=== PATIENT | male | born 1950 | race Caucasian/White ===

== ENCOUNTER 2022-08-04 17:45 | Inpatient (IN) ==
--- NOTE | 2022-08-04 18:28 | Emergency Department Note ---
History of Present Illness General Chief complaint: Fall Stated complaint: FELL, LAND ON LEFT WRIST AND HIP, PAIN Time Seen by Provider: 08/04/22 18:13 History of Present Illness Maximum Pain Intensity: 2 This is a 72-year-old male with a history of CVA currently on aspirin and clopidogrel with complaints of "fall, left wrist and left hip pain". Patient is here today accompanied by daughter. They note that around 1 PM today he was walking his dog, ascending a hill when he took a step and the dog lunged towards a car causing him to fall. This was witnessed by a neighbor. He did not strike the head or lose consciousness. Since that time he notes pain to the left hip and cannot ambulate on the left hip secondary to pain. He also notes some pain and swelling to the left wrist. Current pain 10/13. Patient is adamant he did not strike the head or lose consciousness. No headache. No neck pain. No vomiting. No nausea. Patient denies any other areas of pain beyond the left hip/wrist. Allergies Allergy/AdvReac Type Severity Reaction Status Date / Time cephalexin Allergy Unknown Verified 08/04/22 23:42 Penicillins Allergy Unknown Verified 08/04/22 23:42 prednisone Allergy Unknown Verified 08/04/22 23:42 Past Med/Surg History Social History Smoking Status: Never smoker Second Hand Exposure: No; Do You Dip or Chew Tobacco: No; Hx Alcohol Use: No Hx Substance Use: No Preferred Language: Palestinian Communication Ability: Effective Alteration Worker Required: No Beliefs That Will Affect Care: None Current Living Situation: Alone Other Information That Helps Us Care for You: No Feels Safe at Home: Yes Safety Concerns: Feels Safe At This Time Assistive Devices: CPAP Review of Systems A total of 10 systems reviewed and were otherwise negative Physical Exam Vital Signs Vital Signs - 24 hr 08/04/22 18:05 08/04/22 19:54 Temperature 36.8 C Temperature Source Temporal Artery Scan Pulse Rate 71 Pulse Rate [Finger] 84 Pulse Rhythm Regular Pulse Strength Normal Respiratory Rate 20 16 Respiratory Effort / Characteristics Non-Labored Spontaneous Respiratory Depth Normal Respiratory Pattern Regular Blood Pressure 123/77 Blood Pressure Mean 92 Blood Pressure Position Sitting Pulse Oximetry 96 97 Oxygen Delivery Method Room Air Room Air Sepsis Recent Fever Within 48 Hours No Sepsis New/Unexplained Change in Mental Status No Sepsis Action Taken by Nursing No Action Required VITAL SIGNS - Vital signs and nursing notes were reviewed. Stable and afebrile. GENERAL - 72-year-old male appearing his stated age who is in no acute distress. Communicates well with provider and answers questions appropriately. SKIN - Without rashes. No meningeal or petechial rash. Edema present to the dorsal aspect of the left wrist. No break in the integument. HEAD - NC/AT. EYES - PERRL with EOMI bilaterally. Sclera anicteric. EARS - No deformities of external structures noted on gross examination bilater ally. No pain elicited with palpation of the tragus bilaterally. External auditory canals without discharge or otorrhea. Tympanic membranes pearly quinonez without retraction or bulging. No fluid or purulent material visualized behind the TM. Handle of malleus, umbo, cone of light, pars tensa/flaccid all easily visualized. NOSE - Midline and without cyanosis. No epistaxis or purulent drainage noted. S eptum midline without deviation or septal hematoma noted. MOUTH/OROPHARYNX - Without perioral cyanosis. Buccal mucosa pink and moist and without leukoplakia. Tongue midline with equal elevation of palate bilaterally. No tonsillar hypertrophy, erythema, or exudates noted. Fair dentition noted. NECK - Neck with FROM. No C-spine tenderness. No nuchal rigidity. LUNGS - Chest wall symmetric without accessory muscle use, intercostals retractions, or central cyanosis. Normal vesicular breath sounds CTA B/L. No wheezes, rales, or rhonchi appreciated. CARDIAC -regular rate and rhythm. EXTREMITIES - No clubbing or peripheral cyanosis. Left wrist and left hip tender to palpation. Patient not able to axial load of the left hip secondary to pain to the left lateral hip joint. Left wrist with decreased range of motion. Left radial pulse intact. Left dorsalis pedis pulse intact. No deficits. No break in the integument. No bruising to the left hip noted. +5/5 strength noted in UE/LE bilaterally. NEUROLOGIC - Cranial nerves II through XII grossly intact. PSYCH - A&Ox3 and cooperates fully with examiner. Pt is very pleasant and interacts well with examiner. Course Administered Medications Memantine (Memantine Hcl 10 Mg Tab) 10 mg PO BID VALERIO Stop: 09/03/22 23:29 Last Admin: 08/05/22 00:23 Dose: 10 mg Documented By: ANGELES Ranolazine (Ranolazine 500 Mg Er Tab) 500 mg PO BID VALERIO Stop: 09/03/22 23:29 Last Admin: 08/05/22 00:23 Dose: 500 mg Documented By: ANGELES Discontinued Medications Lidocaine HCl (Xylocaine 1%/Sod Bicarb 20 Ml Vial) 20 ml INFIL NOW ONE Stop: 08/04/22 20:02 Last Admin: 08/04/22 21:44 Dose: 20 ml Documented By: LUKE Medical Decision Making Laboratory Data Result diagrams: 08/04/22 19:35 08/04/22 19:35 Lab Results 08/04/22 08/04/22 08/04/22 Range/Units 19:35 19:35 19:35 WBC 12.77 H (4.8-10.8) K/ul RBC 4.34 L (4.63-6.08) M/uL Hgb 14.1 (14.0-18.0) g/dl Hct 42.8 (40.1-51.0) % MCV 98.6 (80.0-100.0) fL MCH 32.5 (25.0-34.0) pg MCHC 32.9 (32.0-36.0) g/dL RDW Std Deviation 48.8 H (36.4-46.3) fL RDW Coeff of Carola 13.3 (11.5-14.5) % Plt Count 224 (130-400) K/uL MPV 9.8 (9.4-12.4) fL Immature Gran % (Auto) 1.0 % Neut % (Auto) 80.8 % Lymph % (Auto) 9.6 % [place] % (Auto) 7.5 % Eos % (Auto) 0.6 % Baso % (Auto) 0.5 % Neut # (Auto) 10.31 H (1.4-6.5) K/uL Lymph # (Auto) 1.23 (1.2-3.4) K/uL [place] # (Auto) 0.96 H (0.24-0.82) K/uL Eos # (Auto) 0.08 (0-0.50) K/uL Baso # (Auto) 0.06 (0-0.2) K/uL Immature Gran # (Auto) 0.13 H (0.00-0.02) K/uL PT 10.9 (9.0-12.0) Seconds INR 1.0 (0.9-1.1) APTT 21.8 (21.0-31.0) Seconds PTT Ratio 0.8 Sodium 137 (136-145) mmol/L Potassium 4.3 (3.5-5.1) mmol/L Chloride 105 (98-107) mmol/L Carbon Dioxide 26 (21-32) mmol/L Anion Gap 6 (3-11) BUN 28 H (6-23) mg/dl Creatinine 1.15 (0.6-1.4) mg/dl Est Cr Clr Drug Dosing Not Reportable Est GFR ( Amer) 72.3 ml/min Est GFR (Non-Af Amer) 62.3 ml/min BUN/Creatinine Ratio 24.3 H (10-20) Glucose 116 H (70-99(Fasting)) mg/dl Calcium 9.9 (8.5-10.1) mg/dl Total Bilirubin 1.4 H (0.2-1.0) mg/dl AST 21 (13-39) U/L ALT 16 (7-52) U/L Alkaline Phosphatase 29 L (34-104) U/L Total Protein 7.3 (6.0-8.3) gm/dl Albumin 4.1 (3.4-5.0) gm/dl Globulin 3.2 (2.5-4.0) gm/dl Albumin/Globulin Ratio 1.3 (0.9-2) SARS-CoV-2, RNA, NAAT (NEGATIVE) 08/04/22 Range/Units 19:35 WBC (4.8-10.8) K/ul RBC (4.63-6.08) M/uL Hgb (14.0-18.0) g/dl Hct (40.1-51.0) % MCV (80.0-100.0) fL MCH (25.0-34.0) pg MCHC (32.0-36.0) g/dL RDW Std Deviation (36.4-46.3) fL RDW Coeff of Carola (11.5-14.5) % Plt Count (130-400) K/uL MPV (9.4-12.4) fL Immature Gran % (Auto) % Neut % (Auto) % Lymph % (Auto) % [place]in[place] % (Auto) % Eos % (Auto) % Baso % (Auto) % Neut # (Auto) (1.4-6.5) K/uL Lymph # (Auto) (1.2-3.4) K/uL [place]in[place] # (Auto) (0.24-0.82) K/uL Eos # (Auto) (0-0.50) K/uL Baso # (Auto) (0-0.2) K/uL Immature Gran # (Auto) (0.00-0.02) K/uL PT (9.0-12.0) Seconds INR (0.9-1.1) APTT (21.0-31.0) Seconds PTT Ratio Sodium (136-145) mmol/L Potassium (3.5-5.1) mmol/L Chloride (98-107) mmol/L Carbon Dioxide (21-32) mmol/L Anion Gap (3-11) BUN (6-23) mg/dl Creatinine (0.6-1.4) mg/dl Est Cr Clr Drug Dosing Est GFR ( Amer) ml/min Est GFR (Non-Af Amer) ml/min BUN/Creatinine Ratio (10-20) Glucose (70-99(Fasting)) mg/dl Calcium (8.5-10.1) mg/dl Total Bilirubin (0.2-1.0) mg/dl AST (13-39) U/L ALT (7-52) U/L Alkaline Phosphatase (34-104) U/L Total Protein (6.0-8.3) gm/dl Albumin (3.4-5.0) gm/dl Globulin (2.5-4.0) gm/dl Albumin/Globulin Ratio (0.9-2) SARS-CoV-2, RNA, NAAT NEGATIVE (NEGATIVE) Imaging Data Radiologist's Impression: Hip/Pelvis X-Ray 08/04/22 18:25 XR hip LT 2V w pelvis CLINICAL HISTORY: Fall,L wrist and L hip pain COMPARISON STUDY: None. FINDINGS: There is nondisplaced but slightly impacted subcapital left femoral n shauna fracture. No dislocation. The pelvic bones and right hip are intact. Moderate to severe degenerative disc disease within the lower lumbar spine. IMPRESSION: Slightly impacted subcapital left femoral neck fracture. No dislocation. ACT 112: Negative or not required by law. Electronically signed by: Willie Domingo M.D. 08/04/2022 7:15 PM Wrist X-Ray 08/04/22 18:25 XR wrist LT min 3V routine CLINICAL HISTORY: Fall,L wrist and L hip pain COMPARISON STUDY: None. FINDINGS: There is a comminuted, impacted, displaced distal left radius fracture which demonstrates intra-articular extension. This demonstrates up to 1 cm dorsal displacement and dorsal angulation. There is diffuse soft tissue swelling. Small fracture at the tip of the ulnar styloid is also noted. No dislocation. IMPRESSION: Distal left radius and ulnar styloid fractures as described above. ACT 112: Negative or not required by law. Electronically signed by: Willie Domingo M.D. 08/04/2022 7:[address] 08/04/22 19:[address] DOSE: 773.57 mGy.cm HISTORY: fall, hip and wrist injuries, clopidigrel/aspirin TECHNIQUE: Multiaxial CT images of the head were performed without the use of intravenous contrast. Automated exposure control was utilized for this study. A dose lowering technique was utilized adhering to the principles of ALARA. Comparison: None. Findings: Partial opacification of the ethmoid air cells. The mastoid air cells are clear. The calvarium and skull base are intact. There is no mass, hematoma, midline shift, acute infarct. White matter hypodensity is nonspecific but bustillo ggestive of microvascular ischemic change. The ventricles and sulci demonstrate mild age-related involutional changes. Small focus of encephalomalacia within the left posterior parietal lobe consistent with an old infarct. Impression: No acute intracranial abnormality. Atrophy and microvascular ischemic changes. ACT 112: Negative or not required by law. Electronically signed by: Willie Domingo M.D. 08/04/2022 8:09 PM Hip X-Ray 08/04/22 20:01 XR hip LT 1V CLINICAL HISTORY: L lateral hip. Left hip pain. Left hip fracture. COMPARISON STUDY: Pelvis and left hip 08/04/2022. FINDINGS: Redemonstration of the subcapital left femoral neck fracture. This is partially obscured by the overlapping bony and soft tissue structures. No dislocation. IMPRESSION: Subcapital left femoral neck fracture again noted. ACT 112: Negative or not required by law. Electronically signed by: Willie Domingo M.D. 08/04/2022 8:52 PM MDM Narrative Patient was seen and evaluated as above in room D09. Review was performed of nursing notes and vital signs. After obtaining a thorough history and physical examination the above work up was performed. Patient presents to us today status post ground-level mechanical fall with left wrist and left hip pain. He actually complains of very little pain on examination and rates them as very minimal. He respectfully declines pain medication. Options of care were discussed with the patient. X-ray of the left wrist and left hip were obtained. I also obtained a CT scan of the patient's head noting his dual antiplatelet therapy in the setting of fall with extremity fractures. CT scan of the head negative for intracranial bleeding. Unfortunately the patie nt does have a subcapital left femoral neck fracture as well as a left wrist fracture. I discussed these findings with the patient, daughter, as well as the on-call orthopedist, Dr. Frank. He came to evaluate the patient and reduced his wrist. Patient will be admitted by the medicine service pending surgical intervention of his left hip. I did obtain baseline laboratory studies. Mild leukocytosis 12.77 which is felt to be reactive. No concerning anemia. Mild BUN elevation of 28. Mild hyperglycemia 116. T bili mildly elevated at 1.4. COVID testing negative. Please refer to further documentation regarding his stay. GCS: 15 In the evaluation and treatment of this patient the following differential diagnoses were entertained: Fracture, dislocation, subluxation, contusion, spra in, strain, among others. Impression & Plan Fall, Closed fracture of left hip, Closed fracture of left wrist Discharge Plan Visit Data Chief Complaint: Fall Stated Complaint: FELL, LAND ON LEFT WRIST AND HIP, PAIN ED Provider: Julius Newman ED Midlevel Provider: Yovany Liang Discharge Problem: Fall, Closed fracture of left hip, Closed fracture of left wrist Patient Disposition: Admitted As Inpatient Discharge Instructions Interventions: ED Discharge Assessment Last Done: 08/04/22 22:44
--- NOTE | 2022-08-04 19:16 | XRay Report ---
XR wrist LT min 3V routine CLINICAL HISTORY: Fall,L wrist and L hip pain COMPARISON STUDY: None. FINDINGS: There is a comminuted, impacted, displaced distal left radius fracture which demonstrates i ntra-articular extension. This demonstrates up to 1 cm dorsal displacement and dorsal angulation. The re is diffuse soft tissue swelling. Small fracture at the tip of the ulnar styloid is also noted. No dislocation. IMPRESSION: Distal left radius and ulnar styloid fractures as described above. ACT 112: Negative or not required by law. Electronically signed by: Willie Domingo M.D. 08/04/2022 7:14 PM
--- NOTE | 2022-08-04 19:17 | XRay Report ---
XR hip LT 2V w pelvis CLINICAL HISTORY: Fall,L wrist and L hip pain COMPARISON STUDY: None. FINDINGS: There is nondisplaced but slightly impacted subcapital left femoral neck fracture. No dislo cation. The pelvic bones and right hip are intact. Moderate to severe degenerative disc disease withi n the lower lumbar spine. IMPRESSION: Slightly impacted subcapital left femoral neck fracture. No dislocation. ACT 112: Negative or not required by law. Electronically signed by: Willie Domingo M.D. 08/04/2022 7:15 PM
[2022-08-04 19:58] LABS: Basophils # (auto) 0.06 K/uL (0-0.2); Basophils % (auto) 0.5 %; Eosinophils # (auto) 0.08 K/uL (0-0.50); Eosinophils % (auto) 0.6 %; Hematocrit (blood only) 42.8 % (40.1-51.0); Hemoglobin 14.1 g/dl (14.0-18.0); Immature Granulocytes # (auto) 0.13 K/uL (0.00-0.02); Lymphocytes # (auto) 1.23 K/uL (1.2-3.4); Lymphocytes % (auto) 9.6 %; Mean Corpuscular Hemoglobin 32.5 pg (25.0-34.0); Mean Corpuscular Hgb Conc 32.9 g/dL (32.0-36.0); Mean Corpuscular Volume 98.6 fL (80.0-100.0); Mean Platelet Volume 9.8 fL (9.4-12.4); Monocytes # (auto) 0.96 K/uL (0.24-0.82); Monocytes % (auto) 7.5 %; Neutrophils # (auto) 10.31 K/uL (1.4-6.5); Neutrophils % (auto) 80.8 %; Platelet Count 224 K/uL (130-400); RDW Coefficient of Variation 13.3 % (11.5-14.5); RDW Standard Deviation 48.8 fL (36.4-46.3); Red Blood Count 4.34 M/uL (4.63-6.08); White Blood Count 12.77 K/ul (4.8-10.8)
[2022-08-04] MEDS ORDERED: XYLOCAINE 1%/SOD BICARB 20 ML VIAL INFIL ONE (20:01)
--- NOTE | 2022-08-04 20:11 | CT Scan Report ---
HEAD CT NONCONTRAST CT DOSE: 773.57 mGy.cm HISTORY: fall, hip and wrist injuries, clopidigrel/aspirin TECHNIQUE: Multiaxial CT images of the head were performed without the use of intravenous contrast. A utomated exposure control was utilized for this study. A dose lowering technique was utilized adheri ng to the principles of ALARA. Comparison: None. Findings: Partial opacification of the ethmoid air cells. The mastoid air cells are clear. The calvar ium and skull base are intact. There is no mass, hematoma, midline shift, acute infarct. White matter hypodensity is nonspecific but suggestive of microvascular ischemic change. The ventricles and sulci demonstrate mild age-related involutional changes. Small focus of encephalomalacia within the left p osterior parietal lobe consistent with an old infarct. Impression: No acute intracranial abnormality. Atrophy and microvascular ischemic changes. ACT 112: Negative or not required by law. Electronically signed by: Willie Domingo M.D. 08/04/2022 8:09 PM
[2022-08-04 20:13] LABS: Partial Thromboplastin Ratio 0.8; Partial Thromboplastin Time 21.8 Seconds (21.0-31.0); Prothrombin Time 10.9 Seconds (9.0-12.0)
[2022-08-04 20:29] LABS: Alanine Aminotransferase 16 U/L (7-52); Albumin Globulin Ratio 1.3 (0.9-2); Albumin Level 4.1 gm/dl (3.4-5.0); Alkaline Phosphatase 29 U/L (34-104); Anion Gap 6 (3-11); Aspartate Aminotransferase 21 U/L (13-39); BUN Creatinine Ratio 24.3 (10-20); Bilirubin,Total 1.4 mg/dl (0.2-1.0); Blood Urea Nitrogen 28 mg/dl (6-23); Calcium 9.9 mg/dl (8.5-10.1); Carbon Dioxide 26 mmol/L (21-32); Chloride 105 mmol/L (98-107); Est GFR (African American) 72.3 ml/min; Est GFR (Non-African American) 62.3 ml/min; Globulin 3.2 gm/dl (2.5-4.0); Glucose 116 mg/dl (70-99(Fasting)); Potassium 4.3 mmol/L (3.5-5.1); Sodium 137 mmol/L (136-145); Total Protein 7.3 gm/dl (6.0-8.3)
[2022-08-04] MEDS ORDERED: ONDANSETRON INJ 2 MG/ML 2 ML VIAL IV PRN (20:46)
[2022-08-04] MEDS ORDERED: ALUMINUM/MAGNESIUM SUSP 30 ML UDC PO PRN (20:46)
[2022-08-04] MEDS ORDERED: MAGNESIUM HYDROXIDE SUSP 30 ML UDC PO PRN (20:46)
[2022-08-04] MEDS ORDERED: POLYETHYLENE (MIRALAX) 17 GM PACK PO PRN (20:46)
--- NOTE | 2022-08-04 20:50 | History & Physical Report ---
Date of Service August 04, 2022 Assessment & Plan (1) Fall: Plan Mechanical fall, ground-level Likely osteoporotic fracture Comminuted intra-articular left distal radius fracture Nondisplaced impacted left femoral neck fracture Patient had a mechanical fall, denies hitting head. Admitting CT head, hip x-ray and wrist x-ray reviewed. Admitting blood works fairly WNL. Orthopedics evaluated, status post closed reduction of left wrist 08/04, plan for ORIF with hip cannulated screw on 08/05 Pain management, n.p.o. midnight Patient able to walk 2-3 flight of stairs and 2 blocks without chest pain/shortness of breath/dizziness per patient. Patient with history of significant cardiovascular disease. Patient at moderate risk for this needed surgery. Other chronic medical conditions: CAD, CVA, HLD, HTN --> resume home meds as able DVT prophylaxis: SCDs for now, chemoprophylaxis per Ortho when bleeding risks deemed minimal after surgery. Full code History of Present Illness Chief Complaint: Fall Primary Care Provider: NO PCP 72-year-old man with PMH of CAD, HTN, sinus bradycardia, HLD, CVA presented to our ED 08/04 after fall on the left side. Patient was walking with dog uphill when at one time the dog got excited and jerked the leash and patient fell on his left side, injured his left hand and left hip. Reports he did not hit his head. Denies any dizziness or loss of consciousness or chest pain or palpitation or nausea or warmth or seizure-like episodes surrounding the event. Patient denies any fever, shortness of breath, headache, chest pain, palpitation, belly pain. Patient reports not urinating since after the fall but denies any problems with his urinary habits. Patient denies any lower abdominal pain. We will continue to monitor his urine output, bladder scan if necessary. Patient denies smoking, quit drinking alcohol 1984, denies use of recreational drugs. Full code as per discussion with patient. 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 Family history positive for DC in both parents and stroke in both parents. Personal history positive for stroke in 1982, residual right peripheral vision loss. Seizure in 1983. Coronary artery disease status post stents x1 in 2005 and x1 in 2010 and double bypass surgery in 2000 per patient's daughter at bedside. Per patient, he is able to walk 2-3 flight of stairs and 2 blocks without any chest pain or shortness of breath or dizziness. Medications reviewed with the patient. Patient takes isosorbide mononitrate ER tablet 30 mg every morning, lisinopril 10 mg tablet every morning, fenofibrate 145 mg tablet every morning, baby aspirin every morning, Plavix 75 mg every mo rning, donepezil 10 mg tablet every morning, memantine 10 mg tablet twice daily, ranolazine 500 mg tablet twice daily, atorvastatin 80 mg tablet every morning. Allergies Allergy/AdvReac Type Severity Reaction Status Date / Time cephalexin Allergy Unknown Verified 08/04/22 23:42 Penicillins Allergy Unknown Verified 08/04/22 23:42 prednisone Allergy Unknown Verified 08/04/22 23:42 Past Med/Surg History Social History Smoking Status: Never smoker Second Hand Exposure: No; Do You Dip or Chew Tobacco: No; Hx Alcohol Use: No Hx Substance Use: No Preferred Language: Georgian Communication Ability: Effective Locator Specialist Required: No Beliefs That Will Affect Care: None Current Living Situation: Alone Other Information That Helps Us Care for You: No Feels Safe at Home: Yes Safety Concerns: Feels Safe At This Time Assistive Devices: CPAP Review of Systems Review of Systems: Negative otherwise mentioned in HPI. Physical Exam Physical Exam: GENERAL: Alert and oriented x3. NAD, on RA. HEENT: No pallor, no icterus. Pupils equal, round and reactive to light. Oral mucosa moist. NECK: No JVD, no neck masses. HEART: S1 and S2 heard. Regular rate and rhythm. No murmur, no gallop. RESPIRATORY SYSTEM: Normal AP diameter. No accessory muscle use. No wheezing, no crackles. ABDOMEN: Soft, bowel sounds present, nontender, no distention. CENTRAL NERVOUS SYSTEM: No facial droop. Speech is clear. Obeys simple commands. Moves extremities. EXTREMITIES: Trace BLE edema, bilateral varicose veins noted, bilateral lower extremity chronic skin changes noted. Left UE with splint and sling noted, distal neurovascular status normal in left extremities. Results & Data Results & Data ([facility]) Vital Signs (Past 12 Hours) Vital Signs Temp Pulse Pulse Resp BP Pulse Ox O2 Del Method 08/04/22 19:54 84 16 97 Room Air 08/04/22 18:05 36.8 C 71 20 123/77 96 Room Air
--- NOTE | 2022-08-04 20:53 | XRay Report ---
XR hip LT 1V CLINICAL HISTORY: L lateral hip. Left hip pain. Left hip fracture. COMPARISON STUDY: Pelvis and left hip 08/04/2022. FINDINGS: Redemonstration of the subcapital left femoral neck fracture. This is partially obscured by the overlapping bony and soft tissue structures. No dislocation. IMPRESSION: Subcapital left femoral neck fracture again noted. ACT 112: Negative or not required by law. Electronically signed by: Willie Domingo M.D. 08/04/2022 8:52 PM
--- NOTE | 2022-08-04 22:39 | Progress Notes ---
DATE OF SERVICE: 08/04/2022 CHIEF COMPLAINT: Left wrist pain, left hip pain. HISTORY OF PRESENT ILLNESS: Cristobal is 72. He is from the [place] area. Here visiting family. He was walking with a dog. The dog ran it something causing him to lose his balance, fall down and injured the left hip and left wrist. He was unable to walk. Because of the injury, he was brought to the ER where fractures were identified. There is no prior history of injury to those areas. He denies any tingling or numbness. PAST MEDICAL HISTORY: Significant for mild dementia, stroke, seizure, CABG, stents, varicose vein stripping, questionable history of a blood clot, lumbar surgery and peripheral artery disease. He has an ALLERGY TO PENICILLIN, WHICH CAUSES A RASH. PREDNISONE AND CEPHALEXIN HAVE CAUSED REACTION, which he cannot recall. No allergy to metals. He has never had an embolism, methicillin-resistant Staphylococcus infection, diabetes, high blood pressure, or cancer. He is awake, alert and oriented. Examination of the left arm reveals swelling and tenderness with deformity of the left wrist. Median, radial, and ulnar motor and sensory functions are intact with 4/5 strength, limited by pain. He has good finger extension, but limited flexion secondary to pain, wrist movement is limited because of pain. Capillary refill less than 2 seconds. Radial pulse 1+. Skin closed. He has no tenderness of the hand, forearm or elbow and he has good elbow range of motion. Examination of the left leg reveals mild tenderness to palpation of the left hip. He can flex his knee to 90 degrees. Straighten the leg out on his own. The leg is not otherwise tender or swollen. He has 5/5 ankle and toe, plantar flexion, dorsiflexion, inversion and eversion strength, normal sensation and 2+ DP and PT pulses. Radiographs of the wrist demonstrated a comminuted intraarticular fracture of the distal radius. Hip films demonstrate a nondisplaced impacted subcapital femoral neck fracture. Reports are reviewed. Informed consent is obtained. Preprocedural timeout was done. The procedure site identified as the left wrist. I anesthetized with 10 mL of 1% plain lidocaine for hematoma block. After adequate analgesia, I did a closed reduction maneuver x2 and then applied a sugar-tong splint. The splint was molded. Post-reduction median, radial, and ulnar motor and sensory functions were intact with normal strength. Capillary refill less than 2 seconds. Post- reduction radiographs showed reasonable alignment on the lateral. The tilting was neutral. The AP; however, showed that there is a large lunate facet fragment, which is slightly displaced. The radial height was good. Sling was applied along with ice. IMPRESSION: 1. Comminuted intraarticular left distal radius fracture. 2. Nondisplaced impacted left femoral neck fracture. PLAN: They were educated about the wrist injury. I recommend closed reduction, which is done. The reduction improved the alignment; however, there is comminution and likely an unstable fracture. This may require ORIF. We will get a CT scan to further evaluate the degree of injury as well as the alignment. At this time, this will be addressed with the sling and splint pending the CT scan. The left hip fracture is reviewed. Risk of displacement of left alone. I recommend percutaneous screws if the alignment remains anatomic, if not, hemiarthroplasty. We talked about the risks, benefits, rehab and recovery involving each one and informed consent was obtained. He will be n.p.o. after midnight. Plan for surgery tomorrow for percutaneous screws on the left hip. He is not on a blood thinner. Mechanical devices for DVT prophylaxis preoperatively. labs noted. [employer] noted Job ID: [id number]
[2022-08-05] MEDS: MEMANTINE HCL 10 MG TAB PO SCH ×3 (00:23→20:25)
[2022-08-05] MEDS: RANOLAZINE 500 MG ER TAB PO SCH ×3 (00:23→20:26)
[2022-08-05] MEDS ORDERED: Flu Vaccine-High Dose (Fluzone-HD) PF 65+ 0.7mL SYR IM ONE (00:45)
[2022-08-05 06:11] LABS: Hematocrit (blood only) 39.7 % (40.1-51.0); Mean Corpuscular Hemoglobin 32.1 pg (25.0-34.0); Mean Corpuscular Hgb Conc 32.7 g/dL (32.0-36.0); Mean Platelet Volume 9.7 fL (9.4-12.4); Platelet Count 207 K/uL (130-400); RDW Coefficient of Variation 13.4 % (11.5-14.5); RDW Standard Deviation 49.1 fL (36.4-46.3); Red Blood Count 4.05 M/uL (4.63-6.08); White Blood Count 9.84 K/ul (4.8-10.8)
[2022-08-05 06:34] LABS: BUN Creatinine Ratio 25.3 (10-20); Calcium 8.8 mg/dl (8.5-10.1); Creatinine Clr Calc Pharmacy 82.5 ml/min; Est GFR (African American) 86.6 ml/min; Est GFR (Non-African American) 74.7 ml/min; Magnesium 1.9 mg/dl (1.7-2.4); Phosphorus 3.4 mg/dl (2.5-4.9); Potassium 3.7 mmol/L (3.5-5.1)
--- NOTE | 2022-08-05 07:38 | CT Scan Report ---
LEFT WRIST CT CT DOSE: 177.98 mGy.cm HISTORY: Left wrist pain TECHNIQUE: Multiaxial CT images of the left wrist were performed and reformatted in the sagittal and coronal plane without the use of contrast. A dose lowering technique was utilized adhering to the pr inciples of HIRAL. COMPARISON: Left wrist radiograph 08/04/2022. FINDINGS: There is a comminuted, impacted, and displaced distal left radius fracture which demonstrat es intra-articular extension. There is 1 cm of dorsal displacement and dorsal angulation. There is di ffuse soft tissue swelling. Small fracture the tip of the ulnar styloid is again noted. There is an o ld small fracture at the triquetral bone. IMPRESSION: Distal left radius and ulnar styloid fractures as described above. ACT 112: Negative or not required by law. Electronically signed by: Willie Domingo M.D. 08/05/2022 7:37 AM
--- NOTE | 2022-08-05 07:40 | Fluoroscopy Report ---
FL wrist LT 2V CLINICAL HISTORY: Left wrist fracture status post reduction. COMPARISON STUDY: Left wrist CT 08/04/2022. FLUOROSCOPY TIME: 3 seconds. FINDINGS: 3 fluoroscopic spot images of the left wrist demonstrate reduction of the distal left radiu s fracture with improved anatomic alignment. There is mild distraction of the intra-articular compone nt of the comminuted fracture. Tiny fracture at the tip of the ulnar styloid. No dislocation. IMPRESSION: Improved anatomic alignment status post reduction of the distal left radius fracture. ACT 112: Negative or not required by law. Electronically signed by: Willie Domingo M.D. 08/05/2022 7:38 AM
--- NOTE | 2022-08-05 08:12 | Anesthesiology Consultation ---
Date of Service August 05, 2022 Assessment & Plan (1) Encounter for pre-operative examination: History Surgery Operation Date: 08/05/22 09:00 Proposed Procedures p ORIF Hip Cannulated Screw - Fredis Frank MD Height/Weight Height: 6 ft 5 in Weight: 99 kg Allergies Allergy/AdvReac Type Severity Reaction Status Date / Time cephalexin Allergy Unknown Verified 08/04/22 23:42 Penicillins Allergy Unknown Verified 08/04/22 23:42 prednisone Allergy Unknown Verified 08/04/22 23:42 Medications Active Medications Generic Name Dose Route Start Last Admin Trade Name Freq PRN Reason Stop Dose Admin Memantine 10 mg 08/04/22 23:30 08/05/22 00:23 Memantine Hcl 10 Mg Tab PO 09/03/22 23:29 10 mg BID VALERIO Administration Ranolazine 500 mg 08/04/22 23:30 08/05/22 00:23 Ranolazine 500 Mg Er Tab PO 09/03/22 23:29 500 mg BID VALERIO Administration Past Medical History Medical History (Updated 08/05/22 @ 08:50 by Nettie Bustillo MD) Closed fracture of left hip Closed fracture of left wrist Fall Hx CAD, HTN, sinus bradycardia, HLD, 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, no other deficits CASSIE on CPAP IA s/p CABG x 2 vessels 2001 s/p stents 2005 and 2010 Seizure 1984 due to medications Lumbar surgery 2006 LE vein stripping Social History Smoking Status: Never smoker Do You Dip or Chew Tobacco: No Hx Alcohol Use: No Hx Substance Use: No Physical Exam Vital Signs Last Vital Signs Temp 37.1 C 08/05/22 07:37 Pulse 62 08/05/22 07:37 Resp 18 08/05/22 07:37 BP 136/77 08/05/22 07:37 Pulse Ox 91 08/05/22 07:37 O2 Del Method 08/05/22 07:37 Testing Laboratory Results 08/05/22 05:21 08/05/22 05:21 PT 10.9 Seconds (9.0-12.0) 08/04/22 19:35 INR 1.0 (0.9-1.1) 08/04/22 19:35 APTT 21.8 Seconds (21.0-31.0) 08/04/22 19:35 Electrocardiogram Date: 08/05/22 Findings: + NSR @ NSR with sinus arrhythmia
--- NOTE | 2022-08-05 08:21 | History & Physical Bridge Note ---
Date of Service August 05, 2022 History & Physical Bridge Note I have examined the patient, reviewed the History & Physical and in the interval since the performance of the History & Physical I have noted the following changes of clinical significance: no changes noted
[2022-08-05] MEDS ORDERED: ONDANSETRON INJ 2 MG/ML 2 ML VIAL ONE ×2 (08:47→10:58)
[2022-08-05] MEDS ORDERED: fentaNYL citrate 100 MCG/2 ML VIAL ONE (08:47)
[2022-08-05] MEDS ORDERED: LIDOCAINE 2% MPF LOCAL 5 ML VIAL INFIL ONE (08:47)
[2022-08-05] MEDS ORDERED: ROCURONIUM BROMIDE 10 MG/ML 5 ML VIAL IV ONE (08:47)
[2022-08-05] MEDS ORDERED: PROPOFOL IV EMULSION 10 MG/ML 20 ML VIAL IV ONE (08:47)
--- NOTE | 2022-08-05 08:51 | Progress Notes ---
DATE OF SERVICE: 08/05/2022. Mr. Hussein resting comfortably in bed. He remembers the events of yesterday and that he is having bustillo rgery. He is comfortable and in no acute distress. Left hand shows mild loss of range of motion, minimal swelling of the fingers. Capillary refill less than 2 seconds. Median, radial, and ulnar motor and sensory functions intact. The splint is intact . The left hip was identified and marked as the operative site. He is afebrile. His vital signs are s table. His labs today are noted. Hemoglobin 13, hematocrit is 40. PT/INR are noted. PRP noted. C OVID negative. The wrist CT is reviewed. He has a significantly comminuted intraarticular fracture of the distal ra dius. The alignment at this point is reasonable. There is good height, neutral to slight dorsal til ting. Significant comminution noted. There is minimal articular irregularity, but some diastasis. IMPRESSION: An impacted left hip fracture and a comminuted intraarticular left distal radius fractur e. PLAN: To proceed with cannulated screws versus hemiarthroplasty, left hip this morning. In regards to the wrist, alignment is acceptable at this point. Operative intervention may be necessary should collapse occur. We will discuss with hand surgery. Job ID: [id number]
[2022-08-05] MEDS ORDERED: ASPIRIN 81 MG ECTAB PO SCH (09:00)
[2022-08-05] MEDS ORDERED: LIDOCAINE 1%/EPINEPHRINE 1:100,000 50 ML VIAL ONE (09:26)
[2022-08-05] MEDS ORDERED: BUPIVACAINE 0.5 % 5 MG/1 ML MPF 30ML VIAL ONE (09:26)
[2022-08-05] MEDS ORDERED: ceFAZolin 330 MG/ML 1 GM VIAL ONE (09:43)
[2022-08-05] MEDS ORDERED: TRANEXAMIC ACID / 0.7% NACL 1000MG/100ML BAG IV ONE (09:45)
[2022-08-05] MEDS ORDERED: ONDANSETRON INJ 2 MG/ML 2 ML VIAL IV PRN (10:57)
[2022-08-05] MEDS ORDERED: HYDROmorphone INJ 1 MG/ML SYRINGE IV PRN (10:57)
[2022-08-05] MEDS ORDERED: ATROPINE SULFATE 0.1 MG/ML 10ML SYR IV PRN (10:57)
[2022-08-05] MEDS ORDERED: GLYCOPYRROLATE 0.2 MG/ML VIAL ONE (10:57)
[2022-08-05] MEDS ORDERED: NEOSTIGMINE METHYLSULFATE 1 MG/ML 10ML VIAL ONE (10:57)
[2022-08-05] MEDS ORDERED: ePHEDrine sulfate 50 MG/ML AMP IV PRN (10:57)
[2022-08-05] MEDS ORDERED: fentaNYL citrate 100 MCG/2 ML VIAL IV PRN (10:57)
--- NOTE | 2022-08-05 11:17 | Operative Report ---
Post Operative Report Pre & Post Diagnosis Operation Date: 08/05/22 09:00 Pre-Op Diagnosis: Left Hip Fracture, minimally displaced valgus impacted anatomically aligned Post-Op Diagnosis: Left Hip Fracture, same I identified the patient and participated in the time-out.: Yes Procedure Operation Date: 08/05/22 09:00 Actual Procedures p Percutaneous Screw Fixation Left Hip(Left) - Fredis Frank MD Surgeon Fredis Frank MD Eligibility Clerk NENA Leavitt no resident or fellow available Estimated Blood Loss 5 Findings Consistent with Post-Op Diagnosis Specimens None Anesthesia Type General Regional Complications none Disposition Accompanied Patient To Recovery: No Disposition: Recovery Room Indications Cristobal is 72. He fell yesterday fracturing his left wrist and left hip. The left hip fractures a nondisplaced well aligned valgus impacted transcervical femoral neck fracture. His left wrist has been treated thus far with nonoperative methods. Description of Procedure Informed consent obtained. Timeout performed. Patient identified. He identified the operative site as the left hip. I marked with my initials. Preop surgical timeout performed. Preop dose of IV antibiotics given. He was taken to the OR positioned supine on the fracture table after administration of the anesthetic. Care was taken at all times to protect the left hip. A padded perineal post was applied and he was slid distally until that contacted the perineum. The table was shifted to the ipsilateral side and the left arm was folded over his chest padded with eggcrate and the torso was secured to the table with tape strips x3. The left leg was then padded with the foot and placed into the traction boot with gentle minimal traction and slight internal rotation. The uninvolved leg was placed into the well-leg thornton and physiologic abduction flexion of less than 90 degrees at the hip and physiologic external rotation. SCDs for intraoperative DVT prophylaxis. Postop Lovenox and early mobility. Fluoroscopic guidance was utilized to visualize the fracture confirmed there was nondisplaced and confirm adequate visualization. TXA given. Bony prominences inspected and padded. Scrotum was taped out of the operative field. Fluoroscopic guidance was utilized to identify the orientation of the proximal femur in the position for the incision. The incision was made on the upper lateral thigh. Electrocautery was utilized down to the subcutaneous tissues and the IT band was divided in line with the incision. Blunt dissection with a Olsen elevator to expose the femur. A guidepin was then introduced in the central portion of the femoral neck on the lateral view and at the inferior portion of the femoral neck on the AP view. This was adjusted x1 for good positioning. A second pin was placed central on the AP and posterior on the lateral. A third pin was placed anterior superior. After confirming good positioning of the pins they were sequentially measured countersunk drilled for the near cortex, inserted under power and finished by hand. 7.3 cannulated screws. Positioning was good. About a centimeter from the joint surface. Across the fracture site. Short threads utilized. [employer] 6 Teacher images obtained. Guidepin was removed. Irrigation. Hemostasis. IT band closed with #1 Vicryl interrupted. Subcutaneous fat closed with 0 Vicryl. Dermal layer with 2-0 Vicryl followed by obdulio. Local anesthetic 1% lidocaine with epinephrine and half percent plain Marcaine injected into the skin and subcutaneous tissues. Patient awakened from anesthesia and taken to the recovery room in stable condition. There were no specimens or complications. Counts were correct. Blood loss is estimated to be 5 cc. At the conclusion of the operation spoke to patient's family informed them of my findings and postop instructions were given. Begin Lovenox the morning after surgery. He may weight-bear as tolerated on the left leg. He will need a platform walker for his left upper extremity. Synthes 7.3 cannulated screws utilized. I attest to the content of the Intraoperative Record and any orders documented therein. Any exceptions are noted below.
[2022-08-05] MEDS ORDERED: oxyCODONE HCL IR 5 MG TAB (IMMEDIATE RELEASE) PO PRN (11:25)
--- NOTE | 2022-08-05 11:25 | Operative Report ---
Post Operative Report Pre & Post Diagnosis Operation Date: 08/05/22 09:00 Pre-Op Diagnosis: Left Hip Fracture Post-Op Diagnosis: Left Hip Fracture I identified the patient and participated in the time-out.: Yes Procedure Operation Date: 08/05/22 09:00 Actual Procedures p Percutaneous Screw Fixation Left Hip(Left) - Fredis Frank MD Surgeon Fredis Frank MD Directional Drill Operator NENA Leavitt no resident or fellow available Estimated Blood Loss 5 Findings Consistent with Post-Op Diagnosis Specimens none Description of Procedure I was present during the entire case assisting with positioning, prepping, draping, wound retraction, wound closure and dressing application. No fellow present. Please see Dr. Frank procedure note for specifics of the case. I attest to the content of the Intraoperative Record and any orders documented therein. Any exceptions are noted below.
--- NOTE | 2022-08-05 11:26 | Fluoroscopy Report ---
FL hip LT 1V CLINICAL HISTORY: LT HIP FX COMPARISON STUDY: Pelvis and left hip radiographs August 04, 2022. FLUOROSCOPY TIME: 2 minutes and 14 seconds. FLUOROSCOPIC IMAGES: 2 FINDINGS: Fluoroscopy was provided during internal fixation of the left femoral neck fracture with 3 cannulated screws. Hardware is intact. No unexpected radiopaque foreign bodies. Fracture alignment is anatomic. IMPRESSION: Fluoroscopy provided during internal fixation of the left femoral neck fracture with 3 c annulated screws. ACT 112: Negative or not required by law. Electronically signed by: Fuad Cruz M.D. 08/05/2022 11:23 AM
[2022-08-05] MEDS ORDERED: diphenhydrAMINE 50 MG/ML VIAL IV PRN (11:30)
[2022-08-05] MEDS ORDERED: ALUMINUM/MAGNESIUM SUSP 30 ML UDC PO PRN (11:30)
[2022-08-05] MEDS ORDERED: ceFAZolin 2000MG 2,000 MG/15 ML SYR IV ONE (12:00)
--- NOTE | 2022-08-05 12:16 | Orthopedic Consultation ---
Date of Consultation August 05, 2022 Assessment & Plan (1) Closed fracture of left distal radius: He has a fairly severely comminuted left distal radius fracture. He has already undergone reduction and splinting by Dr. Frank. I would recommend surgical fixation of this fracture pattern. I think this can be adequately managed with a volar distal radius locking plate. Timing of surgery is little bit unclear at this point. He just had had left hip surgery this morning. He may be discharged from the hospital in a few days. If so, I can see him back in clinic and get him set up for left wrist fracture fixation surgery as an outpatient. I will be in the hospital operating this coming 08/10/22, and if the patient is still an inpatient at that point, I can get his wrist surgery done on that date. If he is discharged prior to , please call [facility] [place] at [phone] to make an appointment and get set up for outpatient surgery. In the meantime, he needs to remain nonweightbearing through the left wrist. He may weight-bear through his left elbow with a p latform walker. History of Present Illness Reason for Consultation: Left distal radius fracture Requesting Physician: Dr. Frank Attending Physician: Israel Fernandez MD History of Present Illness Mr. Hussein is a 72-year-old [id number] male who injured his left wrist and left hip during a ground-level fall yesterday 08/04/22. He states that he was walking his son's dog uphill when the dog suddenly jerked on the leash and pulled him over. He landed on his left hip and left outstretched wrist. He had immediate pain and deformity in both the left hip and left wrist. He was unable to bear weight on the left leg. He was brought to the hospital. He underwent surgical fixation of the femoral neck hip fracture with percutaneous screws by Dr. Frank this morning. During hip surgery, Dr. Frank did perform a reduction and splinting of the left wrist fracture. After the hip surgery was complete, Dr. Frank contacted me for assistance with management of the left wrist fracture. Patient is somewhat of a poor historian with his past medical history, but upon interview with the patient and chart review, it does look like he has a history of coronary artery disease status post stenting and coronary artery bypass grafting. Patient denies history of myocardial infarction. He has had a stroke in the past. He denies ever having been evaluated for osteoporosis in the past, and does not think he has ever had a DEXA scan. Allergies Allergy/AdvReac Type Severity Reaction Status Date / Time cephalexin Allergy Unknown Verified 08/04/22 23:42 Penicillins Allergy Unknown Verified 08/04/22 23:42 prednisone Allergy Unknown Verified 08/04/22 23:42 Patient History Medical History (Updated 08/05/22 @ 14:23 by John Calderon M.D.) Closed fracture of left hip Closed fracture of left wrist Fall Social History Smoking Status: Never smoker Second Hand Exposure: No; Do You Dip or Chew Tobacco: No; Hx Alcohol Use: No Hx Substance Use: No Preferred Language: Bahraini Communication Ability: Effective [place] Mold Maker Required: No Beliefs That Will Affect Care: None Current Living Situation: Alone Other Information That Helps Us Care for You: No Feels Safe at Home: Yes Safety Concerns: Feels Safe At This Time Assistive Devices: CPAP Physical Exam Physical Exam: Examination of the left wrist reveals a well fitting sugar-tong splint in place. This was not removed. Motor and sensory function is intact in the median, ulnar, and radial nerve distributions. Results & Data ([facility]) Vital Signs (Past 12 Hours) Vital Signs Temp Pulse Pulse Resp BP Pulse Ox O2 Del Method 08/05/22 12:00 86 22 146/76 H 95 Room Air 08/05/22 11:50 36.6 C 84 20 124/89 100 Room Air 08/05/22 11:40 90 21 151/87 H 100 Oxymask 08/05/22 11:30 90 20 142/82 H 100 Oxymask 08/05/22 11:24 36.3 C L 92 H 14 148/84 H 100 Oxymask 08/05/22 07:37 37.1 C 62 18 136/77 91 Room Air O2 Flow Rate 08/05/22 12:00 08/05/22 11:50 08/05/22 11:40 4 08/05/22 11:30 4 08/05/22 11:24 6 08/05/22 07:37 Diagnostic Findings Left wrist x-rays and CT scan were reviewed. They show a fairly severely comminuted and moderately displaced left distal radius fracture. There are coronal and sagittal plane splits extending distally into the articular surface, making this at least a 5 part intra-articular fracture. 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 (1) Closed fracture of left distal radius Encounter type: initial encounter Fracture morphology: Liana' Qualified Code(s): S52.532A - Colles' fracture of left radius, initial encounter for close d fracture
--- NOTE | 2022-08-05 12:16 | XRay Report ---
XR hip LT min 2V CLINICAL HISTORY: Post-Operative implant position COMPARISON: Left hip radiographs August 04, 2022. FINDINGS: There are expected postoperative findings following internal fixation of the subcapital le ft femoral fracture with 3 cannulated screws. Hardware is intact. Fracture alignment is near anatomic . Skin obdulio are present. IMPRESSION: Expected findings following internal fixation of the subcapital left femoral fracture. ACT 112: Negative or not required by law. Electronically signed by: Fuad Cruz M.D. 08/05/2022 12:15 PM
[2022-08-05] MEDS: CLOPIDOGREL BISULFATE 75 MG TAB PO SCH (12:31)
[2022-08-05] MEDS: ATORVASTATIN 40 MG TAB PO SCH (12:33)
[2022-08-05] MEDS: lisinopril 10 MG TAB PO SCH (12:33)
[2022-08-05] MEDS: ISOSORBIDE MONO EXTENDED REL 30 MG TABCR PO SCH (12:33)
[2022-08-05] MEDS: FENOFIBRATE NANOCRYSTALLIZED 145 MG TABLET PO SCH (12:33)
[2022-08-05] MEDS: DONEPEZIL HCL 10 MG TAB PO SCH (12:33)
--- NOTE | 2022-08-05 14:32 | Anesthesiology Progress Note ---
Date of Service August 05, 2022 Anesthesia Post Procedure Vital Signs Vital Signs: Temp Pulse Pulse Pulse Resp BP BP 08/05/22 14:20 36.7 C 73 20 148/75 H 08/05/22 12:50 36.7 C 66 18 119/63 08/05/22 13:20 37.1 C 73 18 135/74 08/05/22 12:50 36.5 C 77 14 145/74 H 08/05/22 12:20 36.5 C 82 16 136/68 08/05/22 12:10 83 24 144/73 H 08/05/22 12:00 86 22 146/76 H 08/05/22 11:50 36.6 C 84 20 124/89 08/05/22 11:40 90 21 151/87 H 08/05/22 11:30 90 20 142/82 H 08/05/22 11:24 36.3 C L 92 H 14 148/84 H 08/05/22 07:37 37.1 C 62 18 136/77 08/04/22 23:53 37.5 C 72 16 162/81 H 08/04/22 21:42 36.9 C 57 L 20 133/72 08/04/22 19:54 84 16 08/04/22 18:05 36.8 C 71 20 123/77 Pulse Ox O2 Del Method O2 Flow Rate 08/05/22 14:20 96 Room Air 08/05/22 12:50 95 Room Air 08/05/22 13:20 95 Room Air 08/05/22 12:50 95 Room Air 08/05/22 12:20 98 Room Air 08/05/22 12:10 96 Room Air 08/05/22 12:00 95 Room Air 08/05/22 11:50 100 Room Air 08/05/22 11:40 100 Oxymask 4 08/05/22 11:30 100 Oxymask 4 08/05/22 11:24 100 Oxymask 6 08/05/22 07:37 91 Room Air 08/04/22 23:53 94 Room Air 08/04/22 21:42 91 Room Air 08/04/22 19:54 97 Room Air 08/04/22 18:05 96 Room Air Pain Intensity Left Arm: Pain Intensity: 4 Transfer of Care Handoff Completed per policy Notes Mental Status: alert / awake / arousable and participated in evaluation Patient Amnestic to Procedure: Yes Nausea / Vomiting: adequately controlled Pain: adequately controlled Airway Patency, RR, SpO2: stable & adequate BP & HR: stable & adequate Hydration State: stable & adequate Anesthetic Complications: no major complications apparent and Pt Satisfied with anesthetic care
--- NOTE | 2022-08-05 14:53 | Electrocardiogram Report ---
Test Reason : Blood Pressure : / mmHG Vent. Rate : 065 BPM Atrial Rate : 065 BPM P-R Int : 152 ms QRS Dur : 098 ms QT Int : 426 ms P-R-T Axes : 051 072 060 degrees QTc Int : 443 ms Normal sinus rhythm with sinus arrhythmia Normal ECG No previous ECGs available Confirmed by Skyler Ruano ([id number]) on 08/05/2022 2:53:35 PM Referred By: REFERRED SELF Confirmed By:Skyler Ruano
--- NOTE | 2022-08-05 15:54 | Hospitalist Progress Note ---
Date of Service August 05, 2022 Assessment & Plan (1) Fall: Plan per admitting service notes with addendum: Mechanical fall, ground-level Likely osteoporotic fracture Comminuted intra-articular left distal radius fracture Nondisplaced impacted left femoral neck fracture Patient had a mechanical fall, denies hitting head. Admitting CT head, hip x-ray and wrist x-ray reviewed. Admitting blood works fairly WNL. Orthopedics evaluated, status post closed reduction of left wrist 08/04, plan for ORIF with hip cannulated screw on 08/05 Pain management, n.p.o. midnight Patient able to walk 2-3 flight of stairs and 2 blocks without chest pain/shortness of breath/dizziness per patient. Patient with history of significant cardiovascular disease. Patient at moderate risk for this needed surgery. 08/05 s/p Percutaneous Screw Fixation Left Hip(Left) - Fredis Frank MD stable post op so far on Lovenox PT/OT eval for outpatient wrist surgery Other chronic medical conditions: CAD, CVA, HLD, HTN --> resume home meds DVT prophylaxis: Lovenox Full code Admission and Anticipated Discharge Date Admission Date: August 04, 2022 Subjective ff up for L hip and L wrist fracture, etc seen resting in bed, comfortable sitting up in good spirits states he feels fine overall minimal discomfort over left hip and wrist no chest pain, dyspnea, palpitations, dizziness no other symptoms Review of Systems 2 Review of Systems: all noted and negative except for above Physical Exam Physical Exam: General- oriented x 3, not in distress, speaks in sentences with no effort or accessory muscle use Eyes- anicteric Neck- no JVD Lungs- clear breath sounds bilaterally, no rales/wheezes Heart- normal rate, regular rhythm; no murmurs Abdomen- normal bowel sounds, nondistended, soft, nontender Extremities- no pretibial edema, no calf tenderness L arm- splint in place L hip- dressing in place Neuro- alert, oriented x 3; no gross focal neurologic deficits Skin- warm & dry Results & Data Results & Data ([facility]) Vital Signs (Past 12 Hours) Vital Signs Temp Pulse Pulse Resp BP Pulse Ox O2 Del Method 08/05/22 14:20 36.7 C 73 20 148/75 H 96 Room Air 08/05/22 12:50 36.7 C 66 18 119/63 95 Room Air 08/05/22 13:20 37.1 C 73 18 135/74 95 Room Air 08/05/22 12:50 36.5 C 77 14 145/74 H 95 Room Air 08/05/22 12:20 36.5 C 82 16 136/68 98 Room Air 08/05/22 12:10 83 24 144/73 H 96 Room Air 08/05/22 12:00 86 22 146/76 H 95 Room Air 08/05/22 11:50 36.6 C 84 20 124/89 100 Room Air 08/05/22 11:40 90 21 151/87 H 100 Oxymask 08/05/22 11:30 90 20 142/82 H 100 Oxymask 08/05/22 11:24 36.3 C L 92 H 14 148/84 H 100 Oxymask 08/05/22 07:37 37.1 C 62 18 136/77 91 Room Air O2 Flow Rate 08/05/22 14:20 08/05/22 12:50 08/05/22 13:20 08/05/22 12:50 08/05/22 12:20 08/05/22 12:10 08/05/22 12:00 08/05/22 11:50 08/05/22 11:40 4 08/05/22 11:30 4 08/05/22 11:24 6 08/05/22 07:37 all noted and reviewed including below
[2022-08-05] MEDS: ACETAMINOPHEN 325 MG TAB PO PRN (20:23)
[2022-08-06] MEDS: ACETAMINOPHEN 325 MG TAB PO PRN (03:00)
[2022-08-06 05:44] LABS: Basophils # (auto) 0.06 K/uL (0-0.2); Basophils % (auto) 0.5 %; Eosinophils # (auto) 0.66 K/uL (0-0.50); Eosinophils % (auto) 5.7 %; Hematocrit (blood only) 38.8 % (40.1-51.0); Hemoglobin 12.7 g/dl (14.0-18.0); Immature Granulocytes % (auto) 0.9 %; Lymphocytes # (auto) 1.73 K/uL (1.2-3.4); Lymphocytes % (auto) 14.9 %; Mean Corpuscular Hemoglobin 32.3 pg (25.0-34.0); Mean Corpuscular Hgb Conc 32.7 g/dL (32.0-36.0); Mean Corpuscular Volume 98.7 fL (80.0-100.0); Mean Platelet Volume 9.6 fL (9.4-12.4); Monocytes % (auto) 9.5 %; Neutrophils # (auto) 7.95 K/uL (1.4-6.5); Neutrophils % (auto) 68.5 %; Platelet Count 197 K/uL (130-400); RDW Coefficient of Variation 13.5 % (11.5-14.5); RDW Standard Deviation 49.2 fL (36.4-46.3); Red Blood Count 3.93 M/uL (4.63-6.08)
[2022-08-06 06:15] LABS: BUN Creatinine Ratio 22.2 (10-20); Calcium 8.6 mg/dl (8.5-10.1); Creatinine Clr Calc Pharmacy 75.6 ml/min; Est GFR (Non-African American) 67.3 ml/min
[2022-08-06] MEDS: FENOFIBRATE NANOCRYSTALLIZED 145 MG TABLET PO SCH (09:06)
[2022-08-06] MEDS: ISOSORBIDE MONO EXTENDED REL 30 MG TABCR PO SCH (09:06)
[2022-08-06] MEDS: lisinopril 10 MG TAB PO SCH (09:06)
[2022-08-06] MEDS: DONEPEZIL HCL 10 MG TAB PO SCH (09:06)
[2022-08-06] MEDS: CLOPIDOGREL BISULFATE 75 MG TAB PO SCH (09:07)
[2022-08-06] MEDS: RANOLAZINE 500 MG ER TAB PO SCH ×2 (09:07→20:27)
[2022-08-06] MEDS: ASPIRIN 325 MG ECTAB PO SCH (09:07)
[2022-08-06] MEDS: MEMANTINE HCL 10 MG TAB PO SCH ×2 (09:07→20:27)
[2022-08-06] MEDS: ATORVASTATIN 40 MG TAB PO SCH (09:07)
[2022-08-06] MEDS: ENOXAPARIN INJ 40 MG/0.4 ML SYR SQ SCH (09:09)
--- NOTE | 2022-08-06 12:30 | Progress Notes ---
DATE OF SERVICE:. 08/06/2022 HISTORY: Cristobal is sitting in his chair at bedside. He reports that he did PT and he was able to stand , but cannot recall how many steps he was able to ambulate. He has been seen by Dr. Calderon for hi s left wrist fracture and surgery has been recommended either as an inpatient or outpatient depending on where he is this week. No issues regarding the hand. He has been able to use the platform walke r apparently. Hip is sore when he stood on it. LABORATORY DATA: His white count is 12, likely secondary to stress. Hemoglobin 13, hematocrit 39, pl atelets 197. His PRP is noted. His vitamin D level was 21 and vitamin D supplementation will be ord ered. PHYSICAL EXAM: On exam, the left hand shows minimal swelling. He has full extension and about 50% co mposite digital flexion. Continue to work on finger range of motion, elevation and icing recommended . Median, radial, and ulnar motor and sensory functions are intact. Capillary refill less than 2 se conds. Examination of the left leg reveals he is able to straighten his knee and hold his foot up off the gr ound. He has 5 to 5-/5 knee flexion and extension strength as well as ankle and toe plantarflexion a nd dorsiflexion, inversion and eversion strength. The leg is not swollen. His sensation is intact a nd he has 1+ DP and PT pulses. Thigh is soft. Dressing clean and dry. IMPRESSION: 1. Left distal radius fracture. 2. Left hip fracture, status post percutaneous pinning. PLAN: Findings are discussed with the patient. Vitamin D supplementation. Weightbearing as tolerat ed on the left leg with a platform walker. Lovenox for DVT prophylaxis. Surgery on the left wrist wi th Dr. Calderon later this week. He will need followup with me as an outpatient in 2 weeks. Job ID: [id number]
--- NOTE | 2022-08-06 15:21 | Hospitalist Progress Note ---
Date of Service August 06, 2022 Assessment & Plan (1) Fall: Plan per admitting service notes with addendum: Mechanical fall, ground-level Likely osteoporotic fracture Comminuted intra-articular left distal radius fracture Nondisplaced impacted left femoral neck fracture Patient had a mechanical fall, denies hitting head. Admitting CT head, hip x-ray and wrist x-ray reviewed. Admitting blood works fairly WNL. Orthopedics evaluated, status post closed reduction of left wrist 08/04, plan for ORIF with hip cannulated screw on 08/05 Pain management, n.p.o. midnight Patient able to walk 2-3 flight of stairs and 2 blocks without chest pain/shortness of breath/dizziness per patient. Patient with history of significant cardiovascular disease. Patient at moderate risk for this needed surgery. 08/05 s/p Percutaneous Screw Fixation Left Hip(Left) - Fredis Frank MD 08/06 stable post op Hemoglobin 12.7 Vitamin D being supplemented on Lovenox subcutaneous for DVT prophylaxis PT/OT eval Plan for wrist surgery later this week, will clarify with orthopedic service if patient will need to be admitted until surgery is performed Other chronic medical conditions: CAD, CVA, HLD, HTN --> no chest pain, no neurologic deficits Continue Ranexa, Imdur, lisinopril, Tricor, Plavix, Lipitor, aspirin DVT prophylaxis: Lovenox Full code Admission and Anticipated Discharge Date Admission Date: August 04, 2022 Subjective Follow-up for left hip fracture, left wrist fracture, etc. Seen resting in bed, sitting up, just had breakfast, in good spirits, comfortable States he feels fine overall Minimal discomfort in the left hip and wrist No shortness of breath, chest pain, palpitations, dizziness No other symptoms Review of Systems Review of Systems: all noted and negative except for above Physical Exam Physical Exam: General- oriented x 3, not in distress, speaks in sentences with no effort or accessory muscle use Eyes- anicteric Neck- no JVD Lungs- clear BS bilaterally, no crackles or wheezing Heart- normal rate, regular rhythm; no murmurs Abdomen- normal bowel sounds, nondistended, soft, no tenderness Extremities- no pretibial edema, no calf tenderness Left arm-splint in place Left hip-dressing in place with no bleeding or discharge Neuro- alert, oriented x 3; no gross focal neurologic deficits Skin- warm & dry Results & Data Results & Data ([facility]) Vital Signs (Past 12 Hours) Vital Signs Temp Pulse Resp BP Pulse Ox O2 Del Method 08/06/22 08:03 36.7 C 60 18 135/66 97 Room Air all noted and reviewed including below
[2022-08-06] MEDS: ERGOCALCIFEROL 50,000 UNITS 1250 MCG CAP PO SCH (17:31)
[2022-08-07] MEDS: lisinopril 10 MG TAB PO SCH (08:51)
[2022-08-07] MEDS: CLOPIDOGREL BISULFATE 75 MG TAB PO SCH (08:51)
[2022-08-07] MEDS: ATORVASTATIN 40 MG TAB PO SCH (08:51)
[2022-08-07] MEDS: FENOFIBRATE NANOCRYSTALLIZED 145 MG TABLET PO SCH (08:52)
[2022-08-07] MEDS: DONEPEZIL HCL 10 MG TAB PO SCH (08:52)
[2022-08-07] MEDS: ASPIRIN 325 MG ECTAB PO SCH (08:52)
[2022-08-07] MEDS: MEMANTINE HCL 10 MG TAB PO SCH ×2 (08:52→21:43)
[2022-08-07] MEDS: ISOSORBIDE MONO EXTENDED REL 30 MG TABCR PO SCH (08:52)
[2022-08-07] MEDS: ENOXAPARIN INJ 40 MG/0.4 ML SYR SQ SCH (08:52)
[2022-08-07] MEDS: RANOLAZINE 500 MG ER TAB PO SCH ×2 (08:52→21:43)
--- NOTE | 2022-08-07 10:50 | Orthopedic Progress Note ---
Date of Service August 07, 2022 Assessment & Plan (1) Closed fracture of left distal radius: Present on Admission?: Yes (2) Closed fracture of left wrist: Plan: He is doing very well. Weight-bear as tolerated with platform walker. We will need to assess his disposition. Going home by himself is not an option. assisted versus acute care rehab. He will need follow-up with Dr. Gillespie who if he leaves the hospital before to get his wrist fixed. If he stays here until Dr. Gillespie who can do the surgery then. Present on Admission?: Yes (3) Vitamin D deficiency: Admission and Anticipated Discharge Date Admission Date: August 04, 2022 Subjective Doing well. Sitting in a chair. Reports that he ambulated well with PT today. Sore but not significantly painful. Physical Exam Physical Exam: Venous varicosities. He can straighten out his knee and pinned it against resistance. 5 out of 5 strength distally with 2+ DP pulse. Sensat ion intact. Leg not swollen. Dressing change incision benign without hematoma or drainage. Results & Data ([facility]) Vital Signs (Past 12 Hours) Vital Signs Temp Pulse Resp BP Pulse Ox O2 Del Method 08/07/22 07:58 37 C 56 L 18 125/70 95 Room Air (1) Closed fracture of left distal radius Encounter type: initial encounter Fracture morphology: Colles' Qualified Code(s): S52.532A - Colles' fracture of left radius, initial encounter for closed fracture
--- NOTE | 2022-08-07 16:09 | Hospitalist Progress Note ---
Date of Service August 07, 2022 Assessment & Plan (1) Fall: Plan per admitting service notes with addendum: Mechanical fall, ground-level Likely osteoporotic fracture Comminuted intra-articular left distal radius fracture Nondisplaced impacted left femoral neck fracture Patient had a mechanical fall, denies hitting head. Admitting CT head, hip x-ray and wrist x-ray reviewed. Admitting blood works fairly WNL. Orthopedics evaluated, status post closed reduction of left wrist 08/04, plan for ORIF with hip cannulated screw on 08/05 Pain management, n.p.o. midnight Patient able to walk 2-3 flight of stairs and 2 blocks without chest pain/shortness of breath/dizziness per patient. Patient with history of significant cardiovascular disease. Patient at moderate risk for this needed surgery. 08/05 s/p Percutaneous Screw Fixation Left Hip(Left) - Fredis Frank MD stable post op Denies left hip pain Hemoglobin 12.7 Vitamin D being supplemented on Lovenox subcutaneous for DVT prophylaxis PT/OT eval in progress Discussed with orthopedic surgeon Dr. Calderon, confirmed plan for left wrist surgery this coming Continue to monitor closely Other chronic medical conditions: CAD, CVA, HLD, HTN --> no chest pain, no neuro logic deficits Continue Ranexa, Imdur, lisinopril, Tricor, Plavix, Lipitor, aspirin DVT prophylaxis: Lovenox Full code Disposition: Will need acute rehab Admission and Anticipated Discharge Date Admission Date: August 04, 2022 Subjective Follow-up for left hip fracture, status postsurgery, wrist fracture, etc. Seen resting in bed, sitting up, not in distress, good spirits States he feels fine overall States he does not have pain in the left hip Minimal discomfort on the left wrist No shortness of breath, chest pain, palpitations, dizziness, no abdominal pain or nausea vomiting No BMs yet No other symptom Review of Systems Review of Systems: all noted and negative except for above Physical Exam Physical Exam: General- oriented x 3, not in distress, speaks in sentences with no effort or accessory muscle use Eyes- anicteric Neck- no JVD Lungs- clear breath sounds bilaterally, crackles, no wheezing Heart- normal rate, regular rhythm; no murmurs Abdomen- normal bowel sounds, nondistended, soft, nontender Extremities- no pretibial edema, no calf tenderness Left arm-arm splint in place, heavy dressing, splint on the wrist Left hip-minimal edema, dressing in place, no bleeding or discharge No hematoma Neuro- alert, oriented x 3; no gross focal neurologic deficits Skin- warm & dry Results & Data Results & Data ([facility]) Vital Signs (Past 12 Hours) Vital Signs Temp Pulse Resp BP Pulse Ox O2 Del Method 08/07/22 15:42 36.9 C 58 L 16 126/75 90 Room Air 08/07/22 07:58 37 C 56 L 18 125/70 95 Room Air all noted and reviewed including below
[2022-08-08] MEDS: RANOLAZINE 500 MG ER TAB PO SCH ×2 (08:50→21:53)
[2022-08-08] MEDS: DONEPEZIL HCL 10 MG TAB PO SCH (08:50)
[2022-08-08] MEDS: MEMANTINE HCL 10 MG TAB PO SCH ×2 (08:50→21:53)
[2022-08-08] MEDS: lisinopril 10 MG TAB PO SCH (08:51)
[2022-08-08] MEDS: ISOSORBIDE MONO EXTENDED REL 30 MG TABCR PO SCH (08:51)
[2022-08-08] MEDS: CLOPIDOGREL BISULFATE 75 MG TAB PO SCH (08:51)
[2022-08-08] MEDS: FENOFIBRATE NANOCRYSTALLIZED 145 MG TABLET PO SCH (08:51)
[2022-08-08] MEDS: ASPIRIN 325 MG ECTAB PO SCH (08:51)
[2022-08-08] MEDS: ATORVASTATIN 40 MG TAB PO SCH (08:51)
[2022-08-08] MEDS: ENOXAPARIN INJ 40 MG/0.4 ML SYR SQ SCH (08:52)
--- NOTE | 2022-08-08 09:15 | Orthopedic Progress Note ---
Date of Service August 08, 2022 Assessment & Plan (1) Closed left hip fracture: Plan: Weightbearing as tolerated with platform walker Ice with easy wrap Pain control with p.o. medication DVT prophylaxis with Lovenox and his regularly taken Plavix Patient will most likely need discharge to either rehab or correction facility. Case management evaluation for discharge planning Patient will need to follow-up in our clinic for staple removal in approximately 2 weeks Cont PT/OT (2) Closed fracture of left distal radius: Plan: Dr. Calderon is scheduled to perform ORIF of patients left wrist fracture this . (3) Closed fracture of left wrist: (4) Vitamin D deficiency: Admission and Anticipated Discharge Date Admission Date: August 04, 2022 Subjective This 72-year-old male seen today for a 3-day follow-up after left hip fracture fixation with 3 percutaneous screws. Patient states he is doing very well. He states that he still has difficulty performing a straight leg raise test with left lower extremity. He states his pain is well controlled with p.o. pain medication. Currently he denies any chest pain, shortness of breath, fever, chills, sweats, difficulty voiding or numbness or tingling in his left lower extremity. He states that Dr. Calderon is has met with him to discuss surgical intervention for his left wrist fracture. He states that they are planning on open reduction internal fixation surgery this coming . Review of Systems Review of Systems: All systems reviewed & are unremarkable except as noted in Subjective Physical Exam Physical Exam: Left hip: Dressing is clean dry and intact. Patient has some mild edema but no erythema, ecchymosis, warmth or palpable deformity. Patient is unable to perform active straight leg raise test. Quad strength is 2+ out of 5. He is able to actively dorsi and plantarflex foot without issue. Knee range of motion from 0 to 90 degrees does not cause any pain. Patient does experience a twinge of pain near the incision site with light passive internal hip rotation. He has no pain with light passive external rotation. He is neurovascular intact in left lower extremity. Results & Data ([facility]) Vital Signs (Past 12 Hours) Vital Signs Temp Pulse Resp BP Pulse Ox O2 Del Method 08/08/22 06:00 Room Air 08/08/22 07:17 36.7 C 54 L 18 125/75 92 Room Air 08/07/22 21:38 37.5 C 64 17 149/81 H 92 Room Air Diagnostic Findings Laboratory Results WBC 11.60 K/ul (4.8-10.8) H 08/06/22 05:25 RBC 3.93 M/uL (4.63-6.08) L 08/06/22 05:25 Hgb 12.7 g/dl (14.0-18.0) L 08/06/22 05:25 Hct 38.8 % (40.1-51.0) L 08/06/22 05:25 MCV 98.7 fL (80.0-100.0) 08/06/22 05:25 MCH 32.3 pg (25.0-34.0) 08/06/22 05:25 MCHC 32.7 g/dL (32.0-36.0) 08/06/22 05:25 RDW Std Deviation 49.2 fL (36.4-46.3) H 08/06/22 05:25 RDW Coeff of Carola 13.5 % (11.5-14.5) 08/06/22 05:25 Plt Count 197 K/uL (130-400) 08/06/22 05:25 MPV 9.6 fL (9.4-12.4) 08/06/22 05:25 Immature Gran % (Auto) 0.9 % 08/06/22 05:25 Neut % (Auto) 68.5 % 08/06/22 05:25 Lymph % (Auto) 14.9 % 08/06/22 05:25 Grimes % (Auto) 9.5 % 08/06/22 05:25 Eos % (Auto) 5.7 % 08/06/22 05:25 Baso % (Auto) 0.5 % 08/06/22 05:25 Neut # (Auto) 7.95 K/uL (1.4-6.5) H 08/06/22 05:25 Lymph # (Auto) 1.73 K/uL (1.2-3.4) 08/06/22 05:25 Grimes # (Auto) 1.10 K/uL (0.24-0.82) H 08/06/22 05:25 Eos # (Auto) 0.66 K/uL (0-0.50) H 08/06/22 05:25 Baso # (Auto) 0.06 K/uL (0-0.2) 08/06/22 05:25 Immature Gran # (Auto) 0.10 K/uL (0.00-0.02) H 08/06/22 05:25 PT 10.9 Seconds (9.0-12.0) 08/04/22 19:35 INR 1.0 (0.9-1.1) 08/04/22 19:35 APTT 21.8 Seconds (21.0-31.0) 08/04/22 19:35 PTT Ratio 0.8 08/04/22 19:35 Sodium 137 mmol/L (136-145) 08/06/22 05:25 Potassium 4.0 mmol/L (3.5-5.1) 08/06/22 05:25 Chloride 105 mmol/L (98-107) 08/06/22 05:25 Carbon Dioxide 25 mmol/L (21-32) 08/06/22 05:25 Anion Gap 7 (3-11) 08/06/22 05:25 BUN 24 mg/dl (6-23) H 08/06/22 05:25 Creatinine 1.08 mg/dl (0.6-1.4) 08/06/22 05:25 Est Cr Clr Drug Dosing 75.6 ml/min 08/06/22 05:25 Est GFR ( Amer) 78.0 ml/min 08/06/22 05:25 Est GFR (Non-Af Amer) 67.3 ml/min 08/06/22 05:25 BUN/Creatinine Ratio 22.2 (10-20) H 08/06/22 05:25 Glucose 114 mg/dl (70-99(Fasting)) H 08/06/22 05:25 Calcium 8.6 mg/dl (8.5-10.1) 08/06/22 05:25 Phosphorus 3.4 mg/dl (2.5-4.9) 08/05/22 05:21 Magnesium 1.9 mg/dl (1.7-2.4) 08/05/22 05:21 Total Bilirubin 1.4 mg/dl (0.2-1.0) H 08/04/22 19:35 AST 21 U/L (13-39) 08/04/22 19:35 ALT 16 U/L (7-52) 08/04/22 19:35 Alkaline Phosphatase 29 U/L (34-104) L 08/04/22 19:35 Total Protein 7.3 gm/dl (6.0-8.3) 08/04/22 19:35 Albumin 4.1 gm/dl (3.4-5.0) 08/04/22 19:35 Globulin 3.2 gm/dl (2.5-4.0) 08/04/22 19:35 Albumin/Globulin Ratio 1.3 (0.9-2) 08/04/22 19:35 25-OH Vitamin D Total 21.0 ng/ml (30-100) L 08/06/22 05:25 SARS-CoV-2, RNA, NAAT NEGATIVE (NEGATIVE) 08/04/22 19:35 Blood Type AB Negative 08/05/22 08:16 Blood Type Recheck AB Negative 08/05/22 05:21 Antibody Screen NEGATIVE 08/05/22 08:16 Impressions Hip/Pelvis X-Ray 08/04/22 18:25 XR hip LT 2V w pelvis CLINICAL HISTORY: Fall,L wrist and L hip pain COMPARISON STUDY: None. FINDINGS: There is nondisplaced but slightly impacted subcapital left femoral neck fracture. No dislocation. The pelvic bones and right hip are intact. Moderate to severe degenerative disc disease within the lower lumbar spine. IMPRESSION: Slightly impacted subcapital left femoral neck fracture. No dislocation. ACT 112: Negative or not required by law. Electronically signed by: Willie Domingo M.D. 08/04/2022 7:[address] 08/04/22 19:[address] DOSE: 773.57 mGy.cm HISTORY: fall, hip and wrist injuries, clopidigrel/aspirin TECHNIQUE: Multiaxial CT images of the head were performed without the use of intravenous contrast. Automated exposure control was utilized for this study. A dose lowering technique was utilized adhering to the principles of ALARA. Comparison: None. Findings: Partial opacification of the ethmoid air cells. The mastoid air cells are clear. The calvarium and skull base are intact. There is no mass, hematoma, midline shift, acute infarct. White matter hypodensity is nonspecific but suggestive of microvascular ischemic change. The ventricles and sulci demonstrate mild age-related involutional changes. Small focus of encephalomalacia within the left posterior parietal lobe consistent with an old infarct. Impression: No acute intracranial abnormality. Atrophy and microvascular ischemic changes. ACT 112: Negative or not required by law. Electronically signed by: Willie Domingo M.D. 08/04/2022 8:09 PM Wrist X-Ray 08/04/22 20:09 FL wrist LT 2V CLINICAL HISTORY: Left wrist fracture status post reduction. COMPARISON STUDY: Left wrist CT 08/04/2022. FLUOROSCOPY TIME: 3 seconds. FINDINGS: 3 fluoroscopic spot images of the left wrist demonstrate reduction of the distal left radius fracture with improved anatomic alignment. There is mild distraction of the intra-articular component of the comminuted fracture. Tiny fracture at the tip of the ulnar styloid. No dislocation. IMPRESSION: Improved anatomic alignment status post reduction of the distal left radius fracture. ACT 112: Negative or not required by law. Electronically signed by: Willie Domingo M.D. 08/05/2022 7:[address] 08/04/22 21:[address] DOSE: 177.98 mGy.cm HISTORY: Left wrist pain TECHNIQUE: Multiaxial CT images of the left wrist were performed and reformatted in the sagittal and coronal plane without the use of contrast. A dose lowering technique was utilized adhering to the principles of ALARA. COMPARISON: Left wrist radiograph 08/04/2022. FINDINGS: There is a comminuted, impacted, and displaced distal left radius frac ture which demonstrates intra-articular extension. There is 1 cm of dorsal displacement and dorsal angulation. There is diffuse soft tissue swelling. Small fracture the tip of the ulnar styloid is again noted. There is an old small fracture at the triquetral bone. IMPRESSION: Distal left radius and ulnar styloid fractures as described above. ACT 112: Negative or not required by law. Electronically signed by: Willie Domingo M.D. 08/05/2022 7:37 AM Hip X-Ray 08/05/22 11:25 XR hip LT min 2V CLINICAL HISTORY: Post-Operative implant position COMPARISON: Left hip radiographs August 04, 2022. FINDINGS: There are expected postoperative findings following internal fixation of the subcapital left femoral fracture with 3 cannulated screws. Hardware is intact. Fracture alignment is near anatomic. Skin obdulio are present. IMPRESSION: Expected findings following internal fixation of the subcapital left femoral fracture. ACT 112: Negative or not required by law. Electronically signed by: Fuad Cruz M.D. 08/05/2022 12:15 PM (1) Closed fracture of left distal radius Encounter type: initial encounter Fracture morphology: Collebrandan' Qualified Code(s): S52.532A - Colles' fracture of left radius, initial encounter for closed fracture
--- NOTE | 2022-08-08 13:25 | Hospitalist Progress Note ---
Date of Service August 08, 2022 Assessment & Plan (1) Fall: Plan per admitting service notes with addendum: Mechanical fall, ground-level Likely osteoporotic fracture Nondisplaced impacted left femoral neck fracture, s/p Percutaneous Screw Fixation Left Hip 08/05 Comminuted intra-articular left distal radius fracture Patient had a mechanical fall, denies hitting head. Admitting CT head, hip x-ray and wrist x-ray reviewed. 08/05 s/p Percutaneous Screw Fixation Left Hip(Left) - Fredis Frank MD stable post op Denies left hip pain Hemoglobin 12.7 Vitamin D deficiency- being supplemented Discussed with orthopedic surgeon Dr. Calderon, confirmed plan for left wrist ORIF this coming no medical contraindication to proceed with planned surgery Continue to monitor closely on Lovenox subcutaneous for DVT prophylaxis PT/OT eval in progress Other chronic medical conditions: CAD, CVA, HLD, HTN --> no cardiac symptoms, no neurologic deficits Continue Ranexa, Imdur, lisinopril, Tricor, Plavix, Lipitor, aspirin DVT prophylaxis: Lovenox Full code Disposition: Will need acute rehab Admission and Anticipated Discharge Date Admission Date: August 04, 2022 Subjective ff up for mechanical fall, L hip fracture s/p surgery, L wrist fracture, etc seen sitting up in bed, comfortable in good spirits denies pain on the L hip and wrist states he feels fine overall no chest pain, dyspnea, palpitations, dizziness no BM yet no other symptoms Review of Systems Review of Systems: all noted and negative except for above Physical Exam Physical Exam: General- oriented x 3, not in distress, speaks in sentences with no effort or accessory muscle use Eyes- anicteric Neck- no JVD Lungs- clear breath sounds BL, no rales/wheezes Heart- normal rate, regular rhythm; no murmurs Abdomen- normal bowel sounds, nondistended, soft, nontender Extremities- no pretibial edema, no calf tenderness L hip- dressing in place, no bleeding/discharge L wrist-splint, dressing in place Neuro- alert, oriented x 3; no gross focal neurologic deficits Skin- warm & dry Results & Data Results & Data ([facility]) Vital Signs (Past 12 Hours) Vital Signs Temp Pulse Resp BP Pulse Ox O2 Del Method 08/08/22 06:00 Room Air 08/08/22 07:17 36.7 C 54 L 18 125/75 92 Room Air all noted and reviewed including below
[2022-08-08] MEDS: POLYETHYLENE (MIRALAX) 17 GM PACK PO SCH (14:10)
[2022-08-09] MEDS: POLYETHYLENE (MIRALAX) 17 GM PACK PO SCH (07:52)
[2022-08-09] MEDS: ASPIRIN 325 MG ECTAB PO SCH (09:31)
[2022-08-09] MEDS: ATORVASTATIN 40 MG TAB PO SCH (09:31)
[2022-08-09] MEDS: CLOPIDOGREL BISULFATE 75 MG TAB PO SCH (09:32)
[2022-08-09] MEDS: FENOFIBRATE NANOCRYSTALLIZED 145 MG TABLET PO SCH (09:32)
[2022-08-09] MEDS: DONEPEZIL HCL 10 MG TAB PO SCH (09:32)
[2022-08-09] MEDS: lisinopril 10 MG TAB PO SCH (09:33)
[2022-08-09] MEDS: MEMANTINE HCL 10 MG TAB PO SCH ×2 (09:33→20:02)
[2022-08-09] MEDS: ISOSORBIDE MONO EXTENDED REL 30 MG TABCR PO SCH (09:33)
[2022-08-09] MEDS: RANOLAZINE 500 MG ER TAB PO SCH ×2 (09:34→20:02)
[2022-08-09] MEDS: ENOXAPARIN INJ 40 MG/0.4 ML SYR SQ SCH (09:35)
--- NOTE | 2022-08-09 10:35 | Orthopedic Progress Note ---
Date of Service August 09, 2022 Assessment & Plan (1) Closed left hip fracture: Plan: POD 4 - s/p ORIF Left hip with Dr. Frank Weightbearing as tolerated with platform walker. No hip precautions necessary. Ice with easy wrap Pain control with p.o. medication DVT prophylaxis with Lovenox and Plavix Case management evaluation for discharge planning - disposition pending to [facility] vs. [facility]. Cont PT/OT Follow up with Dr. Frank as scheduled. (2) Closed fracture of left distal radius: Plan: Dr. Calderon is scheduled to perform ORIF of patients left wrist fracture this . Encouraged elevation Continue sling and splint. (3) Vitamin D deficiency: Plan: Vitamin D supplementation 50,000 IU every Sunday Admission and Anticipated Discharge Date Admission Date: August 04, 2022 Subjective Patient sitting in chair. No complaints of pain in left hip or left wrist. Left wrist in splint and sling. Left arm elevated Has been up walking around with walker in hallway. Tolerating regular diet. Physical Exam Musculoskeletal: No distal edema left lower extremity. Full ROM left ankle. Normal strength LLE. Distal pulses 1+, distal sensation normal. Tolerates gentle ROM left hip. Left wrist in splint and sling. Results & Data ([facility]) Vital Signs (Past 12 Hours) Vital Signs Temp Pulse Resp BP Pulse Ox O2 Del Method 08/09/22 07:57 37.2 C 57 L 16 125/73 93 Room Air (1) Closed fracture of left distal radius Encounter type: initial encounter Fracture morphology: Colles' Qualified Code(s): S52.532A - Colles' fracture of left radius, initial encounter for closed fracture
--- NOTE | 2022-08-09 13:30 | Hospitalist Progress Note ---
Date of Service August 09, 2022 Assessment & Plan (1) Fall: Plan per previous hospitalist with addendum: Mechanical fall, ground-level Likely osteoporotic fracture Nondisplaced impacted left femoral neck fracture, s/p Percutaneous Screw Fixation Left Hip 08/05 Comminuted intra-articular left distal radius fracture Patient had a mechanical fall, denies hitting head. Admitting CT head, hip x-ray and wrist x-ray reviewed. 08/05 s/p Percutaneous Screw Fixation Left Hip(Left) - Fredis Frank MD stable post op Denies left hip pain Hemoglobin 12.7 Vitamin D deficiency- being supplemented Discussed with orthopedic surgeon Dr. Calderon, confirmed plan for left wrist ORIF on (tmrw) no medical contraindication to proceed with planned surgery Continue to monitor closely on Lovenox subcutaneous for DVT prophylaxis (lovenox and plavix on hold for upcoming surgery) PT/OT eval in progress Other chronic medical conditions: CAD, CVA, HLD, HTN --> no cardiac symptoms, no neurologic deficits Continue Ranexa, Imdur, lisinopril, Tricor, Plavix, Lipitor, aspirin (hold plavix for upcoming surgery) DVT prophylaxis: per orthopedic surgery Full code Disposition: Will need acute rehab Admission and Anticipated Discharge Date Admission Date: August 04, 2022 Subjective Pt seen in follow-up of hip fx s/p hip surgery, left wrist fracture, plan for surgical repair tomorrow Currently patient is sitting up in bed, in no acute distress, left arm is in Rayray wrap and in sling Denies chest pain shortness of breath, denies abdominal pain nausea vomiting Overall reports feeling well Denies pain Review of Systems Review of Systems: All systems reviewed & are unremarkable except as noted in Subjective Physical Exam Physical Exam: General- oriented x 3, not in distress, speaks in sentences with no effort or accessory muscle use Eyes- anicteric Neck- no JVD Lungs- clear breath sounds BL, no rales/wheezes Heart- normal rate, regular rhythm; no murmurs Abdomen- normal bowel sounds, nondistended, soft, nontender Extremities- no pretibial edema, no calf tenderness L hip- dressing in place, no bleeding/discharge L wrist-splint, dressing in place Neuro- alert, oriented x 3; no gross focal neurologic deficits Skin- warm & dry Results & Data Results & Data ([facility]) Vital Signs (Past 12 Hours) Vital Signs Temp Pulse Resp BP Pulse Ox O2 Del Method 08/09/22 07:57 37.2 C 57 L 16 125/73 93 Room Air Medications Administered Current Inpatient Medications Acetaminophen (Acetaminophen 325 Mg Tab) 650 mg PO Q4H PRN PRN Reason: Pain or Fever Stop: 09/03/22 20:45 Last Admin: 08/06/22 03:00 Dose: 650 mg Al Hydrox/Mg Hydrox/Simethicone (Aluminum/Magnesium Susp 30 Ml Udc) 30 ml PO Q6H PRN PRN Reason: nausea Stop: 09/04/22 11:29 Aspirin (Aspirin 325 Mg Ectab) [address] [facility] Stop: 09/05/22 08:59 Last Admin: 08/09/22 09:31 Dose: 325 mg Atorvastatin Calcium (Atorvastatin 40 Mg Tab) [address] [facility] Stop: 09/04/22 08:59 Last Admin: 08/09/22 09:31 Dose: 80 mg Clopidogrel Bisulfate (Clopidogrel Bisulfate 75 Mg Tab) [address] [facility] Stop: 09/04/22 08:59 Last Admin: 08/09/22 09:32 Dose: 75 mg Diphenhydramine HCl (Diphenhydramine 50 Mg/Ml Vial) 25 mg IV Q8 PRN PRN Reason: Allergic Reaction Stop: 09/04/22 11:29 Donepezil HCl (Donepezil Hcl 10 Mg Tab) [address] [facility] Stop: 09/04/22 08:59 Last Admin: 08/09/22 09:32 Dose: 10 mg Enoxaparin Sodium (Enoxaparin Inj 40 Mg/0.4 Ml Syr) [address] [facility] Stop: 09/05/22 08:59 Last Admin: 08/09/22 09:35 Dose: 40 mg Ergocalciferol (Ergocalciferol 50,000 Units 1250 Mcg Cap) 50,000 units PO Minor@1300 [facility] Stop: 09/05/22 12:59 Last Admin: 08/06/22 17:31 Dose: 50,000 units Fenofibrate (Fenofibrate Nanocrystallized 145 Mg Tablet) [address] [facility] Stop: 09/04/22 08:59 Last Admin: 08/09/22 09:32 Dose: 145 mg Isosorbide Mononitrate (Isosorbide Will Extended Rel 30 Mg Tabcr) 30 mg PO QAM [facility] Stop: 09/04/22 08:59 Last Admin: 08/09/22 09:33 Dose: 30 mg Lisinopril (Lisinopril 10 Mg Tab) 10 mg PO QAM [facility] Stop: 09/04/22 08:59 Last Admin: 08/09/22 09:33 Dose: 10 mg Magnesium Hydroxide (Magnesium Hydroxide Susp 30 Ml Udc) 30 ml PO Q12H PRN PRN Reason: Constipation Stop: 09/03/22 20:45 Memantine (Memantine Hcl 10 Mg Tab) 10 mg PO BID [facility] Stop: 09/03/22 23:29 Last Admin: 08/09/22 09:33 Dose: 10 mg Ondansetron HCl (Ondansetron Inj 2 Mg/Ml 2 Ml Vial) 4 mg IV Q6H PRN PRN Reason: Nausea Stop: 09/03/22 20:45 Oxycodone HCl (Oxycodone Hcl Ir 5 Mg Tab (Immediate Release)) 5 mg PO Q4H PRN PRN Reason: Pain Stop: 08/19/22 11:24 Polyethylene Glycol (Polyethylene (Miralax) 17 Gm Pack) 17 gm PO DAILY PRN PRN Reason: Constipation Stop: 09/03/22 20:45 Polyethylene Glycol (Polyethylene (Miralax) 17 Gm Pack) 17 gm PO DAILY [facility] Stop: 09/07/22 13:29 Last Admin: 08/09/22 07:52 Dose: Not Given Ranolazine (Ranolazine 500 Mg Er Tab) 500 mg PO BID [facility] Stop: 09/03/22 23:29 Last Admin: 08/09/22 09:34 Dose: 500 mg
--- NOTE | 2022-08-10 08:51 | Anesthesiology Consultation ---
Date of Service August 10, 2022 Assessment & Plan (1) Encounter for pre-operative examination: Chart Review Chart Review: Acceptable Risk for Surgery and Patient NOT seen in Pre Admission Testing Hospitalist note 08/09/22: Plan per previous hospitalist with addendum: Mechanical fall, ground-level Likely osteoporotic fracture Nondisplaced impacted left femoral neck fracture, s/p Percutaneous Screw Fixation Left Hip 08/05 Comminuted intra-articular left distal radius fracture Patient had a mechanical fall, denies hitting head. Admitting CT head, hip x-ray and wrist x-ray reviewed. 08/05 s/p Percutaneous Screw Fixation Left Hip(Left) - Fredis Frank MD stable post op Denies left hip pain Hemoglobin 12.7 Vitamin D deficiency- being supplemented Discussed with orthopedic surgeon Dr. Calderon, confirmed plan for left wrist ORIF on (tmrw) no medical contraindication to proceed with planned surgery Consults Requested none History Surgery Operation Date: 08/05/22 09:00 Proposed Procedures p ORIF Hip Cannulated Screw - Fredis Frank MD Operation Date: 08/10/22 07:00 Proposed Procedures p Left Wrist Open Reduction Internal Fixation, Distal Radius Fracture - John Calderon M.D. Height/Weight Height: 6 ft 5 in Weight: 99 kg Allergies Allergy/AdvReac Type Severity Reaction Status Date / Time cephalexin Allergy Unknown Verified 08/04/22 23:42 Penicillins Allergy Unknown Verified 08/04/22 23:42 prednisone Allergy Unknown Verified 08/04/22 23:42 Medications Home Medications Medication Instructions Recorded Confirmed Last Taken Aspir-81 81 mg PO 1XD 08/09/22 08/09/22 08/09/22 09:00 atorvastatin 80 mg tablet 80 mg PO DAILY 08/09/22 08/09/22 08/09/22 09:00 cholecalciferol (vitamin D3) 25 25 mcg PO DAILY 08/09/22 08/09/22 Unknown mcg (1,000 unit) tablet (Vitamin D3) clopidogrel 75 mg tablet 75 mg PO DAILY 08/09/22 08/09/22 08/09/22 09:00 donepezil 10 mg tablet 10 mg PO DAILY 08/09/22 08/09/22 08/09/22 09:00 fenofibrate 145 mg PO 1XD 08/09/22 08/09/22 08/09/22 09:00 isosorbide mononitrate 30 mg PO 1XD 08/09/22 08/09/22 08/09/22 09:00 lisinopril 10 mg tablet 10 mg PO DAILY 08/09/22 08/09/22 08/09/22 09:00 memantine 10 mg tablet 10 mg PO BID 08/09/22 08/09/22 08/09/22 09:00 omega [id number] oil 1,200 mg cap PO 1XD 08/09/22 Unknown (144 mg-216 mg) capsule (Fish Oil) ranolazine 500 mg tablet,extended 500 mg PO BID 08/09/22 08/09/22 08/09/22 09:00 release,12 hr Active Medications Generic Name Dose Route Start Last Admin Trade Name Freq PRN Reason Stop Dose Admin Acetaminophen 650 mg 08/04/22 20:46 08/06/22 03:00 Acetaminophen 325 Mg Tab PO 09/03/22 20:45 650 mg Q4H PRN Administration Pain or Fever Aspirin 325 mg 08/06/22 09:00 08/09/22 09:31 Aspirin 325 Mg Ectab PO 09/05/22 08:59 325 mg QAM [facility] Administration Atorvastatin Calcium 80 mg 08/05/22 09:00 08/09/22 09:31 Atorvastatin 40 Mg Tab PO 09/04/22 08:59 80 mg QAM [facility] Administration Clopidogrel Bisulfate 75 mg 08/05/22 09:00 08/09/22 09:32 Clopidogrel Bisulfate 75 Mg Tab PO 09/04/22 08:59 75 mg QAM [facility] Administration Donepezil HCl 10 mg 08/05/22 09:00 08/09/22 09:32 Donepezil Hcl 10 Mg Tab PO 09/04/22 08:59 10 mg QAM [facility] Administration Ergocalciferol 50,000 units 08/06/22 13:00 08/06/22 17:31 Ergocalciferol 50,000 Units 1250 Mcg Cap PO 09/05/22 12:59 50,000 units Minor@1300 [facility] Administration Fenofibrate 145 mg 08/05/22 09:00 08/09/22 09:32 Fenofibrate Nanocrystallized 145 Mg Tablet PO 09/04/22 08:59 145 mg QAM [facility] Administration Isosorbide Mononitrate 30 mg 08/05/22 09:00 08/09/22 09:33 Isosorbide Gordon Extended Rel 30 Mg Tabcr PO 09/04/22 08:59 30 mg QAM [facility] Administration Lisinopril 10 mg 08/05/22 09:00 08/09/22 09:33 Lisinopril 10 Mg Tab PO 09/04/22 08:59 10 mg QAM [facility] Administration Memantine 10 mg 08/04/22 23:30 08/09/22 20:02 Memantine Hcl 10 Mg Tab PO 09/03/22 23:29 10 mg BID [facility] Administration Polyethylene Glycol 17 gm 08/08/22 13:30 08/09/22 07:52 Polyethylene (Miralax) 17 Gm Pack PO 09/07/22 13:29 Not Given DAILY [facility] Ranolazine 500 mg 08/04/22 23:30 08/09/22 20:02 Ranolazine 500 Mg Er Tab PO 09/03/22 23:29 500 mg BID [facility] Administration NPO Date Last Intake of Fluids: 08/04/22 Past Medical History Medical History Closed fracture of left hip Closed fracture of left wrist Fall Hx CAD, HTN, sinus bradycardia, HLD, 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, no other deficits CASSIE on CPAP HI s/p CABG x 2 vessels 2001 s/p stents 2005 and 2010 Seizure 1984 due to medications Past Surgical History Lumbar surgery 2006 LE vein stripping Hip fracture repair 08/04/22 Social History Smoking Status: Never smoker Do You Dip or Chew Tobacco: No Hx Alcohol Use: No Hx Substance Use: No Physical Exam Vital Signs Last Vital Signs Temp 36.9 C 08/10/22 07:08 Pulse 52 L 08/10/22 07:08 Resp 18 08/10/22 07:08 BP 129/72 08/10/22 07:08 Pulse Ox 93 08/10/22 07:08 O2 Del Method 08/10/22 07:08 O2 Flow Rate 4 08/05/22 11:40 Testing Laboratory Results 08/06/22 05:25 08/06/22 05:25 PT 10.9 Seconds (9.0-12.0) 08/04/22 19:35 INR 1.0 (0.9-1.1) 08/04/22 19:35 APTT 21.8 Seconds (21.0-31.0) 08/04/22 19:35 Blood Type AB Negative 08/05/22 08:16 Antibody Screen NEGATIVE 08/05/22 08:16 Electrocardiogram Date: 08/05/22 Findings: + NSR @ NSR with sinus arrhythmia
[2022-08-10] MEDS ORDERED: ePHEDrine sulfate 50 MG/ML AMP IV PRN (08:52)
[2022-08-10] MEDS ORDERED: ATROPINE SULFATE 0.1 MG/ML 10ML SYR IV PRN (08:52)
[2022-08-10] MEDS ORDERED: fentaNYL citrate 100 MCG/2 ML VIAL IV PRN (08:52)
[2022-08-10] MEDS ORDERED: ONDANSETRON INJ 2 MG/ML 2 ML VIAL IV PRN (08:52)
--- NOTE | 2022-08-10 09:02 | History & Physical Bridge Note ---
Date of Service August 10, 2022 History & Physical Bridge Note I have examined the patient, reviewed the History & Physical and in the interval since the performance of the History & Physical I have noted the following changes of clinical significance: no changes noted
[2022-08-10] MEDS ORDERED: ceFAZolin 2000MG 2,000 MG/15 ML SYR IV ONE ×2 (09:05→13:30)
[2022-08-10 09:18] LABS: Hematocrit (blood only) 39.5 % (40.1-51.0); Mean Corpuscular Hemoglobin 32.3 pg (25.0-34.0); Mean Corpuscular Hgb Conc 32.9 g/dL (32.0-36.0); Mean Platelet Volume 9.7 fL (9.4-12.4); Platelet Count 272 K/uL (130-400); RDW Coefficient of Variation 13.2 % (11.5-14.5); RDW Standard Deviation 47.1 fL (36.4-46.3); Red Blood Count 4.03 M/uL (4.63-6.08); White Blood Count 12.35 K/ul (4.8-10.8)
[2022-08-10 09:41] LABS: BUN Creatinine Ratio 29.2 (10-20); Calcium 8.8 mg/dl (8.5-10.1); Creatinine Clr Calc Pharmacy 85.1 ml/min; Est GFR (African American) 89.9 ml/min; Est GFR (Non-African American) 77.6 ml/min; Phosphorus 3.2 mg/dl (2.5-4.9)
[2022-08-10] MEDS ORDERED: ROPIVACAINE 0.5% 5 MG/ML 30 ML VIAL ONE (09:48)
--- NOTE | 2022-08-10 10:52 | Hospitalist Progress Note ---
Date of Service August 10, 2022 Assessment & Plan (1) Closed left hip fracture: (2) Vitamin D deficiency: (3) Closed fracture of left wrist: (4) Closed fracture of left distal radius: Plan per previous hospitalist with addendum: Mechanical fall, ground-level Likely osteoporotic fracture Nondisplaced impacted left femoral neck fracture, s/p Percutaneous Screw Fixation Left Hip 08/05 Comminuted intra-articular left distal radius fracture Patient had a mechanical fall, denies hitting head. Admitting CT head, hip x-ray and wrist x-ray reviewed. 08/05 s/p left hip screw and fixation by Dr. Frank Monitor H&H (hgb 13 today). No pain currently. Per Ortho for movement instructions, PT OT Vitamin D deficiency- being supplemented POD# 0 s/p Left wrist ORIF by Dr. Calderon no medical contraindication to proceed with planned surgery Continue to monitor closely Other chronic medical conditions: CAD, CVA, HLD, HTN --> no cardiac symptoms, no neurologic deficits Continue Ranexa, Imdur, lisinopril, Tricor, Plavix, Lipitor, aspirin (hold plavix for upcoming surgery) Started on mucinex and flonase for ongoing post nasal drip and congestion. DVT prophylaxis: per orthopedic surgery Full code Disposition: Will need acute rehab Admission and Anticipated Discharge Date Admission Date: August 04, 2022 Subjective Pt seen in follow-up today in 386 bed 1 status post left wrist surgery and left hip screw and fixation surgery. Resting comfortably in minimal pain. Does still have nasal congestion with postnasal drip which is not new. Denies chest pain shortness of breath, denies abdominal pain nausea vomiting. Tolerated postop clears without issue. Urinating on his own. No diarrhea constipation Review of Systems Review of Systems: At least ten systems reviewed and negative except as noted in the HPI. Physical Exam Physical Exam: General- oriented x 3, not in distress, speaks in sentences with no effort or accessory muscle use Eyes- anicteric Neck- no JVD Lungs- clear breath sounds BL, no rales/wheezes Heart- normal rate, regular rhythm; no murmurs Abdomen- normal bowel sounds, nondistended, soft, nontender Extremities- no pretibial edema, no calf tenderness L hip- dressing in place, no bleeding/discharge L wrist-splint, dressing in place Neuro- alert, oriented x 3; no gross focal neurologic deficits Skin- warm & dry Results & Data Results & Data ([facility]) Vital Signs (Past 12 Hours) Vital Signs Temp Pulse Pulse Resp BP Pulse Ox O2 Del Method 08/10/22 09:07 36.8 C 60 20 136/75 95 Room Air 08/10/22 07:08 36.9 C 52 L 18 129/72 93 Room Air Laboratory Results 08/10/22 08/10/22 Range/Units 08:01 08:01 WBC 12.35 H (4.8-10.8) K/ul RBC 4.03 L (4.63-6.08) M/uL Hgb 13.0 L (14.0-18.0) g/dl Hct 39.5 L (40.1-51.0) % MCV 98.0 (80.0-100.0) fL MCH 32.3 (25.0-34.0) pg MCHC 32.9 (32.0-36.0) g/dL RDW Std Deviation 47.1 H (36.4-46.3) fL RDW Coeff of Carola 13.2 (11.5-14.5) % Plt Count 272 (130-400) K/uL MPV 9.7 (9.4-12.4) fL Sodium 135 L (136-145) mmol/L Potassium 4.0 (3.5-5.1) mmol/L Chloride 104 (98-107) mmol/L Carbon Dioxide 24 (21-32) mmol/L Anion Gap 7 (3-11) BUN 28 H (6-23) mg/dl Creatinine 0.96 (0.6-1.4) mg/dl Est Cr Clr Drug Dosing 85.1 ml/min Est GFR ( Amer) 89.9 ml/min Est GFR (Non-Af Amer) 77.6 ml/min BUN/Creatinine Ratio 29.2 H (10-20) Glucose 83 (70-99(Fasting)) mg/dl Calcium 8.8 (8.5-10.1) mg/dl Phosphorus 3.2 (2.5-4.9) mg/dl Magnesium 2.0 (1.7-2.4) mg/dl Medications Administered Current Inpatient Medications Acetaminophen (Acetaminophen 325 Mg Tab) 650 mg PO Q4H PRN PRN Reason: Pain or Fever Stop: 09/03/22 20:45 Last Admin: 08/06/22 03:00 Dose: 650 mg Al Hydrox/Mg Hydrox/Simethicone (Aluminum/Magnesium Susp 30 Ml Udc) 30 ml PO Q6H PRN PRN Reason: nausea Stop: 09/04/22 11:29 Aspirin (Aspirin 325 Mg Ectab) [address] [facility] Stop: 09/05/22 08:59 Last Admin: 08/09/22 09:31 Dose: 325 mg Atorvastatin Calcium (Atorvastatin 40 Mg Tab) [address] [facility] Stop: 09/04/22 08:59 Last Admin: 08/09/22 09:31 Dose: 80 mg Atropine Sulfate (Atropine Sulfate 0.1 Mg/Ml 10ml Syr) 0.5 mg IV Q1M PRN PRN Reason: PACU Use-HR<40 &/or Bradycardi Stop: 08/10/22 16:52 Clopidogrel Bisulfate (Clopidogrel Bisulfate 75 Mg Tab) [address] [facility] Stop: 09/04/22 08:59 Last Admin: 08/09/22 09:32 Dose: 75 mg Diphenhydramine HCl (Diphenhydramine 50 Mg/Ml Vial) 25 mg IV Q8 PRN PRN Reason: Allergic Reaction Stop: 09/04/22 11:29 Donepezil HCl (Donepezil Hcl 10 Mg Tab) [address] [facility] Stop: 09/04/22 08:59 Last Admin: 08/09/22 09:32 Dose: 10 mg Ephedrine Sulfate (Ephedrine Sulfate 50 Mg/Ml Amp) 5 mg IV Q5M PRN PRN Reason: PACU Use Only-SBP<90 mmHg Stop: 08/10/22 16:52 Ergocalciferol (Ergocalciferol 50,000 Units 1250 Mcg Cap) 50,000 units PO Minor@1300 [facility] Stop: 09/05/22 12:59 Last Admin: 08/06/22 17:31 Dose: 50,000 units Fenofibrate (Fenofibrate Nanocrystallized 145 Mg Tablet) [address] [facility] Stop: 09/04/22 08:59 Last Admin: 08/09/22 09:32 Dose: 145 mg Fentanyl Citrate (Fentanyl Citrate 100 Mcg/2 Ml Vial) 25 mcg IV Q5M PRN PRN Reason: PACU Use Only-Pain Stop: 08/10/22 16:53 Isosorbide Mononitrate (Isosorbide Cottle Extended Rel 30 Mg Tabcr) 30 mg PO QAM [facility] Stop: 09/04/22 08:59 Last Admin: 08/09/22 09:33 Dose: 30 mg Lisinopril (Lisinopril 10 Mg Tab) 10 mg PO QAM [facility] Stop: 09/04/22 08:59 Last Admin: 08/09/22 09:33 Dose: 10 mg Magnesium Hydroxide (Magnesium Hydroxide Susp 30 Ml Udc) 30 ml PO Q12H PRN PRN Reason: Constipation Stop: 09/03/22 20:45 Memantine (Memantine Hcl 10 Mg Tab) 10 mg PO BID [facility] Stop: 09/03/22 23:29 Last Admin: 08/09/22 20:02 Dose: 10 mg Ondansetron HCl (Ondansetron Inj 2 Mg/Ml 2 Ml Vial) 4 mg IV Q6H PRN PRN Reason: Nausea Stop: 09/03/22 20:45 Ondansetron HCl (Ondansetron Inj 2 Mg/Ml 2 Ml Vial) 4 mg IV ONCE PRN PRN Reason: PACU Use Only-Nausea/Vomiting Stop: 08/10/22 16:53 Oxycodone HCl (Oxycodone Hcl Ir 5 Mg Tab (Immediate Release)) 5 mg PO Q4H PRN PRN Reason: Pain Stop: 08/19/22 11:24 Polyethylene Glycol (Polyethylene (Miralax) 17 Gm Pack) 17 gm PO DAILY PRN PRN Reason: Constipation Stop: 09/03/22 20:45 Polyethylene Glycol (Polyethylene (Miralax) 17 Gm Pack) 17 gm PO DAILY [facility] Stop: 09/07/22 13:29 Last Admin: 08/09/22 07:52 Dose: Not Given Ranolazine (Ranolazine 500 Mg Er Tab) 500 mg PO BID [facility] Stop: 09/03/22 23:29 Last Admin: 08/09/22 20:02 Dose: 500 mg (1) Closed fracture of left distal radius Encounter type: initial encounter Fracture morphology: Colles' Qualified Code(s): S52.532A - Colles' fracture of left radius, initial encounter for closed fracture
[2022-08-10] MEDS ORDERED: ePHEDrine sulfate 50 MG/ML AMP ONE (11:51)
[2022-08-10] MEDS ORDERED: PROPOFOL IV EMULSION 10 MG/ML 20 ML VIAL IV ONE (11:51)
[2022-08-10] MEDS ORDERED: ONDANSETRON INJ 2 MG/ML 2 ML VIAL ONE (11:51)
[2022-08-10] MEDS ORDERED: LIDOCAINE 2% MPF LOCAL 5 ML VIAL INFIL ONE (11:51)
[2022-08-10] MEDS ORDERED: fentaNYL citrate 100 MCG/2 ML VIAL ONE (11:51)
--- NOTE | 2022-08-10 12:19 | Operative Report ---
Post Operative Report Pre & Post Diagnosis Operation Date: 08/10/22 07:00 Pre-Op Diagnosis: Left wrist comminuted 4+ part intra-articular distal radius fracture Post-Op Diagnosis: Left wrist comminuted 4+ part intra-articular distal radius fracture I identified the patient and participated in the time-out.: Yes Procedure Operation Date: 08/10/22 07:00 Actual Procedures Left wrist open reduction and internal fixation of 4+ part intra-articular distal radius fracture (66095) - John Calderon M.D. Surgeon John Calderon MD Manufacturing Helper Kameron Cedillo PA-C Estimated Blood Loss 15 Findings Consistent with Post-Op Diagnosis Specimens None Drains None Anesthesia Type General Regional Complications none Disposition Disposition: Recovery Room Indications Mr. Hussein is a 72-year-old male who injured his left wrist during a ground- level fall. History, clinical exam, and imaging were consistent with the above diagnosis. Risks, benefits, and alternatives of surgery were explained in detail. The patient understood all this and wished to proceed. Description of Procedure Patient was identified in the preoperative holding area. Operative extremity was marked. Regional blockade was given by the Anesthesia Staff. Patient was then brought back to the operating room and general anesthesia was induced without complication. Appropriate weight-based dose of Ancef was infused intravenously for antibiotic prophylaxis. Tourniquet was placed on the left upper arm. The arm was then prepped and draped in a standard sterile fashion using Chlorhexidine prep. The arm was then exsanguinated with an Esmarch, and the tourniquet was inflated. Longitudinal incision was made directly over the flexor carpi radialis. The superficial and deep portions of the FCR tendon sheath were then opened longitudinally, and Parona's space was entered. I then made an L-shaped incision along the distal and radial edge of the pronator quadratus and elevated this from radial to ulnar to expose the distal radius fracture site. This was a severely comminuted and moderately displaced distal radius fracture with numerous separate intra-articular fracture fragments and multiple fracture lines extending up into the articular surface. Fracture fragments were mobilized, and reduction maneuver was then performed. I did have to insert a Ambia elevator into the fracture site and elevate up and impacted articular surface fragment on the ulnar side of the fracture. K-wire was placed down the radial styloid and across the fracture site to temporarily hold the reduction during plate application. After adequate reduction had been achieved, I then selected an appropriately sized plate from the [employer] variable-angle distal radius volar l ocking plate set. The plate was then positioned appropriately on the distal radius and temporarily held in place with a K-wire. I verified proper fracture reduction and plate placement under fluoroscopic imaging. Once I was satisfied with this, I proceeded with screw placement. Locking screws were placed distally with the proximal portion of the plate elevated off of the radial shaft. I then reduced the proximal portion of the plate to the radial shaft to assist in fracture reduction, and non-locking and locking screws were placed into the radial shaft where appropriate. I obtained final fluoroscopic imaging to ensure proper screw length and trajectory, as well as fracture reduction. I also performed a shuck test of the distal radial ulnar joint to ensure that it was stable. I then closed the remnants of the pronator quadratus over top of the plate where possible. Tourniquet was then let down, and hemostasis was achieved with bipolar electrocautery. Wound was thoroughly irrigated with sterile saline, and was then closed in layers. Sterile dressings were then applied with Xeroform, sterile gauze, and sterile Webril, followed by a volar plaster splint and Rayray wrap. The drapes were removed, the patient was awakened from general anesthesia and taken to the Post Anesthesia Care Unit in stable condition. There were no immediate complications to the procedure. I was present and scrubbed for the entire procedure. Total screws used: 9 Due to the complex nature of the procedure, the entire surgery was performed with the operational assistance of Kameron Cedillo PA-C. The assistant professor of history, under direct supervision, was involved in the performance of all aspects of the surgical procedure including hemostasis, tissue incision and retraction, instrument management, patient positioning, and wound closure. I attest to the content of the Intraoperative Record and any orders documented therein. Any exceptions are noted below.
[2022-08-10] MEDS: lisinopril 10 MG TAB PO SCH (13:22)
[2022-08-10] MEDS: DONEPEZIL HCL 10 MG TAB PO SCH (13:22)
[2022-08-10] MEDS: RANOLAZINE 500 MG ER TAB PO SCH ×2 (13:22→21:18)
[2022-08-10] MEDS: ASPIRIN 325 MG ECTAB PO SCH (13:22)
[2022-08-10] MEDS: MEMANTINE HCL 10 MG TAB PO SCH ×2 (13:22→21:18)
[2022-08-10] MEDS: ISOSORBIDE MONO EXTENDED REL 30 MG TABCR PO SCH (13:22)
[2022-08-10] MEDS: FENOFIBRATE NANOCRYSTALLIZED 145 MG TABLET PO SCH (13:23)
[2022-08-10] MEDS: ATORVASTATIN 40 MG TAB PO SCH (13:23)
[2022-08-10] MEDS: POLYETHYLENE (MIRALAX) 17 GM PACK PO SCH (13:36)
--- NOTE | 2022-08-10 14:58 | Anesthesiology Progress Note ---
Date of Service August 10, 2022 Anesthesia Post Procedure Vital Signs Vital Signs: Temp Pulse Pulse Pulse Resp BP Pulse Ox 08/10/22 14:16 36.8 C 66 18 132/74 91 08/10/22 13:15 36.4 C L 64 20 120/72 92 08/10/22 13:00 36.7 C 67 19 133/75 94 08/10/22 12:50 68 17 137/82 95 08/10/22 12:40 64 19 130/75 97 08/10/22 12:30 61 20 133/70 96 08/10/22 12:24 36.0 C L 66 16 135/82 97 08/10/22 09:07 36.8 C 60 20 136/75 95 08/10/22 07:08 36.9 C 52 L 18 129/72 93 08/09/22 20:45 36.7 C 61 18 116/71 92 08/09/22 15:37 36.8 C 55 L 16 123/69 92 O2 Del Method O2 Flow Rate 08/10/22 14:16 Room Air 08/10/22 13:15 Room Air 08/10/22 13:00 Room Air 08/10/22 12:50 Room Air 08/10/22 12:40 Oxymask 3 08/10/22 12:30 Oxymask 7 08/10/22 12:24 Oxymask 7 08/10/22 09:07 Room Air 08/10/22 07:08 Room Air 08/09/22 20:45 Room Air 08/09/22 15:37 Room Air Pain Intensity Left Arm: Pain Intensity: 0 Transfer of Care Handoff Completed per policy Notes Mental Status: alert / awake / arousable and participated in evaluation Patient Amnestic to Procedure: Yes Nausea / Vomiting: adequately controlled Pain: adequately controlled Airway Patency, RR, SpO2: stable & adequate BP & HR: stable & adequate Hydration State: stable & adequate Anesthetic Complications: no major complications apparent and Pt Satisfied with anesthetic care
--- NOTE | 2022-08-10 17:04 | Fluoroscopy Report ---
FL wrist LT 2V CLINICAL HISTORY: LEFT WRIST ORIF TECHNIQUE: 2 views were obtained with the C-arm in the OR with the above procedure. Total fluoroscopy time was 1 minute 9 seconds. Comparison: Comparison is made to left wrist CT 08/04/2022 FINDINGS/IMPRESSION: Intraoperative images were obtained of open reduction and internal fixation of t he left wrist. Please correlate with intraoperative fluoroscopy and operative report. ACT 112: Negative or not required by law. Electronically signed by: Jamie Bedolla M.D. 08/10/2022 5:03 PM
[2022-08-10] MEDS: FLUTICASONE PROPIONATE NA SPR 16 GM BTL SCH (17:35)
[2022-08-10] MEDS: guaiFENesin 600 MG TABCR PO SCH (21:18)
[2022-08-11] MEDS: ACETAMINOPHEN 325 MG TAB PO PRN (03:22)
[2022-08-11 06:23] LABS: Hematocrit (blood only) 39.9 % (40.1-51.0); Hemoglobin 13.1 g/dl (14.0-18.0); Mean Corpuscular Hemoglobin 31.8 pg (25.0-34.0); Mean Corpuscular Hgb Conc 32.8 g/dL (32.0-36.0); Mean Corpuscular Volume 96.8 fL (80.0-100.0); Mean Platelet Volume 9.4 fL (9.4-12.4); Platelet Count 295 K/uL (130-400); RDW Standard Deviation 46.8 fL (36.4-46.3); Red Blood Count 4.12 M/uL (4.63-6.08); White Blood Count 15.73 K/ul (4.8-10.8)
[2022-08-11 06:43] LABS: BUN Creatinine Ratio 28.2 (10-20); Calcium 8.6 mg/dl (8.5-10.1); Creatinine Clr Calc Pharmacy 79.3 ml/min; Est GFR (African American) 82.6 ml/min; Est GFR (Non-African American) 71.2 ml/min; Potassium 4.3 mmol/L (3.5-5.1)
[2022-08-11] MEDS: FLUTICASONE PROPIONATE NA SPR 16 GM BTL SCH (09:03)
[2022-08-11] MEDS: ISOSORBIDE MONO EXTENDED REL 30 MG TABCR PO SCH (09:03)
[2022-08-11] MEDS: guaiFENesin 600 MG TABCR PO SCH ×2 (09:03→20:11)
[2022-08-11] MEDS: POLYETHYLENE (MIRALAX) 17 GM PACK PO SCH ×2 (09:03→09:10)
[2022-08-11] MEDS: RANOLAZINE 500 MG ER TAB PO SCH ×2 (09:03→20:11)
[2022-08-11] MEDS: lisinopril 10 MG TAB PO SCH (09:03)
[2022-08-11] MEDS: ASPIRIN 325 MG ECTAB PO SCH (09:03)
[2022-08-11] MEDS: MEMANTINE HCL 10 MG TAB PO SCH ×2 (09:03→20:11)
[2022-08-11] MEDS: CLOPIDOGREL BISULFATE 75 MG TAB PO SCH (09:03)
[2022-08-11] MEDS: ATORVASTATIN 40 MG TAB PO SCH (09:03)
[2022-08-11] MEDS: FENOFIBRATE NANOCRYSTALLIZED 145 MG TABLET PO SCH (09:04)
[2022-08-11] MEDS: DONEPEZIL HCL 10 MG TAB PO SCH (09:04)
--- NOTE | 2022-08-11 09:05 | Hospitalist Progress Note ---
Date of Service August 11, 2022 Assessment & Plan (1) Closed left hip fracture: (2) Vitamin D deficiency: (3) Closed fracture of left wrist: (4) Closed fracture of left distal radius: Plan per previous hospitalist with addendum: Mechanical fall, ground-level Likely osteoporotic fracture Nondisplaced impacted left femoral neck fracture, s/p Percutaneous Screw Fixation Left Hip 08/05 Comminuted intra-articular left distal radius fracture Patient had a mechanical fall, denies hitting head. Admitting CT head, hip x-ray and wrist x-ray reviewed. 08/05 s/p left hip screw and fixation by Dr. Frank Monitor H&H (hgb 13 and stable). No pain currently. Per Ortho for movement instructions, PT OT Vitamin D deficiency- being supplemented POD# 1 s/p Left wrist ORIF by Dr. Calderon (08/10/22) finger swelling noted - recommend elevation Continue to monitor closely Other chronic medical conditions: CAD, CVA, HLD, HTN --> no cardiac symptoms, no neurologic deficits Continue Ranexa, Imdur, lisinopril, Tricor, Plavix, Lipitor, aspirin Started on mucinex and flonase for ongoing post nasal drip and congestion. Symptoms already improved. DVT prophylaxis: per orthopedic surgery Full code Disposition: Will need acute rehab Admission and Anticipated Discharge Date Admission Date: August 04, 2022 Subjective Pt seen in follow-up of hip fx s/p hip surgery several days ago, left wrist fracture s/p surgical repair yesterday Currently patient is sitting up in bed, in no acute distress, left wrist in dressings, yariel wrap and in sling Denies chest pain shortness of breath, denies abdominal pain nausea vomiting Overall reports feeling well Denies pain Review of Systems Review of Systems: All systems reviewed & are unremarkable except as noted in Subjective Physical Exam Physical Exam: General- oriented x 3, not in distress, speaks in sentences with no effort or accessory muscle use Eyes- anicteric Neck- no JVD Lungs- clear breath sounds BL, no rales/wheezes Heart- normal rate, regular rhythm; no murmurs Abdomen- normal bowel sounds, nondistended, soft, nontender Extremities- no pretibial edema, no calf tenderness L hip- dressing in place, no bleeding/discharge L wrist- dressings, yariel wrap, in sling Neuro- alert, oriented x 3; no gross focal neurologic deficits Skin- warm & dry Results & Data Results & Data ([facility]) Vital Signs (Past 12 Hours) Vital Signs Temp Pulse Pulse Resp BP Pulse Ox O2 Del Method 08/11/22 07:46 36.5 C 60 16 161/85 H 93 Room Air 08/11/22 03:26 36.8 C 62 16 157/72 H 92 Room Air 08/10/22 23:20 36.9 C 67 18 118/68 93 Room Air, CPAP Laboratory Results 08/11/22 08/11/22 08/10/22 Range/Units 06:00 06:00 08:01 WBC 15.73 H (4.8-10.8) K/ul RBC 4.12 L (4.63-6.08) M/uL Hgb 13.1 L (14.0-18.0) g/dl Hct 39.9 L (40.1-51.0) % MCV 96.8 (80.0-100.0) fL MCH 31.8 (25.0-34.0) pg MCHC 32.8 (32.0-36.0) g/dL RDW Std Deviation 46.8 H (36.4-46.3) fL RDW Coeff of Carola 13.0 (11.5-14.5) % Plt Count 295 (130-400) K/uL MPV 9.4 (9.4-12.4) fL Sodium 134 L 135 L (136-145) mmol/L Potassium 4.3 4.0 (3.5-5.1) mmol/L Chloride 104 104 (98-107) mmol/L Carbon Dioxide 23 24 (21-32) mmol/L Anion Gap 7 7 (3-11) BUN 29 H 28 H (6-23) mg/dl Creatinine 1.03 0.96 (0.6-1.4) mg/dl Est Cr Clr Drug Dosing 79.3 85.1 ml/min Est GFR ( Amer) 82.6 89.9 ml/min Est GFR (Non-Af Amer) 71.2 77.6 ml/min BUN/Creatinine Ratio 28.2 H 29.2 H (10-20) Glucose 107 H 83 (70-99(Fasting)) mg/dl Calcium 8.6 8.8 (8.5-10.1) mg/dl Phosphorus 3.2 (2.5-4.9) mg/dl Magnesium 2.0 (1.7-2.4) mg/dl 08/10/22 Range/Units 08:01 WBC 12.35 H (4.8-10.8) K/ul RBC 4.03 L (4.63-6.08) M/uL Hgb 13.0 L (14.0-18.0) g/dl Hct 39.5 L (40.1-51.0) % MCV 98.0 (80.0-100.0) fL MCH 32.3 (25.0-34.0) pg MCHC 32.9 (32.0-36.0) g/dL RDW Std Deviation 47.1 H (36.4-46.3) fL RDW Coeff of Carola 13.2 (11.5-14.5) % Plt Count 272 (130-400) K/uL MPV 9.7 (9.4-12.4) fL Sodium (136-145) mmol/L Potassium (3.5-5.1) mmol/L Chloride (98-107) mmol/L Carbon Dioxide (21-32) mmol/L Anion Gap (3-11) BUN (6-23) mg/dl Creatinine (0.6-1.4) mg/dl Est Cr Clr Drug Dosing ml/min Est GFR ( Amer) ml/min Est GFR (Non-Af Amer) ml/min BUN/Creatinine Ratio (10-20) Glucose (70-99(Fasting)) mg/dl Calcium (8.5-10.1) mg/dl Phosphorus (2.5-4.9) mg/dl Magnesium (1.7-2.4) mg/dl Medications Administered Current Inpatient Medications Acetaminophen (Acetaminophen 325 Mg Tab) 650 mg PO Q4H PRN PRN Reason: Pain or Fever Stop: 09/03/22 20:45 Last Admin: 08/11/22 03:22 Dose: 650 mg Al Hydrox/Mg Hydrox/Simethicone (Aluminum/Magnesium Susp 30 Ml Udc) 30 ml PO Q6H PRN PRN Reason: nausea Stop: 09/04/22 11:29 Aspirin (Aspirin 325 Mg Ectab) 325 mg PO QAM [facility] Stop: 09/05/22 08:59 Last Admin: 08/11/22 09:03 Dose: 325 mg Atorvastatin Calcium ([facility]atin 40 Mg Tab) [facility] Stop: 09/04/22 08:59 Last Admin: 08/11/22 09:03 Dose: 80 mg Clopidogrel Bisulfate (Clopidogrel Bisulfate 75 Mg Tab) 75 mg PO [facility] Stop: 09/04/22 08:59 Last Admin: 08/11/22 09:03 Dose: 75 mg Diphenhydramine HCl (Diphenhydramine 50 Mg/Ml Vial) 25 mg IV Q8 PRN PRN Reason: Allergic Reaction Stop: 09/04/22 11:29 Donepezil HCl (Donepezil Hcl 10 Mg Tab) 10 mg PO [facility] Stop: 09/04/22 08:59 Last Admin: 08/11/22 09:04 Dose: 10 mg Ergocalciferol (Ergocalciferol 50,000 Units 1250 Mcg Cap) 50,000 units PO Minor@1300 [facility] Stop: 09/05/22 12:59 Last Admin: 08/06/22 17:31 Dose: 50,000 units Fenofibrate (Fenofibrate Nanocrystallized 145 Mg Tablet) 145 mg PO [facility] Stop: 09/04/22 08:59 Last Admin: 08/11/22 09:04 Dose: 145 mg Fluticasone Propionate (Fluticasone Propionate Na Spr 16 Gm Btl) 2 sprays NA DAILY [facility] Stop: 09/09/22 15:59 Last Admin: 08/11/22 09:03 Dose: 2 sprays Guaifenesin (Guaifenesin 600 Mg Tabcr) 600 mg PO Q12 [facility] Stop: 09/09/22 20:59 Last Admin: 08/11/22 09:03 Dose: 600 mg Isosorbide Mononitrate (Isosorbide Gladwin Extended Rel 30 Mg Tabcr) 30 mg PO [facility] Stop: 09/04/22 08:59 Last Admin: 08/11/22 09:03 Dose: 30 mg Lisinopril (Lisinopril 10 Mg Tab) 10 mg PO [facility] Stop: 09/04/22 08:59 Last Admin: 08/11/22 09:03 Dose: 10 mg Magnesium Hydroxide (Magnesium Hydroxide Susp 30 Ml Udc) 30 ml PO Q12H PRN PRN Reason: Constipation Stop: 09/03/22 20:45 Memantine (Memantine Hcl 10 Mg Tab) 10 mg PO BID [facility] Stop: 09/03/22 23:29 Last Admin: 08/11/22 09:03 Dose: 10 mg Ondansetron HCl (Ondansetron Inj 2 Mg/Ml 2 Ml Vial) 4 mg IV Q6H PRN PRN Reason: Nausea Stop: 09/03/22 20:45 Oxycodone HCl (Oxycodone Hcl Ir 5 Mg Tab (Immediate Release)) 5 mg PO Q4H PRN PRN Reason: Pain Stop: 08/19/22 11:24 Polyethylene Glycol (Polyethylene (Miralax) 17 Gm Pack) 17 gm PO DAILY PRN PRN Reason: Constipation Stop: 09/03/22 20:45 Polyethylene Glycol (Polyethylene (Miralax) 17 Gm Pack) 17 gm PO DAILY [facility] Stop: 09/07/22 13:29 Last Admin: 08/11/22 09:03 Dose: 17 gm Ranolazine (Ranolazine 500 Mg Er Tab) 500 mg PO BID [facility] Stop: 09/03/22 23:29 Last Admin: 08/11/22 09:03 Dose: 500 mg (1) Closed fracture of left distal radius Encounter type: initial encounter Fracture morphology: Colles' Qualified Code(s): S52.532A - Colles' fracture of left radius, initial encounter for closed fracture
--- NOTE | 2022-08-11 09:20 | Orthopedic Progress Note ---
Date of Service August 11, 2022 Assessment & Plan (1) Closed left hip fracture: Plan: POD #6 - s/p ORIF Left hip with Dr. Frank Weightbearing as tolerated with platform walker. No hip precautions necessary. Ice with easy wrap Pain control with p.o. medication DVT prophylaxis with Lovenox and Plavix Case management evaluation for discharge planning - disposition pending to [facility]. Cont PT/OT Follow up with Dr. Frank as scheduled. (2) Closed fracture of left distal radius: Plan: Dr. Calderon performed ORIF of patients left wrist fracture yesterday. Encouraged elevation Continue sling and splint. (3) Vitamin D deficiency: Plan: Vitamin D supplementation 50,000 IU every Sunday Admission and Anticipated Discharge Date Admission Date: August 04, 2022 Subjective 72-year-old male is seen for follow-up of percutaneous pinning for a left hip fracture done on August [address] Frank. Yesterday he underwent an open reduction internal fixation for a left distal radius fracture with Dr. Calderon. Patient states that overall his left hip is doing fine. He has no pain. He has been able to get up and ambulate with his walker without assistance. He has had no problems moving his bowels or urinating. Currently he denies any chest pain, shortness of breath, fever, chills, sweats or numbness or tingling in his left lower extremity. Review of Systems Review of Systems: All systems reviewed & are unremarkable except as noted in Subjective Physical Exam Physical Exam: Left hip: Dressing is clean dry and intact. Patient is able to perform active straight leg raise test. Quad strength is 4 out of 5. He is able to actively dorsi and plantarflex foot without issue. Knee range of motion from 0 to 90 degrees does not cause any pain. Patient does not experience any pain near the incision site with light passive internal hip rotation or with light passive external rotation. He is neurovascular intact in left lower extremity. Results & Data ([facility]) Vital Signs (Past 12 Hours) Vital Signs Temp Pulse Pulse Resp BP Pulse Ox O2 Del Method 08/11/22 07:46 36.5 C 60 16 161/85 H 93 Room Air 08/11/22 03:26 36.8 C 62 16 157/72 H 92 Room Air 08/10/22 23:20 36.9 C 67 18 118/68 93 Room Air, CPAP Diagnostic Findings Laboratory Results WBC 15.73 K/ul (4.8-10.8) H 08/11/22 06:00 RBC 4.12 M/uL (4.63-6.08) L 08/11/22 06:00 Hgb 13.1 g/dl (14.0-18.0) L 08/11/22 06:00 Hct 39.9 % (40.1-51.0) L 08/11/22 06:00 MCV 96.8 fL (80.0-100.0) 08/11/22 06:00 MCH 31.8 pg (25.0-34.0) 08/11/22 06:00 MCHC 32.8 g/dL (32.0-36.0) 08/11/22 06:00 RDW Std Deviation 46.8 fL (36.4-46.3) H 08/11/22 06:00 RDW Coeff of Carola 13.0 % (11.5-14.5) 08/11/22 06:00 Plt Count 295 K/uL (130-400) 08/11/22 06:00 MPV 9.4 fL (9.4-12.4) 08/11/22 06:00 Immature Gran % (Auto) 0.9 % 08/06/22 05:25 Neut % (Auto) 68.5 % 08/06/22 05:25 Lymph % (Auto) 14.9 % 08/06/22 05:25 Schleicher % (Auto) 9.5 % 08/06/22 05:25 Eos % (Auto) 5.7 % 08/06/22 05:25 Baso % (Auto) 0.5 % 08/06/22 05:25 Neut # (Auto) 7.95 K/uL (1.4-6.5) H 08/06/22 05:25 Lymph # (Auto) 1.73 K/uL (1.2-3.4) 08/06/22 05:25 Schleicher # (Auto) 1.10 K/uL (0.24-0.82) H 08/06/22 05:25 Eos # (Auto) 0.66 K/uL (0-0.50) H 08/06/22 05:25 Baso # (Auto) 0.06 K/uL (0-0.2) 08/06/22 05:25 Immature Gran # (Auto) 0.10 K/uL (0.00-0.02) H 08/06/22 05:25 PT 10.9 Seconds (9.0-12.0) 08/04/22 19:35 INR 1.0 (0.9-1.1) 08/04/22 19:35 APTT 21.8 Seconds (21.0-31.0) 08/04/22 19:35 PTT Ratio 0.8 08/04/22 19:35 Sodium 134 mmol/L (136-145) L 08/11/22 06:00 Potassium 4.3 mmol/L (3.5-5.1) 08/11/22 06:00 Chloride 104 mmol/L (98-107) 08/11/22 06:00 Carbon Dioxide 23 mmol/L (21-32) 08/11/22 06:00 Anion Gap 7 (3-11) 08/11/22 06:00 BUN 29 mg/dl (6-23) H 08/11/22 06:00 Creatinine 1.03 mg/dl (0.6-1.4) 08/11/22 06:00 Est Cr Clr Drug Dosing 79.3 ml/min 08/11/22 06:00 Est GFR ( Amer) 82.6 ml/min 08/11/22 06:00 Est GFR (Non-Af Amer) 71.2 ml/min 08/11/22 06:00 BUN/Creatinine Ratio 28.2 (10-20) H 08/11/22 06:00 Glucose 107 mg/dl (70-99(Fasting)) H 08/11/22 06:00 Calcium 8.6 mg/dl (8.5-10.1) 08/11/22 06:00 Phosphorus 3.2 mg/dl (2.5-4.9) 08/10/22 08:01 Magnesium 2.0 mg/dl (1.7-2.4) 08/10/22 08:01 Total Bilirubin 1.4 mg/dl (0.2-1.0) H 08/04/22 19:35 AST 21 U/L (13-39) 08/04/22 19:35 ALT 16 U/L (7-52) 08/04/22 19:35 Alkaline Phosphatase 29 U/L (34-104) L 08/04/22 19:35 Total Protein 7.3 gm/dl (6.0-8.3) 08/04/22 19:35 Albumin 4.1 gm/dl (3.4-5.0) 08/04/22 19:35 Globulin 3.2 gm/dl (2.5-4.0) 08/04/22 19:35 Albumin/Globulin Ratio 1.3 (0.9-2) 08/04/22 19:35 25-OH Vitamin D Total 21.0 ng/ml (30-100) L 08/06/22 05:25 SARS-CoV-2, RNA, NAAT NEGATIVE (NEGATIVE) 08/04/22 19:35 Blood Type AB Negative 08/05/22 08:16 Blood Type Recheck AB Negative 08/05/22 05:21 Antibody Screen NEGATIVE 08/05/22 08:16 Impressions Hip/Pelvis X-Ray 08/04/22 18:25 XR hip LT 2V w pelvis CLINICAL HISTORY: Fall,L wrist and L hip pain COMPARISON STUDY: None. FINDINGS: There is nondisplaced but slightly impacted subcapital left femoral neck fracture. No dislocation. The pelvic bones and right hip are intact. Moderate to severe degenerative disc disease within the lower lumbar spine. IMPRESSION: Slightly impacted subcapital left femoral neck fracture. No dislocation. ACT 112: Negative or not required by law. Electronically signed by: Willie Domingo M.D. 08/04/2022 7:[address] 08/04/22 19:[address] DOSE: 773.57 mGy.cm HISTORY: fall, hip and wrist injuries, clopidigrel/aspirin TECHNIQUE: Multiaxial CT images of the head were performed without the use of intravenous contrast. Automated exposure control was utilized for this study. A dose lowering technique was utilized adhering to the principles of ALARA. Comparison: None. Findings: Partial opacification of the ethmoid air cells. The mastoid air cells are clear. The calvarium and skull base are intact. There is no mass, hematoma, midline shift, acute infarct. White matter hypodensity is nonspecific but suggestive of microvascular ischemic change. The ventricles and sulci demonstrate mild age-related involutional changes. Small focus of encephalomalacia within the left posterior parietal lobe consistent with an old infarct. Impression: No acute intracranial abnormality. Atrophy and microvascular ischemic changes. ACT 112: Negative or not required by law. Electronically signed by: Willie Domingo M.D. 08/04/2022 8:[address] 08/04/22 21:[address] DOSE: 177.98 mGy.cm HISTORY: Left wrist pain TECHNIQUE: Multiaxial CT images of the left wrist were performed and reformatted in the sagittal and coronal plane without the use of contrast. A dose lowering technique was utilized adhering to the principles of ALARA. COMPARISON: Left wrist radiograph 08/04/2022. FINDINGS: There is a comminuted, impacted, and displaced distal left radius fracture which demonstrates intra-articular extension. There is 1 cm of dorsal displacement and dorsal angulation. There is diffuse soft tissue swelling. Small fracture the tip of the ulnar styloid is again noted. There is an old small fracture at the triquetral bone. IMPRESSION: Distal left radius and ulnar styloid fractures as described above. ACT 112: Negative or not required by law. Electronically signed by: Willie Domingo M.D. 08/05/2022 7:37 AM Hip X-Ray 08/05/22 11:25 XR hip LT min 2V CLINICAL HISTORY: Post-Operative implant position COMPARISON: Left hip radiographs August 04, 2022. FINDINGS: There are expected postoperative findings following internal fixation of the subcapital left femoral fracture with 3 cannulated screws. Hardware is intact. Fracture alignment is near anatomic. Skin obdulio are present. IMPRESSION: Expected findings following internal fixation of the subcapital left femoral fracture. ACT 112: Negative or not required by law. Electronically signed by: Fuad Cruz M.D. 08/05/2022 12:15 PM Wrist X-Ray 08/10/22 00:00 FL wrist LT 2V CLINICAL HISTORY: LEFT WRIST ORIF TECHNIQUE: 2 views were obtained with the C-arm in the OR with the above procedure. Total fluoroscopy time was 1 minute 9 seconds. Comparison: Comparison is made to left wrist CT 08/04/2022 FINDINGS/IMPRESSION: Intraoperative images were obtained of open reduction and internal fixation of the left wrist. Please correlate with intraoperative fluoroscopy and operative report. ACT 112: Negative or not required by law. Electronically signed by: Jamie Bedolla M.D. 08/10/2022 5:03 PM (1) Closed fracture of left distal radius Encounter type: initial encounter Fracture morphology: Colles' Qualified Code(s): S52.532A - Colles' fracture of left radius, initial encounter for closed fracture
--- NOTE | 2022-08-11 11:53 | Orthopedic Progress Note ---
Date of Service August 11, 2022 Assessment & Plan (1) Closed fracture of left distal radius: Plan: POD 1 s/p ORIF left wrist Ice, elevation of left wrist. ROM of fingers as tolerated. Follow up with Dr Calderon in 2 weeks. Admission and Anticipated Discharge Date Admission Date: August 04, 2022 Subjective POD 1 Pt sitting up in bed awake, alert. No complaints this AM. Pain controlled in the left wrist. Physical Exam Physical Exam: Splint/Dressing C/D/I . Fingers with swelling but sensation intact. Moving fingers well. Cap refill < 2 seconds. Results & Data ([facility]) Vital Signs (Past 12 Hours) Vital Signs Temp Pulse Pulse Resp BP Pulse Ox O2 Del Method 08/11/22 11:34 36.9 C 66 16 156/78 H 92 Room Air 08/11/22 07:46 36.5 C 60 16 161/85 H 93 Room Air 08/11/22 03:26 36.8 C 62 16 157/72 H 92 Room Air (1) Closed fracture of left distal radius Encounter type: initial encounter Fracture morphology: Colles' Qualified Code(s): S52.532A - Colles' fracture of left radius, initial encounter for closed fracture
[2022-08-12 08:57] LABS: Hematocrit (blood only) 39.2 % (40.1-51.0); Hemoglobin 13.2 g/dl (14.0-18.0); Mean Corpuscular Hemoglobin 32.1 pg (25.0-34.0); Mean Corpuscular Hgb Conc 33.7 g/dL (32.0-36.0); Mean Corpuscular Volume 95.4 fL (80.0-100.0); Mean Platelet Volume 9.5 fL (9.4-12.4); Platelet Count 309 K/uL (130-400); RDW Coefficient of Variation 13.1 % (11.5-14.5); Red Blood Count 4.11 M/uL (4.63-6.08); White Blood Count 13.04 K/ul (4.8-10.8)
[2022-08-12] MEDS: MEMANTINE HCL 10 MG TAB PO SCH ×2 (08:57→19:56)
[2022-08-12] MEDS: ISOSORBIDE MONO EXTENDED REL 30 MG TABCR PO SCH (08:57)
[2022-08-12] MEDS: FLUTICASONE PROPIONATE NA SPR 16 GM BTL SCH (08:57)
[2022-08-12] MEDS: POLYETHYLENE (MIRALAX) 17 GM PACK PO SCH (08:57)
[2022-08-12] MEDS: RANOLAZINE 500 MG ER TAB PO SCH ×2 (08:57→19:56)
[2022-08-12] MEDS: guaiFENesin 600 MG TABCR PO SCH ×2 (08:57→19:56)
[2022-08-12] MEDS: ASPIRIN 325 MG ECTAB PO SCH (08:57)
[2022-08-12] MEDS: DONEPEZIL HCL 10 MG TAB PO SCH (08:58)
[2022-08-12] MEDS: FENOFIBRATE NANOCRYSTALLIZED 145 MG TABLET PO SCH (08:58)
[2022-08-12] MEDS: ATORVASTATIN 40 MG TAB PO SCH (08:58)
[2022-08-12] MEDS: lisinopril 10 MG TAB PO SCH (08:58)
[2022-08-12] MEDS: CLOPIDOGREL BISULFATE 75 MG TAB PO SCH (08:58)
[2022-08-12 09:20] LABS: BUN Creatinine Ratio 25.6 (10-20); Calcium 8.9 mg/dl (8.5-10.1); Est GFR (Non-African American) 85.4 ml/min
--- NOTE | 2022-08-12 09:43 | Orthopedic Progress Note ---
Date of Service August 12, 2022 Assessment & Plan (1) Closed fracture of left distal radius: Plan: POD 2 s/p ORIF left wrist Ice, elevation of left wrist. ROM of fingers as tolerated. Follow up with Dr Calderon in 2 weeks. [facility] orthopedics to sign off at this time. Discharge instructions placed. Admission and Anticipated Discharge Date Admission Date: August 04, 2022 Supervising Physician Co-Signing Physician Notes Patient seen and examined. Agree with GORDY Posada's note as above. Some finger swelling is noted, but he does have good motion in his fingers. His Rayray wraps feel little bit tight; these were unwrapped and rewrapped looser. Recommended continued elevation of the left wrist and aggressive finger range of motion to reduce swelling. Nonweightbearing through left wrist. May weight-bear as tolerated through left elbow/forearm on the platform walker. Follow-up with me in orthopedics clinic 10 to 14 days after surgery. [facility] at [phone] to make an appointment. Wrist-specific discharge instructions were placed in the discharge section. Orthopedics will sign off at this point. Call with questions. Subjective Doing well. No complaints of left wrist pain. Physical Exam Constitutional: WD/WN, vitals as above no acute distress Musculoskeletal: Extremities: + wrist abnormality Left (Volar short arm splint C/D/I. Fingers mobile.) Neurologic: normal touch/pain/proprioception Psychiatric: A+Ox3, euthymic affect Speech: normal rate/rhythm/volume of speech Results & Data ([facility]) Vital Signs (Past 12 Hours) Vital Signs Temp Pulse Resp BP Pulse Ox O2 Del Method 08/12/22 08:00 36.7 C 60 16 142/80 H 93 Room Air (1) Closed fracture of left distal radius Encounter type: initial encounter Fracture morphology: Colles' Qualified Code(s): S52.532A - Colles' fracture of left radius, initial encounter for closed fracture
--- NOTE | 2022-08-12 12:04 | Hospitalist Progress Note ---
Date of Service August 12, 2022 Assessment & Plan (1) Closed left hip fracture: (2) Vitamin D deficiency: (3) Closed fracture of left wrist: (4) Closed fracture of left distal radius: Plan per previous hospitalist with addendum: Mechanical fall, ground-level Likely osteoporotic fracture Nondisplaced impacted left femoral neck fracture, s/p Percutaneous Screw Fixation Left Hip 08/05 Comminuted intra-articular left distal radius fracture Patient had a mechanical fall, denies hitting head. Admitting CT head, hip x-ray and wrist x-ray reviewed. 08/05 s/p left hip screw and fixation by Dr. Frank Monitor H&H (hgb 13 and stable). No pain currently. Per Ortho for movement instructions, PT OT Vitamin D deficiency- being supplemented POD# 2 s/p Left wrist ORIF by Dr. Calderon (08/10/22) finger swelling noted - recommend elevation Rayray wraps also adjusted by orthopedics Continue to monitor closely Per ortho: Ice, elevation of left wrist. ROM of fingers as tolerated/aggressive finger range of motion to reduce swelling. Nonweightbearing through left wrist. May weight-bear as tolerated through left elbow/forearm on the platform walker. Follow up with Dr Calderon in 2 weeks. Please call [facility] at [phone] to make an appointment. Wrist-specific discharge instructions were placed in the discharge section. Other chronic medical conditions: CAD, CVA, HLD, HTN --> no cardiac symptoms, no neurologic deficits Continue Ranexa, Imdur, lisinopril, Tricor, Plavix, Lipitor, aspirin Started on mucinex and flonase for ongoing post nasal drip and congestion. Sympt oms already improved. DVT prophylaxis: per orthopedic surgery Full code Disposition: Will need acute rehab Admission and Anticipated Discharge Date Admission Date: August 04, 2022 Subjective Pt seen in follow-up of hip fx s/p hip surgery several days ago, left wrist fracture s/p surgical repair Currently patient is sitting up in bed, in no acute distress, left wrist in dressings, rayray wrap and in sling Has some left hand edema, Rayray wrap was adjusted by orthopedics this morning Denies chest pain shortness of breath, denies abdominal pain nausea vomiting Overall reports feeling well Denies pain Review of Systems Review of Systems: All systems reviewed & are unremarkable except as noted in Subjective Physical Exam Physical Exam: General- oriented x 3, not in distress, speaks in sentences with no effort or accessory muscle use Eyes- anicteric Neck- no JVD Lungs- clear breath sounds BL, no rales/wheezes Heart- normal rate, regular rhythm; no murmurs Abdomen- normal bowel sounds, nondistended, soft, nontender Extremities- no pretibial edema, no calf tenderness L hip- dressing in place, no bleeding/discharge L wrist- dressings, rayray wrap, in sling, + L hand edema Neuro- alert, oriented x 3; no gross focal neurologic deficits Skin- warm & dry Results & Data Results & Data ([facility]) Vital Signs (Past 12 Hours) Vital Signs Temp Pulse Resp BP Pulse Ox O2 Del Method 08/12/22 08:00 36.7 C 60 16 142/80 H 93 Room Air Laboratory Results 08/12/22 08/12/22 Range/Units 08:17 08:17 WBC 13.04 H (4.8-10.8) K/ul RBC 4.11 L (4.63-6.08) M/uL Hgb 13.2 L (14.0-18.0) g/dl Hct 39.2 L (40.1-51.0) % MCV 95.4 (80.0-100.0) fL MCH 32.1 (25.0-34.0) pg MCHC 33.7 (32.0-36.0) g/dL RDW Std Deviation 46.0 (36.4-46.3) fL RDW Coeff of Caroal 13.1 (11.5-14.5) % Plt Count 309 (130-400) K/uL MPV 9.5 (9.4-12.4) fL Sodium 135 L (136-145) mmol/L Potassium 4.0 (3.5-5.1) mmol/L Chloride 104 (98-107) mmol/L Carbon Dioxide 24 (21-32) mmol/L Anion Gap 7 (3-11) BUN 22 (6-23) mg/dl Creatinine 0.86 (0.6-1.4) mg/dl Est Cr Clr Drug Dosing 95.0 ml/min Est GFR ( Amer) 99.0 ml/min Est GFR (Non-Af Amer) 85.4 ml/min BUN/Creatinine Ratio 25.6 H (10-20) Glucose 87 (70-99(Fasting)) mg/dl Calcium 8.9 (8.5-10.1) mg/dl Phosphorus 3.0 (2.5-4.9) mg/dl Magnesium 2.0 (1.7-2.4) mg/dl Medications Administered Current Inpatient Medications Acetaminophen (Acetaminophen 325 Mg Tab) 650 mg PO Q4H PRN PRN Reason: Pain or Fever Stop: 09/03/22 20:45 Last Admin: 08/11/22 03:22 Dose: 650 mg Al Hydrox/Mg Hydrox/Simethicone (Aluminum/Magnesium Susp 30 Ml Udc) 30 ml PO Q6H PRN PRN Reason: nausea Stop: 09/04/22 11:29 Aspirin (Aspirin 325 Mg Ectab) 325 mg PO [facility] Stop: 09/05/22 08:59 Last Admin: 08/12/22 08:57 Dose: 325 mg Atorvastatin Calcium (Atorvastatin 40 Mg Tab) 80 mg PO [facility] Stop: 09/04/22 08:59 Last Admin: 08/12/22 08:58 Dose: 80 mg Clopidogrel Bisulfate (Clopidogrel Bisulfate 75 Mg Tab) 75 mg PO [facility] Stop: 09/04/22 08:59 Last Admin: 08/12/22 08:58 Dose: 75 mg Diphenhydramine HCl (Diphenhydramine 50 Mg/Ml Vial) 25 mg IV Q8 PRN PRN Reason: Allergic Reaction Stop: 09/04/22 11:29 Donepezil HCl (Donepezil Hcl 10 Mg Tab) 10 mg PO [facility] Stop: 09/04/22 08:59 Last Admin: 08/12/22 08:58 Dose: 10 mg Ergocalciferol (Ergocalciferol 50,000 Units 1250 Mcg Cap) 50,000 units PO Minor@1300 [facility] Stop: 09/05/22 12:59 Last Admin: 08/06/22 17:31 Dose: 50,000 units Fenofibrate (Fenofibrate Nanocrystallized 145 Mg Tablet) 145 mg PO [facility] Stop: 09/04/22 08:59 Last Admin: 08/12/22 08:58 Dose: 145 mg Fluticasone Propionate (Fluticasone Propionate Na Spr 16 Gm Btl) 2 sprays NA DAILY [facility] Stop: 09/09/22 15:59 Last Admin: 08/12/22 08:57 Dose: 2 sprays Guaifenesin (Guaifenesin 600 Mg Tabcr) 600 mg PO Q12 [facility] Stop: 09/09/22 20:59 Last Admin: 08/12/22 08:57 Dose: 600 mg Isosorbide Mononitrate (Isosorbide [place] Extended Rel 30 Mg Tabcr) 30 mg PO QAM [facility] Stop: 09/04/22 08:59 Last Admin: 08/12/22 08:57 Dose: 30 mg Lisinopril (Lisinopril 10 Mg Tab) 10 mg PO QAM [facility] Stop: 09/04/22 08:59 Last Admin: 08/12/22 08:58 Dose: 10 mg Magnesium Hydroxide (Magnesium Hydroxide Susp 30 Ml Udc) 30 ml PO Q12H PRN PRN Reason: Constipation Stop: 09/03/22 20:45 Memantine (Memantine Hcl 10 Mg Tab) 10 mg PO BID [facility] Stop: 09/03/22 23:29 Last Admin: 08/12/22 08:57 Dose: 10 mg Ondansetron HCl (Ondansetron Inj 2 Mg/Ml 2 Ml Vial) 4 mg IV Q6H PRN PRN Reason: Nausea Stop: 09/03/22 20:45 Oxycodone HCl (Oxycodone Hcl Ir 5 Mg Tab (Immediate Release)) 5 mg PO Q4H PRN PRN Reason: Pain Stop: 08/19/22 11:24 Polyethylene Glycol (Polyethylene (Miralax) 17 Gm Pack) 17 gm PO DAILY PRN PRN Reason: Constipation Stop: 09/03/22 20:45 Polyethylene Glycol (Polyethylene (Miralax) 17 Gm Pack) 17 gm PO DAILY [facility] Stop: 09/07/22 13:29 Last Admin: 08/12/22 08:57 Dose: 17 gm Ranolazine (Ranolazine 500 Mg Er Tab) 500 mg PO BID [facility] Stop: 09/03/22 23:29 Last Admin: 08/12/22 08:57 Dose: 500 mg (1) Closed fracture of left distal radius Encounter type: initial encounter Fracture morphology: Colles' Qualified Code(s): S52.532A - Colles' fracture of left radius, initial encounter for closed fracture
[2022-08-13 06:35] LABS: Hematocrit (blood only) 37.8 % (40.1-51.0); Hemoglobin 12.6 g/dl (14.0-18.0); Mean Corpuscular Hgb Conc 33.3 g/dL (32.0-36.0); Mean Corpuscular Volume 95.9 fL (80.0-100.0); Mean Platelet Volume 9.5 fL (9.4-12.4); Platelet Count 338 K/uL (130-400); RDW Standard Deviation 46.5 fL (36.4-46.3); Red Blood Count 3.94 M/uL (4.63-6.08); White Blood Count 15.56 K/ul (4.8-10.8)
[2022-08-13 07:02] LABS: BUN Creatinine Ratio 27.3 (10-20); Calcium 8.7 mg/dl (8.5-10.1); Creatinine Clr Calc Pharmacy 82.5 ml/min; Est GFR (African American) 86.6 ml/min; Est GFR (Non-African American) 74.7 ml/min; Potassium 4.3 mmol/L (3.5-5.1)
--- NOTE | 2022-08-13 07:42 | Hospitalist Progress Note ---
Date of Service August 13, 2022 Assessment & Plan (1) Closed left hip fracture: (2) Vitamin D deficiency: (3) Closed fracture of left wrist: (4) Closed fracture of left distal radius: Plan per previous hospitalist with addendum: Mechanical fall, ground-level Likely osteoporotic fracture Nondisplaced impacted left femoral neck fracture, s/p Percutaneous Screw Fixation Left Hip 08/05 Comminuted intra-articular left distal radius fracture Patient had a mechanical fall, denies hitting head. Admitting CT head, hip x-ray and wrist x-ray reviewed. 08/05 s/p left hip screw and fixation by Dr. Frank Monitor H&H (hgb 13 and stable). No pain currently. Per Ortho for movement instructions, PT OT Vitamin D deficiency- being supplemented anticoag. w/ lovenox x2 weeks then resume home ASA + plavix however ASA 325 daily ordered by orthopedics - discussed DVT ppx recs - will place on lovenox, cont. home ASA 81 + plavix POD# 2 s/p Left wrist ORIF by Dr. Calderon (08/10/22) finger swelling noted - recommend elevation Rayray wraps also adjusted by orthopedics Continue to monitor closely Per ortho: Ice, elevation of left wrist. ROM of fingers as tolerated/aggressive finger range of motion to reduce swelling. Nonweightbearing through left wrist. May weight-bear as tolerated through left elbow/forearm on the platform walker. Follow up with Dr Calderon in 2 weeks. Please call [facility] at [phone] to make an appointment. Wrist-specific discharge instructions were placed in the discharge section. Other chronic medical conditions: CAD, CVA, HLD, HTN --> no cardiac symptoms, no neurologic deficits Continue Ranexa, Imdur, lisinopril, Tricor, Plavix, Lipitor, aspirin Started on mucinex and flonase for ongoing post nasal drip and congestion. Symptoms already improved. DVT prophylaxis: per orthopedic surgery Full code Disposition: Will need acute rehab Admission and Anticipated Discharge Date Admission Date: August 04, 2022 Subjective Pt seen in follow-up of hip fx s/p hip surgery several days ago, left wrist fracture s/p surgical repair Currently patient is sitting up in bed, in no acute distress, left wrist in dressings, rayray wrap and in sling Has some left hand edema, Rayray wrap was adjusted by orthopedics yesterday, now improved Denies chest pain shortness of breath, denies abdominal pain nausea vomiting Overall reports feeling well Denies pain Review of Systems Review of Systems: All systems reviewed & are unremarkable except as noted in Subjective Physical Exam Physical Exam: General- oriented x 3, not in distress, speaks in sentences with no effort or accessory muscle use Eyes- anicteric Neck- no JVD Lungs- clear breath sounds BL, no rales/wheezes Heart- normal rate, regular rhythm; no murmurs Abdomen- normal bowel sounds, nondistended, soft, nontender Extremities- no pretibial edema, no calf tenderness L hip- dressing in place, no bleeding/discharge L wrist- dressings, rayray wrap, in sling, + L hand edema (improved) Neuro- alert, oriented x 3; no gross focal neurologic deficits Skin- warm & dry Results & Data Results & Data ([facility]) Vital Signs (Past 12 Hours) Vital Signs Temp Pulse Resp BP Pulse Ox O2 Del Method 08/13/22 06:56 36.7 C 65 18 132/84 98 Room Air 08/12/22 20:21 36.8 C 64 18 128/69 94 Room Air Laboratory Results 08/13/22 08/13/22 08/12/22 Range/Units 05:53 05:53 08:17 WBC 15.56 H (4.8-10.8) K/ul RBC 3.94 L (4.63-6.08) M/uL Hgb 12.6 L (14.0-18.0) g/dl Hct 37.8 L (40.1-51.0) % MCV 95.9 (80.0-100.0) fL MCH 32.0 (25.0-34.0) pg MCHC 33.3 (32.0-36.0) g/dL RDW Std Deviation 46.5 H (36.4-46.3) fL RDW Coeff of Carola 13.0 (11.5-14.5) % Plt Count 338 (130-400) K/uL MPV 9.5 (9.4-12.4) fL Sodium 136 135 L (136-145) mmol/L Potassium 4.3 4.0 (3.5-5.1) mmol/L Chloride 105 104 (98-107) mmol/L Carbon Dioxide 26 24 (21-32) mmol/L Anion Gap 5 7 (3-11) BUN 27 H 22 (6-23) mg/dl Creatinine 0.99 0.86 (0.6-1.4) mg/dl Est Cr Clr Drug Dosing 82.5 95.0 ml/min Est GFR ( Amer) 86.6 99.0 ml/min Est GFR (Non-Af Amer) 74.7 85.4 ml/min BUN/Creatinine Ratio 27.3 H 25.6 H (10-20) Glucose 95 87 (70-99(Fasting)) mg/dl Calcium 8.7 8.9 (8.5-10.1) mg/dl Phosphorus 3.0 (2.5-4.9) mg/dl Magnesium 2.0 (1.7-2.4) mg/dl 08/12/22 Range/Units 08:17 WBC 13.04 H (4.8-10.8) K/ul RBC 4.11 L (4.63-6.08) M/uL Hgb 13.2 L (14.0-18.0) g/dl Hct 39.2 L (40.1-51.0) % MCV 95.4 (80.0-100.0) fL MCH 32.1 (25.0-34.0) pg MCHC 33.7 (32.0-36.0) g/dL RDW Std Deviation 46.0 (36.4-46.3) fL RDW Coeff of Carola 13.1 (11.5-14.5) % Plt Count 309 (130-400) K/uL MPV 9.5 (9.4-12.4) fL Sodium (136-145) mmol/L Potassium (3.5-5.1) mmol/L Chloride (98-107) mmol/L Carbon Dioxide (21-32) mmol/L Anion Gap (3-11) BUN (6-23) mg/dl Creatinine (0.6-1.4) mg/dl Est Cr Clr Drug Dosing ml/min Est GFR ( Amer) ml/min Est GFR (Non-Af Amer) ml/min BUN/Creatinine Ratio (10-20) Glucose (70-99(Fasting)) mg/dl Calcium (8.5-10.1) mg/dl Phosphorus (2.5-4.9) mg/dl Magnesium (1.7-2.4) mg/dl Medications Administered Current Inpatient Medications Acetaminophen (Acetaminophen 325 Mg Tab) 650 mg PO Q4H PRN PRN Reason: Pain or Fever Stop: 09/03/22 20:45 Last Admin: 08/11/22 03:22 Dose: 650 mg Al Hydrox/Mg Hydrox/Simethicone (Aluminum/Magnesium Susp 30 Ml Udc) 30 ml PO Q6H PRN PRN Reason: nausea Stop: 09/04/22 11:29 Aspirin (Aspirin 325 Mg Ectab) 325 mg PO [facility] Stop: 09/05/22 08:59 Last Admin: 08/12/22 08:57 Dose: 325 mg Atorvastatin Calcium (Atorvastatin 40 Mg Tab) 80 mg PO [facility] Stop: 09/04/22 08:59 Last Admin: 08/12/22 08:58 Dose: 80 mg Clopidogrel Bisulfate (Clopidogrel Bisulfate 75 Mg Tab) 75 mg PO [facility] Stop: 09/04/22 08:59 Last Admin: 08/12/22 08:58 Dose: 75 mg Diphenhydramine HCl (Diphenhydramine 50 Mg/Ml Vial) 25 mg IV Q8 PRN PRN Reason: Allergic Reaction Stop: 09/04/22 11:29 Donepezil HCl (Donepezil Hcl 10 Mg Tab) 10 mg PO [facility] Stop: 09/04/22 08:59 Last Admin: 08/12/22 08:58 Dose: 10 mg Ergocalciferol (Ergocalciferol 50,000 Units 1250 Mcg Cap) 50,000 units PO Minro@1300 [facility] Stop: 09/05/22 12:59 Last Admin: 08/06/22 17:31 Dose: 50,000 units Fenofibrate (Fenofibrate Nanocrystallized 145 Mg Tablet) [facility] Stop: 09/04/22 08:59 Last Admin: 08/12/22 08:58 Dose: 145 mg Fluticasone Propionate (Fluticasone Propionate Na Spr 16 Gm Btl) 2 sprays NA DAILY [facility] Stop: 09/09/22 15:59 Last Admin: 08/12/22 08:57 Dose: 2 sprays Guaifenesin (Guaifenesin 600 Mg Tabcr) 600 mg PO Q12 [facility] Stop: 09/09/22 20:59 Last Admin: 08/12/22 19:56 Dose: 600 mg Isosorbide Mononitrate (Isosorbide [place] Extended Rel 30 Mg Tabcr) 30 mg PO QAM [facility] Stop: 09/04/22 08:59 Last Admin: 08/12/22 08:57 Dose: 30 mg Lisinopril (Lisinopril 10 Mg Tab) 10 mg PO QAM [facility] Stop: 09/04/22 08:59 Last Admin: 08/12/22 08:58 Dose: 10 mg Magnesium Hydroxide (Magnesium Hydroxide Susp 30 Ml Udc) 30 ml PO Q12H PRN PRN Reason: Constipation Stop: 09/03/22 20:45 Memantine (Memantine Hcl 10 Mg Tab) 10 mg PO BID [facility] Stop: 09/03/22 23:29 Last Admin: 08/12/22 19:56 Dose: 10 mg Ondansetron HCl (Ondansetron Inj 2 Mg/Ml 2 Ml Vial) 4 mg IV Q6H PRN PRN Reason: Nausea Stop: 09/03/22 20:45 Oxycodone HCl (Oxycodone Hcl Ir 5 Mg Tab (Immediate Release)) 5 mg PO Q4H PRN PRN Reason: Pain Stop: 08/19/22 11:24 Polyethylene Glycol (Polyethylene (Miralax) 17 Gm Pack) 17 gm PO DAILY PRN PRN Reason: Constipation Stop: 09/03/22 20:45 Polyethylene Glycol (Polyethylene (Miralax) 17 Gm Pack) 17 gm PO DAILY [facility] Stop: 09/07/22 13:29 Last Admin: 08/12/22 08:57 Dose: 17 gm Ranolazine (Ranolazine 500 Mg Er Tab) 500 mg PO BID [facility] Stop: 09/03/22 23:29 Last Admin: 08/12/22 19:56 Dose: 500 mg (1) Closed fracture of left distal radius Encounter type: initial encounter Fracture morphology: Colles' Qualified Code(s): S52.532A - Colles' fracture of left radius, initial encounter for closed fracture
[2022-08-13] MEDS: guaiFENesin 600 MG TABCR PO SCH ×2 (09:29→20:22)
[2022-08-13] MEDS: POLYETHYLENE (MIRALAX) 17 GM PACK PO SCH (09:29)
[2022-08-13] MEDS: RANOLAZINE 500 MG ER TAB PO SCH ×2 (09:29→20:22)
[2022-08-13] MEDS: ISOSORBIDE MONO EXTENDED REL 30 MG TABCR PO SCH (09:29)
[2022-08-13] MEDS: FENOFIBRATE NANOCRYSTALLIZED 145 MG TABLET PO SCH (09:29)
[2022-08-13] MEDS: MEMANTINE HCL 10 MG TAB PO SCH ×2 (09:29→20:22)
[2022-08-13] MEDS: ASPIRIN 325 MG ECTAB PO SCH (09:29)
[2022-08-13] MEDS: ATORVASTATIN 40 MG TAB PO SCH (09:29)
[2022-08-13] MEDS: DONEPEZIL HCL 10 MG TAB PO SCH (09:30)
[2022-08-13] MEDS: CLOPIDOGREL BISULFATE 75 MG TAB PO SCH (09:30)
[2022-08-13] MEDS: FLUTICASONE PROPIONATE NA SPR 16 GM BTL SCH (09:30)
[2022-08-13] MEDS: lisinopril 10 MG TAB PO SCH (09:30)
[2022-08-13] MEDS: ERGOCALCIFEROL 50,000 UNITS 1250 MCG CAP PO SCH (14:00)
[2022-08-14 07:24] LABS: Hematocrit (blood only) 37.1 % (40.1-51.0); Hemoglobin 12.2 g/dl (14.0-18.0); Mean Corpuscular Hemoglobin 32.3 pg (25.0-34.0); Mean Corpuscular Hgb Conc 32.9 g/dL (32.0-36.0); Mean Corpuscular Volume 98.1 fL (80.0-100.0); Mean Platelet Volume 9.2 fL (9.4-12.4); Platelet Count 338 K/uL (130-400); RDW Coefficient of Variation 13.1 % (11.5-14.5); RDW Standard Deviation 46.9 fL (36.4-46.3); Red Blood Count 3.78 M/uL (4.63-6.08); White Blood Count 14.96 K/ul (4.8-10.8)
[2022-08-14 07:44] LABS: BUN Creatinine Ratio 29.3 (10-20); Calcium 9.2 mg/dl (8.5-10.1); Creatinine Clr Calc Pharmacy 88.8 ml/min; Est GFR (African American) 94.6 ml/min; Est GFR (Non-African American) 81.6 ml/min
--- NOTE | 2022-08-14 08:42 | Hospitalist Progress Note ---
Date of Service August 14, 2022 Assessment & Plan (1) Closed left hip fracture: (2) Vitamin D deficiency: (3) Closed fracture of left wrist: (4) Closed fracture of left distal radius: Plan per previous hospitalist with addendum: Mechanical fall, ground-level Likely osteoporotic fracture Nondisplaced impacted left femoral neck fracture, s/p Percutaneous Screw Fixation Left Hip 08/05 Comminuted intra-articular left distal radius fracture Patient had a mechanical fall, denies hitting head. Admitting CT head, hip x-ray and wrist x-ray reviewed. (08/05) s/p left hip screw and fixation by Dr. Frank Monitor H&H (hgb 13 and stable). No pain currently. Per Ortho for movement instructions, PT OT Vitamin D deficiency- being supplemented anticoag. w/ lovenox x2 weeks then resume home ASA + plavix however ASA 325 daily ordered by orthopedics - discussed DVT ppx recs - placed on lovenox, cont. home ASA 81 + plavix s/p Left wrist ORIF by Dr. Calderon (08/10/22) finger swelling noted - recommend elevation Rayray wraps also adjusted by orthopedics Continue to monitor closely Per ortho: Ice, elevation of left wrist. ROM of fingers as tolerated/aggressive finger range of motion to reduce swelling. Nonweightbearing through left wrist. May weight-bear as tolerated through left elbow/forearm on the platform walker. Follow up with Dr Calderon in 2 weeks. Please call [facility] at [phone] to make an appointment. Wrist-specific discharge instructions were placed in the discharge section. Other chronic medical conditions: CAD, CVA, HLD, HTN --> no cardiac symptoms, no neurologic deficits Continue Ranexa, Imdur, lisinopril, Tricor, Plavix, Lipitor, aspirin Started on mucinex and flonase for ongoing post nasal drip and congestion. Symptoms already improved. DVT prophylaxis: per orthopedic surgery Full code Disposition: Will need acute rehab Admission and Anticipated Discharge Date Admission Date: August 04, 2022 Subjective Pt seen in follow-up of hip fx s/p hip surgery several days ago, left wrist fracture s/p surgical repair Currently patient is sitting up in bed, in no acute distress, left wrist in dressings, rayray wrap and in sling Denies chest pain shortness of breath, denies abdominal pain nausea vomiting Overall reports feeling well Denies pain Review of Systems Review of Systems: All systems reviewed & are unremarkable except as noted in Subjective Physical Exam Physical Exam: General- oriented x 3, not in distress, speaks in sentences with no effort or accessory muscle use Eyes- anicteric Neck- no JVD Lungs- clear breath sounds BL, no rales/wheezes Heart- normal rate, regular rhythm; no murmurs Abdomen- normal bowel sounds, nondistended, soft, nontender Extremities- no pretibial edema, no calf tenderness L hip- dressing in place, no bleeding/discharge L wrist- dressings, rayray wrap, in sling, + L mild hand edema (improved) Neuro- alert, oriented x 3; no gross focal neurologic deficits Skin- warm & dry Results & Data Results & Data ([facility]) Vital Signs (Past 12 Hours) Vital Signs Temp Pulse Resp BP Pulse Ox O2 Del Method 08/14/22 07:20 36.5 C 60 16 136/74 94 Room Air Laboratory Results 08/14/22 08/14/22 Range/Units 06:55 06:55 WBC 14.96 H (4.8-10.8) K/ul RBC 3.78 L (4.63-6.08) M/uL Hgb 12.2 L (14.0-18.0) g/dl Hct 37.1 L (40.1-51.0) % MCV 98.1 (80.0-100.0) fL MCH 32.3 (25.0-34.0) pg MCHC 32.9 (32.0-36.0) g/dL RDW Std Deviation 46.9 H (36.4-46.3) fL RDW Coeff of Carola 13.1 (11.5-14.5) % Plt Count 338 (130-400) K/uL MPV 9.2 L (9.4-12.4) fL Sodium 136 (136-145) mmol/L Potassium 4.0 (3.5-5.1) mmol/L Chloride 105 (98-107) mmol/L Carbon Dioxide 25 (21-32) mmol/L Anion Gap 6 (3-11) BUN 27 H (6-23) mg/dl Creatinine 0.92 (0.6-1.4) mg/dl Est Cr Clr Drug Dosing 88.8 ml/min Est GFR ( Amer) 94.6 ml/min Est GFR (Non-Af Amer) 81.6 ml/min BUN/Creatinine Ratio 29.3 H (10-20) Glucose 86 (70-99(Fasting)) mg/dl Calcium 9.2 (8.5-10.1) mg/dl Medications Administered Current Inpatient Medications Acetaminophen (Acetaminophen 325 Mg Tab) 650 mg PO Q4H PRN PRN Reason: Pain or Fever Stop: 09/03/22 20:45 Last Admin: 08/11/22 03:22 Dose: 650 mg Al Hydrox/Mg Hydrox/Simethicone (Aluminum/Magnesium Susp 30 Ml Udc) 30 ml PO Q6H PRN PRN Reason: nausea Stop: 09/04/22 11:29 Aspirin (Aspirin 81 Mg Ectab) 81 mg PO [facility] Stop: 09/13/22 08:59 Atorvastatin Calcium (Atorvastatin 40 Mg Tab) 80 mg PO [facility] Stop: 09/04/22 08:59 Last Admin: 08/13/22 09:29 Dose: 80 mg Clopidogrel Bisulfate (Clopidogrel Bisulfate 75 Mg Tab) 75 mg PO [facility] Stop: 09/04/22 08:59 Last Admin: 08/13/22 09:30 Dose: 75 mg Diphenhydramine HCl (Diphenhydramine 50 Mg/Ml Vial) 25 mg IV Q8 PRN PRN Reason: Allergic Reaction Stop: 09/04/22 11:29 Donepezil HCl (Donepezil Hcl 10 Mg Tab) 10 mg PO [facility] Stop: 09/04/22 08:59 Last Admin: 08/13/22 09:30 Dose: 10 mg Enoxaparin Sodium (Enoxaparin Inj 40 Mg/0.4 Ml Syr) 40 mg SQ [facility] Stop: 09/13/22 08:59 Ergocalciferol (Ergocalciferol 50,000 Units 1250 Mcg Cap) 50,000 units PO Minor@1300 [facility] Stop: 09/05/22 12:59 Last Admin: 08/13/22 14:00 Dose: 50,000 units Fenofibrate (Fenofibrate Nanocrystallized 145 Mg Tablet) 145 mg PO [facility] Stop: 09/04/22 08:59 Last Admin: 01/08/23 09:29 Dose: 145 mg Fluticasone Propionate (Fluticasone Propionate Na Spr 16 Gm Btl) 2 sprays NA DAILY [facility] Stop: 09/09/22 15:59 Last Admin: 08/13/22 09:30 Dose: 2 sprays Guaifenesin (Guaifenesin 600 Mg Tabcr) 600 mg PO Q12 [facility] Stop: 09/09/22 20:59 Last Admin: 08/13/22 20:22 Dose: 600 mg Isosorbide Mononitrate (Isosorbide [place] Extended Rel 30 Mg Tabcr) 30 mg PO QAM [facility] Stop: 09/04/22 08:59 Last Admin: 08/13/22 09:29 Dose: 30 mg Lisinopril (Lisinopril 10 Mg Tab) 10 mg PO QAM [facility] Stop: 09/04/22 08:59 Last Admin: 08/13/22 09:30 Dose: 10 mg Magnesium Hydroxide (Magnesium Hydroxide Susp 30 Ml Udc) 30 ml PO Q12H PRN PRN Reason: Constipation Stop: 09/03/22 20:45 Memantine (Memantine Hcl 10 Mg Tab) 10 mg PO BID [facility] Stop: 09/03/22 23:29 Last Admin: 08/13/22 20:22 Dose: 10 mg Ondansetron HCl (Ondansetron Inj 2 Mg/Ml 2 Ml Vial) 4 mg IV Q6H PRN PRN Reason: Nausea Stop: 09/03/22 20:45 Oxycodone HCl (Oxycodone Hcl Ir 5 Mg Tab (Immediate Release)) 5 mg PO Q4H PRN PRN Reason: Pain Stop: 08/19/22 11:24 Polyethylene Glycol (Polyethylene (Miralax) 17 Gm Pack) 17 gm PO DAILY PRN PRN Reason: Constipation Stop: 09/03/22 20:45 Polyethylene Glycol (Polyethylene (Miralax) 17 Gm Pack) 17 gm PO DAILY [facility] Stop: 09/07/22 13:29 Last Admin: 08/13/22 09:29 Dose: 17 gm Ranolazine (Ranolazine 500 Mg Er Tab) 500 mg PO BID [facility] Stop: 09/03/22 23:29 Last Admin: 08/13/22 20:22 Dose: 500 mg (1) Closed fracture of left distal radius Encounter type: initial encounter Fracture morphology: Colles' Qualified Code(s): S52.532A - Colles' fracture of left radius, initial encounter for closed fracture
[2022-08-14] MEDS: guaiFENesin 600 MG TABCR PO SCH ×2 (08:45→21:12)
[2022-08-14] MEDS: FENOFIBRATE NANOCRYSTALLIZED 145 MG TABLET PO SCH (08:45)
[2022-08-14] MEDS: RANOLAZINE 500 MG ER TAB PO SCH ×2 (08:45→21:12)
[2022-08-14] MEDS: lisinopril 10 MG TAB PO SCH (08:45)
[2022-08-14] MEDS: ASPIRIN 81 MG ECTAB PO SCH (08:46)
[2022-08-14] MEDS: ISOSORBIDE MONO EXTENDED REL 30 MG TABCR PO SCH (08:46)
[2022-08-14] MEDS: DONEPEZIL HCL 10 MG TAB PO SCH (08:46)
[2022-08-14] MEDS: MEMANTINE HCL 10 MG TAB PO SCH ×2 (08:46→21:12)
[2022-08-14] MEDS: CLOPIDOGREL BISULFATE 75 MG TAB PO SCH (08:46)
[2022-08-14] MEDS: ENOXAPARIN INJ 40 MG/0.4 ML SYR SQ SCH (08:46)
[2022-08-14] MEDS: ATORVASTATIN 40 MG TAB PO SCH (08:46)
[2022-08-14] MEDS: POLYETHYLENE (MIRALAX) 17 GM PACK PO SCH (08:47)
[2022-08-14] MEDS: FLUTICASONE PROPIONATE NA SPR 16 GM BTL SCH (08:47)
[2022-08-15 07:42] LABS: Hematocrit (blood only) 37.8 % (40.1-51.0); Hemoglobin 12.5 g/dl (14.0-18.0); Mean Corpuscular Hemoglobin 32.1 pg (25.0-34.0); Mean Corpuscular Hgb Conc 33.1 g/dL (32.0-36.0); Mean Corpuscular Volume 96.9 fL (80.0-100.0); Mean Platelet Volume 9.1 fL (9.4-12.4); Platelet Count 374 K/uL (130-400); RDW Coefficient of Variation 12.9 % (11.5-14.5); RDW Standard Deviation 46.4 fL (36.4-46.3); White Blood Count 12.53 K/ul (4.8-10.8)
[2022-08-15 08:03] LABS: BUN Creatinine Ratio 23.4 (10-20); Calcium 9.4 mg/dl (8.5-10.1); Creatinine Clr Calc Pharmacy 86.9 ml/min; Est GFR (African American) 92.2 ml/min; Est GFR (Non-African American) 79.6 ml/min; Potassium 3.9 mmol/L (3.5-5.1)
[2022-08-15] MEDS: guaiFENesin 600 MG TABCR PO SCH ×2 (08:23→20:16)
[2022-08-15] MEDS: MEMANTINE HCL 10 MG TAB PO SCH ×2 (08:23→20:16)
[2022-08-15] MEDS: lisinopril 10 MG TAB PO SCH (08:23)
[2022-08-15] MEDS: ASPIRIN 81 MG ECTAB PO SCH (08:23)
[2022-08-15] MEDS: CLOPIDOGREL BISULFATE 75 MG TAB PO SCH (08:23)
[2022-08-15] MEDS: ISOSORBIDE MONO EXTENDED REL 30 MG TABCR PO SCH (08:23)
[2022-08-15] MEDS: FENOFIBRATE NANOCRYSTALLIZED 145 MG TABLET PO SCH (08:23)
[2022-08-15] MEDS: RANOLAZINE 500 MG ER TAB PO SCH ×2 (08:23→20:16)
[2022-08-15] MEDS: ATORVASTATIN 40 MG TAB PO SCH (08:23)
[2022-08-15] MEDS: POLYETHYLENE (MIRALAX) 17 GM PACK PO SCH (08:24)
[2022-08-15] MEDS: ENOXAPARIN INJ 40 MG/0.4 ML SYR SQ SCH (08:24)
[2022-08-15] MEDS: FLUTICASONE PROPIONATE NA SPR 16 GM BTL SCH (08:24)
--- NOTE | 2022-08-15 11:11 | Orthopedic Progress Note ---
Date of Service August 15, 2022 Assessment & Plan (1) Closed left hip fracture: Plan: S/P ORIF left hip 08/05/22 - with PSS PT/OT No hip precautions necessary. Ice PRN WBAT LLE Dressings left hip PRN; removed today, may leave open to air. Okay to shower and get incision wet. Will continue to follow while in hospital. If still here by end of week could potentially remove obdulio and get repeat x-ray. (2) Closed fracture of left distal radius: Plan: As per Dr. Calderon with [facility]. Splint in place. (3) Vitamin D deficiency: Plan: Continue Vitamin D replacement. Admission and Anticipated Discharge Date Admission Date: August 04, 2022 Subjective Patient sitting up in chair, doing well. No complaints of left hip or left wrist pain. Has been ambulating in the hallway and throughout his room with his platform walker. Eating and drinking normally, but states that he is having urinary retention. Physical Exam Musculoskeletal: Left hip incision dressing removed, obdulio intact. Incision clean, dry and intact. No surrounding fluctuance. No active drainage. No hematoma or seroma. Nontender with palpation. No erythema. Tolerates gentle ROM left hip. Able to bear weight without pain. No distal edema. Results & Data ([facility]) Vital Signs (Past 12 Hours) Vital Signs Temp Pulse Resp BP Pulse Ox O2 Del Method 08/15/22 07:13 36.5 C 61 16 138/77 95 Room Air (1) Closed fracture of left distal radius Encounter type: initial encounter Fracture morphology: Colles' Qualified Code(s): S52.532A - Colles' fracture of left radius, initial encounter for closed fracture
--- NOTE | 2022-08-15 14:14 | Hospitalist Progress Note ---
Date of Service August 15, 2022 Assessment & Plan (1) Closed left hip fracture: (2) Vitamin D deficiency: (3) Closed fracture of left wrist: (4) Closed fracture of left distal radius: Plan per previous hospitalist with addendum: Mechanical fall, ground-level Likely osteoporotic fracture Nondisplaced impacted left femoral neck fracture, s/p Percutaneous Screw Fixation Left Hip 08/05 Comminuted intra-articular left distal radius fracture Patient had a mechanical fall, denies hitting head. Admitting CT head, hip x-ray and wrist x-ray reviewed. (08/05) s/p left hip screw and fixation by Dr. Frank Monitor H&H (hgb 13 and stable). No pain currently. Per Ortho for movement instructions, PT OT Vitamin D deficiency- being supplemented anticoag. w/ lovenox x2 weeks then resume home ASA + plavix however ASA 325 daily ordered by orthopedics - discussed DVT ppx recs - placed on lovenox, cont. home ASA 81 + plavix s/p Left wrist ORIF by Dr. Calderon (08/10/22) finger swelling noted - recommend elevation Rayray wraps also adjusted by orthopedics Continue to monitor closely Per ortho: Ice, elevation of left wrist. ROM of fingers as tolerated/aggressive finger range of motion to reduce swelling. Nonweightbearing through left wrist. May weight-bear as tolerated through left elbow/forearm on the platform walker. Follow up with Dr Calderon in 2 weeks. Please call [facility] at [phone] to make an appointment. Wrist-specific discharge instructions were placed in the discharge section. Other chronic medical conditions: CAD, CVA, HLD, HTN --> no cardiac symptoms, no neurologic deficits Continue Ranexa, Imdur, lisinopril, Tricor, Plavix, Lipitor, aspirin Started on mucinex and flonase for ongoing post nasal drip and congestion. Symptoms already improved. DVT prophylaxis: per orthopedic surgery Full code Disposition: Will need acute rehab/ SNF Admission and Anticipated Discharge Date Admission Date: August 04, 2022 Subjective Pt seen in follow-up of hip fx s/p hip surgery several days ago, left wrist fracture s/p surgical repair Currently patient is sitting up in chair, in no acute distress, left wrist in dressings, rayray wrap and in sling Denies chest pain shortness of breath, denies abdominal pain nausea vomiting Overall reports feeling well Denies pain However this morning, reportedly patient has urinary retention and required straight cath. Holding Donepezil. Review of Systems Review of Systems: All systems reviewed & are unremarkable except as noted in Subjective Physical Exam Physical Exam: General- oriented x 3, not in distress, speaks in sentences with no effort or accessory muscle use Eyes- anicteric Neck- no JVD Lungs- clear breath sounds BL, no rales/wheezes Heart- normal rate, regular rhythm; no murmurs Abdomen- normal bowel sounds, nondistended, soft, nontender Extremities- no pretibial edema, no calf tenderness L hip- dressing in place, no bleeding/discharge L wrist- dressings, rayray wrap, in sling, + L mild hand edema (improved) Neuro- alert, oriented x 3; no gross focal neurologic deficits Skin- warm & dry Results & Data Results & Data ([facility]) Vital Signs (Past 12 Hours) Vital Signs Temp Pulse Resp BP Pulse Ox O2 Del Method 08/15/22 07:13 36.5 C 61 16 138/77 95 Room Air Laboratory Results 08/15/22 08/15/22 Range/Units 07:19 07:19 WBC 12.53 H (4.8-10.8) K/ul RBC 3.90 L (4.63-6.08) M/uL Hgb 12.5 L (14.0-18.0) g/dl Hct 37.8 L (40.1-51.0) % MCV 96.9 (80.0-100.0) fL MCH 32.1 (25.0-34.0) pg MCHC 33.1 (32.0-36.0) g/dL RDW Std Deviation 46.4 H (36.4-46.3) fL RDW Coeff of Carola 12.9 (11.5-14.5) % Plt Count 374 (130-400) K/uL MPV 9.1 L (9.4-12.4) fL Sodium 135 L (136-145) mmol/L Potassium 3.9 (3.5-5.1) mmol/L Chloride 104 (98-107) mmol/L Carbon Dioxide 25 (21-32) mmol/L Anion Gap 6 (3-11) BUN 22 (6-23) mg/dl Creatinine 0.94 (0.6-1.4) mg/dl Est Cr Clr Drug Dosing 86.9 ml/min Est GFR ( Amer) 92.2 ml/min Est GFR (Non-Af Amer) 79.6 ml/min BUN/Creatinine Ratio 23.4 H (10-20) Glucose 89 (70-99(Fasting)) mg/dl Calcium 9.4 (8.5-10.1) mg/dl Medications Administered Current Inpatient Medications Acetaminophen (Acetaminophen 325 Mg Tab) 650 mg PO Q4H PRN PRN Reason: Pain or Fever Stop: 09/03/22 20:45 Last Admin: 08/11/22 03:22 Dose: 650 mg Al Hydrox/Mg Hydrox/Simethicone (Aluminum/Magnesium Susp 30 Ml Udc) 30 ml PO Q6H PRN PRN Reason: nausea Stop: 09/04/22 11:29 Aspirin (Aspirin 81 Mg Ectab) 81 mg PO [facility] Stop: 09/13/22 08:59 Last Admin: 08/15/22 08:23 Dose: 81 mg Atorvastatin Calcium (Atorvastatin 40 Mg Tab) 80 mg PO [facility] Stop: 09/04/22 08:59 Last Admin: 08/15/22 08:23 Dose: 80 mg Clopidogrel Bisulfate (Clopidogrel Bisulfate 75 Mg Tab) 75 mg PO [facility] Stop: 09/04/22 08:59 Last Admin: 08/15/22 08:23 Dose: 75 mg Diphenhydramine HCl (Diphenhydramine 50 Mg/Ml Vial) 25 mg IV Q8 PRN PRN Reason: Allergic Reaction Stop: 09/04/22 11:29 Donepezil HCl (Donepezil Hcl 10 Mg Tab) 10 mg PO [facility] Stop: 09/04/22 08:59 Last Admin: 08/14/22 08:46 Dose: 10 mg Enoxaparin Sodium (Enoxaparin Inj 40 Mg/0.4 Ml Syr) 40 mg SQ [facility] Stop: 09/13/22 08:59 Last Admin: 08/15/22 08:24 Dose: 40 mg Ergocalciferol (Ergocalciferol 50,000 Units 1250 Mcg Cap) 50,000 units PO Minor@1300 [facility] Stop: 09/05/22 12:59 Last Admin: 08/13/22 14:00 Dose: 50,000 units Fenofibrate (Fenofibrate Nanocrystallized 145 Mg Tablet) 145 mg PO QAM [facility] Stop: 09/04/22 08:59 Last Admin: 08/15/22 08:23 Dose: 145 mg Fluticasone Propionate (Fluticasone Propionate Na Spr 16 Gm Btl) 2 sprays NA DAILY [facility] Stop: 09/09/22 15:59 Last Admin: 08/15/22 08:24 Dose: 2 sprays Guaifenesin (Guaifenesin 600 Mg Tabcr) 600 mg PO Q12 [facility] Stop: 09/09/22 20:59 Last Admin: 08/15/22 08:23 Dose: 600 mg Isosorbide Mononitrate (Isosorbide [place] Extended Rel 30 Mg Tabcr) 30 mg PO QAM [facility] Stop: 09/04/22 08:59 Last Admin: 08/15/22 08:23 Dose: 30 mg Lisinopril (Lisinopril 10 Mg Tab) 10 mg PO QAM [facility] Stop: 09/04/22 08:59 Last Admin: 08/15/22 08:23 Dose: 10 mg Magnesium Hydroxide (Magnesium Hydroxide Susp 30 Ml Udc) 30 ml PO Q12H PRN PRN Reason: Constipation Stop: 09/03/22 20:45 Memantine (Memantine Hcl 10 Mg Tab) 10 mg PO BID [facility] Stop: 09/03/22 23:29 Last Admin: 08/15/22 08:23 Dose: 10 mg Ondansetron HCl (Ondansetron Inj 2 Mg/Ml 2 Ml Vial) 4 mg IV Q6H PRN PRN Reason: Nausea Stop: 09/03/22 20:45 Oxycodone HCl (Oxycodone Hcl Ir 5 Mg Tab (Immediate Release)) 5 mg PO Q4H PRN PRN Reason: Pain Stop: 08/19/22 11:24 Polyethylene Glycol (Polyethylene (Miralax) 17 Gm Pack) 17 gm PO DAILY PRN PRN Reason: Constipation Stop: 09/03/22 20:45 Polyethylene Glycol (Polyethylene (Miralax) 17 Gm Pack) 17 gm PO DAILY [facility] Stop: 09/07/22 13:29 Last Admin: 08/15/22 08:24 Dose: 17 gm Ranolazine (Ranolazine 500 Mg Er Tab) 500 mg PO BID [facility] Stop: 09/03/22 23:29 Last Admin: 08/15/22 08:23 Dose: 500 mg (1) Closed fracture of left distal radius Encounter type: initial encounter Fracture morphology: Collebrandan' Qualified Code(s): S52.532A - Colles' fracture of left radius, initial encounter for closed fracture
[2022-08-15 19:33] LABS: Appearance Urine Clear (Clear); Bilirubin Urine Negative (Negative); Blood Urine Negative (Negative); Color Urine Yellow; Glucose Urine UA Negative (Negative); Ketones Urine Negative (Negative); Leukocyte Esterase Urine Negative (Negative); Nitrite Urine Negative (Negative); Protein Urine Negative (Negative); Specific Gravity Urine 1.013 (1.000-1.030); Urobilinogen Urine Negative (Negative); pH Urine 5.5 (4.5-7.5)
[2022-08-16 07:30] LABS: Hemoglobin 12.5 g/dl (14.0-18.0); Mean Corpuscular Hemoglobin 32.1 pg (25.0-34.0); Mean Corpuscular Hgb Conc 33.8 g/dL (32.0-36.0); Mean Corpuscular Volume 95.1 fL (80.0-100.0); Mean Platelet Volume 9.2 fL (9.4-12.4); Platelet Count 371 K/uL (130-400); RDW Coefficient of Variation 12.7 % (11.5-14.5); RDW Standard Deviation 44.7 fL (36.4-46.3); Red Blood Count 3.89 M/uL (4.63-6.08); White Blood Count 13.36 K/ul (4.8-10.8)
[2022-08-16] MEDS: MEMANTINE HCL 10 MG TAB PO SCH ×2 (08:52→19:38)
[2022-08-16] MEDS: guaiFENesin 600 MG TABCR PO SCH ×2 (08:52→19:38)
[2022-08-16] MEDS: RANOLAZINE 500 MG ER TAB PO SCH ×2 (08:52→19:38)
[2022-08-16] MEDS: ENOXAPARIN INJ 40 MG/0.4 ML SYR SQ SCH (08:52)
[2022-08-16] MEDS: POLYETHYLENE (MIRALAX) 17 GM PACK PO SCH (08:53)
[2022-08-16] MEDS: ASPIRIN 81 MG ECTAB PO SCH (08:53)
[2022-08-16] MEDS: CLOPIDOGREL BISULFATE 75 MG TAB PO SCH (08:53)
[2022-08-16] MEDS: lisinopril 10 MG TAB PO SCH (08:53)
[2022-08-16] MEDS: FENOFIBRATE NANOCRYSTALLIZED 145 MG TABLET PO SCH (08:53)
[2022-08-16] MEDS: ISOSORBIDE MONO EXTENDED REL 30 MG TABCR PO SCH (08:53)
[2022-08-16] MEDS: ATORVASTATIN 40 MG TAB PO SCH (08:53)
[2022-08-16] MEDS: FLUTICASONE PROPIONATE NA SPR 16 GM BTL SCH (08:54)
--- NOTE | 2022-08-16 09:00 | Hospitalist Progress Note ---
Date of Service August 16, 2022 Assessment & Plan (1) Closed left hip fracture: (2) Vitamin D deficiency: (3) Closed fracture of left wrist: (4) Closed fracture of left distal radius: Plan per previous hospitalist with addendum: Mechanical fall, ground-level Likely osteoporotic fracture Nondisplaced impacted left femoral neck fracture, s/p Percutaneous Screw Fixation Left Hip 08/05 Comminuted intra-articular left distal radius fracture Patient had a mechanical fall, denies hitting head. Admitting CT head, hip x-ray and wrist x-ray reviewed. (08/05) s/p left hip screw and fixation by Dr. Frank Monitor H&H (hgb 13 and stable). No pain currently. Per Ortho for movement instructions, PT OT Vitamin D deficiency- being supplemented anticoag. w/ lovenox x2 weeks then resume home ASA + plavix however ASA 325 daily ordered by orthopedics - discussed DVT ppx recs - placed on lovenox, cont. home ASA 81 + plavix s/p Left wrist ORIF by Dr. Calderon (08/10/22) finger swelling noted - recommend elevation Rayray wraps also adjusted by orthopedics Continue to monitor closely Per ortho: Ice, elevation of left wrist. ROM of fingers as tolerated/aggressive finger range of motion to reduce swelling. Nonweightbearing through left wrist. May weight-bear as tolerated through left elbow/forearm on the platform walker. Follow up with Dr Calderon in 2 weeks. Please call [facility] at [phone] to make an appointment. Wrist-specific discharge instructions were placed in the discharge section. Other chronic medical conditions: CAD, CVA, HLD, HTN --> no cardiac symptoms, no neurologic deficits Continue Ranexa, Imdur, lisinopril, Tricor, Plavix, Lipitor, aspirin Started on mucinex and flonase for ongoing post nasal drip and congestion. Symptoms already improved. DVT prophylaxis: per orthopedic surgery Full code Disposition: Will need acute rehab/ SNF Admission and Anticipated Discharge Date Admission Date: August 04, 2022 Subjective Pt seen in follow-up of hip fx s/p hip surgery several days ago, left wrist fracture s/p surgical repair Currently patient is sitting up in bed, in NAD, left wrist in dressings, rayray wrap and in sling Denies chest pain shortness of breath, denies abdominal pain nausea vomiting Overall reports feeling well Denies pain urinary retention noted yesterday. Holding Donepezil. Placed Rhoades today Review of Systems Review of Systems: All systems reviewed & are unremarkable except as noted in Subjective Physical Exam Physical Exam: General- oriented x 3, not in distress, speaks in sentences with no effort or accessory muscle use Eyes- anicteric Neck- no JVD Lungs- clear breath sounds BL, no rales/wheezes Heart- normal rate, regular rhythm; no murmurs Abdomen- normal bowel sounds, nondistended, soft, nontender Extremities- no pretibial edema, no calf tenderness L hip- dressing in place, no bleeding/discharge L wrist- dressings, rayray wrap, in sling, + L mild hand edema (improved) Neuro- alert, oriented x 3; no gross focal neurologic deficits Skin- warm & dry Results & Data Results & Data ([facility]) Vital Signs (Past 12 Hours) Vital Signs Temp Pulse Resp BP Pulse Ox O2 Del Method 08/16/22 07:31 37.1 C 59 L 16 130/74 94 Room Air Laboratory Results 08/16/22 08/15/22 Range/Units 07:00 15:50 WBC 13.36 H (4.8-10.8) K/ul RBC 3.89 L (4.63-6.08) M/uL Hgb 12.5 L (14.0-18.0) g/dl Hct 37.0 L (40.1-51.0) % MCV 95.1 (80.0-100.0) fL MCH 32.1 (25.0-34.0) pg MCHC 33.8 (32.0-36.0) g/dL RDW Std Deviation 44.7 (36.4-46.3) fL RDW Coeff of Carola 12.7 (11.5-14.5) % Plt Count 371 (130-400) K/uL MPV 9.2 L (9.4-12.4) fL Urine Color Yellow Urine Appearance Clear (Clear) Urine pH 5.5 (4.5-7.5) Ur Specific [place] 1.013 (1.000-1.030) Urine Protein Negative (Negative) Urine Glucose (UA) Negative (Negative) Urine Ketones Negative (Negative) Urine Blood Negative (Negative) Urine Nitrite Negative (Negative) Urine Bilirubin Negative (Negative) Urine Urobilinogen Negative (Negative) Ur Leukocyte Esterase Negative (Negative) Medications Administered Current Inpatient Medications Acetaminophen (Acetaminophen 325 Mg Tab) 650 mg PO Q4H PRN PRN Reason: Pain or Fever Stop: 09/03/22 20:45 Last Admin: 08/11/22 03:22 Dose: 650 mg Al Hydrox/Mg Hydrox/Simethicone (Aluminum/Magnesium Susp 30 Ml Udc) 30 ml PO Q6H PRN PRN Reason: nausea Stop: 09/04/22 11:29 Aspirin (Aspirin 81 Mg Ectab) 81 mg PO [facility] Stop: 09/13/22 08:59 Last Admin: 08/16/22 08:53 Dose: 81 mg Atorvastatin Calcium (Atorvastatin 40 Mg Tab) 80 mg PO [facility] Stop: 09/04/22 08:59 Last Admin: 08/16/22 08:53 Dose: 80 mg Clopidogrel Bisulfate (Clopidogrel Bisulfate 75 Mg Tab) 75 mg PO [facility] Stop: 09/04/22 08:59 Last Admin: 08/16/22 08:53 Dose: 75 mg Diphenhydramine HCl (Diphenhydramine 50 Mg/Ml Vial) 25 mg IV Q8 PRN PRN Reason: Allergic Reaction Stop: 09/04/22 11:29 Donepezil HCl (Donepezil Hcl 10 Mg Tab) 10 mg PO [facility] Stop: 09/04/22 08:59 Last Admin: 08/14/22 08:46 Dose: 10 mg Enoxaparin Sodium (Enoxaparin Inj 40 Mg/0.4 Ml Syr) 40 mg SQ [facility] Stop: 09/13/22 08:59 Last Admin: 08/16/22 08:52 Dose: 40 mg Ergocalciferol (Ergocalciferol 50,000 Units 1250 Mcg Cap) 50,000 units PO Minor@1300 [facility] Stop: 09/05/22 12:59 Last Admin: 08/13/22 14:00 Dose: 50,000 units Fenofibrate (Fenofibrate Nanocrystallized 145 Mg Tablet) 145 mg PO [facility] Stop: 09/04/22 08:59 Last Admin: 08/16/22 08:53 Dose: 145 mg Fluticasone Propionate (Fluticasone Propionate Na Spr 16 Gm Btl) 2 sprays NA DAILY [facility] Stop: 09/09/22 15:59 Last Admin: 08/16/22 08:54 Dose: 2 sprays Guaifenesin (Guaifenesin 600 Mg Tabcr) 600 mg PO Q12 [facility] Stop: 09/09/22 20:59 Last Admin: 08/16/22 08:52 Dose: 600 mg Isosorbide Mononitrate (Isosorbide [place] Extended Rel 30 Mg Tabcr) 30 mg PO QAM [facility] Stop: 09/04/22 08:59 Last Admin: 08/16/22 08:53 Dose: 30 mg Lisinopril (Lisinopril 10 Mg Tab) 10 mg PO QAM [facility] Stop: 09/04/22 08:59 Last Admin: 08/16/22 08:53 Dose: 10 mg Magnesium Hydroxide (Magnesium Hydroxide Susp 30 Ml Udc) 30 ml PO Q12H PRN PRN Reason: Constipation Stop: 09/03/22 20:45 Memantine (Memantine Hcl 10 Mg Tab) 10 mg PO BID [facility] Stop: 09/03/22 23:29 Last Admin: 08/16/22 08:52 Dose: 10 mg Ondansetron HCl (Ondansetron Inj 2 Mg/Ml 2 Ml Vial) 4 mg IV Q6H PRN PRN Reason: Nausea Stop: 09/03/22 20:45 Oxycodone HCl (Oxycodone Hcl Ir 5 Mg Tab (Immediate Release)) 5 mg PO Q4H PRN PRN Reason: Pain Stop: 08/19/22 11:24 Polyethylene Glycol (Polyethylene (Miralax) 17 Gm Pack) 17 gm PO DAILY PRN PRN Reason: Constipation Stop: 09/03/22 20:45 Polyethylene Glycol (Polyethylene (Miralax) 17 Gm Pack) 17 gm PO DAILY [facility] Stop: 09/07/22 13:29 Last Admin: 08/16/22 08:53 Dose: 17 gm Ranolazine (Ranolazine 500 Mg Er Tab) 500 mg PO BID [facility] Stop: 09/03/22 23:29 Last Admin: 08/16/22 08:52 Dose: 500 mg (1) Closed fracture of left distal radius Encounter type: initial encounter Fracture morphology: Colles' Qualified Code(s): S52.532A - Colles' fracture of left radius, initial encounter for closed fracture
--- NOTE | 2022-08-16 09:30 | Progress Notes ---
DATE OF SERVICE: 08/16/2022. We will check an x-ray of Mr. Hussein's left hip. We would like to remove his obdulio in the next day or 2 prior to his departure. This will suffice for his acute postop visit. He can then follow up w ith us in a month if everything is well. He may continue to weightbear as tolerated on the left leg using the platform walker. Additionally, after 08/18/2022, the Lovenox could be discontinued and he could remain on aspirin 325 mg p.o. b.i.d. for DVT prophylaxis until his followup with me in 1 month. Job ID: [id number]
--- NOTE | 2022-08-16 10:51 | XRay Report ---
XR hip LT min 2V CLINICAL HISTORY: AP and shoot thru lateral in neutral rotation TECHNIQUE: 2 views of the left hip were obtained. Comparison: Comparison is made to left hip radiograph 08/05/2022 FINDINGS: Surgical screws are seen in the femoral neck, unchanged. Bony bridging is seen in the subcapital frac ture of the left femur. Joint spaces are well-preserved. Calcification adjacent to the left inferior pubic ramus is unchanged. IMPRESSION: Expected healing changes in the subcapital fracture of the left hip status post surgical fixation. ACT 112: Negative or not required by law. Electronically signed by: Jamie Bedolla M.D. 08/16/2022 10:49 AM
[2022-08-17 07:41] LABS: Hemoglobin 12.4 g/dl (14.0-18.0); Mean Corpuscular Hemoglobin 32.2 pg (25.0-34.0); Mean Corpuscular Hgb Conc 33.5 g/dL (32.0-36.0); Mean Corpuscular Volume 96.1 fL (80.0-100.0); Platelet Count 396 K/uL (130-400); RDW Coefficient of Variation 13.1 % (11.5-14.5); RDW Standard Deviation 46.1 fL (36.4-46.3); Red Blood Count 3.85 M/uL (4.63-6.08); White Blood Count 13.41 K/ul (4.8-10.8)
[2022-08-17] MEDS: lisinopril 10 MG TAB PO SCH (07:49)
[2022-08-17] MEDS: MEMANTINE HCL 10 MG TAB PO SCH ×2 (07:49→20:17)
[2022-08-17] MEDS: CLOPIDOGREL BISULFATE 75 MG TAB PO SCH (07:49)
[2022-08-17] MEDS: guaiFENesin 600 MG TABCR PO SCH ×2 (07:49→20:17)
[2022-08-17] MEDS: POLYETHYLENE (MIRALAX) 17 GM PACK PO SCH (07:49)
[2022-08-17] MEDS: FENOFIBRATE NANOCRYSTALLIZED 145 MG TABLET PO SCH (07:49)
[2022-08-17] MEDS: ATORVASTATIN 40 MG TAB PO SCH (07:49)
[2022-08-17] MEDS: ASPIRIN 81 MG ECTAB PO SCH (07:50)
[2022-08-17] MEDS: FLUTICASONE PROPIONATE NA SPR 16 GM BTL SCH (07:50)
[2022-08-17] MEDS: ISOSORBIDE MONO EXTENDED REL 30 MG TABCR PO SCH (07:50)
[2022-08-17] MEDS: RANOLAZINE 500 MG ER TAB PO SCH ×2 (07:50→20:17)
[2022-08-17] MEDS: ENOXAPARIN INJ 40 MG/0.4 ML SYR SQ SCH (07:50)
[2022-08-17 08:50] LABS: BUN Creatinine Ratio 23.1 (10-20); Calcium 9.2 mg/dl (8.5-10.1); Creatinine Clr Calc Pharmacy 78.5 ml/min; Est GFR (African American) 81.6 ml/min; Est GFR (Non-African American) 70.4 ml/min; Potassium 3.9 mmol/L (3.5-5.1)
--- NOTE | 2022-08-17 11:55 | Progress Notes ---
DATE OF SERVICE: 08/17/2022. X-rays of the left hip look good. Good alignment and hardware intact. No evidence of complication. The wound is benign. Kerri are removed. The patient can follow up with me in 1 month. He can we ight bear as tolerated with his walker. He will need PT and OT either at extended care facility or a t home depending on his disposition. When he is discharged from the hospital, the Lovenox can be disc ontinued and he can be continued on aspirin 325 mg 1 p.o. b.i.d. for 6 weeks total postop. Job ID: [id number]
--- NOTE | 2022-08-17 22:41 | Hospitalist Progress Note ---
Date of Service August 17, 2022 Assessment & Plan (1) Closed left hip fracture: Plan 1) Closed left hip fracture: (2) Vitamin D deficiency: (3) Closed fracture of left wrist: (4) Closed fracture of left distal radius: Plan per previous hospitalist with addendum: Mechanical fall, ground-level Likely osteoporotic fracture Nondisplaced impacted left femoral neck fracture, s/p Percutaneous Screw Fixation Left Hip 08/05 Comminuted intra-articular left distal radius fracture (08/05) s/p left hip screw and fixation by Dr. Frank Vitamin D deficiency- being supplemented Ortho recommends can stop lovenox at discharge and to place on aspirin 325mg bid for 6 weeks since surgery Followup with in one month. s/p Left wrist ORIF by Dr. Calderon (08/10/22) Rayray wraps also adjusted by orthopedics Continue to monitor closely Per ortho: Ice, elevation of left wrist. ROM of fingers as tolerated/aggressive finger range of motion to reduce swelling. Nonweightbearing through left wrist. May weight-bear as tolerated through left elbow/forearm on the platform walker. Follow up with Dr Calderon in 2 weeks. Please call [facility] at [phone] to make an appointment. Wrist-specific discharge instructions were placed in the discharge section. Urinary retention s/p leon will comnsult Urologyu Other chronic medical conditions:CAD, CVA, HLD, HTN --> no cardiac symptoms, no neurologic deficits Continue Ranexa, Imdur, lisinopril, Tricor, Plavix, Lipitor, aspirin Started on mucinex and flonase for ongoing post nasal drip and congestion. Sym ptoms already improved. DVT prophylaxis:per orthopedic surgery Full code Disposition: Awaiting placement Admission and Anticipated Discharge Date Admission Date: August 04, 2022 Subjective resting in bed comfortably afebrile family in room s/p leon for urinary retention denies chest pain or sob Physical Exam Respiratory: normal respiratory effort, lungs clear to auscultation Cardiovascular: RRR, no murmur, no edema Gastrointestinal (Abdomen): normal bowel sounds, soft, nontender, no hepatosplenomegaly Musculoskeletal: s.p left hip surgery. obdulio taken out. no erythema seen Neurologic: alert and awake no facial droop speech clear obeys simple commands' moves extremities Results & Data Results & Data ([facility]) Vital Signs (Past 12 Hours) Vital Signs Temp Pulse Resp BP Pulse Ox O2 Del Method 08/17/22 22:25 36.6 C 53 L 18 115/62 94 Room Air 08/17/22 16:30 36.6 C 57 L 18 127/74 94 Room Air
[2022-08-18 06:27] LABS: Basophils # (auto) 0.21 K/uL (0-0.2); Basophils % (auto) 1.5 %; Eosinophils # (auto) 0.58 K/uL (0-0.50); Eosinophils % (auto) 4.1 %; Hematocrit (blood only) 38.6 % (40.1-51.0); Hemoglobin 12.6 g/dl (14.0-18.0); Lymphocytes # (auto) 3.82 K/uL (1.2-3.4); Lymphocytes % (auto) 27.1 %; Mean Corpuscular Hemoglobin 31.7 pg (25.0-34.0); Mean Corpuscular Hgb Conc 32.6 g/dL (32.0-36.0); Mean Corpuscular Volume 97.2 fL (80.0-100.0); Mean Platelet Volume 9.1 fL (9.4-12.4); Monocytes # (auto) 1.01 K/uL (0.24-0.82); Monocytes % (auto) 7.2 %; Neutrophils # (auto) 7.75 K/uL (1.4-6.5); Neutrophils % (auto) 55.1 %; Platelet Count 398 K/uL (130-400); RDW Coefficient of Variation 13.1 % (11.5-14.5); RDW Standard Deviation 46.7 fL (36.4-46.3); Red Blood Count 3.97 M/uL (4.63-6.08); White Blood Count 14.07 K/ul (4.8-10.8)
[2022-08-18 06:48] LABS: Calcium 9.1 mg/dl (8.5-10.1); Creatinine Clr Calc Pharmacy 91.8 ml/min; Est GFR (African American) 97.6 ml/min; Est GFR (Non-African American) 84.2 ml/min; Potassium 3.9 mmol/L (3.5-5.1)
[2022-08-18] MEDS: FENOFIBRATE NANOCRYSTALLIZED 145 MG TABLET PO SCH (08:34)
[2022-08-18] MEDS: RANOLAZINE 500 MG ER TAB PO SCH ×2 (08:34→19:39)
[2022-08-18] MEDS: MEMANTINE HCL 10 MG TAB PO SCH ×2 (08:34→19:39)
[2022-08-18] MEDS: POLYETHYLENE (MIRALAX) 17 GM PACK PO SCH (08:35)
[2022-08-18] MEDS: ASPIRIN 81 MG ECTAB PO SCH (08:35)
[2022-08-18] MEDS: guaiFENesin 600 MG TABCR PO SCH ×2 (08:35→19:39)
[2022-08-18] MEDS: ENOXAPARIN INJ 40 MG/0.4 ML SYR SQ SCH (08:35)
[2022-08-18] MEDS: CLOPIDOGREL BISULFATE 75 MG TAB PO SCH (08:36)
[2022-08-18] MEDS: ATORVASTATIN 40 MG TAB PO SCH (08:36)
[2022-08-18] MEDS: ISOSORBIDE MONO EXTENDED REL 30 MG TABCR PO SCH (08:36)
[2022-08-18] MEDS: lisinopril 10 MG TAB PO SCH (08:36)
[2022-08-18] MEDS: FLUTICASONE PROPIONATE NA SPR 16 GM BTL SCH (08:37)
--- NOTE | 2022-08-18 11:41 | Urology Consultation ---
Date of Consultation August 18, 2022 Assessment & Plan (1) Urinary retention: Plan 72yo/M admitted s/p fall and underwent Percutaneous Screw Fixation Left Hip 08/05/22 and Left Wrist ORIF on 08/10/22. Patient developed difficulty with urination on 08/15 requiring straight catheterization. He continued to have difficulty with urination and was bladder scanned for volumes ranging 300-500 mL. A Rhoades catheter was inserted on 08/16/22 due to retention. -Urinary retention likely multifactorial including recent anesthesia, immobility, possible underlying BPH, etc. -Retention currently managed by Rhoades catheter. Catheter draining clear yellow urine. -Recommend maintaining catheter for 5-7 days. Could offer voiding trial prior to discharge depending on timeframe or we can arrange as an outpatient in our office. -Can also consider addition of Flomax. -Will arrange outpatient follow-up with our service. -Urology will sign-off. Please contact us with any further questions, concerns, or changes in patient's status. Supervising Physician Co-Signing Physician Notes Discussed patient with KAROL. Agree with plan. History of Present Illness Reason for Consultation: Urinary retention Attending Physician: Humberto Brewer MD History of Present Illness 72-year-old male admitted s/p fall and subsequently underwent Percutaneous Screw Fixation Left Hip 08/05/22 and Left Wrist ORIF on 08/10/22. Urology consulted for urinary retention. Patient developed difficulty with urination on 08/15 requiring straight catheterization. He continued to have difficulty with urination. Was bladder scanned for volumes ranging 300-500 mL. A Rhoades catheter was inserted on 08/16 due to retention. Seen and examined at bedside this AM. Awake, sitting in bedside chair on arrival. No acute distress. Afebrile and hemodynamically stable. Creatinine stable. Rhoades catheter intact, draining clear yellow urine. Patient denies any urinary symptoms or issues at baseline. Denies prior history of urinary retention or issues with emptying. Denies prior urological history. Has never seen a urologist. Allergies Allergy/AdvReac Type Severity Reaction Status Date / Time cephalexin Allergy Unknown Verified 08/04/22 23:42 Penicillins Allergy Unknown Verified 08/04/22 23:42 prednisone Allergy Unknown Verified 08/04/22 23:42 Home Medications Medication Instructions Recorded Confirmed Type Aspir-81 81 mg PO 1XD 08/09/22 08/09/22 History atorvastatin 80 mg tablet 80 mg PO DAILY 08/09/22 08/09/22 History cholecalciferol (vitamin D3) 25 25 mcg PO DAILY 08/09/22 08/09/22 History mcg (1,000 unit) tablet (Vitamin D3) clopidogrel 75 mg tablet 75 mg PO DAILY 08/09/22 08/09/22 History donepezil 10 mg tablet 10 mg PO DAILY 08/09/22 08/09/22 History fenofibrate 145 mg PO 1XD 08/09/22 08/09/22 History isosorbide mononitrate 30 mg PO 1XD 08/09/22 08/09/22 History lisinopril 10 mg tablet 10 mg PO DAILY 08/09/22 08/09/22 History memantine 10 mg tablet 10 mg PO BID 08/09/22 08/09/22 History omega 3-udr-ugs-fish oil 1,200 mg cap PO 1XD 08/09/22 History (144 mg-216 mg) capsule (Fish Oil) ranolazine 500 mg tablet,extended 500 mg PO BID 08/09/22 08/09/22 History release,12 hr Patient History Medical History Closed fracture of left hip Closed fracture of left wrist Fall Social History Smoking Status: Never smoker Second Hand Exposure: No; Do You Dip or Chew Tobacco: No; Hx Alcohol Use: No Hx Substance Use: No Preferred Language: Guyanese Communication Ability: Effective Travel Consultant Required: No Beliefs That Will Affect Care: None Current Living Situation: Alone Other Information That Helps Us Care for You: No Feels Safe at Home: Yes Safety Concerns: Feels Safe At This Time Assistive Devices: None Review of Systems Review of Systems: All systems reviewed & are unremarkable except as noted in HPI & below Physical Exam Constitutional: well developed and well nourished; no acute distress Neck: normal visual inspection Respiratory: normal respiratory effort; no respiratory distress and no labored breathing Musculoskeletal: Left arm sling Skin: No visible rashes or lesions to exposed skin areas Neurologic: awake Psychiatric: A+Ox3, euthymic affect Genitourinary: Rhoades catheter intact Results & Data ([facility]) Vital Signs (Past 12 Hours) Vital Signs Temp Pulse Resp BP Pulse Ox O2 Del Method 08/18/22 08:00 36.7 C 56 L 18 139/78 94 Room Air PG Care Time/CCT Total # of Minutes Spent Total Time Spent with Patient: Total time spent is greater than 50% in coordination of care (as documented) at patient's floor/unit and/or counseling patient: Coding Level of Care Code 71980 INT INP/OBS CARE 2/55MIN Diagnoses Urinary retention R33.9
[2022-08-18] MEDS: TAMSULOSIN HCL 0.4 MG CAP PO SCH (19:39)
--- NOTE | 2022-08-18 20:33 | Hospitalist Progress Note ---
Date of Service August 18, 2022 Assessment & Plan (1) Closed left hip fracture: Plan 1) Closed left hip fracture: (2) Vitamin D deficiency: (3) Closed fracture of left wrist: (4) Closed fracture of left distal radius: Plan per previous hospitalist with addendum: Mechanical fall, ground-level Likely osteoporotic fracture Nondisplaced impacted left femoral neck fracture, s/p Percutaneous Screw Fixation Left Hip 08/05 Comminuted intra-articular left distal radius fracture (08/05) s/p left hip screw and fixation by Dr. Frank Vitamin D deficiency- being supplemented Ortho recommends can stop lovenox at discharge and to place on aspirin 325mg bid for 6 weeks since surgery Followup with in one month. s/p Left wrist ORIF by Dr. Calderon (08/10/22) Rayray wraps also adjusted by orthopedics Continue to monitor closely Per ortho: Ice, elevation of left wrist. ROM of fingers as tolerated/aggressive finger range of motion to reduce swelling. Nonweightbearing through left wrist. May weight-bear as tolerated through left elbow/forearm on the platform walker. Follow up with Dr Calderon in 2 weeks. Please call [facility] at [phone] to make an appointment. Wrist-specific discharge instructions were placed in the discharge section. Urinary retention s/p leon consulted urology -recommeds leon for 5-7 days and flomax for possible underlying BPH and needs to followp with urology Other chronic medical conditions:CAD, CVA, HLD, HTN --> no cardiac symptoms, no neurologic deficits Continue Ranexa, Imdur, lisinopril, Tricor, Plavix, Lipitor, aspirin Started on mucinex and flonase for ongoing post nasal drip and congestion. Symptoms already improved. DVT prophylaxis:per orthopedic surgery Full code Disposition: Awaiting placement Admission and Anticipated Discharge Date Admission Date: August 04, 2022 Subjective Resting comfortably afebrile no chest pain or sob ambulating as per patient no complaints Physical Exam Neck: normal visual inspection Respiratory: normal respiratory effort, lungs clear to auscultation Cardiovascular: RRR, no murmur, no edema Gastrointestinal (Abdomen): normal bowel sounds, soft, nontender, no hepatosplenomegaly Neurologic: alert and oriented speech clear no facial droop obeys commands moves extremities Results & Data Results & Data ([facility]) Vital Signs (Past 12 Hours) Vital Signs Temp Pulse Resp BP Pulse Ox O2 Del Method 08/18/22 15:42 36.5 C 59 L 18 138/77 94 Room Air
[2022-08-19 07:52] LABS: Est GFR (Non-African American) 78.5 ml/min
[2022-08-19] MEDS: ENOXAPARIN INJ 40 MG/0.4 ML SYR SQ SCH (09:01)
[2022-08-19] MEDS: ATORVASTATIN 40 MG TAB PO SCH (09:01)
[2022-08-19] MEDS: ASPIRIN 81 MG ECTAB PO SCH (09:01)
[2022-08-19] MEDS: POLYETHYLENE (MIRALAX) 17 GM PACK PO SCH (09:01)
[2022-08-19] MEDS: ISOSORBIDE MONO EXTENDED REL 30 MG TABCR PO SCH (09:01)
[2022-08-19] MEDS: FLUTICASONE PROPIONATE NA SPR 16 GM BTL SCH (09:01)
[2022-08-19] MEDS: RANOLAZINE 500 MG ER TAB PO SCH ×2 (09:01→19:35)
[2022-08-19] MEDS: FENOFIBRATE NANOCRYSTALLIZED 145 MG TABLET PO SCH (09:01)
[2022-08-19] MEDS: CLOPIDOGREL BISULFATE 75 MG TAB PO SCH (09:01)
[2022-08-19] MEDS: guaiFENesin 600 MG TABCR PO SCH ×2 (09:01→19:35)
[2022-08-19] MEDS: MEMANTINE HCL 10 MG TAB PO SCH ×2 (09:01→19:34)
[2022-08-19] MEDS: lisinopril 10 MG TAB PO SCH (09:02)
--- NOTE | 2022-08-19 15:12 | Hospitalist Progress Note ---
Date of Service August 19, 2022 Assessment & Plan (1) Closed left hip fracture: Plan per Dr. Brewer's notes with addendum: (1) Closed left hip fracture: (2) Vitamin D deficiency: (3) Closed fracture of left wrist: (4) Closed fracture of left distal radius: Plan per previous hospitalist with addendum: Mechanical fall, ground-level Likely osteoporotic fracture Nondisplaced impacted left femoral neck fracture, s/p Percutaneous Screw Fixation Left Hip 08/05 Comminuted intra-articular left distal radius fracture (08/05) s/p left hip screw and fixation by Dr. Frank Vitamin D deficiency- being supplemented Ortho recommends can stop lovenox at discharge and to place on aspirin 325mg bid for 6 weeks since surgery Followup with in one month. s/p Left wrist ORIF by Dr. Calderon (08/10/22) Rayray wraps also adjusted by orthopedics Continue to monitor closely Per ortho: Ice, elevation of left wrist. ROM of fingers as tolerated/aggressive finger range of motion to reduce swelling. Nonweightbearing through left wrist. May weight-bear as tolerated through left elbow/forearm on the platform walker. Follow up with Dr Calderon in 2 weeks. Please call [facility] at [phone] to make an appointment. Wrist-specific discharge instructions were placed in the discharge section. Urinary retention s/p leon consulted urology -recommends leon for 5-7 days and flomax for possible underlying BPH and needs to followup with urology 08/19 stable overall continue PT/OT continue Leon Cath will consult Podiatry for significantly tender L foot callus, making ambulation challenging Other chronic medical conditions:CAD, CVA, HLD, HTN --> no cardiac symptoms, no neurologic deficits Continue Ranexa, Imdur, lisinopril, Tricor, Plavix, Lipitor, aspirin Started on mucinex and flonase for ongoing post nasal drip and congestion. Symptoms already improved. DVT prophylaxis:per orthopedic surgery Full code Disposition: Awaiting placement Admission and Anticipated Discharge Date Admission Date: August 04, 2022 Subjective ff up for L hip and wrist fracture, s/p surgery, etc seen resting in bed, comfortable states he feels fine overall no pain no chest pain, dyspnea, palpitations, dizziness tolerating PT well reports very tender callus on the L foot, with difficulty in walking secondary to pain no other symptoms Review of Systems Review of Systems: all noted and negative except for above Physical Exam Physical Exam: General- oriented x 3, not in distress, speaks in sentences with no effort or accessory muscle use Eyes- anicteric Neck- no JVD Lungs- clear breath sounds bilaterally, no rales/wheezes Heart- normal rate, regular rhythm; no murmurs Abdomen- normal bowel sounds, nondistended, soft, nontender Extremities- no pretibial edema, no calf tenderness L wrist- bandage in place Leon cath in place - yellow urine L foot- (+) thick, tender callus on the lateral aspect of the posterior forefoot no signs of infection Neuro- alert, oriented x 3; no gross focal neurologic deficits Skin- warm & dry Results & Data Results & Data ([facility]) Vital Signs (Past 12 Hours) Vital Signs Temp Pulse Resp BP Pulse Ox O2 Del Method 08/19/22 07:46 36.3 C L 64 18 117/71 93 Room Air all noted and reviewed including below
[2022-08-19] MEDS: TAMSULOSIN HCL 0.4 MG CAP PO SCH (19:36)
[2022-08-20] MEDS: lisinopril 10 MG TAB PO SCH (08:51)
[2022-08-20] MEDS: ATORVASTATIN 40 MG TAB PO SCH (08:51)
[2022-08-20] MEDS: CLOPIDOGREL BISULFATE 75 MG TAB PO SCH (08:51)
[2022-08-20] MEDS: ISOSORBIDE MONO EXTENDED REL 30 MG TABCR PO SCH (08:51)
[2022-08-20] MEDS: MEMANTINE HCL 10 MG TAB PO SCH ×2 (08:51→19:25)
[2022-08-20] MEDS: ASPIRIN 81 MG ECTAB PO SCH (08:51)
[2022-08-20] MEDS: guaiFENesin 600 MG TABCR PO SCH ×2 (08:51→19:24)
[2022-08-20] MEDS: RANOLAZINE 500 MG ER TAB PO SCH ×2 (08:51→19:25)
[2022-08-20] MEDS: FENOFIBRATE NANOCRYSTALLIZED 145 MG TABLET PO SCH (08:51)
[2022-08-20] MEDS: POLYETHYLENE (MIRALAX) 17 GM PACK PO SCH (08:52)
[2022-08-20] MEDS: ENOXAPARIN INJ 40 MG/0.4 ML SYR SQ SCH (08:52)
[2022-08-20] MEDS: FLUTICASONE PROPIONATE NA SPR 16 GM BTL SCH (08:52)
[2022-08-20] MEDS: ERGOCALCIFEROL 50,000 UNITS 1250 MCG CAP PO SCH (13:35)
--- NOTE | 2022-08-20 16:57 | Hospitalist Progress Note ---
Date of Service August 20, 2022 Assessment & Plan (1) Closed left hip fracture: Plan per Dr. Brewer's notes with addendum: (1) Closed left hip fracture: (2) Vitamin D deficiency: (3) Closed fracture of left wrist: (4) Closed fracture of left distal radius: Plan per previous hospitalist with addendum: Mechanical fall, ground-level Likely osteoporotic fracture Nondisplaced impacted left femoral neck fracture, s/p Percutaneous Screw Fixation Left Hip 08/05 Comminuted intra-articular left distal radius fracture (08/05) s/p left hip screw and fixation by Dr. Frank Vitamin D deficiency- being supplemented Ortho recommends can stop lovenox at discharge and to place on aspirin 325mg bid for 6 weeks since surgery Followup with in one month. s/p Left wrist ORIF by Dr. Calderon (08/10/22) Rayray wraps also adjusted by orthopedics Continue to monitor closely Per ortho: Ice, elevation of left wrist. ROM of fingers as tolerated/aggressive finger range of motion to reduce swelling. Nonweightbearing through left wrist. May weight-bear as tolerated through left elbow/forearm on the platform walker. Follow up with Dr Calderon in 2 weeks. Please call [facility] at [phone] to make an appointment. Wrist-specific discharge instructions were placed in the discharge section. Urinary retention s/p leon consulted urology -recommends leon for 5-7 days and flomax for possible underlying BPH and needs to followup with urology 08/19 stable overall continue PT/OT continue Leon Cath will consult Podiatry for significantly tender L foot callus, making ambulation challenging 08/20 remains stable overall No new symptoms Other chronic medical conditions:CAD, CVA, HLD, HTN --> no cardiac symptoms, no neurologic deficits Continue Ranexa, Imdur, lisinopril, Tricor, Plavix, Lipitor, aspirin Started on mucinex and flonase for ongoing post nasal drip and congestion. Symptoms already improved. DVT prophylaxis:per orthopedic surgery Full code Disposition: Awaiting placement Admission and Anticipated Discharge Date Admission Date: August 04, 2022 Subjective Follow-up for left hip and wrist surgery,, etc. Seen sitting up in bedside chair, comfortable, good spirits States he feels fine overall Reports pain on the callus of the left foot, worse with walking no chest pain, dyspnea, palpitations, dizziness No other symptom Review of Systems Review of Systems: all noted and negative except for above Physical Exam Physical Exam: General- oriented x 3, not in distress, speaks in sentences with no effort or accessory muscle use Eyes- anicteric Neck- no JVD Lungs- clear breath sounds bilaterally Heart- normal rate, regular rhythm; no murmurs Abdomen- normal bowel sounds, nondistended, soft, nontender Extremities- no pretibial edema, no calf tenderness Left arm splint in place Neuro- alert, oriented x 3; no gross focal neurologic deficits Skin- warm & dry Results & Data Results & Data ([facility]) Vital Signs (Past 12 Hours) Vital Signs Temp Pulse Pulse Resp BP Pulse Ox O2 Del Method 08/20/22 15:42 36.3 C L 79 18 98/65 L 97 Room Air 08/20/22 08:13 36.5 C 60 16 137/72 95 Room Air all noted and reviewed including below
[2022-08-20] MEDS: TAMSULOSIN HCL 0.4 MG CAP PO SCH (19:25)
[2022-08-21] MEDS: RANOLAZINE 500 MG ER TAB PO SCH ×2 (08:46→19:26)
[2022-08-21] MEDS: lisinopril 10 MG TAB PO SCH (08:46)
[2022-08-21] MEDS: CLOPIDOGREL BISULFATE 75 MG TAB PO SCH (08:46)
[2022-08-21] MEDS: FENOFIBRATE NANOCRYSTALLIZED 145 MG TABLET PO SCH (08:46)
[2022-08-21] MEDS: MEMANTINE HCL 10 MG TAB PO SCH ×2 (08:46→19:25)
[2022-08-21] MEDS: guaiFENesin 600 MG TABCR PO SCH ×2 (08:46→19:26)
[2022-08-21] MEDS: ATORVASTATIN 40 MG TAB PO SCH (08:47)
[2022-08-21] MEDS: ASPIRIN 81 MG ECTAB PO SCH (08:47)
[2022-08-21] MEDS: FLUTICASONE PROPIONATE NA SPR 16 GM BTL SCH (08:47)
[2022-08-21] MEDS: ISOSORBIDE MONO EXTENDED REL 30 MG TABCR PO SCH (08:47)
[2022-08-21] MEDS: POLYETHYLENE (MIRALAX) 17 GM PACK PO SCH (08:48)
[2022-08-21] MEDS: ENOXAPARIN INJ 40 MG/0.4 ML SYR SQ SCH (08:48)
--- NOTE | 2022-08-21 10:41 | Orthopedic Consultation ---
Date of Consultation August 21, 2022 Assessment & Plan (1) Left foot pain: Patient seen, evaluated, and treated. Hyperkeratotic lesion from sub met 5 left foot was debrided with sharp, sterile, #15 blade. Patient tolerated procedure well. No postprocedure pain. Patient educated on weight bearing forces and use of accommodative shoes. Thank you for allowing me to participate in the care of this patient. History of Present Illness Attending Physician: Israel Fernandez MD History of Present Illness Patient is a pleasant 72 year old man who is seen at bedside. Patient relates he resides outside of [facility] and was visiting his son in [place] and walking his dog when he fell. Patient has a past medical history of CAD, HTN, sinus bradycardia, HLD, CVA presented to [facility] ED 08/04 after fall on the left side. Patient today complains of painful left foot after physical therapy. Patient is S/P ORIF left hip 08/05/22 and Left arm is in splint due to radius fracture. Allergies Allergy/AdvReac Type Severity Reaction Status Date / Time cephalexin Allergy Unknown Verified 08/04/22 23:42 Penicillins Allergy Unknown Verified 08/04/22 23:42 prednisone Allergy Unknown Verified 08/04/22 23:42 Home Medications Medication Instructions Recorded Confirmed Type Aspir-81 81 mg PO 1XD 08/09/22 08/09/22 History atorvastatin 80 mg tablet 80 mg PO DAILY 08/09/22 08/09/22 History cholecalciferol (vitamin D3) 25 25 mcg PO DAILY 08/09/22 08/09/22 History mcg (1,000 unit) tablet (Vitamin D3) clopidogrel 75 mg tablet 75 mg PO DAILY 08/09/22 08/09/22 History donepezil 10 mg tablet 10 mg PO DAILY 08/09/22 08/09/22 History fenofibrate 145 mg PO 1XD 08/09/22 08/09/22 History isosorbide mononitrate 30 mg PO 1XD 08/09/22 08/09/22 History lisinopril 10 mg tablet 10 mg PO DAILY 08/09/22 08/09/22 History memantine 10 mg tablet 10 mg PO BID 08/09/22 08/09/22 History omega 2-vcq-tig-fish oil 1,200 mg cap PO 1XD 01/04/23 History (144 mg-216 mg) capsule (Fish Oil) ranolazine 500 mg tablet,extended 500 mg PO BID 08/09/22 08/09/22 History release,12 hr Patient History Medical History Closed fracture of left hip Closed fracture of left wrist Fall Social History Smoking Status: Never smoker Second Hand Exposure: No; Do You Dip or Chew Tobacco: No; Hx Alcohol Use: No Hx Substance Use: No Preferred Language: Djiboutian Communication Ability: Effective Pier Hand Required: No Beliefs That Will Affect Care: None Current Living Situation: Alone Other Information That Helps Us Care for You: No Feels Safe at Home: Yes Safety Concerns: Feels Safe At This Time Assistive Devices: None Review of Systems Review of Systems: All systems reviewed & are unremarkable except as noted in HPI & below Physical Exam Constitutional: WD/WN, vitals as above Eyes: normal visual reeves by confrontation Neck: normal visual inspection Respiratory: normal respiratory effort Cardiovascular: Rate/Rhythm: regular rate and regular rhythm Pedal pulses palpable. Musculoskeletal: Left arm sling. No gross deformities. Pain on palpation to left sub met 5 secondary to hyperkeratotic lesion. Skin: Sub met 5 hyperkeratotic lesion. Skin is intact. Neurologic: Epicritic sensation intact. Psychiatric: A+Ox3, euthymic affect Results & Data ([facility]) Vital Signs (Past 12 Hours) Vital Signs Temp Pulse Resp BP Pulse Ox O2 Del Method 08/21/22 07:12 36.3 C L 55 L 16 128/74 96 Room Air
--- NOTE | 2022-08-21 18:21 | Hospitalist Progress Note ---
Date of Service August 21, 2022 delayed entry date of service noted above Assessment & Plan (1) Closed left hip fracture: (2) Closed fracture of left wrist: (3) Closed fracture of left distal radius: (4) Vitamin D deficiency: Plan: This is a 72-year-old male who has significant past medical history of CAD, HTN, sinus bradycardia, HLD and history of CVA who presented to ED on 08/04/2022 after sustaining a fall on the left side. It was a ground-level fall and felt to likely be osteoporotic in nature. He was diagnosed with a nondisplaced impacted left femoral neck fracture. He underwent percutaneous screw fixation of the left hip on 08/[address] Frank. He also sustained a comminuted intra-articular left distal radius fracture status post ORIF by Dr. Calderon on 08/10/22. He was found to be deficient in vitamin D with a level of 21.0. He was started on high dose vitamin D2, 50,000 units weekly. He was also placed on DVT ppx with lovenox while in patient. Per orthopedics they are requesting he be discharged on ASA 325mg bid until 6 weeks from surgery day, through 09/16/22. He then can resume his ASA 81mg daily. His hosp course was complicated by urinary retention requiring Leon catheter placement and initiation of Flomax therapy. He was seen and evaluated by urology. It is recommended he follow-up with urology as outpatient for voiding trial. He was also seen and evaluated by podiatry Dr. Serna for a left foot callus. This was causing difficulty walking. His hyperkeratotic lesion was debrided and he tolerated procedure well. Patient is weightbearing as tolerated with a walker in regards to left lower extremity. He is nonweightbearing through left wrist, but he may bear weight as tolerated through left elbow and forearm on a platform walker. He is being discharged to subacute rehab for further therapy services. He does have a scheduled follow-up with [facility] orthopedics regarding his left hip fracture; however, arrangement and appointment needs to be made for follow-up with [place] [facility]ics and regarding left wrist fracture in 2 weeks. On day of discharge sutures were removed from L wrist and orthotics placed a cock up splint to L wrist. Repeat xrays were also taken and reviewed by orthopedics. Patient's chronic medical conditions remained stable throughout hospital stay. On day of discharge his blood pressure was 129/75 and he was hemodynamically stable without acute complaint. He was tolerating diet regularly and moving bowels without difficulty. In regards to fractures he was not having any pain and was not requiring any narcotic therapy at time of discharge. He is a full Code. Plan per Dr. Brewer's notes with addendum: (1) Closed left hip fracture: (2) Vitamin D deficiency: (3) Closed fracture of left wrist: (4) Closed fracture of left distal radius: Plan per previous hospitalist with addendum: Mechanical fall, ground-level Likely osteoporotic fracture Nondisplaced impacted left femoral neck fracture, s/p Percutaneous Screw Fixation Left Hip 08/05 Comminuted intra-articular left distal radius fracture (08/05) s/p left hip screw and fixation by Dr. Frank Vitamin D deficiency- being supplemented Ortho recommends can stop lovenox at discharge and to place on aspirin 325mg bid for 6 weeks since surgery Followup with in one month. s/p Left wrist ORIF by Dr. Calderon (08/10/22) Rayray wraps also adjusted by orthopedics Continue to monitor closely Per ortho: Ice, elevation of left wrist. ROM of fingers as tolerated/aggressive finger range of motion to reduce swelling. Nonweightbearing through left wrist. May weight-bear as tolerated through left elbow/forearm on the platform walker. Follow up with Dr Calderon in 2 weeks. Please call [facility] at [phone] to make an appointment. Wrist-specific discharge instructions were placed in the discharge section. Urinary retention s/p leon consulted urology -recommends leon for 5-7 days and flomax for possible underlying BPH and needs to followup with urology 08/19 stable overall continue PT/OT continue Leon Cath will consult Podiatry for significantly tender L foot callus, making ambulation challenging 08/20 remains stable overall No new symptoms 08/21 Stable No symptoms Continue current regimen Awaiting acceptance to rehab Other chronic medical conditions:CAD, CVA, HLD, HTN --> no cardiac symptoms, no neurologic deficits Continue Ranexa, Imdur, lisinopril, Tricor, Plavix, Lipitor, aspirin Started on mucinex and flonase for ongoing post nasal drip and congestion. Symptoms already improved. DVT prophylaxis:per orthopedic surgery Full code Disposition: Awaiting placement Admission and Anticipated Discharge Date Admission Date: August 04, 2022 Subjective Follow-up for status post left hip surgery, left wrist surgery, etc. Seen resting, sitting up in bedside chair, comfortable, not in distress States he feels fine overall no chest pain, dyspnea, palpitations, dizziness Denies pain No other new symptoms Awaiting rehab placement Review of Systems Review of Systems: all noted and negative except for above Physical Exam Physical Exam: General- oriented x 3, not in distress, speaks in sentences with no effort or accessory muscle use Eyes- anicteric Neck- no JVD Lungs- clear BS bilaterally, no rales/wheezes Heart- normal rate, regular rhythm; no murmurs Abdomen- normal bowel sounds, nondistended, soft, no tenderness Extremities- no pretibial edema, no calf tenderness Left wrist dressing in place Left foot dressing in place Neuro- alert, oriented x 3; no gross focal neurologic deficits Skin- warm & dry Results & Data Results & Data ([facility]) Vital Signs (Past 12 Hours) Vital Signs Temp Pulse Resp BP Pulse Ox O2 Del Method 08/21/22 14:50 36.3 C L 71 18 116/68 93 Room Air 08/21/22 07:12 36.3 C L 55 L 16 128/74 96 Room Air all noted and reviewed including below (1) Closed fracture of left distal radius Encounter type: initial encounter Fracture morphology: Colles' Qualified Code(s): S52.532A - Colles' fracture of left radius, initial encounter for closed fracture
[2022-08-21] MEDS: TAMSULOSIN HCL 0.4 MG CAP PO SCH (19:25)
[2022-08-22 07:24] LABS: Creatinine Clr Calc Pharmacy 74.3 ml/min; Est GFR (African American) 76.2 ml/min; Est GFR (Non-African American) 65.8 ml/min
[2022-08-22] MEDS: ATORVASTATIN 40 MG TAB PO SCH (07:56)
[2022-08-22] MEDS: RANOLAZINE 500 MG ER TAB PO SCH ×2 (07:56→19:21)
[2022-08-22] MEDS: CLOPIDOGREL BISULFATE 75 MG TAB PO SCH (07:56)
[2022-08-22] MEDS: ENOXAPARIN INJ 40 MG/0.4 ML SYR SQ SCH (07:57)
[2022-08-22] MEDS: ISOSORBIDE MONO EXTENDED REL 30 MG TABCR PO SCH (07:57)
[2022-08-22] MEDS: ASPIRIN 81 MG ECTAB PO SCH (07:57)
[2022-08-22] MEDS: guaiFENesin 600 MG TABCR PO SCH ×2 (07:57→19:20)
[2022-08-22] MEDS: MEMANTINE HCL 10 MG TAB PO SCH ×2 (07:57→19:21)
[2022-08-22] MEDS: FENOFIBRATE NANOCRYSTALLIZED 145 MG TABLET PO SCH (07:57)
[2022-08-22] MEDS: lisinopril 10 MG TAB PO SCH (07:57)
[2022-08-22] MEDS: POLYETHYLENE (MIRALAX) 17 GM PACK PO SCH (07:58)
[2022-08-22] MEDS: FLUTICASONE PROPIONATE NA SPR 16 GM BTL SCH (08:04)
--- NOTE | 2022-08-22 09:23 | Orthopedic Progress Note ---
Date of Service August 22, 2022 Assessment & Plan (1) Closed left hip fracture: Plan: S/P ORIF left hip 08/05/22 - with PSS PT/OT No hip precautions necessary. Ice PRN WBAT LLE with walker to assist in ambulation Steri strips in place. Okay to shower and get incision wet DVT prophylaxis - d/c lovenox upon discharge, patient can resume plavix and do 325mg ASA BID x 6 weeks from post op Case management anticipates discharge today F/u as scheduled with Dr Frank on 09/20 @ 2:30pm (2) Vitamin D deficiency: Plan: Continue Vitamin D replacement. Admission and Anticipated Discharge Date Admission Date: August 04, 2022 Subjective Pt sitting up in bed doing well. Reports no pain in his hip. He has no questions or concerns today. Physical Exam Physical Exam: General: Pt laying in hospital bed AA&O, in NAD, calm and cooperative during exam Left Lower Extremity: Incisions clean, dry, well approximated with steri strips and no surrounding erythema, warmth or purulent drainage. Pt has full ROM of ankle and all 5 digits. Pt able to bend his knee. Negative log roll. Pt has 5/5 strength with resisted DF/PF. SLR in tact. Calf supple and non tender. Lower extremity noted to have good color and temperature with no signs of vascular or lymphatic insufficiency. Results & Data ([facility]) Vital Signs (Past 12 Hours) Vital Signs Temp Pulse Pulse Resp BP Pulse Ox O2 Del Method 08/22/22 07:21 36.4 C L 65 16 114/71 94 Room Air 08/21/22 21:38 36.6 C 57 L 18 133/73 96 Room Air, CPAP
--- NOTE | 2022-08-22 13:47 | Hospitalist Progress Note ---
Date of Service August 22, 2022 Assessment & Plan (1) Closed left hip fracture: Plan (1) Closed left hip fracture: (2) Vitamin D deficiency: (3) Closed fracture of left wrist: (4) Closed fracture of left distal radius: Plan per previous hospitalist with addendum: Mechanical fall, ground-level Likely osteoporotic fracture Nondisplaced impacted left femoral neck fracture, s/p Percutaneous Screw Fixation Left Hip 08/05 Comminuted intra-articular left distal radius fracture s/p ORIF by Dr. Calderon 08/10/22 per ortho ok to stop lovenox at discharge and switch to asa 325mg bid x 6 weeks since date of surgery Vitamin D deficiency- being supplemented Followup with in one month. s/p Left wrist ORIF by Dr. Calderon (08/10/22) Rayray wraps also adjusted by orthopedics Continue to monitor closely Per ortho: Ice, elevation of left wrist. ROM of fingers as tolerated/aggressive finger range of motion to reduce swelling. Nonweightbearing through left wrist. May weight-bear as tolerated through left elbow/forearm on the platform walker. Follow up with Dr Calderon in 2 weeks. Please call [facility] at [phone] to make an appointment. Wrist-specific discharge instructions were placed in the discharge section. Urinary retention s/p leon, likely multifactorial in setting of anesthesia, sedentary consulted urology -recommends leon for 5-7 days and flomax for possible underlying BPH and needs to followup with urology as outpatient L foot callus tx by podiatry much improved Other chronic medical conditions:CAD, CVA, HLD, HTN --> no cardiac symptoms, no neurologic deficits Continue Ranexa, Imdur, lisinopril, Tricor, Plavix, Lipitor, aspirin Started on mucinex and flonase for ongoing post nasal drip and congestion. Symptoms already improved. DVT prophylaxis:per orthopedic surgery Full code Disposition: Awaiting placement. To be discharged to SNF on 08/23/22 DVT ppx: SQ Lovenox, will transition to ASA at discharge FULL CODE Pt was seen and examined in collaboration with Dr. Fernandez, please see addendum A total of 35 minutes were spent with greater than 50% of that time face to face with the patient, personally reviewing all current laboratories, imaging studies, past medication reconciliation, outpatient chart review, and discussion with specialists to collaborate care for the patient with attending. Please see attending documentation for corrections and/or additions. Admission and Anticipated Discharge Date Admission Date: August 04, 2022 Supervising Physician Co-Signing Physician Notes Attending Addendum: care coordinated with GORDY Hare. please refer to her notes for full details, I agree with her notes patient seen and examined, records reviewed by myself as well other diagnoses and plan of care as per GORDY Hare. Israel Fernandez MD Subjective Pt was seen and examined in room 386-1. Follow up L wrist fx, L hip fx and awaiting placement. He feels well. He offers no acute concerns. He continues to have leon cath in place. He denies f/c/s, chest pain, sob, n/v/d. He is tolerating diet. Appetite is good. Review of Systems Review of Systems: All systems reviewed & are unremarkable except as noted in HPI & below Physical Exam Physical Exam: Gen: WD/WN, tall, M, NAD, A&O x3 HEENT: Normocephalic, atraumatic, conjunctivae moist, sclerae anicteric, mucous membranes moist. Lung: Clear to Auscultation bilaterally, no wheezes/rales/rhonchi Heart: Regular rate, regular rhythm, no murmurs, rubs, or gallops Abdomen: Soft, NT, ND +BS x 4 Extremities: No edema, L wrist in splint, nvi distally Skin: Warm, no rash, negative turgor. : leon cath draining clear yellow urine Results & Data Results & Data ([facility]) Vital Signs (Past 12 Hours) Vital Signs Temp Pulse Resp BP Pulse Ox O2 Del Method 08/22/22 07:21 36.4 C L 65 16 114/71 94 Room Air Laboratory Results BMP 08/22/22 06:30 Creatinine 1.10
[2022-08-22] MEDS: TAMSULOSIN HCL 0.4 MG CAP PO SCH (19:22)
--- NOTE | 2022-08-22 20:55 | XRay Report ---
XR wrist LT 2V CLINICAL HISTORY: 2 week post op; please take without cockup splint. Left wrist fracture. COMPARISON STUDY: Left wrist 08/04/2022. FINDINGS: There is a volar cortical plate transfixed with screws bridging the comminuted distal left radius fracture. The hardware appears intact. Alignment appears near-anatomic. No significant callus formation or bony bridging to suggest healing at this time. Mild soft tissue swelling within the left wrist. Small ulnar styloid fracture again noted. Subtle linear lucency within the distal shaft of th e left radius adjacent to the proximal screws. This is new from the prior study and is consistent wit h a nondisplaced longitudinal shaft fracture. IMPRESSION: 1. Status post internal fixation of a distal left radius fracture. The hardware appears intact. No si gnificant healing identified at this time. 2. Subtle linear lucency within the distal shaft of the left radius adjacent to the proximal screws. This is new from the prior study and is consistent with a nondisplaced longitudinal shaft fracture. ACT 112: Negative or not required by law. Electronically signed by: Willie Domingo M.D. 08/22/2022 8:53 PM
[2022-08-23] MEDS: ENOXAPARIN INJ 40 MG/0.4 ML SYR SQ SCH (08:21)
[2022-08-23] MEDS: POLYETHYLENE (MIRALAX) 17 GM PACK PO SCH (08:21)
[2022-08-23] MEDS: RANOLAZINE 500 MG ER TAB PO SCH (08:22)
[2022-08-23] MEDS: MEMANTINE HCL 10 MG TAB PO SCH (08:22)
[2022-08-23] MEDS: ISOSORBIDE MONO EXTENDED REL 30 MG TABCR PO SCH (08:22)
[2022-08-23] MEDS: lisinopril 10 MG TAB PO SCH (08:23)
[2022-08-23] MEDS: FENOFIBRATE NANOCRYSTALLIZED 145 MG TABLET PO SCH (08:23)
[2022-08-23] MEDS: guaiFENesin 600 MG TABCR PO SCH (08:23)
[2022-08-23] MEDS: ATORVASTATIN 40 MG TAB PO SCH (08:23)
[2022-08-23] MEDS: ASPIRIN 81 MG ECTAB PO SCH (08:23)
[2022-08-23] MEDS: CLOPIDOGREL BISULFATE 75 MG TAB PO SCH (08:23)
[2022-08-23] MEDS: FLUTICASONE PROPIONATE NA SPR 16 GM BTL SCH (08:29)
--- NOTE | 2022-08-23 09:53 | Discharge Summary ---
Date of Service August 23, 2022 Admission HPI Per Admitting Provider 72-year-old man with PMH of CAD, HTN, sinus bradycardia, HLD, CVA presented to our ED 08/04 after fall on the left side. Patient was walking with dog uphill when at one time the dog got excited and jerked the leash and patient fell on his left side, injured his left hand and left hip. Reports he did not hit his head. Denies any dizziness or loss of consciousness or chest pain or palpitation or nausea or warmth or seizure-like episodes surrounding the event. Patient denies any fever, shortness of breath, headache, chest pain, palpitation, belly pain. Patient reports not urinating since after the fall but denies any problems with his urinary habits. Patient denies any lower abdominal pain. We will continue to monitor his urine output, bladder scan if necessary. Patient denies smoking, quit drinking alcohol 1984, denies use of recreational drugs. Full code as per discussion with patient. Patient is a retired [employer] worker. Family history positive for HI in both parents and stroke in both parents. Personal history positive for stroke in 1982, residual right peripheral vision loss. Seizure in 1983. Coronary artery disease status post stents x1 in 2005 and x1 in 2010 and double bypass surgery in 2000 per patient's daughter at bedside. Per patient, he is able to walk 2-3 flight of stairs and 2 blocks without any chest pain or shortness of breath or dizziness. Medications reviewed with the patient. Patient takes isosorbide mononitrate ER tablet 30 mg every morning, lisinopril 10 mg tablet every morning, fenofibrate 145 mg tablet every morning, baby aspirin every morning, Plavix 75 mg every morning, donepezil 10 mg tablet every morning, memantine 10 mg tablet twice daily, ranolazine 500 mg tablet twice daily, atorvastatin 80 mg tablet every morning. Admission Exam Per Admitting Provider GENERAL: Alert and oriented x3. NAD, on RA. HEENT: No pallor, no icterus. Pupils equal, round and reactive to light. Oral mucosa moist. NECK: No JVD, no neck masses. HEART: S1 and S2 heard. Regular rate and rhythm. No murmur, no gallop. RESPIRATORY SYSTEM: Normal AP diameter. No accessory muscle use. No wheezing, no crackles. ABDOMEN: Soft, bowel sounds present, nontender, no distention. CENTRAL NERVOUS SYSTEM: No facial droop. Speech is clear. Obeys simple commands. Moves extremities. EXTREMITIES: Trace BLE edema, bilateral varicose veins noted, bilateral lower extremity chronic skin changes noted. Left UE with splint and sling noted, distal neurovascular status normal in left extremities. Principal Diagnosis Left hip femoral neck fracture, left wrist distal radius fracture Discharge Exam Gen: WD/WN, tall, M, NAD, A&O x3 HEENT: Normocephalic, atraumatic, conjunctivae moist, sclerae anicteric, mucous membranes moist. Lung: Clear to Auscultation bilaterally, no wheezes/rales/rhonchi Heart: Regular rate, regular rhythm, no murmurs, rubs, or gallops Abdomen: Soft, NT, ND +BS x 4 Extremities: No edema, L wrist in splint, nvi distally Skin: Warm, no rash, negative turgor. : leon cath draining clear yellow urine Discharge Data Allergies Allergy/AdvReac Type Severity Reaction Status Date / Time cephalexin Allergy Unknown Verified 08/04/22 23:42 Penicillins Allergy Unknown Verified 08/04/22 23:42 prednisone Allergy Unknown Verified 08/04/22 23:42 Consultations 08/04/22 21:53 ED Decision to Admit Stat 08/08/22 10:08 Consult Orthopedic Surgery Routine 08/08/22 10:09 Consult Orthopedic Surgery Routine 08/18/22 09:45 Consult Urology Routine (1) Urinary retention: Plan 72yo/M admitted s/p fall and underwent Percutaneous Screw Fixation Left Hip 08/05/22 and Left Wrist ORIF on 08/10/22. Patient developed difficulty with urination on 08/15 requiring straight catheterization. He continued to have difficulty with urination and was bladder scanned for volumes ranging 300-500 mL. A Leon catheter was inserted on 08/16/22 due to retention. -Urinary retention likely multifactorial including recent anesthesia, immobility, possible underlying BPH, etc. -Retention currently managed by Leon catheter. Catheter draining clear yellow urine. -Recommend maintaining catheter for 5-7 days. Could offer voiding trial prior to discharge depending on timeframe or we can arrange as an outpatient in our office. -Can also consider addition of Flomax. -Will arrange outpatient follow-up with our service. -Urology will sign-off. Please contact us with any further questions, concerns, or changes in patient's status. 08/20/22 16:57 Consult Podiatry Routine (1) Left foot pain: Patient seen, evaluated, and treated. Hyperkeratotic lesion from sub met 5 left foot was debrided with sharp, sterile, #15 blade. Patient tolerated procedure well. No postprocedure pain. Patient educated on weight bearing forces and use of accommodative shoes. Thank you for allowing me to participate in the care of this patient. Procedures Performed Operation Date: 08/05/22 09:00 Actual Procedures p Percutaneous Screw Fixation Left Hip(Left) - Fredis Frakn MD Operation Date: 08/10/22 07:00 Actual Procedures p Left Wrist Open Reduction Internal Fixation, Distal Radius Fracture(Left) - John Calderon M.D. Ordered Studies Hip/Pelvis X-Ray 08/04/22 18:25 XR hip LT 2V w pelvis CLINICAL HISTORY: Fall,L wrist and L hip pain COMPARISON STUDY: None. FINDINGS: There is nondisplaced but slightly impacted subcapital left femoral neck fracture. No dislocation. The pelvic bones and right hip are intact. Moderate to severe degenerative disc disease within the lower lumbar spine. IMPRESSION: Slightly impacted subcapital left femoral neck fracture. No dislocation. ACT 112: Negative or not required by law. Electronically signed by: Willie Domingo M.D. 08/04/2022 7:15 PM Wrist X-Ray 08/04/22 18:25 XR wrist LT min 3V routine CLINICAL HISTORY: Fall,L wrist and L hip pain COMPARISON STUDY: None. FINDINGS: There is a comminuted, impacted, displaced distal left radius fracture which demonstrates intra-articular extension. This demonstrates up to 1 cm dorsal displacement and dorsal angulation. There is diffuse soft tissue swelling. Small fracture at the tip of the ulnar styloid is also noted. No dislocation. IMPRESSION: Distal left radius and ulnar styloid fractures as described above. ACT 112: Negative or not required by law. Electronically signed by: Willie Domingo M.D. 08/04/2022 7:[address] 08/04/22 19:[address] DOSE: 773.57 mGy.cm HISTORY: fall, hip and wrist injuries, clopidigrel/aspirin TECHNIQUE: Multiaxial CT images of the head were performed without the use of intravenous contrast. Automated exposure control was utilized for this study. A dose lowering technique was utilized adhering to the principles of ALARA. Comparison: None. Findings: Partial opacification of the ethmoid air cells. The mastoid air cells are clear. The calvarium and skull base are intact. There is no mass, hematoma, midline shift, acute infarct. White matter hypodensity is nonspecific but suggestive of microvascular ischemic change. The ventricles and sulci demonstrate mild age-related involutional changes. Small focus of encephalomalacia within the left posterior parietal lobe consistent with an old infarct. Impression: No acute intracranial abnormality. Atrophy and microvascular ischemic changes. ACT 112: Negative or not required by law. Electronically signed by: Willie Domingo M.D. 08/04/2022 8:09 PM Hip X-Ray 08/04/22 20:01 XR hip LT 1V CLINICAL HISTORY: L lateral hip. Left hip pain. Left hip fracture. COMPARISON STUDY: Pelvis and left hip 08/04/2022. FINDINGS: Redemonstration of the subcapital left femoral neck fracture. This is partially obscured by the overlapping bony and soft tissue structures. No dislocation. IMPRESSION: Subcapital left femoral neck fracture again noted. ACT 112: Negative or not required by law. Electronically signed by: Willie Domingo M.D. 08/04/2022 8:52 PM Wrist X-Ray 08/04/22 20:09 FL wrist LT 2V CLINICAL HISTORY: Left wrist fracture status post reduction. COMPARISON STUDY: Left wrist CT 08/04/2022. FLUOROSCOPY TIME: 3 seconds. FINDINGS: 3 fluoroscopic spot images of the left wrist demonstrate reduction of the distal left radius fracture with improved anatomic alignment. There is mild distraction of the intra-articular component of the comminuted fracture. Tiny fracture at the tip of the ulnar styloid. No dislocation. IMPRESSION: Improved anatomic alignment status post reduction of the distal left radius fracture. ACT 112: Negative or not required by law. Electronically signed by: Willie Domingo M.D. 08/05/2022 7:[address] 08/04/22 21:[address] DOSE: 177.98 mGy.cm HISTORY: Left wrist pain TECHNIQUE: Multiaxial CT images of the left wrist were performed and reformatted in the sagittal and coronal plane without the use of contrast. A dose lowering technique was utilized adhering to the principles of ALARA. COMPARISON: Left wrist radiograph 08/04/2022. FINDINGS: There is a comminuted, impacted, and displaced distal left radius fracture which demonstrates intra-articular extension. There is 1 cm of dorsal displacement and dorsal angulation. There is diffuse soft tissue swelling. Small fracture the tip of the ulnar styloid is again noted. There is an old small fracture at the triquetral bone. IMPRESSION: Distal left radius and ulnar styloid fractures as described above. ACT 112: Negative or not required by law. Electronically signed by: Willie Domingo M.D. 08/05/2022 7:37 AM Hip X-Ray 08/05/22 09:00 FL hip LT 1V CLINICAL HISTORY: LT HIP FX COMPARISON STUDY: Pelvis and left hip radiographs August 04, 2022. FLUOROSCOPY TIME: 2 minutes and 14 seconds. FLUOROSCOPIC IMAGES: 2 FINDINGS: Fluoroscopy was provided during internal fixation of the left femoral neck fracture with 3 cannulated screws. Hardware is intact. No unexpected radiopaque foreign bodies. Fracture alignment is anatomic. IMPRESSION: Fluoroscopy provided during internal fixation of the left femoral neck fracture with 3 cannulated screws. ACT 112: Negative or not required by law. Electronically signed by: Fuad Cruz M.D. 08/05/2022 11:23 AM Hip X-Ray 08/05/22 11:25 XR hip LT min 2V CLINICAL HISTORY: Post-Operative implant position COMPARISON: Left hip radiographs August 04, 2022. FINDINGS: There are expected postoperative findings following internal fixation of the subcapital left femoral fracture with 3 cannulated screws. Hardware is intact. Fracture alignment is near anatomic. Skin obdulio are present. IMPRESSION: Expected findings following internal fixation of the subcapital left femoral fracture. ACT 112: Negative or not required by law. Electronically signed by: Fuad Cruz M.D. 08/05/2022 12:15 PM Wrist X-Ray 08/10/22 00:00 FL wrist LT 2V CLINICAL HISTORY: LEFT WRIST ORIF TECHNIQUE: 2 views were obtained with the C-arm in the OR with the above procedure. Total fluoroscopy time was 1 minute 9 seconds. Comparison: Comparison is made to left wrist CT 08/04/2022 FINDINGS/IMPRESSION: Intraoperative images were obtained of open reduction and internal fixation of the left wrist. Please correlate with intraoperative fluoroscopy and operative report. ACT 112: Negative or not required by law. Electronically signed by: Jamie Bedolla M.D. 08/10/2022 5:03 PM Hip X-Ray 08/16/22 09:07 XR hip LT min 2V CLINICAL HISTORY: AP and shoot thru lateral in neutral rotation TECHNIQUE: 2 views of the left hip were obtained. Comparison: Comparison is made to left hip radiograph 08/05/2022 FINDINGS: Surgical screws are seen in the femoral neck, unchanged. Bony bridging is seen in the subcapital fracture of the left femur. Joint spaces are well-preserved. Calcification adjacent to the left inferior pubic ramus is unchanged. IMPRESSION: Expected healing changes in the subcapital fracture of the left hip status post surgical fixation. ACT 112: Negative or not required by law. Electronically signed by: Jamie Bedolla M.D. 08/16/2022 10:49 AM Wrist X-Ray 08/22/22 16:29 XR wrist LT 2V CLINICAL HISTORY: 2 week post op; please take without cockup splint. Left wrist fracture. COMPARISON STUDY: Left wrist 08/04/2022. FINDINGS: There is a volar cortical plate transfixed with screws bridging the comminuted distal left radius fracture. The hardware appears intact. Alignment appears near-anatomic. No significant callus formation or bony bridging to suggest healing at this time. Mild soft tissue swelling within the left wrist. Small ulnar styloid fracture again noted. Subtle linear lucency within the distal shaft of the left radius adjacent to the proximal screws. This is new from the prior study and is consistent with a nondisplaced longitudinal shaft fracture. IMPRESSION: 1. Status post internal fixation of a distal left radius fracture. The hardware appears intact. No significant healing identified at this time. 2. Subtle linear lucency within the distal shaft of the left radius adjacent to the proximal screws. This is new from the prior study and is consistent with a nondisplaced longitudinal shaft fracture. ACT 112: Negative or not required by law. Electronically signed by: Willie Domingo M.D. 08/22/2022 8:53 PM Hospital Course (1) Closed left hip fracture: (2) Closed fracture of left wrist: (3) Closed fracture of left distal radius: (4) Vitamin D deficiency: This is a 72-year-old male who has significant past medical history of CAD, HTN, sinus bradycardia, HLD and history of CVA who presented to ED on 08/04/2022 after sustaining a fall on the left side. It was a ground-level fall and felt to likely be osteoporotic in nature. He was diagnosed with a nondisplaced impac emil left femoral neck fracture. He underwent percutaneous screw fixation of the left hip on 08/[address] Frank. He also sustained a comminuted intra- articular left distal radius fracture status post ORIF by Dr. Calderon on 08/10/22. He was found to be deficient in vitamin D with a level of 21.0. He was started on high dose vitamin D2, 50,000 units weekly. He was also placed on DVT ppx with lovenox while in patient. Per orthopedics they are requesting he be discharged on ASA 325mg bid until 6 weeks from surgery day, through 09/16/22. He then can resume his ASA 81mg daily. His hosp course was complicated by urinary retention requiring Leon catheter placement and initiation of Flomax therapy. He was seen and evaluated by urology. It is recommended he follow-up with urology as outpatient for voiding trial. He was also seen and evaluated by podiatry Dr. Serna for a left foot callus. This was causing difficulty walking. His hyperkeratotic lesion was debrided and he tolerated procedure well. Patient is weightbearing as tolerated with a walker in regards to left lower extremity. He is nonweightbearing through left wrist, but he may bear weight as tolerated through left elbow and forearm on a platform walker. He is being discharged to subacute rehab for further therapy services. He does have a scheduled follow-up with [facility] regarding his left hip fracture; however, arrangement and appointment needs to be made for follow-up with [place] [facility] and regarding left wrist fracture in 2 weeks. On day of discharge sutures were removed from L wrist and orthotics placed a cock up splint to L wrist. Repeat xrays were also taken and reviewed by orthopedics. Patient's chronic medical conditions remained stable throughout hospital stay. On day of discharge his blood pressure was 129/75 and he was hemodynamically stable without acute complaint. He was tolerating diet regularly and moving bowels without difficulty. In regards to fractures he was not having any pain and was not requiring any narcotic therapy at time of discharge. He is a full Code. Total Time Total Time Spent Total Time Spent (In Minutes): 75 minutes Discharge Plan Discharge Items Patient Disposition: Transfer Alf Fac Reason For Visit: FELL, LAND ON LEFT WRIST AND HIP, PAIN Discharge Diagnosis: Left hip femoral neck fracture, left wrist distal radius fracture Condition on Discharge: Good Activity: Per Instructions section Bathing Comment: Do not get L wrist splint wet, otherwise per instructions below Driving/Machine Use: No driving until cleared by orthopedics Weightbearing Comment: Non weightbearing through L wrist, WBAT to LLE Non-emergency contact: Surgeon Call non-emergency contact if: you have any medication questions, your symptoms worsen, your pain is not controlled, your temperature is above 101, your wound has increased redness and your wound has increased drainage Follow-up/Referrals: Fredis Frank MD [Surgeon] - 09/20/22 2:30 pm John Calderon M.D. [Physician] - PCP,NO [Primary Care Provider] - Diet: Heart Healthy Addtl Attending Provider Instructions: MEDICATION CHANGES: Hold Aspirin 81mg once daily. Please take Aspirin 325mg twice daily through 09/16/22; then return to Aspirin 81mg daily. Tamsulosin 0.4mg by mouth once daily for urinary retention. Vitamin D2 50,000 units, take once weekly x 6 weeks. Then get a repeat vitamin D3 level. RECOMMENDATIONS FOR FOLLOW-UP: Follow up with PCP upon discharge from rehab. Follow up with Orthopedics as scheduled. You already have an appt for [facility] on 09/20/22. You will need to call [facility] orth[facility] to follow up regarding your L wrist fracture. You need for follow up with Dr. Calderon in 2 weeks. Sutures were removed day of discharge and he was placed in cock up splint. Please call to arrange follow up with Urology for a voiding trial regarding your Urinary Retention and leon catheter. Please perform routine catheter care. Recommend repeat vitamin D level in 2 months. Please take all medications as prescribed. CBC, CMP, Mag within 3 days of discharge. Follow all orthopedic instructions as below. OTHER INSTRUCTIONS: Seek medical attention if you have: * temperature above 101 * chest pain or trouble breathing * abdominal pain, nausea, vomiting * diarrhea, dark stools or bloody stools * any unanswered questions or concerns Call 911 if symptoms are severe. Please take good care of yourself. It has been a pleasure taking care of you. Please take care of yourself. If you have any questions regarding your recent hospitalization please contact [facility] and request Aida Chu @ [phone]. Abeba Samayoa PA-C Addtl Control System Computer Scientist Provider Instructions: For Left Hip fracture: - Weight bear as tolerated with assistance of walker; may need platform walker due to wrist fracture - Ice to left hip as needed for pain/swelling. May apply for 15-20 minutes every few hours. - Elevate left lower extremity as needed for pain/swelling. - Allowed for full range of motion of all lower extremity joints. - Keep incision covered with light dressing. Redress or change dressing to left hip as needed. - Okay to get incision wet on left hip in the shower. Do not soak or submerge incision. Pat incision dry. Redress with light dressing. Do not apply any ointments or creams directly on the incision. - If you have them, emil stockings on both lower extremities; on during the day, off at night. - Lovenox 40mg SQ daily x 2 weeks; resume Plavix - For DVT prophylaxis, ASA 325mg BID x 6 weeks post op - Ergocalciferol 50,000 IU weekly on Sundays x 6 weeks. Then recheck Vitamin D level. - Follow up as scheduled with Dr. Frank on 09/20/22 at 2:30pm For Left Wrist Fracture: Things to Watch Out For -Call the clinic immediately if you have a sudden increase in the amount of wound drainage or the drainage becomes thick, yellow or green, or foul-smelling. -For routine questions, call the clinic at [phone] during regular business hours (8am-5pm). For urgent issues after regular business hours, you may call the clinic to be connected to the on-call physician. Splint/Dressings -Do not remove your splint or dressings until you follow up in clinic or with therapy. -Keep the splint and dressings clean and dry. If the splint padding gets damp, you may use a unhairing machine operator on a low heat setting to dry it out. If the splint padd ing is soaked, call the clinic to have the splint replaced. -Do not put any objects down inside the splint (such as coat hangers). They could scratch your skin and cause a serious infection underneath the splint. Sling/Activity -Keep your hand elevated and move your fingers frequently to reduce swelling. -You may wear a sling for comfort, but come out of the sling 4-5 times a day for active range of motion exercises for your shoulder and elbow. -Do not lift any objects greater than 1 pound or bear any weight through your operative arm. Followup -Call [facility] at [phone] and schedule a followup appointment with Dr. Calderon for 10-14 days after your surgery. Pending Studies at Discharge: No Stand-Alone Forms: My [employer], Smoking Cessation Skilled Items Patient informed of condition?: Yes DNR: No Discharge Level of Care: Skilled Communicable Disease: No Discharge Prognosis: Stable Lines: None Urinary Catheter: Yes Medications and DC Order Prescriptions: New tamsulosin 0.4 mg Capsule 0.4 mg PO HS Qty: 30 0RF ergocalciferol (vitamin D2) 1,250 mcg (50,000 unit) Capsule 50,000 unit PO Minor@1300 Qty: 12 0RF aspirin 325 mg capsule 325 mg PO BID Qty: 50 0RF Rx Instructions: Take po twice daily through 09/16/22; then return to asa 81mg daily Continued isosorbide mononitrate 30 mg PO 1XD lisinopril 10 mg Tablet 10 mg PO DAILY fenofibrate 145 mg PO 1XD clopidogrel 75 mg Tablet 75 mg PO DAILY donepezil 10 mg Tablet 10 mg PO DAILY memantine 10 mg Tablet 10 mg PO BID ranolazine 500 mg Tablet Extended Release 12 Hr 500 mg PO BID atorvastatin 80 mg Tablet 80 mg PO DAILY omega 1-mux-akj-fish oil [Fish Oil] 1,200 (144-216) mg Capsule PO 1XD Discontinued Aspir-81 81 mg PO 1XD cholecalciferol (vitamin D3) [Vitamin D3] 25 mcg (1,000 unit) Tablet 25 mcg PO DAILY Discharge Orders: Discharge Order (Routine); Ordered 08/23/22 Ordered By: Abeba Samayoa Admission Data Admit Date/Time: 08/04/22 20:47 Attending Provider: Oliverio Bhardwaj Admit Provider: Jennifer Basilio Primary Care Provider: PCP,NO Other Providers: [facility] ; [place] ; Israel Fernandez ; Angi Ramirez ; Jennifer Basilio ; Fredis Frank ; John Calderon ; Kyler Oliveros ; Kb Mabry ; Ba Patton ; Gloria Mandel ; Mohit Acuna ; Anai Tenorio ; Tila Ferguson ; Gil Putnam ; Christian Gu ; Heidi Clifton ; Alonzo Blair ; John Fabian ; Humberto Brewer ; Brandan Serna ; Abeba Samayoa Other Interventions: Discharge Summary Assessment (RN) Last Done: 08/23/22 10:51 Supervising Physician Co-Signing Physician Notes Patient seen and examined by me, care coordinated with Pepito Samayoa PA-C, please see her note above for further detail. Patient presented with left hip femoral neck fracture, left wrist distal radius fracture and underwent surgical repair with orthopedic surgery. Patient did very well with his surgeries, however later during his hospital stay he developed urinary retention. Donepezil was held, and patient required Leon catheter placement. Urology was also consulted, and patient is to follow-up with them as outpatient. Currently patient is doing quite well. He is awake alert oriented answering questions appropriately. Denies any pain. Lungs are clear to auscultation. Heart sounds regular. Abdomen soft nontender nondistended. Moves extremities. Left upper extremity is in sling. Patient is to continue with DVT prophylaxis, and will need orthopedic surgery follow-up, as above. MD Lashae
== END 2022-08-23 11:49 | DRG 482 ==
LOC: ED 17:45 → 3N 20:47 → SUATTDRO 20:47 → 3N 22:44

== ENCOUNTER 2023-11-06 06:12 | Inpatient (IN) ==
[2023-11-06 07:05] LABS: Hematocrit (blood only) 47.5 % (42.0-52.0); Mean Corpuscular Hemoglobin 32.8 pg (25.0-34.0); Mean Corpuscular Hgb Conc 33.7 g/dL (32.0-36.0); Mean Corpuscular Volume 97.3 fL (80.0-100.0); Mean Platelet Volume 9.7 fL (9.4-12.4); Platelet Count 267 K/uL (130-400); RDW Coefficient of Variation 13.7 % (11.5-14.5); RDW Standard Deviation 49.9 fL (36.4-46.3); Red Blood Count 4.88 M/uL (4.70-6.10)
--- NOTE | 2023-11-06 07:11 | XRay Report ---
XR chest 1V portable CLINICAL HISTORY: weakness TECHNIQUE: Single frontal radiograph of the chest was obtained. Comparison: Comparison is made to chest radiograph 12/17/2022 FINDINGS: Median sternotomy wires are seen. Calcified aortic knob is seen. The lungs are clear. No evidence of pleural effusion or pneumothorax. IMPRESSION: No acute chest disease. ACT 112: Negative or not required by law. Electronically signed by: Jamie Bedolla M.D. 11/06/2023 7:09 AM
[2023-11-06 07:20] LABS: Albumin Globulin Ratio 1.6 (0.9-2); Albumin Level 4.2 gm/dl (3.4-5.0); BUN Creatinine Ratio 16.4 (10-20); Bilirubin,Total 1.6 mg/dl (0.2-1.0); Calcium 9.8 mg/dl (8.6-10.3); Creatinine Clr Calc Pharmacy 65.9 ml/min; Est GFR (African American) 66.8 ml/min; Est GFR (Non-African American) 57.6 ml/min; Globulin 2.7 gm/dl (2.5-4.0); Potassium 4.3 mmol/L (3.5-5.1); Total Protein 6.9 gm/dl (6.0-8.3)
[2023-11-06 07:30] LABS: Basophils # (auto) 0.07 K/uL (0.00-0.20); Basophils % (auto) 0.3 %; Eosinophils # (auto) 0.08 K/uL (0.00-0.50); Eosinophils % (auto) 0.3 %; Immature Granulocytes # (auto) 0.22 K/uL (0.01-0.20); Immature Granulocytes % (auto) 0.9 %; Lymphocytes # (auto) 0.75 K/uL (1.20-3.40); Lymphocytes % (auto) 3.2 %; Monocytes # (auto) 0.82 K/uL (0.11-0.59); Monocytes % (auto) 3.5 %; Neutrophils # (auto) 21.66 K/uL (1.40-6.50); Neutrophils % (auto) 91.8 %; Polychromasia 1+
[2023-11-06] MEDS: SODIUM CHLORIDE 0.9% 1,000 ML IV SCH (07:30)
[2023-11-06 07:34] LABS: Thyroid Stimulating Hormone 2.439 uIu/ml (0.300-4.500)
--- NOTE | 2023-11-06 07:42 | Emergency Department Note ---
Impression & Plan Dizziness, Fall, Leukocytosis, Elevated procalcitonin ED Provider Note ED Provider Note NAME: ASHLEIGH AVILES Jr AGE:73 SEX: Male : 1950 ARRIVES VIA: EMS INFORMANT: Patient ED PROVIDER(s): Mei Pizano DO CHIEF COMPLAINT: dizziness, fall HPI: This is a 73-year-old male who presents emergency department due to concern for dizziness and fall. Patient states he got up to go to the bathroom and subsequently fell. Family states he made it out into the hallway and they heard a thud. They state his head put a hole in the drywall. Patient states he did hit his head on the wall but denies loss of consciousness. Patient is not anticoagulated due to history of prior falls despite his atrial fibrillation. Patient has previously had a subdural hemorrhage from a fall. Patient does have mild memory issues. Patient denies any pain or concern for injury at this time. He denies chest pain, difficulty breathing, dizziness, vision changes, nausea, neck or back pain, or paresthesias. No recent change in medications. PAST MEDICAL HISTORY:See Below PAST SURGICAL HISTORY:See Below FAMILY HISTORY:See Below SOCIAL HISTORY:See Below HOME MEDICATIONS:See Below ALLERGIES:See Below VITALS:See Below PHYSICAL EXAMINATION: GENERAL: alert, well appearing, well nourished, no distress, non-toxic HEAD: nc/at, no saldivar signs, no raccoon eyes, no evidence of facial trauma EYE EXAM: normal conjunctiva, PERRL and EOM's grossly intact OROPHARYNX: no exudate, no erythema, lips, buccal mucosa, and tongue normal and mucous membranes are moist NECK: supple, no nuchal rigidity, no adenopathy, non-tender, FROM LUNGS: Clear to auscultation. Normal chest wall mechanics, no w/r/r HEART: no murmurs, S1 normal and S2 normal CHEST WALL: No crepitus, no step-off, no pain with palpation ABDOMEN: abdomen soft, non-tender, normo-active bowel sounds, no masses, no rebound or guarding. BACK: Back is symmetrical on inspection and there is no deformity, no midline tenderness, no CVA tenderness. No evidence of trauma. SKIN: no rashes, petechiae, orbruising UPPER EXTREMITIES: upper extremities are grossly normal. FROM, nml pulses b/l. No evidence of trauma or deformity LOWER EXTREMITIES: No pitting edema. FROM, nml pulses b/l. No evidence of trauma or deformity. NEURO EXAM: Normal sensorium, cranial nerves II-XII grossly intact, normal speech, no facial droop,nogross weakness of arms, no gross weakness of legs. Gross sensation intact. No ataxia. Vital Signs: reviewed and remarkable Differential Diagnosis: ICH, CHI, CVA, dysrhythmia, seizure, orthostatic hypotension, dehydration, electrolyte abnormality, occult infection, medication ADR, as well as others were considered. MEDICAL DECISION MAKING: This is a 73-year-old male presents emergency department with family after a fall at home. Patient was afebrile vital signs stable. Labs drawn and sent, IV established, EKG and chest x-ray performed at bedside and interpreted by me and patient monitored on telemetry. Patient sent for CT head and C-spine additionally as a precaution due to head trauma. Patient does not use any anticoagulation but does take low-dose aspirin daily. Patient had no other obvious evidence of trauma on exam. He denied any other change in meds or recent illness. Patient noted to have a significant leukocytosis. Upon seeing this result, blood cultures, procalcitonin, lactic acid were added. After review of allergies and prior antibiotic administration in conjunction with the pharmacist, patient given IV cefepime. Due to concern for mild initial hypoxia as well as significant leukocytosis, patient sent for CT angiography of the chest additionally. No pneumonia no PE were noted. Patient and family were updated at bedside. We discussed all results and need for additional evaluation. Patient was given gentle IV fluid hydration while monitored here. Case discussed with the hospitalist team for additional evaluation and management. I have a low suspicion for any additional occult traumatic injury at this time. Unclear etiology of significant leukocytosis and elevated procalcitonin. Consultation(s): 0740: Discussed with pharmacistPravin. Patient has received other cephalosporins per EMR without any significant reaction noted. 1018: Discussed with Dr. Lopez, [facility] hospitalist team, for additional evaluation and management. ER Treatment Provided: See below Diagnostics Interpreted By Me: -ECG: Atrial fibrillation at 121, normal axis, normal intervals, nonspecific ST/T wave changes noted -Cardiac Monitoring: An order was placed for continuous cardiac monitoring. The monitor shows a rate of 112 with a.fib rhythm. -Laboratory studies: As stated above and show below. -Imaging studies: CT head: no obvious ICH Triage Nursing Note Reviewed Prior/Outside Records Reviewed -prior cardiology note from December 2022 reviewed Past Med/Surg History Medical History Dementia H/O sinus bradycardia CVA (cerebral vascular accident) CAD (coronary artery disease) Hyperlipidemia HTN (hypertension), benign Encounter for pre-operative examination Closed fracture of left wrist Closed fracture of left hip Fall Surgical History H/O wrist surgery H/O heart surgery History of surgery on lower extremity Aortocoronary bypass status Family History Brother Diabetes Father Myocardial infarction Mother Myocardial infarction Other Hypertension Denies family history of Ovarian cancer Prostate cancer Breast cancer Colorectal cancer Social History Smoking Status: Never smoker Second Hand Exposure: No; Do You Dip or Chew Tobacco: No; Hx Alcohol Use: No Hx Substance Use: No Preferred Language: Malay Communication Ability: Effective [employer]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 Beliefs That Will Affect Care: None Current Living Situation: Alone current occupational status: retired Feels Safe at Home: Yes caffeine: Yes (coffee) Dental Care, Regularly: Yes Physical Activity Frequency: 1-2 Times per Week Seatbelt Use: always Sunscreen Use: No Assistive Devices: None Allergies Allergies Allergy/AdvReac Type Severity Reaction Status Date / Time cephalexin Allergy Unknown Verified 08/10/23 08:42 Penicillins Allergy Unknown Verified 08/10/23 08:42 prednisone Allergy Unknown Verified 08/10/23 08:42 Home Meds Home Medications Medication Instructions Recorded Confirmed atorvastatin 80 mg tablet 80 mg PO QPM 08/09/22 11/06/23 lisinopril 10 mg tablet 10 mg PO QAM 08/09/22 11/06/23 omega 9-jod-loa-fish oil 1,200 mg 1 cap PO QAM 08/09/22 11/06/23 (144 mg-216 mg) capsule (Fish Oil) ranolazine 500 mg tablet,extended 0 mg PO BID 08/09/22 11/06/23 release,12 hr aspirin 81 mg tablet,delayed 81 mg PO QAM 12/17/22 11/06/23 release cholecalciferol (vitamin D3) 25 25 mcg PO QAM 12/17/22 11/06/23 mcg (1,000 unit) chewable tablet (Vitamin D3) cyanocobalamin (vitamin B-12) 1,000 mcg PO QAM 12/17/22 11/06/23 1,000 mcg tablet (Vitamin B-12) potassium gluconate 600 mg (99 mg) 600 mg PO DAILY 12/17/22 11/06/23 tablet nitroglycerin 0.4 mg sublingual 0.4 mg sublingual UD PRN Chest Pain 11/06/23 11/06/23 tablet Previous Rx's Medication Instructions Recorded isosorbide mononitrate 30 mg 30 mg PO QAM #90 tabs 09/19/23 tablet,extended release 24 hr donepezil 10 mg tablet 10 mg PO QAM 90 days #90 tabs 10/15/23 fenofibrate nanocrystallized 145 145 mg PO QAM #90 tabs 10/15/23 mg tablet memantine 10 mg tablet 10 mg PO BID 90 days #180 tabs 10/15/23 Results & Data (ED) Vital Signs Vital Signs - 24 hr 11/06/23 06:18 11/06/23 06:19 11/06/23 06:19 Temperature 36.8 C Temperature Source Oral Pulse Rate 120 H 120 H 132 H Pulse Rate [Apical] Pulse Rate from SpO2 Sensor 122 H Pulse Rhythm [Apical] Pulse Strength [Apical] Respiratory Rate 28 H 20 Respiratory Effort / Characteristics Respiratory Depth Respiratory Pattern Blood Pressure 135/94 Blood Pressure [Right Arm] Blood Pressure Mean 107 Blood Pressure Mean [Right Arm] Pulse Oximetry 90 91 Oxygen Delivery Method Oxygen Flow Rate Sepsis Recent Fever Within 48 Hours No Sepsis New/Unexplained Change in Mental Status No Sepsis Action Taken by Nursing No Action Required 11/06/23 06:20 11/06/23 06:20 11/06/23 06:25 Temperature Temperature Source Pulse Rate 123 H Pulse Rate [Apical] Pulse Rate from SpO2 Sensor 126 H Pulse Rhythm [Apical] Pulse Strength [Apical] Respiratory Rate 28 H Respiratory Effort / Characteristics Respiratory Depth Respiratory Pattern Blood Pressure 135/94 Blood Pressure [Right Arm] Blood Pressure Mean 110 Blood Pressure Mean [Right Arm] Pulse Oximetry 90 90 Oxygen Delivery Method Room Air Oxygen Flow Rate Sepsis Recent Fever Within 48 Hours Sepsis New/Unexplained Change in Mental Status Sepsis Action Taken by Nursing 11/06/23 06:30 11/06/23 06:46 11/06/23 06:48 Temperature Temperature Source Pulse Rate 125 H Pulse Rate [Apical] Pulse Rate from SpO2 Sensor 119 H Pulse Rhythm [Apical] Pulse Strength [Apical] Respiratory Rate 28 H Respiratory Effort / Characteristics Respiratory Depth Respiratory Pattern Blood Pressure Blood Pressure [Right Arm] Blood Pressure Mean Blood Pressure Mean [Right Arm] Pulse Oximetry 91 88 L 91 Oxygen Delivery Method Room Air Nasal Cannula Oxygen Flow Rate 2 Sepsis Recent Fever Within 48 Hours Sepsis New/Unexplained Change in Mental Status Sepsis Action Taken by Nursing 11/06/23 07:00 11/06/23 07:30 11/06/23 07:41 Temperature Temperature Source Pulse Rate 114 H 96 H Pulse Rate [Apical] 110 H Pulse Rate from SpO2 Sensor 117 H 99 H Pulse Rhythm [Apical] Irregular Pulse Strength [Apical] Normal Respiratory Rate 27 H 21 18 Respiratory Effort / Characteristics Non-Labored Spontaneous Respiratory Depth Normal Respiratory Pattern Regular Blood Pressure Blood Pressure [Right Arm] 135/94 Blood Pressure Mean Blood Pressure Mean [Right Arm] 107 Pulse Oximetry 94 93 93 Oxygen Delivery Method Nasal Cannula Oxygen Flow Rate 2 Sepsis Recent Fever Within 48 Hours Sepsis New/Unexplained Change in Mental Status Sepsis Action Taken by Nursing 11/06/23 08:00 11/06/23 08:30 11/06/23 09:00 Temperature Temperature Source Pulse Rate 84 118 H Pulse Rate [Apical] 110 H Pulse Rate from SpO2 Sensor 84 118 H Pulse Rhythm [Apical] Irregular Pulse Strength [Apical] Normal Respiratory Rate 29 H 24 17 Respiratory Effort / Characteristics Non-Labored Spontaneous Respiratory Depth Normal Respiratory Pattern Regular Blood Pressure Blood Pressure [Right Arm] 145/86 H Blood Pressure Mean Blood Pressure Mean [Right Arm] 105 Pulse Oximetry 94 93 94 Oxygen Delivery Method Nasal Cannula Oxygen Flow Rate 2 Sepsis Recent Fever Within 48 Hours Sepsis New/Unexplained Change in Mental Status Sepsis Action Taken by Nursing 11/06/23 09:01 11/06/23 09:30 11/06/23 09:54 Temperature Temperature Source Pulse Rate 88 87 Pulse Rate [Apical] Pulse Rate from SpO2 Sensor 91 H Pulse Rhythm [Apical] Pulse Strength [Apical] Respiratory Rate 26 H Respiratory Effort / Characteristics Respiratory Depth Respiratory Pattern Blood Pressure 145/86 H Blood Pressure [Right Arm] Blood Pressure Mean 119 Blood Pressure Mean [Right Arm] Pulse Oximetry 95 Oxygen Delivery Method Oxygen Flow Rate Sepsis Recent Fever Within 48 Hours Sepsis New/Unexplained Change in Mental Status Sepsis Action Taken by Nursing 11/06/23 10:00 Temperature Temperature Source Pulse Rate 92 H Pulse Rate [Apical] Pulse Rate from SpO2 Sensor 90 Pulse Rhythm [Apical] Pulse Strength [Apical] Respiratory Rate 28 H Respiratory Effort / Characteristics Respiratory Depth Respiratory Pattern Blood Pressure Blood Pressure [Right Arm] Blood Pressure Mean Blood Pressure Mean [Right Arm] Pulse Oximetry 96 Oxygen Delivery Method Oxygen Flow Rate Sepsis Recent Fever Within 48 Hours Sepsis New/Unexplained Change in Mental Status Sepsis Action Taken by Nursing Laboratory Data 11/06/23 06:28 11/06/23 06:28 Lab Results 11/06/23 11/06/23 11/06/23 Range/Units 06:28 07:33 07:52 WBC 23.60 H (4.8-10.8) K/ul RBC 4.88 (4.70-6.10) M/uL Hgb 16.0 (14.0-18.0) g/dl Hct 47.5 (42.0-52.0) % MCV 97.3 (80.0-100.0) fL MCH 32.8 (25.0-34.0) pg MCHC 33.7 (32.0-36.0) g/dL RDW Std Deviation 49.9 H (36.4-46.3) fL RDW Coeff of Carola 13.7 (11.5-14.5) % Plt Count 267 (130-400) K/uL MPV 9.7 (9.4-12.4) fL Immature Gran % (Auto) 0.9 % Neut % (Auto) 91.8 % Lymph % (Auto) 3.2 % [place] % (Auto) 3.5 % Eos % (Auto) 0.3 % Baso % (Auto) 0.3 % Neut # (Auto) 21.66 H (1.40-6.50) K/uL Lymph # (Auto) 0.75 L (1.20-3.40) K/uL [place] # (Auto) 0.82 H (0.11-0.59) K/uL Eos # (Auto) 0.08 (0.00-0.50) K/uL Baso # (Auto) 0.07 (0.00-0.20) K/uL Immature Gran # (Auto) 0.22 H (0.01-0.20) K/uL Polychromasia 1+ Sodium 138 (136-145) mmol/L Potassium 4.3 (3.5-5.1) mmol/L Chloride 106 (98-107) mmol/L Carbon Dioxide 22 (21-32) mmol/L Anion Gap 10 (3-11) BUN 20 (6-23) mg/dl Creatinine 1.22 (0.6-1.4) mg/dl Est Cr Clr Drug Dosing 65.9 ml/min Est GFR ( Amer) 66.8 ml/min Est GFR (Non-Af Amer) 57.6 ml/min BUN/Creatinine Ratio 16.4 (10-20) Glucose 148 H (70-99(Fasting)) mg/dl Lactate 2.4 H* (0.4-2.0) mmol/L Calcium 9.8 (8.6-10.3) mg/dl Magnesium 1.5 L (1.7-2.4) mg/dl Total Bilirubin 1.6 H (0.2-1.0) mg/dl AST 21 (13-39) U/L ALT 21 (7-52) U/L Alkaline Phosphatase 36 (34-104) U/L Troponin I High Sens 9.9 (0-20) pg/ml B-Natriuretic Peptide 32 (0-100) pg/ml Total Protein 6.9 (6.0-8.3) gm/dl Albumin 4.2 (3.4-5.0) gm/dl Globulin 2.7 (2.5-4.0) gm/dl Albumin/Globulin Ratio 1.6 (0.9-2) Procalcitonin Cancelled TSH 2.439 (0.300-4.500) uIu/ml Adenovirus (PCR) Not Detected (NotDetected) B. pertussis DNA (PCR) Not Detected (NotDetected) B.parapertussis DNA PCR Not Detected (NotDetected) C. pneumoniae DNA (PCR) Not Detected (NotDetected) Coronavirus OC43 (PCR) Not Detected (NotDetected) Coronavirus HKU1 (PCR) Not Detected (NotDetected) Coronavirus 229E (PCR) Not Detected (NotDetected) SARS-CoV-2 (PCR) Not Detected (NotDetected) Coronavirus NL63 (PCR) Not Detected (NotDetected) Human Metapneumovir PCR Not Detected (NotDetected) Influenza Type A (PCR) Not Detected (NotDetected) Influenza Type B (PCR) Not Detected (NotDetected) M. pneumoniae (PCR) Not Detected (NotDetected) Parainfluenza 1 (PCR) Not Detected (NotDetected) Parainfluenza 2 (PCR) Not Detected (NotDetected) Parainfluenza 3 (PCR) Not Detected (NotDetected) Parainfluenza 4 (PCR) Not Detected (NotDetected) RSV (PCR) Not Detected (NotDetected) Entero/Rhino (PCR) Not Detected (NotDetected) 11/06/23 11/06/23 Range/Units 08:50 09:38 WBC (4.8-10.8) K/ul RBC (4.70-6.10) M/uL Hgb (14.0-18.0) g/dl Hct (42.0-52.0) % MCV (80.0-100.0) fL MCH (25.0-34.0) pg MCHC (32.0-36.0) g/dL RDW Std Deviation (36.4-46.3) fL RDW Coeff of Carola (11.5-14.5) % Plt Count (130-400) K/uL MPV (9.4-12.4) fL Immature Gran % (Auto) % Neut % (Auto) % Lymph % (Auto) % [place] % (Auto) % Eos % (Auto) % Baso % (Auto) % Neut # (Auto) (1.40-6.50) K/uL Lymph # (Auto) (1.20-3.40) K/uL [place] # (Auto) (0.11-0.59) K/uL Eos # (Auto) (0.00-0.50) K/uL Baso # (Auto) (0.00-0.20) K/uL Immature Gran # (Auto) (0.01-0.20) K/uL Polychromasia Sodium (136-145) mmol/L Potassium (3.5-5.1) mmol/L Chloride (98-107) mmol/L Carbon Dioxide (21-32) mmol/L Anion Gap (3-11) BUN (6-23) mg/dl Creatinine (0.6-1.4) mg/dl Est Cr Clr Drug Dosing ml/min Est GFR ( Amer) ml/min Est GFR (Non-Af Amer) ml/min BUN/Creatinine Ratio (10-20) Glucose (70-99(Fasting)) mg/dl Lactate 1.8 (0.4-2.0) mmol/L Calcium (8.6-10.3) mg/dl Magnesium (1.7-2.4) mg/dl Total Bilirubin (0.2-1.0) mg/dl AST (13-39) U/L ALT (7-52) U/L Alkaline Phosphatase (34-104) U/L Troponin I High Sens (0-20) pg/ml B-Natriuretic Peptide (0-100) pg/ml Total Protein (6.0-8.3) gm/dl Albumin (3.4-5.0) gm/dl Globulin (2.5-4.0) gm/dl Albumin/Globulin Ratio (0.9-2) Procalcitonin 0.52 H TSH (0.300-4.500) uIu/ml Adenovirus (PCR) (NotDetected) B. pertussis DNA (PCR) (NotDetected) B.parapertussis DNA PCR (NotDetected) C. pneumoniae DNA (PCR) (NotDetected) Coronavirus OC43 (PCR) (NotDetected) Coronavirus HKU1 (PCR) (NotDetected) Coronavirus 229E (PCR) (NotDetected) SARS-CoV-2 (PCR) (NotDetected) Coronavirus NL63 (PCR) (NotDetected) Human Metapneumovir PCR (NotDetected) Influenza Type A (PCR) (NotDetected) Influenza Type B (PCR) (NotDetected) M. pneumoniae (PCR) (NotDetected) Parainfluenza 1 (PCR) (NotDetected) Parainfluenza 2 (PCR) (NotDetected) Parainfluenza 3 (PCR) (NotDetected) Parainfluenza 4 (PCR) (NotDetected) RSV (PCR) (NotDetected) Entero/Rhino (PCR) (NotDetected) Administered Medications Albuterol (Albuterol 0.5% Neb Soln 2.5 Mg/0.5 Ml Vial) 2.5 mg NEB Q6R PRN; Protocol PRN Reason: wheezing/shortness of breath Stop: 12/06/23 12:59 Last Admin: 11/06/23 11:04 Dose: 2.5 mg Documented By: NEERAJ Lactated Ringer's (Lr) 1,000 mls @ 80 mls/hr IV .[id number] VALERIO Stop: 11/07/23 00:00 Last Admin: 11/06/23 12:10 Dose: 80 mls/hr Documented By: NEERAJ Discontinued Medications Donepezil HCl (Donepezil Hcl 10 Mg Tab) 10 mg PO NOW STA Stop: 11/06/23 10:57 Last Admin: 11/06/23 11:29 Dose: 10 mg Documented By: NEERAJ Sodium Chloride (Nss) 1,000 mls @ 125 mls/hr IV .Q8H VALERIO Stop: 12/06/23 06:59 Last Infusion: 11/06/23 12:10 Dose: 0 mls/hr Documented By: Admin: 11/06/23 07:30 Dose: 125 mls/hr Documented By: NEERAJ Cefepime HCl (Maxipime) 2,000 mg in 20 mls @ 5 mls/min IV NOW STA; Protocol Stop: 11/06/23 07:45 Last Admin: 11/06/23 07:55 Dose: 5 mls/min Documented By: NEERAJ Magnesium Sulfate/Dextrose (Magnesium Sulfate / D5w) 1 gm in 100 mls @ 100 mls/hr IV NOW STA Stop: 11/06/23 09:37 Last Infusion: 11/06/23 10:03 Dose: Infused Documented By: Admin: 11/06/23 09:03 Dose: 100 mls/hr Documented By: NEERAJ Lactated Ringer's (Lr) 1,000 mls @ 999 mls/hr IV .Q1H1M ONE Stop: 11/06/23 11:31 Last Infusion: 11/06/23 13:10 Dose: Infused Documented By: Admin: 11/06/23 10:55 Dose: 999 mls/hr Documented By: NEERAJ Magnesium Sulfate/Dextrose (Magnesium Sulfate / D5w) 1 gm in 100 mls @ 50 mls/hr IV ONE ONE Stop: 11/06/23 12:31 Last Infusion: 11/06/23 13:35 Dose: Infused Documented By: Admin: 11/06/23 11:28 Dose: 50 mls/hr Documented By: NEERAJ Lactated Ringer's (Lr) 500 mls @ 999 mls/hr IV .Q31M ONE Stop: 11/06/23 11:22 Last Infusion: 11/06/23 11:34 Dose: Infused Documented By: Admin: 11/06/23 10:58 Dose: 999 mls/hr Documented By: NEERAJ Ioversol (Optiray 320 125ml) 119 ml IV ONCE ONE Stop: 11/06/23 08:59 Last Admin: 11/06/23 08:54 Dose: 119 ml Documented By: JESSIKA Memantine (Memantine Hcl 10 Mg Tab) 10 mg PO NOW STA Stop: 11/06/23 10:57 Last Admin: 11/06/23 11:29 Dose: 10 mg Documented By: NEERAJ Tamsulosin HCl (Tamsulosin Hcl 0.4 Mg Cap) 0.4 mg PO NOW ONE Stop: 11/06/23 10:48 Last Admin: 11/06/23 11:04 Dose: 0.4 mg Documented By: NEERAJ Imaging Data Radiologist's Impression: Chest X-Ray 11/06/23 06:25 XR chest 1V portable CLINICAL HISTORY: weakness TECHNIQUE: Single frontal radiograph of the chest was obtained. Comparison: Comparison is made to chest radiograph 12/17/2022 FINDINGS: Median sternotomy wires are seen. Calcified aortic knob is seen. The lungs are clear. No evidence of pleural effusion or pneumothorax. IMPRESSION: No acute chest disease. ACT 112: Negative or not required by law. Electronically signed by: Jamie Bedolla M.D. 11/06/2023 7:[address] 11/06/23 07:00 CT OF THE CERVICAL SPINE WITHOUT CONTRAST CLINICAL HISTORY: trauma COMPARISON STUDY: Cervical spine CT December 17, 2022. CTA of the neck March 17, 2023. TECHNIQUE: Helical axial images of the cervical spine were obtained without IV contrast. Sagittal and coronal reconstructions were viewed. Automated exposure control was utilized for the study. A dose lowering technique was utilized adhering to the principles of ALARA. FINDINGS: Slight reversal of the cervical lordosis is unchanged. Vertebral body heights are maintained. No acute cervical spine fracture or subluxation is present. There is no prevertebral edema. Facet joints are intact. Moderate multilevel disc space narrowing, osteophytosis and facet arthrosis is again noted. IMPRESSION: No acute cervical spine fracture or subluxation. ACT 112: Negative or not required by law. Electronically signed by: Fuad Cruz M.D. 11/06/2023 8:[address] 11/06/23 07:00 CT head/brain wo con CLINICAL HISTORY: trauma Technique: Contiguous axial CT images of the head were acquired from the base of the skull to the vertex without intravenous contrast administration. Images were viewed in brain, subdural and bone windows. Automated dose lowering techniques and/or adjustment according to patient size were utilized for this exam. Comparison: Comparison is made to CT head 03/17/2023 and MRI brain 03/17/2023 Findings: The ventricles, basal cisterns, and cerebral sulci are normal. There is no acute intracranial hemorrhage or evidence of acute territorial infarction. Neither mass effect, shift of the midline structures, nor abnormal extra-axial fluid collections are shown. Old encephalomalacia is the left occipital cortex compatible with prior infarct. Imaged portions of the paranasal sinuses and mastoid air cells are clear. The orbits appear normal. There are no acute fractures of the calvaria or scalp swelling. Impression: No acute intracranial hemorrhage, no evidence of acute territorial infarction or other acute intracranial disease process. ACT 112: Negative or not required by law. Electronically signed by: Jamie Bedolla M.D. 11/06/2023 8:45 AM Chest CTA 11/06/23 08:41 CT ANGIOGRAPHY OF THE CHEST, PULMONARY EMBOLUS PROTOCOL CLINICAL HISTORY: Shortness of breath. Weakness. Dizziness. Evaluate for pulmonary embolus. COMPARISON STUDY: Chest radiograph performed earlier today. TECHNIQUE: Following IV administration of 119 mL of Optiray, helical axial images of the chest were obtained utilizing the pulmonary embolus protocol. Maximal intensity projections and sagittal and coronal reformats were viewed on an independent 3D workstation. IV contrast was administered without complication. Automated exposure control was utilized for the study. A dose lowering technique was utilized adhering to the principles of ALARA. CT DOSE: 856.93 mGy.cm FINDINGS: No pulmonary emboli are identified. Lower lobe segmental and subsegmental pulmonary arteries are suboptimally assessed due to respiratory motion. There are median sternotomy wires and postoperative findings from bypass grafting. There is mild cardiomegaly and extensive coronary artery calcification. No pericardial effusion. No thoracic lymphadenopathy is present. There is no pneumothorax or pleural effusion. A 4 mm right upper lobe pulmonary nodule on image 134 is noted. Right lower lobe linear and groundglass densities favor atelectasis. Subpleural opacities within the left lung also favor atelectasis. No consolidation to suggest pneumonia. Focus of mucus within the distal trachea. No acute fractures within the visualized bony thorax. IMPRESSION: 1. No pulmonary emboli identified although lower lobe segmental and subsegmental pulmonary arteries suboptimally assessed due to respiratory motion. 2. Lower lung groundglass and linear densities which favor atelectasis. No consolidation to suggest pneumonia. 3. Secretions/mucous within the distal trachea. No central obstructing mass. ACT 112: Negative or not required by law. Electronically signed by: Fuad Cruz M.D. 11/06/2023 9:24 AM Discharge Plan Visit Data Chief Complaint: Leg Weakness, Bilateral Stated Complaint: WEAKNESS, DIZZY, FELL ED Provider: Mei Pizano Discharge Problem: Dizziness, Fall, Leukocytosis, Elevated procalcitonin Patient Disposition: Admitted As Inpatient Discharge Instructions Interventions: ED Discharge Assessment Last Done: 11/06/23 12:13
[2023-11-06] MEDS: CEFEPIME 2,000 MG/20 ML VIAL IV STA (07:55)
[2023-11-06 08:32] LABS: Magnesium 1.5 mg/dl (1.7-2.4)
--- NOTE | 2023-11-06 08:32 | CT Scan Report ---
CT OF THE CERVICAL SPINE WITHOUT CONTRAST CLINICAL HISTORY: trauma COMPARISON STUDY: Cervical spine CT December 17, 2022. CTA of the neck March 17, 2023. TECHNIQUE: Helical axial images of the cervical spine were obtained without IV contrast. Sagittal a nd coronal reconstructions were viewed. Automated exposure control was utilized for the study. A do se lowering technique was utilized adhering to the principles of ALARA. FINDINGS: Slight reversal of the cervical lordosis is unchanged. Vertebral body heights are maintaine d. No acute cervical spine fracture or subluxation is present. There is no prevertebral edema. Facet joints are intact. Moderate multilevel disc space narrowing, osteophytosis and facet arthrosis is ag ain noted. IMPRESSION: No acute cervical spine fracture or subluxation. ACT 112: Negative or not required by law. Electronically signed by: Fuad Cruz M.D. 11/06/2023 8:31 AM
[2023-11-06 08:39] LABS: Troponin I High Sensitivity 9.9 pg/ml (0-20)
[2023-11-06 08:39] LABS: Adenovirus PCR Not Detected (NotDetected); Bordetella parapertussis PCR Not Detected (NotDetected); Bordetella pertussis PCR Not Detected (NotDetected); Chlamydia pneumoniae PCR Not Detected (NotDetected); Coronavirus 229E PCR Not Detected (NotDetected); Coronavirus CoV-2 (COVID19)PCR Not Detected (NotDetected); Coronavirus HKU1 PCR Not Detected (NotDetected); Coronavirus NL63 PCR Not Detected (NotDetected); Coronavirus OC43PCR Not Detected (NotDetected); Human Metapneumovirus PCR Not Detected (NotDetected); Influenza A PCR Not Detected (NotDetected); Influenza B PCR Not Detected (NotDetected); Mycoplasma pneumoniae PCR Not Detected (NotDetected); Parainfluenza Virus 1 PCR Not Detected (NotDetected); Parainfluenza Virus 2 PCR Not Detected (NotDetected); Parainfluenza Virus 3 PCR Not Detected (NotDetected); Parainfluenza Virus 4 PCR Not Detected (NotDetected); Respiratory Syncytial VirusPCR Not Detected (NotDetected); Rhinovirus/Enterovirus PCR Not Detected (NotDetected)
--- NOTE | 2023-11-06 08:46 | CT Scan Report ---
CT head/brain wo con CLINICAL HISTORY: trauma Technique: Contiguous axial CT images of the head were acquired from the base of the skull to the luís merlin without intravenous contrast administration. Images were viewed in brain, subdural and bone [facility] . Automated dose lowering techniques and/or adjustment according to patient size were utilized for this exam. Comparison: Comparison is made to CT head 03/17/2023 and MRI brain 03/17/2023 Findings: The ventricles, basal cisterns, and cerebral sulci are normal. There is no acute intracranial hemorrh age or evidence of acute territorial infarction. Neither mass effect, shift of the midline structures , nor abnormal extra-axial fluid collections are shown. Old encephalomalacia is the left occipital c ortex compatible with prior infarct. Imaged portions of the paranasal sinuses and mastoid air cells are clear. The orbits appear normal. There are no acute fractures of the calvaria or scalp swelling. Impression: No acute intracranial hemorrhage, no evidence of acute territorial infarction or other acute intracra nial disease process. ACT 112: Negative or not required by law. Electronically signed by: Jamie Bedolla M.D. 11/06/2023 8:45 AM
[2023-11-06] MEDS: OPTIRAY 320 125ml IV ONE (08:54)
[2023-11-06] MEDS: MAGNESIUM SULFATE / D5W 1 GM/100 ML BAG IV STA (09:03)
--- NOTE | 2023-11-06 09:26 | CT Scan Report ---
CT ANGIOGRAPHY OF THE CHEST, PULMONARY EMBOLUS PROTOCOL CLINICAL HISTORY: Shortness of breath. Weakness. Dizziness. Evaluate for pulmonary embolus. COMPARISON STUDY: Chest radiograph performed earlier today. TECHNIQUE: Following IV administration of 119 mL of Optiray, helical axial images of the chest were o btained utilizing the pulmonary embolus protocol. Maximal intensity projections and sagittal and cor onal reformats were viewed on an independent 3D workstation. IV contrast was administered without co mplication. Automated exposure control was utilized for the study. A dose lowering technique was ut ilized adhering to the principles of ALARA. CT DOSE: 856.93 mGy.cm FINDINGS: No pulmonary emboli are identified. Lower lobe segmental and subsegmental pulmonary arteri es are suboptimally assessed due to respiratory motion. There are median sternotomy wires and postope rative findings from bypass grafting. There is mild cardiomegaly and extensive coronary artery calcif ication. No pericardial effusion. No thoracic lymphadenopathy is present. There is no pneumothorax or pleural effusion. A 4 mm right upper lobe pulmonary nodule on image 134 is noted. Right lower lobe l inear and groundglass densities favor atelectasis. Subpleural opacities within the left lung also fav or atelectasis. No consolidation to suggest pneumonia. Focus of mucus within the distal trachea. No a cute fractures within the visualized bony thorax. IMPRESSION: 1. No pulmonary emboli identified although lower lobe segmental and subsegmental pulmonary arteries s uboptimally assessed due to respiratory motion. 2. Lower lung groundglass and linear densities which favor atelectasis. No consolidation to suggest p neumonia. 3. Secretions/mucous within the distal trachea. No central obstructing mass. ACT 112: Negative or not required by law. Electronically signed by: Fuad Cruz M.D. 11/06/2023 9:24 AM
--- NOTE | 2023-11-06 10:18 | History & Physical Report ---
Date of Service November 06, 2023 Assessment & Plan (1) Leukocytosis: Plan: -Admit to the PCU on tele and pulse oximetry -Currently hemodynamically stable and now stable on RA -Presented to the ED after experiencing a fall at home this am due to dizziness when standing -Was found to have a significant leukocytosis of 22 with neutrophil predominance of 21, initial lacate of 2.4, and procal of 0.52 -Chest imaging is not consistent with Pneumonia -Waiting on UA to be obtained, nursing staff will straight cath if needed, suspect this is our source >High suspicion he is retaining urine >Will order prn bladder scan and straight cath -S/P one dose of Cefepime in the ED, was receiving 1L NSS at 125 mL/hr at the time of admission -Will hold NSS and give 1.5L LR bolus now -Lactate has cleared to 1.8 on repeat -While his sepsis fluid bolus is 2.8L, we will start with 1.5L LR bolus on admission as he is non-toxic and hemodynamically stable >Will plan to continue with maintenance IV fluids after if he is not eat/drinking well -Blood cultures were obtained in the ED -Will continue with Cefepime for now -BL Gerardo's for DVT PPX -HH diet -AM CBC, BMP, mg, PT/INR (2) Hypoxia: Plan: -Was initially noted to be hypoxic at 88% on RA on arrival -Chest xray and CTA of the chest are unremarkable -Was able to wean patient off O2 during my exam -Likely due to his known CASSIE and poor tidal volumes on arrival -Continue to monitor on pulse oximetry -Start incentive spirometry, flutter valve, prn albuterol and O2 -Will try and obtain sputum culture with gram stain for further infectious workup (3) Fall: Plan: -Has a long hx of falls -Experienced dizziness after standing from bed this am causing fall -Denies any focal neuro symptoms at this time -No acute trauma or focal neuro defects on exam -Likely due to dehydration due to current infection -No concerning ECG findings -Will obtain TTE -Fall precautions, PT/OT consults ordered (4) Dizziness: Plan: -Resolved -Occurred after standing from bed this am -Likely due to dehydration -Rest of care per fall plan (5) Hypomagnesemia: Plan: -1.6 in the ED -Potassium is stable -S/P 1gm IV mag-sulfate in the ED -Will give another 1 gm IV mag-sulfate on admission -Monitor am electrolytes (6) Obstructive sleep apnea: Plan: -HS CPAP ordered (7) H/O: stroke: Plan: -No focal neuro defects -CT of the head/brain wo con negative for acute findings -Continue aspirin and statin (8) Dementia: Plan: -Continue memantine and Donepezil (9) HTN (hypertension), benign: Plan: -Stable -Can plan to resume lisinopril tomorrow if stable (10) Hyperlipidemia: Plan: -Conitnue statin Plan The patient was discussed with Dr. Chandler at the time of the admission History of Present Illness Chief Complaint: Dizziness, BL LE weakness, fall Primary Care Provider: MD Leodan Crabtree Jr. is a 73 year old male with a PMH significant for previous left parieto-occipital infarct, traumatic 5 mm subdural hematoma along the falx, seizures related to his previous subdural hematoma, dementia, HTN, CAD, sinus bradycardia, paroxysmal atrial flutter, and CASSIE on HS CPAP who presented to the [facility] ED on 11/06/23 after sustaining a fall due to dizziness and progressive BL LE weakness over the past 72 hours. On arrival to the ED he was noted to in sinus tachycardia with HR in the 120-130s and hypoxic at 88% on RA but otherwise stable. Labs were significant for a leukocytosis of 23 with neutrophil predominance of 21, initial lactate of 2.4 1.8 on 2 hour repeat, mag of 1.5, total bili of 1.6 with other LFTs WNL, high sen trop and BNP WNL, procal of 0.52, and full respiratory biofire negative. CT fo the head/brain/cerival spine wo con and chest xray were read as negative for acute findings. CTA of the chest w/PE protocol was read as 1. No pulmonary emboli identified although lower lobe segmental and subsegmental pulmonary arteries suboptimally assessed due to respiratory motion. 2. Lower lung groundglass and linear densities which favor atelectasis. No consolidation to suggest pneumonia. 3. Secretions/mucous within the distal trachea. No central obstructing mass.. Prior to admission the patient was given a dose of Cefepime, 1L NSS, and 1gm IV mag-sulfate. At the time of the exam the patient was resting comfortably in bed in no acute distress. Family was not in the patient's room at the time of the exam. The patient states that when he stood from bed this am and immediately became dizzy. He denies the room spinning but states that his lower extremities felt weak causing him to fall. He hit his head off the wall but denies losing consciousness. He denies current headache, dizziness, changes in vision, hearing, taste, chest, SOB, abd pain, nausea, vomiting, diarrhea, dysuria, hematuria, melena, and lower extremity weakness. He does mention increased urinary frequency. I was able to speak with his Son/POA Leodan Hussein IV who confirms the above history. His son confirms the patient has a living will and is a full code. Please refer to Dr. Chandler's attestation for any changes to the treatment plan Allergies Allergy/AdvReac Type Severity Reaction Status Date / Time cephalexin Allergy Unknown Verified 08/10/23 08:42 Penicillins Allergy Unknown Verified 08/10/23 08:42 prednisone Allergy Unknown Verified 08/10/23 08:42 Home Medications Medication Instructions Recorded Confirmed Type atorvastatin 80 mg tablet 80 mg PO QPM 08/09/22 11/06/23 History lisinopril 10 mg tablet 10 mg PO QAM 08/09/22 11/06/23 History omega 8-gak-xbm-fish oil 1,200 mg 1 cap PO QAM 08/09/22 11/06/23 History (144 mg-216 mg) capsule (Fish Oil) ranolazine 500 mg tablet,extended 0 mg PO BID 08/09/22 11/06/23 History release,12 hr aspirin 81 mg tablet,delayed 81 mg PO QAM 12/17/22 11/06/23 History release cholecalciferol (vitamin D3) 25 25 mcg PO QAM 12/17/22 11/06/23 History mcg (1,000 unit) chewable tablet (Vitamin D3) cyanocobalamin (vitamin B-12) 1,000 mcg PO QAM 12/17/22 11/06/23 History 1,000 mcg tablet (Vitamin B-12) potassium gluconate 600 mg (99 mg) 600 mg PO DAILY 12/17/22 11/06/23 History tablet isosorbide mononitrate 30 mg 30 mg PO QA #90 tabs 09/19/23 11/06/23 Rx tablet,extended release 24 hr donepezil 10 mg tablet 10 mg PO QAM 90 days #90 tabs 10/15/23 11/06/23 Rx fenofibrate nanocrystallized 145 145 mg PO QAM #90 tabs 10/15/23 11/06/23 Rx mg tablet memantine 10 mg tablet 10 mg PO BID 90 days #180 tabs 10/15/23 11/06/23 Rx nitroglycerin 0.4 mg sublingual 0.4 mg sublingual UD PRN Chest Pain 11/06/23 11/06/23 History tablet Past Med/Surg History Medical History Dementia H/O sinus bradycardia CVA (cerebral vascular accident) CAD (coronary artery disease) Hyperlipidemia HTN (hypertension), benign Encounter for pre-operative examination Closed fracture of left wrist Closed fracture of left hip Fall Surgical History H/O wrist surgery H/O heart surgery History of surgery on lower extremity Aortocoronary bypass status Family History Brother Diabetes Father Myocardial infarction Mother Myocardial infarction Other Hypertension Denies family history of Ovarian cancer Prostate cancer Breast cancer Colorectal cancer Social History Smoking Status: Never smoker Second Hand Exposure: No; Do You Dip or Chew Tobacco: No; Hx Alcohol Use: No Hx Substance Use: No Preferred Language: Estonian Communication Ability: Effective Lsat Instructor Required: No Beliefs That Will Affect Care: None Current Living Situation: Alone current occupational status: retired Feels Safe at Home: Yes caffeine: Yes (coffee) Dental Care, Regularly: Yes Physical Activity Frequency: 1-2 Times per Week Seatbelt Use: always Sunscreen Use: No Assistive Devices: None Physical Exam Physical Exam: Physical Exam: General: In no acute distress, stated age, well-nourished, good hygiene HEENT: Normocephalic, atraumatic, no scleral icterus, pupils around round, symmetrical, and reactive to light, moist mucus membranes, trachea midline, no thyromegaly Chest/Pulm: No respiratory distress, symmetrical chest expansion, clear breath sounds throughout Cardiac: RRR, no murmurs noted Abdomen: Negative for ascites and bruising, normoactive bowel sounds, soft, non-tender to palpation throughout Musculoskeletal: Symmetrical and without signs of acute trauma, upper and lower extremities with full ROM, no atrophy, spasticity, or flaccidity Extremities: Radial, dorsalis pedis, and posterior tibial pulses are intact and symmetrical, no edema noted in the BL LE's Skin: Warm, dry, no rashes , lesions, or scars noted Neuro: Alert and oriented to person, place, month, no focal defects, CN II- XII tested and intact, negative cerebellar and pronator drift BL, no tremors noted Psych: No acute distress, calm and cooperative during the exam Results & Data Results & Data Vital Signs (Past 12 Hours) Vital Signs Temp Pulse Pulse Resp BP BP Pulse Ox 11/06/23 09:54 87 11/06/23 07:41 110 H 18 135/94 93 11/06/23 06:48 91 11/06/23 06:46 88 L 11/06/23 06:25 90 11/06/23 06:19 36.8 C 132 H 20 135/94 91 11/06/23 06:19 120 H O2 Del Method O2 Flow Rate 11/06/23 09:54 11/06/23 07:41 Nasal Cannula 2 11/06/23 06:48 Nasal Cannula 2 11/06/23 06:46 Room Air 11/06/23 06:25 Room Air 11/06/23 06:19 11/06/23 06:19 Laboratory Results Abnormal lab results 11/06/23 11/06/23 11/06/23 Range/Units 06:28 07:52 08:50 WBC 23.60 H (4.8-10.8) K/ul RDW Std Deviation 49.9 H (36.4-46.3) fL Neut # (Auto) 21.66 H (1.40-6.50) K/uL Lymph # (Auto) 0.75 L (1.20-3.40) K/uL [place] # (Auto) 0.82 H (0.11-0.59) K/uL Immature Gran # (Auto) 0.22 H (0.01-0.20) K/uL Glucose 148 H (70-99(Fasting)) mg/dl Lactate 2.4 H* (0.4-2.0) mmol/L Magnesium 1.5 L (1.7-2.4) mg/dl Total Bilirubin 1.6 H (0.2-1.0) mg/dl Procalcitonin 0.52 H (0-0.5) ng/ml Diagnostic Findings Chest X-Ray 11/06/23 06:25 XR chest 1V portable CLINICAL HISTORY: weakness TECHNIQUE: Single frontal radiograph of the chest was obtained. Comparison: Comparison is made to chest radiograph 12/17/2022 FINDINGS: Median sternotomy wires are seen. Calcified aortic knob is seen. The lungs are clear. No evidence of pleural effusion or pneumothorax. IMPRESSION: No acute chest disease. ACT 112: Negative or not required by law. Electronically signed by: Jamie Bedolla M.D. 11/06/2023 7:[address] 11/06/23 07:00 CT OF THE CERVICAL SPINE WITHOUT CONTRAST CLINICAL HISTORY: trauma COMPARISON STUDY: Cervical spine CT December 17, 2022. CTA of the neck March 17, 2023. TECHNIQUE: Helical axial images of the cervical spine were obtained without IV contrast. Sagittal and coronal reconstructions were viewed. Automated exposure control was utilized for the study. A dose lowering technique was utilized adhering to the principles of ALARA. FINDINGS: Slight reversal of the cervical lordosis is unchanged. Vertebral body heights are maintained. No acute cervical spine fracture or subluxation is present. There is no prevertebral edema. Facet joints are intact. Moderate multilevel disc space narrowing, osteophytosis and facet arthrosis is again noted. IMPRESSION: No acute cervical spine fracture or subluxation. ACT 112: Negative or not required by law. Electronically signed by: Fuad Cruz M.D. 11/06/2023 8:[address] 11/06/23 07:00 CT head/brain wo con CLINICAL HISTORY: trauma Technique: Contiguous axial CT images of the head were acquired from the base of the skull to the vertex without intravenous contrast administration. Images were viewed in brain, subdural and bone windows. Automated dose lowering techniques and/or adjustment according to patient size were utilized for this exam. Comparison: Comparison is made to CT head 03/17/2023 and MRI brain 03/17/2023 Findings: The ventricles, basal cisterns, and cerebral sulci are normal. There is no acute intracranial hemorrhage or evidence of acute territorial infarction. Neither mass effect, shift of the midline structures, nor abnormal extra-axial fluid collections are shown. Old encephalomalacia is the left occipital cortex compatible with prior infarct. Imaged portions of the paranasal sinuses and mastoid air cells are clear. The orbits appear normal. There are no acute fractures of the calvaria or scalp swelling. Impression: No acute intracranial hemorrhage, no evidence of acute territorial infarction or other acute intracranial disease process. ACT 112: Negative or not required by law. Electronically signed by: Jamie Bedolla M.D. 11/06/2023 8:45 AM Chest CTA 11/06/23 08:41 CT ANGIOGRAPHY OF THE CHEST, PULMONARY EMBOLUS PROTOCOL CLINICAL HISTORY: Shortness of breath. Weakness. Dizziness. Evaluate for pulmonary embolus. COMPARISON STUDY: Chest radiograph performed earlier today. TECHNIQUE: Following IV administration of 119 mL of Optiray, helical axial images of the chest were obtained utilizing the pulmonary embolus protocol. Maximal intensity projections and sagittal and coronal reformats were viewed on an independent 3D workstation. IV contrast was administered without complication. Automated exposure control was utilized for the study. A dose lowering technique was utilized adhering to the principles of ALARA. CT DOSE: 856.93 mGy.cm FINDINGS: No pulmonary emboli are identified. Lower lobe segmental and subsegmental pulmonary arteries are suboptimally assessed due to respiratory motion. There are median sternotomy wires and postoperative findings from bypass grafting. There is mild cardiomegaly and extensive coronary artery calcification. No pericardial effusion. No thoracic lymphadenopathy is present. There is no pneumothorax or pleural effusion. A 4 mm right upper lobe pulmonary nodule on image 134 is noted. Right lower lobe linear and groundglass densities favor atelectasis. Subpleural opacities within the left lung also favor atelect asis. No consolidation to suggest pneumonia. Focus of mucus within the distal trachea. No acute fractures within the visualized bony thorax. IMPRESSION: 1. No pulmonary emboli identified although lower lobe segmental and subsegmental pulmonary arteries suboptimally assessed due to respiratory motion. 2. Lower lung groundglass and linear densities which favor atelectasis. No consolidation to suggest pneumonia. 3. Secretions/mucous within the distal trachea. No central obstructing mass. ACT 112: Negative or not required by law. Electronically signed by: Fuad Cruz M.D. 11/06/2023 9:24 AM ECG Additional Comments: Sinus tachycardia ST & T wave abnormality, consider inferior ischemia Abnormal ECG When compared with ECG of 17-MAR-2023 16:39, Premature supraventricular complexes are no longer Present Nonspecific T wave abnormality, worse in Lateral leads Code Status & VTE Plan Code Status Full code VTE Prophylaxis Plan VTE Prophylaxis will be ordered: Yes Supervising Physician Co-Signing Physician Notes Patient seen and examined, chart reviewed, case discussed with Mauri Al PA-C and I agree with the assessment and plan as above except as otherwise noted Labs and images reviewed Leodan is a 73-year-old male with a past medical history of hyperlipidemia, CAD, sinus bradycardia, subdural hematoma, left parieto-occipital CVA, mild dementia, atrial flutter on anticoagulation who presents to the ER with dizziness and a fall. Patient got up and was walking when suddenly fell and hit the wall, denies loss of consciousness. Patient is a somewhat limited historian, but pleasant and follows commands. Family reports they heard a thud upstairs and foudn him on the ground, whole in drywall from head strike. CT head/C-spine without acute traumatic findingsPt reports he felt fine yesterday and family did not notice any unusual symptoms or anythign out of the ordinary.Even with rest pt remained dizzy and could not walk to the ambulate and required a wheelchair. At bedside patient is pleasant, nondistressed, denies shortness of breath otherwise on 2 L nasal cannula, denies dysuria/polyuria, has no abdominal pain. Lungs are clear, abdomen is soft, heart rate is regular Biofire negative, no obvious pna on CXR, pt has been coughing up thicker sputum than normal but has no shortness of breath and CTA without any evidence of pneumonia. Endorses polyuria, UA is pending. Patient does have a leukocytosis with both neutrophilic predominance and left shift in addition to an elevated procalcitonin. No obvious pulmonary source, abdomen is benign. Suspected UTI. Patient did have a lactate of 2.4, normalized at 1.8 following initial fluids. Magnesium is low. Repleted. He does meet sepsis criteria but at bedside reevaluation appears very clinically well, normotensive, is not tachycardic and greatly improved. Is on maintenance fluids given he needs sepsis criteria Admit will give 1.5 L of crystalloid bolus, and with good clinical appearance and already downtrending lactate defer full IBW/ABW 2836/2985 cc. , Patient's chloride is borderline highNSS --> LR. Patient is on cefepime agree with assessment and management above. PG Care Time/CCT Total # of Minutes Spent Total Time Spent with Patient: Total time spent is greater than 50% in coordination of care (as documented) at patient's floor/unit and/or counseling patient: Coding [place] [address] INT INP/OBS CARE 3/75MIN Patient Type Established History Comprehensive Exam Comprehensive Medical Decision Making High Complexity Diagnoses Leukocytosis D72.829 Hypoxia R09.02 Fall W19.XXXA Dizziness R42 Hypomagnesemia E83.42 Obstructive sleep apnea G47.33 H/O: stroke Z86.73 Dementia F03.90 HTN (hypertension), benign I10 Hyperlipidemia E78.5
[2023-11-06] MEDS: LACTATED RINGER'S 1,000 ML IV ONE (10:55)
[2023-11-06] MEDS: LACTATED RINGER'S 500 ML IV ONE (10:58)
[2023-11-06] MEDS: TAMSULOSIN HCL 0.4 MG CAP PO ONE (11:04)
[2023-11-06] MEDS: ALBUTEROL 0.5% NEB SOLN 2.5 MG/0.5 ML VIAL NEB PRN (11:04)
[2023-11-06 11:06] LABS: Appearance Urine Clear (Clear); Bilirubin Urine Negative (Negative); Blood Urine Negative (Negative); Color Urine Yellow; Glucose Urine UA Negative (Negative); Ketones Urine Negative (Negative); Leukocyte Esterase Urine Negative (Negative); Nitrite Urine Negative (Negative); Protein Urine Negative (Negative); Specific Gravity Urine > 1.045 (1.000-1.030); Urobilinogen Urine Negative (Negative)
[2023-11-06] MEDS: MAGNESIUM SULFATE / D5W 1 GM/100 ML BAG IV ONE (11:28)
[2023-11-06] MEDS: MEMANTINE HCL 10 MG TAB PO STA (11:29)
[2023-11-06] MEDS: DONEPEZIL HCL 10 MG TAB PO STA (11:29)
[2023-11-06] MEDS: LACTATED RINGER'S 1,000 ML IV SCH (12:10)
--- NOTE | 2023-11-06 14:54 | XCELERA ---
[id number] \\[email or web address]\[id number]
[2023-11-06] MEDS: ATORVASTATIN 40 MG TAB PO SCH (20:31)
[2023-11-06] MEDS: CEFEPIME 2,000 MG in SYRINGE 0 ML IV SCH (20:31)
[2023-11-06] MEDS: MEMANTINE HCL 10 MG TAB PO SCH (20:31)
[2023-11-06] MEDS: RANOLAZINE 500 MG ER TAB PO SCH (20:31)
[2023-11-07 04:51] LABS: Albumin Globulin Ratio 1.5 (0.9-2); Albumin Level 3.4 gm/dl (3.4-5.0); BUN Creatinine Ratio 17.3 (10-20); Bilirubin,Total 1.2 mg/dl (0.2-1.0); Calcium 8.9 mg/dl (8.6-10.3); Creatinine Clr Calc Pharmacy 82.1 ml/min; Est GFR (African American) 87.1 ml/min; Est GFR (Non-African American) 75.1 ml/min; Globulin 2.3 gm/dl (2.5-4.0); Magnesium 1.8 mg/dl (1.7-2.4); Potassium 4.2 mmol/L (3.5-5.1); Total Protein 5.7 gm/dl (6.0-8.3)
[2023-11-07 05:13] LABS: Basophils # (auto) 0.06 K/uL (0.00-0.20); Basophils % (auto) 0.4 %; Eosinophils # (auto) 0.35 K/uL (0.00-0.50); Eosinophils % (auto) 2.4 %; Hematocrit (blood only) 39.8 % (42.0-52.0); Hemoglobin 12.8 g/dl (14.0-18.0); Immature Granulocytes # (auto) 0.15 K/uL (0.01-0.20); Lymphocytes # (auto) 2.43 K/uL (1.20-3.40); Lymphocytes % (auto) 16.6 %; Mean Corpuscular Hemoglobin 32.1 pg (25.0-34.0); Mean Corpuscular Hgb Conc 32.2 g/dL (32.0-36.0); Mean Corpuscular Volume 99.7 fL (80.0-100.0); Mean Platelet Volume 9.4 fL (9.4-12.4); Monocytes % (auto) 4.1 %; Neutrophils # (auto) 11.09 K/uL (1.40-6.50); Neutrophils % (auto) 75.5 %; Platelet Count 211 K/uL (130-400); RDW Standard Deviation 51.9 fL (36.4-46.3); Red Blood Count 3.99 M/uL (4.70-6.10); White Blood Count 14.68 K/ul (4.8-10.8)
--- NOTE | 2023-11-07 07:50 | Hospitalist Progress Note ---
Date of Service November 07, 2023 Assessment & Plan (1) Atrial flutter: Plan Pt is a 73 yo male with a past medical history of hx L parieto-occipital infarct, hx subdural hematoma after a fall with seizures after, dementia, HTN, CAD, sinus bradycardia, paroxysmal atrial flutter, and CASSIE on HS CPAP who presents to the hospital on 11/05 for 3 days of weakness and dizziness with standing and fall. #Leukocytosis - WBC count on admission 23, now 14 - chest CTA showed some atelectasis but nothing else, CXR wnl - lactate was 2.4 ->1.8, procal 0.52 - urine cx; pending - blood cx; pending - sputum cx; pending - on cefepime currently for leukocytosis with unknown source - has also been having some low tachycardia 90-100s - was placed on leon for urinary retention, will need void trial prior to discharge #Fall - Has a long hx of falls - Experienced dizziness after standing preceding the weakness and fall, was admitted months ago for the same thing - Denies any focal neuro symptoms on admission - No acute trauma or focal neuro defects on exam on admission - Likely due to dehydration due to current infection - Fall precautions, PT/OT pending - orthostatic hypotension testing + so most likely his weakness/dizziness with position change is orthostatic hypotension in nature but with echo results noted below will get cardiology involved as well, but these may also be due to his home medications such as his dementia medications or imdur #Heart failure mildly reduced EF - echo 12/19/2022(per [facility] system); EF 60-65% with no wall motion abnormalities and wnl LV function - echo 11/07/23; EF 45-50%, 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, + PFO per bubble study - cardiology consulted; pending recs #Atrial flutter - noted on EKG on admission and telemetry, dx originally during 12/2022 hospitalization - noted on previous EKGs in the system as well, rate is controlled at this time (goal <110) - pt not on anticoagulation, was initially deferred due to acute subdural bleed s/p fall at that time - pt notes he does not recall following up with cardiology after that admission and was maybe on a blood thinner years ago but for a vascular issue when he had some of his varicose veins in his legs addressed - pending cardiology recs #Obstructive sleep apnea - had some mild hypoxia 88% on admission but has been sat >90% primarily on RA otherwise - HS CPAP ordered #H/O: stroke - No focal neuro defects on admission - CT of the head/brain wo con negative for acute findings - Continue aspirin and statin #Dementia -Continue memantine and Donepezil for now, but may decrease one or both since they can contribute to orthostatic hypotension #HTN (hypertension), benign - Stable the last 24 hrs - Continue home lisinopril #Hyperlipidemia - Continue home statin Admission and Anticipated Discharge Date Admission Date: November 06, 2023 Supervising Physician Co-Signing Physician Notes Attending Physician Supervision Note: I independently interviewed and examined the patient and verified the perez history and physical, reviewed labs and image studies and agree with findings and care plan noted above. Fall - h/o SDH in past. Unclear if syncopal event in sitting of orthostatic hypotension, new CMP and rapid A flutter. -PT/OT. Should be able to assess gait stability better once medically optimized. Orthostatic hypotension - On imdur, flomax, donepezil, memantine. -coached on slowly getting out of bed or chair. CMP - New drop in EF on echo - 45-50%. ?underlying RVR from PAF contributing. -Cardio consult. PAF - Noted on EKG on admission. No AC listed from home med list. Cardio consult for further input. Leukocytosis - Probable Sepsis, POA, due to suspected UTI vs other source -No fever. Elevated lactate but normal procal. blood, sputum cx neg. UA with no sign of infection. CTA with no infiltrate; + airway secretion. -If no obvious source unfolds - likely leukemoid reaction due to fall and orthostasis. -continue cefepime for now. SCD Subjective Pt is a 73 yo male with a past medical history of hx L parieto-occipital infarct, hx subdural hematoma after a fall with seizures after, dementia, HTN, CAD, sinus bradycardia, paroxysmal atrial flutter, and CASSIE on HS CPAP who presents to the hospital on 11/05 for 3 days of weakness and dizziness with standing and fall. Today, pt states he is feeling fine while laying in bed. He states that his symptoms occurred when he would go from sitting to standing, then he would get dizzy, and feel like his legs are weak, which then lead to him falling. He states he felt okay at rest. No recent travel outside the country in the last few years. No sick contacts. No fever or chills. No congestion or sore throat but does not chronic sinus pressure for years that he was treated with some medication he is not sure about a few weeks ago. No medication changes otherwise. He states a few months ago he had something similar to this episode happen that was found to be due to one of his medications, and once changed he felt better. He states he tries to keep pretty well hydrated with 5-6 glasses of water daily. Review of Systems Review of Systems: Constitutional: denies fever, chills, HEENT: denies nasal congestion, sore throat Cardio: denies chest pain, palpitations Resp: denies shortness of breath, cough GI: denies abdominal pain, nausea, vomiting, constipation, diarrhea : denies pain with urination, change in urinary frequency Physical Exam Physical Exam: General:Alert and oriented, no acute distress, HEENT: Normocephalic, moist oral mucosa, TMs wnl bilaterally with moderate wax build up Cardio: Regular rate and rhythm, no murmur, Resp:Lungs clear to auscultation b/l, no wheezes or rhonchi, GI: Soft and nontender, nondistended, bowel sounds active Skin: Warm, pink, dry, no skin lesions or rashes noted anywhere on arms, legs, or trunk/back Psych: Mood-affect congruence. Results & Data Results & Data Vital Signs (Past 12 Hours) Vital Signs Pulse Pulse Resp BP BP Pulse Ox O2 Del Method 11/07/23 07:44 90 18 132/75 95 Room Air 11/07/23 07:34 85 11/07/23 04:00 98 H 30 H 94 11/07/23 04:00 133/95 11/07/23 03:05 103 H 17 96 11/07/23 03:00 109/79 11/07/23 03:00 90 17 96 11/07/23 02:00 77 20 98 11/07/23 02:00 123/90 11/07/23 01:00 118/75 11/07/23 01:00 99 H 19 94 CPAP 11/07/23 00:00 98 H 21 94 11/07/23 00:00 120/76 11/06/23 23:54 98 H 11/06/23 23:25 102 H 20 94 11/06/23 23:00 128/75 11/06/23 23:00 94 H 25 H 92 11/06/23 22:00 87 14 93 11/06/23 22:00 129/80 11/06/23 21:00 121/83 11/06/23 21:00 82 14 93 11/06/23 20:00 113/74 11/06/23 19:50 130/85 11/06/23 19:50 88 27 H 94 FiO2 11/07/23 07:44 11/07/23 07:34 11/07/23 04:00 11/07/23 04:00 11/07/23 03:05 21 11/07/23 03:00 11/07/23 03:00 11/07/23 02:00 11/07/23 02:00 11/07/23 01:00 11/07/23 01:00 11/07/23 00:00 11/07/23 00:00 11/06/23 23:54 11/06/23 23:25 21 11/06/23 23:00 11/06/23 23:00 11/06/23 22:00 11/06/23 22:00 11/06/23 21:00 11/06/23 21:00 11/06/23 20:00 11/06/23 19:50 11/06/23 19:50 Resident Activity Tracking Resident Involvement: Resident Care Provided Care Provided: Adult Hospital Medicine
[2023-11-07] MEDS: ASPIRIN 81 MG ECTAB PO SCH (08:01)
[2023-11-07] MEDS: DONEPEZIL HCL 10 MG TAB PO SCH (08:01)
[2023-11-07] MEDS: TAMSULOSIN HCL 0.4 MG CAP PO SCH (08:01)
[2023-11-07] MEDS: lisinopril 10 MG TAB PO SCH (08:01)
[2023-11-07] MEDS: ISOSORBIDE MONO EXTENDED REL 30 MG TABCR PO SCH (08:01)
--- NOTE | 2023-11-07 14:54 | Cardiology Consultation ---
Date of Consultation November 07, 2023 Assessment & Plan (1) Heart failure with mildly reduced ejection fraction (HFmrEF): New mildly reduced EF. He is euvolemic on exam. Patient is asymptomatic. Medical management recommend, but will be limited due to orthostasis. Will start Midodrine 2 mg TID. He does have a history of atrial flutter, but not on BB due to marked bradycardia. Not a candidate for cardioversion as he is not a candidate for anticoagulation. (2) Orthostatic hypotension: Dizziness and fall secondary to orthostatic hypotension. Orthostatic vitals positive. I suspect he is also dehydrated. Uncertain of the dose of Imdur patient was taking at home. [employer] shows 30 mg daily. Per [employer] medication list he was on 90 mg daily. At this point I would consider discontinuing this medication or keep at low dose 30 mg daily. (3) CAD (coronary artery disease): Stable. Denies angina. Maintained on Aspirin (currently at home). Continue statin therapy. Continue Ranexa and Imdur for chronic angina. (4) Atrial fibrillation: Known AFIB. Rates have been primarily controlled. CHADSVASC 6 (age, CAD, CVA, CHF) We discussed the pathophysiology/treatment for atrial fibrillation. We also discussed stroke risk vs. bleeding risk. Patient is agreeable to hold off on oral anticoagulation, which I agree. He has a history of frequent falls. He was admitted in February 2023 with [place] [facility] occurred while on DAPT. (5) Atrial flutter: See above. Supervising Physician Co-Signing Physician Notes Attending attestation: Case reviewed with the advanced practitioner. I have personally performed a history and physical examination on the patient. I have reviewed the advanced practitioner's documentation on the date of service referenced in note, and I agree with, and take responsibility for the plan of care. Subjective: Patient without acute complaint at present. He states he used to live in [place] and that is where he had his bypass surgery more than 20 years ago. 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 Exam: Cardiovascular regular rhythm, no murmurs, no edema, Rhoades catheter in place Data: Telemetry reveals rate controlled atrial flutter at 79 bpm at present The images of the echocardiogram obtained during this admission reviewed/inter preted independently, and I also reviewed the images obtained at the time of his most recent local outpatient echocardiogram within the [facility] system dating back to 03/06/2022. At the time of the previous echocardiogram, sinus bradycardia at 51 bpm present. At the time of the most recent echocardiogram, atrial fibrillation/flutter present with rates in the range of 90 to 100 bpm. I believe the abnormal septal motion is related to the tachycardia with conduction delay. The right ventricular chamber size appears more prominent on the most recent echocardiogram compared to the previous. The patient's current arrhythmia is likely playing a role in making the left ventricular systolic function appear to be mildly reduced compared to the previous echocardiogram. Would avoid AV sharon blockers given documented past severe bradycardia on metoprolol. Proceed with trial of midodrine for orthostatic hypotension. Agree with reduced dose of isosorbide mononitrate compared to his outpatient dose. I spent a total of 20 minutes coordinating, documenting, and providing care for this patient excluding time spent in the performance of separately billed services or time spent by another provider. Kade Caldwell, History of Present Illness Requesting Physician: Nava Stanton MD Attending Physician: Dr. Caldwell History of Present Illness Leodan Hussein is a 73 year old male known to [facility]. Past medical history of CAD s/p KAMRYN x1 RPDA in 2010, CABG x2 in 2010, and KAMRYN x2 mid LCx in 2018. Patient has Dementia with history of CVA in 1982. History of frequent falls with an admission with subdural hematoma (on DAPT) with [place] [facility] [place] (no intervention needed). Known atrial flutter diagnosed in December 2022, but not on oral anticoagulation due to frequent falls. CASSIE on CPAP. Presented to [facility] for evaluation of dizziness and fall. Patient states he was in the bathroom when he got up from the toilet after having a bowel movement he walked toward the doorway. He began to feel dizzy and knees folded, which caused him to fall backwards. He hit the back of his head against the wall which left a hole in the drywall. Family heard a loud thud when they found him. Patient did not lose consciousness. Patient lives with his son and ambulates with a walker at baseline. Echocardiogram on admission revealed mildly reduced EF 45-50%. This was previously normal at 55-59% in 2021. Found to have significant leukocytosis. EKG shows atrial fibrillation/flutter 121 bpm. Hemoglobin 16.0 on admission, repeat 12.8. CT PE negative. Fortunately his Head/Cervical imaging did not show signs of an acute hemorrhage or fracture. Orthostatic vitals were positive. Allergies Allergy/AdvReac Type Severity Reaction Status Date / Time cephalexin Allergy Unknown Verified 08/10/23 08:42 Penicillins Allergy Unknown Verified 08/10/23 08:42 prednisone Allergy Unknown Verified 08/10/23 08:42 Home Medications Medication Instructions Recorded Confirmed Type atorvastatin 80 mg tablet 80 mg PO QPM 08/09/22 11/06/23 History lisinopril 10 mg tablet 10 mg PO QAM 08/09/22 11/06/23 History omega 2-ird-dzg-fish oil 1,200 mg 1 cap PO QAM 08/09/22 11/06/23 History (144 mg-216 mg) capsule (Fish Oil) ranolazine 500 mg tablet,extended 0 mg PO BID 08/09/22 11/06/23 History release,12 hr aspirin 81 mg tablet,delayed 81 mg PO QAM 12/17/22 11/06/23 History release cholecalciferol (vitamin D3) 25 25 mcg PO QAM 12/17/22 11/06/23 History mcg (1,000 unit) chewable tablet (Vitamin D3) cyanocobalamin (vitamin B-12) 1,000 mcg PO QAM 12/17/22 11/06/23 History 1,000 mcg tablet (Vitamin B-12) potassium gluconate 600 mg (99 mg) 600 mg PO DAILY 12/17/22 11/06/23 History tablet isosorbide mononitrate 30 mg 30 mg PO QAM #90 tabs 09/19/23 11/06/23 Rx tablet,extended release 24 hr donepezil 10 mg tablet 10 mg PO QAM 90 days #90 tabs 10/15/23 11/06/23 Rx fenofibrate nanocrystallized 145 145 mg PO QAM #90 tabs 10/15/23 11/06/23 Rx mg tablet memantine 10 mg tablet 10 mg PO BID 90 days #180 tabs 10/15/23 11/06/23 Rx nitroglycerin 0.4 mg sublingual 0.4 mg sublingual UD PRN Chest Pain 11/06/23 11/06/23 History tablet Patient History Medical History (Updated 11/07/23 @ 16:32 by LEIDA Vyas) Atrial flutter Dementia H/O sinus bradycardia CVA (cerebral vascular accident) CAD (coronary artery disease) Hyperlipidemia HTN (hypertension), benign Encounter for pre-operative examination Closed fracture of left wrist Closed fracture of left hip Fall Surgical History H/O wrist surgery H/O heart surgery History of surgery on lower extremity Aortocoronary bypass status Family History Brother Diabetes Father Myocardial infarction Mother Myocardial infarction Other Hypertension Denies family history of Ovarian cancer Prostate cancer Breast cancer Colorectal cancer Social History Smoking Status: Never smoker Second Hand Exposure: No; Do You Dip or Chew Tobacco: No; Hx Alcohol Use: No Hx Substance Use: No Preferred Language: Malay Communication Ability: Effective Stave Grader Required: No Beliefs That Will Affect Care: None Current Living Situation: Alone current occupational status: retired Feels Safe at Home: Yes caffeine: Yes (coffee) Dental Care, Regularly: Yes Physical Activity Frequency: 1-2 Times per Week Seatbelt Use: always Sunscreen Use: No Assistive Devices: Cane Review of Systems Review of Systems: All systems reviewed & are unremarkable except as noted in HPI & below Physical Exam Constitutional: WD/WN, vitals as above Eyes: PERRL, conjunctivae normal, anicteric sclerae Respiratory: normal respiratory effort, lungs clear to auscultation Cardiovascular: Rate/Rhythm: + irregularly irregular Heart Sounds: no murmur Vessels: no JVD Extremities: normal capillary refill; no edema Gastrointestinal (Abdomen): normal bowel sounds, soft, nontender, no hepatosplenomegaly Musculoskeletal: no cyanosis or clubbing, extremities motor strength 5/5 Neurologic: PERRL, EOMI, accommodation nl, no face palsy, no dysarthria Dementia Psychiatric: A+Ox3, euthymic affect Results & Data Vital Signs (Past 12 Hours) Vital Signs Temp Pulse Pulse Resp BP BP Pulse Ox 11/07/23 11:00 36.7 C 108 H 18 120/68 93 11/07/23 08:29 36.4 C L 80 16 139/92 96 11/07/23 07:44 90 18 132/75 95 11/07/23 07:34 85 11/07/23 04:00 98 H 30 H 94 11/07/23 04:00 133/95 11/07/23 03:05 103 H 17 96 11/07/23 03:00 109/79 11/07/23 03:00 90 17 96 O2 Del Method FiO2 11/07/23 11:00 Room Air 11/07/23 08:29 Room Air 11/07/23 07:44 Room Air 11/07/23 07:34 11/07/23 04:00 11/07/23 04:00 11/07/23 03:05 21 11/07/23 03:00 11/07/23 03:00 Laboratory Results Cardiac Enzymes 11/07/23 Range/Units 04:14 AST 16 (13-39) U/L CBC 11/07/23 Range/Units 04:14 WBC 14.68 H (4.8-10.8) K/ul RBC 3.99 L (4.70-6.10) M/uL Hgb 12.8 L D (14.0-18.0) g/dl Hct 39.8 L (42.0-52.0) % Plt Count 211 (130-400) K/uL Neut # (Auto) 11.09 H (1.40-6.50) K/uL Lymph # (Auto) 2.43 (1.20-3.40) K/uL Granite # (Auto) 0.60 H (0.11-0.59) K/uL Eos # (Auto) 0.35 (0.00-0.50) K/uL Baso # (Auto) 0.06 (0.00-0.20) K/uL Comprehensive Metabolic Panel 11/07/23 Range/Units 04:14 Sodium 136 (136-145) mmol/L Potassium 4.2 (3.5-5.1) mmol/L Chloride 106 (98-107) mmol/L Carbon Dioxide 25 (21-32) mmol/L BUN 17 (6-23) mg/dl Creatinine 0.98 (0.6-1.4) mg/dl Glucose 93 (70-99(Fasting)) mg/dl Calcium 8.9 (8.6-10.3) mg/dl AST 16 (13-39) U/L ALT 16 (7-52) U/L Alkaline Phosphatase 31 L (34-104) U/L Total Protein 5.7 L (6.0-8.3) gm/dl Albumin 3.4 (3.4-5.0) gm/dl Intake and Output 11/07/23 11/07/23 11/07/23 06:59 14:59 22:59 Intake Total 1000 / 3283.333 Output Total 1150 / 1150 Balance 1000 / 1883.333 -1150 / -1150 Intake: IV 1000 / 3283.333 Lactated Ringer's 1,000 ml @ 80 1000 / 1000 mls/hr IV .[id number] FOR[facility] Rx#: [id number] Output: Urine Amount (Catheter) 1150 / 1150 Rhoades/Indwelling 1150 / 1150 Diagnostic Findings Telemetry reviewed. Atrial flutter with rates between 70s-90s bpm. EKG 11/06/23-reviewed personally Atrial fibrillation/flutter 121 bpm Echo 11/06/2023-Completed during Admission Normal LV size. Mildly reduced EF 45-50% Septal motion consistent with IVCD RV is enlarged with normal function by TAPSE. RA is enlarged. Moderate TR. Late bubble passage suggestive of PFO. Echo 03/06/2022- Completed at [facility] The examination is adequate to evaluate the referral indication. The left ventricular cavity size is normal. The LV wall thickness is mildly increased (concentric). There was sinus bradycardia during the examination. There is mild dyssynergy of the apical septum The regional left ventricular wall motion is otherwise normal. The qualitative LV ejection fraction is 55-59% (normal). The left ventricular diastolic function is mildly abnormal (grade I). There is no significant valvular disease Chest X-Ray 11/06/23 06:25 XR chest 1V portable IMPRESSION: No acute chest disease. Chest CTA 11/06/23 08:41 IMPRESSION: 1. No pulmonary emboli identified although lower lobe segmental and subsegmental pulmonary arteries suboptimally assessed due to respiratory motion. 2. Lower lung groundglass and linear densities which favor atelectasis. No consolidation to suggest pneumonia. 3. Secretions/mucous within the distal trachea. No central obstructing mass. (3) CAD (coronary artery disease) Associated angina: without angina Coronary Disease-Associated Artery/Lesion type: unspecified vessel or lesion type [place] vs. transplanted heart: havasupai heart Qualified Code(s): I25.10 - Atherosclerotic heart disease of [place]vas[place]ai coronary artery without angina pectoris (4) Atrial fibrillation Atrial fibrillation type: persistent (not longstanding) Qualified Code(s): I48.19 - Other persistent atrial fibrillation (5) Atrial flutter Atrial flutter type: unspecified Qualified Code(s): I48.92 - Unspecified atrial flutter
[2023-11-07] MEDS: MIDODRINE HCL 2.5 MG TAB PO SCH (17:33)
[2023-11-08 06:20] LABS: Albumin Globulin Ratio 1.3 (0.9-2); Albumin Level 3.5 gm/dl (3.4-5.0); BUN Creatinine Ratio 17.8 (10-20); Basophils # (auto) 0.06 K/uL (0.00-0.20); Basophils % (auto) 0.6 %; Bilirubin,Total 1.2 mg/dl (0.2-1.0); Calcium 9.2 mg/dl (8.6-10.3); Creatinine Clr Calc Pharmacy 89.4 ml/min; Eosinophils # (auto) 0.35 K/uL (0.00-0.50); Eosinophils % (auto) 3.8 %; Est GFR (African American) 96.5 ml/min; Est GFR (Non-African American) 83.3 ml/min; Globulin 2.6 gm/dl (2.5-4.0); Hematocrit (blood only) 39.9 % (42.0-52.0); Immature Granulocytes # (auto) 0.12 K/uL (0.01-0.20); Immature Granulocytes % (auto) 1.3 %; Lymphocytes # (auto) 2.15 K/uL (1.20-3.40); Lymphocytes % (auto) 23.2 %; Magnesium 1.8 mg/dl (1.7-2.4); Mean Corpuscular Hemoglobin 32.3 pg (25.0-34.0); Mean Corpuscular Hgb Conc 32.6 g/dL (32.0-36.0); Mean Corpuscular Volume 99.3 fL (80.0-100.0); Mean Platelet Volume 9.3 fL (9.4-12.4); Monocytes # (auto) 0.46 K/uL (0.11-0.59); Neutrophils # (auto) 6.13 K/uL (1.40-6.50); Neutrophils % (auto) 66.1 %; Platelet Count 213 K/uL (130-400); Potassium 4.3 mmol/L (3.5-5.1); RDW Coefficient of Variation 13.6 % (11.5-14.5); RDW Standard Deviation 50.3 fL (36.4-46.3); Red Blood Count 4.02 M/uL (4.70-6.10); Total Protein 6.1 gm/dl (6.0-8.3); White Blood Count 9.27 K/ul (4.8-10.8)
--- NOTE | 2023-11-08 06:59 | Hospitalist Progress Note ---
Date of Service November 08, 2023 Assessment & Plan (1) Atrial flutter: Plan Pt is a 73 yo male with a past medical history of hx L parieto-occipital infarct, hx subdural hematoma after a fall with seizures after, dementia, HTN, CAD, sinus bradycardia, paroxysmal atrial flutter, and CASSIE on HS CPAP who presents to the hospital on 11/05 for 3 days of weakness and dizziness with standing and fall. PT/OT; this pt would benefit from rehab. Pt and son agreeable to this plan. D/C'ed cefepime as leukocytosis has resolved and no source identified. #Fall - Has a long hx of falls - Experienced dizziness after standing preceding the weakness and fall, was admitted months ago for the same thing - Denies any focal neuro symptoms on admission - No acute trauma or focal neuro defects on exam on admission - Likely due to dehydration due to current infection - Fall precautions, PT/OT pending - orthostatic hypotension testing + so most likely his weakness/dizziness with position change is orthostatic hypotension in nature but with echo results noted below will get cardiology involved as well, but these may also be due to his home medications such as his dementia medications or imdur - midodrine started, advise pt to get up slowly and take his time, keep hydrated ~60 ounces fluids daily #Heart failure mildly reduced EF - echo 12/19/2022(per [facility] system); EF 60-65% with no wall motion abnormalities and wnl LV function - echo 11/07/23; EF 45-50%, 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, + PFO per bubble study - cardiology consulted; midodrine started #Atrial flutter - noted on EKG on admission and telemetry, dx originally during 12/2022 hospitalization - noted on previous EKGs in the system as well, rate is controlled at this time (goal <110) - pt not on anticoagulation, was initially deferred due to acute subdural bleed s/p fall at that time - pt notes he does not recall following up with cardiology after that admission and was maybe on a blood thinner years ago but for a vascular issue when he had some of his varicose veins in his legs addressed - cardiology consulted; pt is rate controlled so can defer beta blockers for now, defer anticoagulation as pt has had several falls including one with a subdural hemorrhage #Leukocytosis, resolved - WBC count on admission 23, 14, now 9 - chest CTA showed some atelectasis but nothing else, CXR wnl - lactate was 2.4 ->1.8, procal 0.52 on admission - urine cx; neg - blood cx; neg - sputum cx; neg - placed on empiric cefepime on admission, D/C'ed 11/07 - likely secondary to viral infection of some kind that is resolving spontaneously or transient leukemoid rxn - was placed on leon for urinary retention, will need void trial prior to discharge #Obstructive sleep apnea - had some mild hypoxia 88% on admission but has been sat >90% primarily on RA otherwise - HS CPAP ordered #H/O: stroke - No focal neuro defects on admission - CT of the head/brain wo con negative for acute findings - Continue aspirin and statin #Dementia -Continue memantine and Donepezil for now, but may decrease one or both since they can contribute to orthostatic hypotension #HTN (hypertension), benign - Stable the last 24 hrs - Continue home lisinopril #Hyperlipidemia - Continue home statin Admission and Anticipated Discharge Date Admission Date: November 06, 2023 Supervising Physician Co-Signing Physician Notes Attending Physician Supervision Note: I independently interviewed and examined the patient and verified the perez h istory and physical, reviewed labs and image studies and agree with findings and care plan noted above. Fall - h/o SDH in past. likely multifactorial etiology - orthostatic hypotension, new CMP and rapid A flutter. -PT/OT recommending rehab placement. Orthostatic hypotension - On imdur, flomax, donepezil, memantine. -coached on slowly getting out of bed or chair. -Midodrine added by cardiology - tolerating -Imdur home dose 90 mgs decreased to 30mgs -lisinopril dose decreased to 5mgs. CMP - New drop in EF on echo - 45-50%. -Per cardio - abnormal septal motion is related to the tachycardia with conduction delay. -Current arrhythmia making the left ventricular systolic function appear to be mildly reduced compared to the previous echocardiogram. -Continue lisinopril. Can't be on b agueda. PAF - Noted on EKG on admission. No AC d/t h/o SDH. No AV block agent d/t h/o bradycardia. Leukocytosis on admission - resolved. sepsis ruled out. -will d/c abx. SCD Subjective Pt is a 73 yo male with a past medical history of hx L parieto-occipital infarct, hx subdural hematoma after a fall with seizures after, dementia, HTN, CAD, sinus bradycardia, paroxysmal atrial flutter, and CASSIE on HS CPAP who presents to the hospital on 11/05 for 3 days of weakness and dizziness with standing and fall. Today, pt states that he feels good and really has no complaints. Spoke to him again this afternoon and he states he does feel a bit weaker now that he did before and is agreeable to go to rehab if that is what we feel he needs. He lives with his son and his son's . No further questions or complaints at this time. Nursing staff noted he has decreased peripheral vision on the R side with no headaches, nausea, or vomiting noted. CT done on admission was wnl. Called son since he was not present at bedside to give medical updates. He also is agreeable to his dad going to rehab. All questions answered. Review of Systems Review of Systems: Constitutional: denies fever, chills, HEENT: denies nasal congestion, sore throat Cardio: denies chest pain, palpitations Resp: denies shortness of breath, cough GI: denies abdominal pain, nausea, vomiting, constipation, diarrhea : denies pain with urination, change in urinary frequency Physical Exam Physical Exam: General:Alert and oriented, no acute distress, HEENT: Normocephalic, moist oral mucosa, TMs wnl bilaterally with moderate wax build up Cardio: Regular rate and rhythm, no murmur, Resp:Lungs clear to auscultation b/l, no wheezes or rhonchi, GI: Soft and nontender, nondistended, bowel sounds active Skin: Warm, pink, dry, no skin lesions or rashes noted anywhere on arms, legs, or trunk/back Psych: Mood-affect congruence. Results & Data Results & Data Vital Signs (Past 12 Hours) Vital Signs Temp Pulse Pulse Resp BP Pulse Ox O2 Del Method 11/08/23 03:28 36.6 C 88 18 133/90 95 Room Air, CPAP 11/08/23 03:27 76 21 96 11/08/23 00:37 83 11/07/23 23:21 111 H 18 95 11/07/23 22:40 36.4 C L 90 18 138/84 96 CPAP 11/07/23 19:15 36.4 C L 78 16 112/66 93 Room Air FiO2 11/08/23 03:28 11/08/23 03:27 21 11/08/23 00:37 11/07/23 23:21 21 11/07/23 22:40 11/07/23 19:15 Resident Activity Tracking Resident Involvement: Resident Care Provided Care Provided: Adult Hospital Medicine (1) Atrial flutter Atrial flutter type: unspecified Qualified Code(s): I48.92 - Unspecified atrial flutter
--- NOTE | 2023-11-08 07:33 | Electrocardiogram Report ---
Test Reason : Blood Pressure : / mmHG Vent. Rate : 121 BPM Atrial Rate : 131 BPM P-R Int : 194 ms QRS Dur : 086 ms QT Int : 288 ms P-R-T Axes : 000 068 -67 degrees QTc Int : 408 ms Atrial fibrillation with rapid ventricular response Abnormal ECG When compared with ECG of 17-MAR-2023 16:39, HR has increased Nonspecific T wave abnormality, worse in Lateral leads Confirmed by Kyler Prescott ([id number]) on 11/08/2023 7:32:39 AM Referred By: REFERRED SELF Confirmed By:Kyler Prescott
[2023-11-08] MEDS: lisinopril 5 MG TAB PO SCH (10:25)
--- NOTE | 2023-11-08 11:40 | Cardiology Progress Note ---
Date of Service November 08, 2023 Assessment & Plan (1) Heart failure with mildly reduced ejection fraction (HFmrEF): Plan: New mildly reduced EF. He is euvolemic on exam. Patient is asymptomatic. Medical management recommend, but will be limited due to orthostasis. Will start Midodrine 2.5 mg TID. He does have a history of atrial flutter, but not on BB due to marked bradycardia. Not a candidate for cardioversion as he is not a candidate for anticoagulation. (2) Orthostatic hypotension: Plan: Dizziness and fall secondary to orthostatic hypotension. Orthostatic vitals positive. I suspect he is also dehydrated. Uncertain of the dose of Imdur patient was taking at home. [email or web address] shows 30 mg daily. Per [facility] medication list he was on 90 mg daily. At this point I would consider discontinuing this medication or keep at low dose 30 mg daily. (3) CAD (coronary artery disease): Plan: Stable. Denies angina. Maintained on Aspirin (currently at home). Continue statin therapy. Continue Ranexa and Imdur for chronic angina. (4) Atrial fibrillation: Plan: Known AFIB. Rates have been primarily controlled. CHADSVASC 6 (age, CAD, CVA, CHF) We discussed the pathophysiology/treatment for atrial fibrillation. We also discussed stroke risk vs. bleeding risk. Patient is agreeable to hold off on oral anticoagulation, which I agree. He has a history of frequent falls. He was admitted in February 2023 with a subdural hematoma at [facility]. This fall occurred while on DAPT. (5) Atrial flutter: Plan 11/08/23: Patient re-evaluated. Dizziness improved with gentle hydration. BP remains borderline low despite reduction in antihypertensive therapy. Isosorbide reduced from 90 to 30 mg daily on admission. Will reduce lisinopril from 10 to 5 mg this morning. Midodrine initiated yesterday 2.5 mg TID. Would consider stopping flomax? Defer to hospitalist. Mildly reduced LVEF likely due to atrial flutter with variable rates. He has a long history of bradycardia while on beta agueda. Avoid AV sharon blocking agents. He is not a candidate for anticoagulation therapy given history of falls, subdural hematoma. Ongoing rate control recommended for atrial flutter. Case discussed with Dr. Caldwell I spent a total of 30 minutes on the date of service in preparation, delivery, and documentation of the care provided to this patient, excluding any time spent in the performance of separately billed services. Didi Broderick PA-C Department of Cardiology, [facility] This chart was completed in part utilizing Speech Voice Recognition Software. Grammatical errors, random word insertions, pronoun errors, and incomplete sentences are an occasional consequence of this system due to software limitations, ambient noise, and hardware issues. Any formal questions or concerns about the content, text, or information contained within the body of this dictation should be directly addressed to the provider for clarification. Admission and Anticipated Discharge Date Admission Date: November 06, 2023 Supervising Physician Co-Signing Physician Notes Attending attestation: Case reviewed with the advanced practitioner. I have personally performed a history and physical examination on the patient. I have reviewed the advanced practitioner's documentation on the date of service referenced in note, and I agree with, and take responsibility for the plan of care. Patient with history of symptomatic bradycardia on metoprolol and therefore not start AV sharon agueda therapy. Atrial flutter with ventricular rate of 99 bpm noted while patient was sitting in an upright chair at the time of my assessment. Lisinopril dose reduced to 5 mg daily. Isosorbide mononitrate dose reduced to 30 mg daily. Continue aspirin, atorvastatin, Ranexa. Blood pressure stable on midodrine 2.5 mg 3 times daily. I spent a total of 20 minutes coordinating, documenting, and providing care for this patient excluding time spent in the performance of separately billed services or time spent by another provider. Kade Caldwell, Subjective Patient resting in bed comfortably. BP borderline low this morning. Lisinopril dose held. No dizziness reported this morning. No chest pain or dyspnea Review of Systems Review of Systems: All systems reviewed & are unremarkable except as noted in HPI & below Physical Exam Constitutional: WD/WN, vitals as above Eyes: PERRL, conjunctivae normal, anicteric sclerae Respiratory: normal respiratory effort, lungs clear to auscultation Cardiovascular: Rate/Rhythm: + irregularly irregular Heart Sounds: no murmur Vessels: no JVD Extremities: normal capillary refill; no edema Gastrointestinal (Abdomen): normal bowel sounds, soft, nontender, no hepatosplenomegaly Musculoskeletal: no cyanosis or clubbing, extremities motor strength 5/5 Neurologic: PERRL, EOMI, accommodation nl, no face palsy, no dysarthria Psychiatric: A+Ox3, euthymic affect Results & Data Vital Signs (Past 12 Hours) Vital Signs Temp Pulse Pulse Pulse Resp BP Pulse Ox 11/08/23 08:48 98 H 103/69 11/08/23 08:06 36.5 C 91 H 18 137/87 94 11/08/23 08:00 11/08/23 03:28 36.6 C 88 18 133/90 95 11/08/23 03:27 76 21 96 11/08/23 00:37 83 O2 Del Method FiO2 11/08/23 08:48 11/08/23 08:06 Room Air 11/08/23 08:00 Room Air 11/08/23 03:28 Room Air, CPAP 11/08/23 03:27 21 11/08/23 00:37 Laboratory Results Cardiac Enzymes 11/08/23 Range/Units 05:35 AST 17 (13-39) U/L CBC 11/08/23 Range/Units 05:35 WBC 9.27 (4.8-10.8) K/ul RBC 4.02 L (4.70-6.10) M/uL Hgb 13.0 L (14.0-18.0) g/dl Hct 39.9 L (42.0-52.0) % Plt Count 213 (130-400) K/uL Neut # (Auto) 6.13 (1.40-6.50) K/uL Lymph # (Auto) 2.15 (1.20-3.40) K/uL [place] # (Auto) 0.46 (0.11-0.59) K/uL Eos # (Auto) 0.35 (0.00-0.50) K/uL Baso # (Auto) 0.06 (0.00-0.20) K/uL Comprehensive Metabolic Panel 11/08/23 Range/Units 05:35 Sodium 137 (136-145) mmol/L Potassium 4.3 (3.5-5.1) mmol/L Chloride 105 (98-107) mmol/L Carbon Dioxide 26 (21-32) mmol/L BUN 16 (6-23) mg/dl Creatinine 0.90 (0.6-1.4) mg/dl Glucose 93 (70-99(Fasting)) mg/dl Calcium 9.2 (8.6-10.3) mg/dl AST 17 (13-39) U/L ALT 16 (7-52) U/L Alkaline Phosphatase 27 L (34-104) U/L Total Protein 6.1 (6.0-8.3) gm/dl Albumin 3.5 (3.4-5.0) gm/dl Intake and Output 11/07/23 11/08/23 11/08/23 22:59 06:59 14:59 Intake Total 990 / 990 Output Total 551 / 3701 1999 Balance 439 / -2711 -1999 Intake: Oral 990 / 990 Output: Urine Amount (Catheter) 550 / 3700 1999 3700 Rhoades/Indwelling 550 / 3700 1999 / 3700 # Bowel Movements Other: Weight 100.244 kg Weight Measurement Method Built in [facility] Diagnostic Findings Telemetry reviewed: Persistent atrial flutter with variable ventricular rates. Currently 88 bpm. Occasionally ventricular rates increase to around 130s but is not sustained. Echo 11/06/2023-Completed during Admission Normal LV size. Mildly reduced EF 45-50% Septal motion consistent with IVCD RV is enlarged with normal function by TAPSE. RA is enlarged. Moderate TR. Late bubble passage suggestive of PFO. Medications Administered Current Inpatient Medications Albuterol (Albuterol 0.5% Neb Soln 2.5 Mg/0.5 Ml Vial) 2.5 mg NEB Q6R PRN; Protocol PRN Reason: wheezing/shortness of breath Stop: 12/06/23 12:59 Last Admin: 11/06/23 11:04 Dose: 2.5 mg Aspirin (Aspirin 81 Mg Ectab) 81 mg PO QAM [facility] Stop: 12/07/23 08:59 Last Admin: 11/08/23 08:56 Dose: 81 mg Atorvastatin Calcium (Atorvastatin 40 Mg Tab) 80 mg PO QPM [facility] Stop: 12/06/23 20:59 Last Admin: 11/07/23 21:01 Dose: 80 mg Donepezil HCl (Donepezil Hcl 10 Mg Tab) 10 mg PO QAM [facility] Stop: 12/07/23 08:59 Last Admin: 11/08/23 08:56 Dose: 10 mg Cefepime HCl 2,000 mg/ Syringe 20 mls @ 5 mls/min IV Q12H VALERIO; Protocol Stop: 11/11/23 19:59 Last Admin: 11/08/23 08:51 Dose: 5 mls/min Isosorbide Mononitrate (Isosorbide [place] Extended Rel 30 Mg Tabcr) 30 mg PO QAM [facility] Stop: 12/07/23 08:59 Last Admin: 11/08/23 08:57 Dose: 30 mg Lisinopril (Lisinopril 5 Mg Tab) 5 mg PO QAM [facility] Stop: 12/08/23 09:44 Last Admin: 11/08/23 10:25 Dose: 5 mg Memantine (Memantine Hcl 10 Mg Tab) 10 mg PO BID [facility] Stop: 12/06/23 20:59 Last Admin: 11/08/23 08:59 Dose: 10 mg Midodrine (Midodrine Hcl 2.5 Mg Tab) 2.5 mg PO TID@0800,1200,1700 [facility] Stop: 12/07/23 16:59 Last Admin: 11/08/23 08:55 Dose: 2.5 mg Ranolazine (Ranolazine 500 Mg Er Tab) 500 mg PO BID [facility] Stop: 12/06/23 20:59 Last Admin: 11/08/23 09:34 Dose: 500 mg Tamsulosin HCl (Tamsulosin Hcl 0.4 Mg Cap) 0.4 mg PO QAM [facility] Stop: 12/07/23 08:59 Last Admin: 11/08/23 09:01 Dose: 0.4 mg (3) CAD (coronary artery disease) Associated angina: without angina Coronary Disease-Associated Artery/Lesion type: unspecified vessel or lesion type [place] vs. transplanted heart: [place] heart Qualified Code(s): I25.10 - Atherosclerotic heart disease of [place] coronary artery without angina pectoris (4) Atrial fibrillation Atrial fibrillation type: persistent (not longstanding) Qualified Code(s): I48.19 - Other persistent atrial fibrillation (5) Atrial flutter Atrial flutter type: unspecified Qualified Code(s): I48.92 - Unspecified atrial flutter
[2023-11-09 05:11] LABS: Albumin Globulin Ratio 1.4 (0.9-2); Albumin Level 3.6 gm/dl (3.4-5.0); BUN Creatinine Ratio 15.7 (10-20); Calcium 9.4 mg/dl (8.6-10.3); Creatinine Clr Calc Pharmacy 74.5 ml/min; Est GFR (African American) 77.4 ml/min; Est GFR (Non-African American) 66.8 ml/min; Globulin 2.5 gm/dl (2.5-4.0); Magnesium 1.7 mg/dl (1.7-2.4); Potassium 3.9 mmol/L (3.5-5.1); Total Protein 6.1 gm/dl (6.0-8.3)
[2023-11-09 05:18] LABS: Basophils # (auto) 0.07 K/uL (0.00-0.20); Basophils % (auto) 0.7 %; Eosinophils # (auto) 0.36 K/uL (0.00-0.50); Eosinophils % (auto) 3.7 %; Hematocrit (blood only) 40.6 % (42.0-52.0); Hemoglobin 13.1 g/dl (14.0-18.0); Immature Granulocytes # (auto) 0.21 K/uL (0.01-0.20); Immature Granulocytes % (auto) 2.2 %; Lymphocytes # (auto) 2.55 K/uL (1.20-3.40); Lymphocytes % (auto) 26.5 %; Mean Corpuscular Hgb Conc 32.3 g/dL (32.0-36.0); Mean Platelet Volume 9.5 fL (9.4-12.4); Monocytes # (auto) 0.52 K/uL (0.11-0.59); Monocytes % (auto) 5.4 %; Neutrophils % (auto) 61.5 %; Platelet Count 230 K/uL (130-400); RDW Coefficient of Variation 13.6 % (11.5-14.5); RDW Standard Deviation 49.8 fL (36.4-46.3); White Blood Count 9.61 K/ul (4.8-10.8)
--- NOTE | 2023-11-09 10:05 | Cardiology Progress Note ---
Date of Service November 09, 2023 Assessment & Plan (1) Heart failure with mildly reduced ejection fraction (HFmrEF): (2) Orthostatic hypotension: (3) CAD (coronary artery disease): (4) Atrial fibrillation: (5) Atrial flutter: Plan 11/08/23: Patient re-evaluated. Dizziness improved with gentle hydration. BP remains borderline low despite reduction in antihypertensive therapy. Isosorbide reduced from 90 to 30 mg daily on admission. Will reduce lisinopril from 10 to 5 mg this morning. Midodrine initiated yesterday 2.5 mg TID. Would consider stopping flomax? Defer to hospitalist. 11/09/23: Stable from a cardiac standpoint. BP stable in the 120s/70-80s. Tolerating Midodrine 2.5 mg TID. Consider stopping Lisinopril if he becomes hypotensive. Consider stopping Flomax as this can contribute to hypotension Recommend PT/OT. Encourage ambulation monitoring. Mildly reduced LVEF likely due to atrial flutter with variable rates. He has a long history of bradycardia while on beta agueda. Avoid AV sharon blocking agents. He is not a candidate for anticoagulation therapy given history of falls, subdural hematoma. Ongoing rate control recommended for atrial flutter. Case discussed with Dr. Caldwell I spent a total of 30 minutes on the date of service in preparation, delivery, and documentation of the care provided to this patient, excluding any time spent in the performance of separately billed services. LEIDA Montez Department of Cardiology, [facility] This chart was completed in part utilizing Speech Voice Recognition Software. Grammatical errors, random word insertions, pronoun errors, and incomplete sentences are an occasional consequence of this system due to software limitations, ambient noise, and hardware issues. Any formal questions or concerns about the content, text, or information contained within the body of this dictation should be directly addressed to the provider for clarification. Admission and Anticipated Discharge Date Admission Date: November 06, 2023 Supervising Physician Co-Signing Physician Notes Attending attestation: Case reviewed with the advanced practitioner. I have personally performed a history and physical examination on the patient. I have reviewed the advanced practitioner's documentation on the date of service referenced in note, and I agree with, and take responsibility for the plan of care. Patient with history of symptomatic bradycardia on metoprolol and therefore not start AV sharon agueda therapy. Atrial flutter with ventricular rate of 99 bpm noted while patient was sitting in an upright chair at the time of my assessment. Lisinopril dose reduced to 5 mg daily. Isosorbide mononitrate dose reduced to 30 mg daily. Continue aspirin, atorvastatin, Ranexa. Blood pressure stable on midodrine 2.5 mg 3 times daily which can be titrated to 5 mg PO TID. Rhoades catheter in place. Consider removing and proceeding with voiding trial. Patient awaiting rehab placement. Cardiology to sign off. Call with questions or concerns. I spent a total of 20 minutes coordinating, documenting, and providing care for this patient excluding time spent in the performance of separately billed services or time spent by another provider. Kade Caldwell, DO Subjective No acute events noted overnight. He is resting comfortably in bed this morning. Does not offer any cardiovascular concerns. Review of Systems Review of Systems: All systems reviewed & are unremarkable except as noted in HPI & below Physical Exam Constitutional: WD/WN, vitals as above Eyes: PERRL, conjunctivae normal, anicteric sclerae Respiratory: normal respiratory effort, lungs clear to auscultation Cardiovascular: Rate/Rhythm: + irregularly irregular Heart Sounds: no murmur Vessels: no JVD Extremities: normal capillary refill; no edema Gastrointestinal (Abdomen): normal bowel sounds, soft, nontender, no hepatosplenomegaly Musculoskeletal: no cyanosis or clubbing, extremities motor strength 5/5 Neurologic: PERRL, EOMI, accommodation nl, no face palsy, no dysarthria Psychiatric: A+Ox3, euthymic affect Genitourinary: Rhoades catheter in place. Results & Data Vital Signs (Past 12 Hours) Vital Signs Temp Pulse Pulse Pulse Resp BP Pulse Ox 11/09/23 07:46 36.6 C 74 17 127/72 95 11/09/23 07:40 83 11/09/23 03:34 22 94 11/09/23 02:55 36.6 C 80 17 125/83 91 11/09/23 00:06 36.5 C 84 17 127/93 95 11/08/23 23:00 90 11/08/23 22:30 32 H 95 O2 Del Method FiO2 11/09/23 07:46 Room Air 11/09/23 07:40 11/09/23 03:34 11/09/23 02:55 CPAP 11/09/23 00:06 CPAP 11/08/23 23:00 11/08/23 22:30 21 Laboratory Results Cardiac Enzymes 11/09/23 Range/Units 04:29 AST 16 (13-39) U/L CBC 11/09/23 Range/Units 04:29 WBC 9.61 (4.8-10.8) K/ul RBC 4.10 L (4.70-6.10) M/uL Hgb 13.1 L (14.0-18.0) g/dl Hct 40.6 L (42.0-52.0) % Plt Count 230 (130-400) K/uL Neut # (Auto) 5.90 (1.40-6.50) K/uL Lymph # (Auto) 2.55 (1.20-3.40) K/uL [place] # (Auto) 0.52 (0.11-0.59) K/uL Eos # (Auto) 0.36 (0.00-0.50) K/uL Baso # (Auto) 0.07 (0.00-0.20) K/uL Comprehensive Metabolic Panel 11/09/23 Range/Units 04:29 Sodium 138 (136-145) mmol/L Potassium 3.9 (3.5-5.1) mmol/L Chloride 104 (98-107) mmol/L Carbon Dioxide 29 (21-32) mmol/L BUN 17 (6-23) mg/dl Creatinine 1.08 (0.6-1.4) mg/dl Glucose 93 (70-99(Fasting)) mg/dl Calcium 9.4 (8.6-10.3) mg/dl AST 16 (13-39) U/L ALT 14 (7-52) U/L Alkaline Phosphatase 31 L (34-104) U/L Total Protein 6.1 (6.0-8.3) gm/dl Albumin 3.6 (3.4-5.0) gm/dl Intake and Output 11/08/23 11/09/23 11/09/23 22:59 06:59 14:59 Intake Total 780 / 780 Output Total 600 / 1000 400 / 1000 Balance 180 / -220 -400 / -220 Intake: Oral 780 / 780 Output: Urine Amount (Catheter) 600 / 1000 400 / 1000 Rhoades/Indwelling 600 / 1000 400 / 1000 # Bowel Movements 0 / 0 (3) CAD (coronary artery disease) Associated angina: without angina Coronary Disease-Associated Artery/Lesion type: unspecified vessel or lesion type [place] vs. transplanted heart: [place] heart Qualified Code(s): I25.10 - Atherosclerotic heart disease of [place] gior[place] n[place] artery without angina pectoris (4) Atrial fibrillation Atrial fibrillation type: persistent (not longstanding) Qualified Code(s): I48.19 - Other persistent atrial fibrillation (5) Atrial flutter Atrial flutter type: unspecified Qualified Code(s): I48.92 - Unspecified atrial flutter
--- NOTE | 2023-11-09 13:05 | Hospitalist Progress Note ---
Date of Service November 09, 2023 Assessment & Plan (1) Atrial flutter: Plan Pt is a 73 yo male with a past medical history of hx L parieto-occipital infarct, hx subdural hematoma after a fall with seizures after, dementia, HTN, CAD, sinus bradycardia, paroxysmal atrial flutter, and CASSIE on HS CPAP who presents to the hospital on 11/05 for 3 days of weakness and dizziness with standing and fall. Pending rehab placement. #Fall - Has a long hx of falls - Experienced dizziness after standing preceding the weakness and fall, was admitted months ago for the same thing - Denies any focal neuro symptoms on admission - No acute trauma or focal neuro defects on exam on admission - Likely due to dehydration due to current infection - Fall precautions, PT/OT pending - orthostatic hypotension testing + so most likely his weakness/dizziness with p osition change is orthostatic hypotension in nature but with echo results noted below will get cardiology involved as well, but these may also be due to his home medications such as his dementia medications or imdur - midodrine started, advise pt to get up slowly and take his time, keep hydrated ~60 ounces fluids daily #Heart failure mildly reduced EF - echo 12/19/2022(per 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, + PFO per bubble study - cardiology consulted; midodrine started #Atrial flutter - noted on EKG on admission and telemetry, dx originally during 12/2022 hospitalization - noted on previous EKGs in the system as well, rate is controlled at this time (goal <110) - pt not on anticoagulation, was initially deferred due to acute subdural bleed s/p fall at that time - pt notes he does not recall following up with cardiology after that admission and was maybe on a blood thinner years ago but for a vascular issue when he had some of his varicose veins in his legs addressed - cardiology consulted; pt is rate controlled so can defer beta blockers for now, defer anticoagulation as pt has had several falls including one with a subdural hemorrhage #Leukocytosis, resolved - WBC count on admission 23, 14, now 9 - chest CTA showed some atelectasis but nothing else, CXR wnl - lactate was 2.4 ->1.8, procal 0.52 on admission - urine cx; neg - blood cx; neg - sputum cx; neg - placed on empiric cefepime on admission, D/C'ed 11/07 - likely secondary to viral infection of some kind that is resolving spontaneously or transient leukemoid rxn - was placed on leon for urinary retention, will need void trial prior to discharge #Obstructive sleep apnea - had some mild hypoxia 88% on admission but has been sat >90% primarily on RA otherwise - HS CPAP ordered #H/O: stroke - No focal neuro defects on admission - CT of the head/brain wo con negative for acute findings - Continue aspirin and statin #Dementia -Continue memantine and Donepezil for now, but may decrease one or both since they can contribute to orthostatic hypotension #HTN (hypertension), benign - Stable the last 24 hrs - Continue home lisinopril #Hyperlipidemia - Continue home statin Admission and Anticipated Discharge Date Admission Date: November 06, 2023 Supervising Physician Co-Signing Physician Notes Attending Physician Supervision Note: I independently interviewed and examined the patient and verified the perez history and physical, reviewed labs and image studies and agree with findings and care plan noted above. Fall - h/o SDH in past. likely multifactorial etiology - orthostatic hypotension, new CMP and rapid A flutter. -PT/OT recommending rehab placement. Orthostatic hypotension - On imdur, flomax, donepezil, memantine. -coached on slowly getting out of bed or chair. -Midodrine 2.5 mgs TID added by cardiology. -Imdur home dose 90 mgs decreased to 30mgs -will d/c lisinopril since BP running low. CMP - New drop in EF on echo - 45-50%. -Per cardio - abnormal septal motion is related to the tachycardia with conduction delay. -Current arrhythmia making the left ventricular systolic function appear to be mildly reduced compared to the previous echocardiogram. -d/zeferino lisinopril since hypotensive. Can't be on b agueda. PAF - Noted on EKG on admission. No AC d/t h/o SDH. No AV block agent d/t h/o b radycardia. -HR in 110s this afternoon. monitor while inpatient. Leukocytosis on admission - resolved. sepsis ruled out. -will d/c abx. SCD Subjective Pt is a 73 yo male with a past medical history of hx L parieto-occipital infarct, hx subdural hematoma after a fall with seizures after, dementia, HTN, CAD, sinus bradycardia, paroxysmal atrial flutter, and CASSIE on HS CPAP who presents to the hospital on 11/05 for 3 days of weakness and dizziness with standing and fall. Today, pt states he is feeling well. No questions or complaints at this point. States that he slept well overnight and feels great today and has just been watching the construction outside to pass time. Review of Systems Review of Systems: Constitutional: denies fever, chills, Cardio: denies chest pain, palpitations Resp: denies shortness of breath, Physical Exam Physical Exam: General:Alert and oriented, no acute distress, Cardio: Regular rate and rhythm, no murmur, Resp:Lungs clear to auscultation b/l, no wheezes or rhonchi, GI: Soft and nontender, nondistended, bowel sounds active Skin: Warm, pink, dry, Psych: Mood-affect congruence. Results & Data Results & Data Vital Signs (Past 12 Hours) Vital Signs Temp Pulse Pulse Resp BP Pulse Ox O2 Del Method 11/09/23 11:47 36.2 C L 114 H 18 102/64 94 Room Air 11/09/23 08:30 Room Air 11/09/23 07:46 36.6 C 74 17 127/72 95 Room Air 11/09/23 07:40 83 11/09/23 07:20 31 H 96 11/09/23 03:34 22 94 11/09/23 02:55 36.6 C 80 17 125/83 91 CPAP FiO2 11/09/23 11:47 11/09/23 08:30 11/09/23 07:46 11/09/23 07:40 11/09/23 07:20 21 11/09/23 03:34 11/09/23 02:55 Resident Activity Tracking Resident Involvement: Resident Care Provided Care Provided: Adult Hospital Medicine (1) Atrial flutter Atrial flutter type: unspecified Qualified Code(s): I48.92 - Unspecified atrial flutter
--- NOTE | 2023-11-10 07:11 | Hospitalist Progress Note ---
Date of Service November 10, 2023 Assessment & Plan (1) Atrial flutter: Plan Pt is a 73 yo male with a past medical history of hx L parieto-occipital infarct, hx subdural hematoma after a fall with seizures after, dementia, HTN, CAD, sinus bradycardia, paroxysmal atrial flutter, and CASSIE on HS CPAP who presents to the hospital on 11/05 for 3 days of weakness and dizziness with standing and fall. Pending rehab placement. Void trial today. #Fall - Has a long hx of falls - Experienced dizziness after standing preceding the weakness and fall, was admitted months ago for the same thing - Denies any focal neuro symptoms on admission - No acute trauma or focal neuro defects on exam on admission - Likely due to dehydration due to current infection - Fall precautions, PT/OT; rehab recommended - orthostatic hypotension testing + so most likely his weakness/dizziness with position change is orthostatic hypotension in nature, further may be secondary to medications like his imdur - midodrine started per cardiology, advise pt to get up slowly and take his time, keep hydrated ~60 ounces fluids daily #Heart failure mildly reduced EF - echo 12/19/2022(per [facility] system); EF 60-65% with no wall motion abnormalities and wnl LV function - echo 11/07/23; EF 45-50%, 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, + PFO per bubble study - cardiology consulted; midodrine started #Atrial flutter, rate controlled - noted on EKG on admission and telemetry, dx originally during 12/2022 hospitalization - noted on previous EKGs in the system as well, rate is controlled at this time (goal <110) - pt not on anticoagulation, was initially deferred due to acute subdural bleed s/p fall at that time - pt notes he does not recall following up with cardiology after that admission and was maybe on a blood thinner years ago but for a vascular issue when he had some of his varicose veins in his legs addressed - cardiology consulted; pt is rate controlled so can defer beta blockers for now, defer anticoagulation as pt has had several falls including one with a subdural hemorrhage #Leukocytosis, resolved - WBC count on admission 23, 14, now 9 - chest CTA showed some atelectasis but nothing else, CXR wnl - lactate was 2.4 ->1.8, procal 0.52 on admission - urine cx; neg - blood cx; neg - sputum cx; neg - placed on empiric cefepime on admission, D/C'ed 11/07 - likely secondary to viral infection of some kind that is resolving spontaneously or transient leukemoid rxn - was placed on leon for urinary retention, will need void trial prior to discharge #Obstructive sleep apnea - had some mild hypoxia 88% on admission but has been sat >90% primarily on RA otherwise - HS CPAP ordered #H/O: stroke - No focal neuro defects on admission - CT of the head/brain wo con negative for acute findings - Continue aspirin and statin #Dementia -Continue memantine and Donepezil for now, but may decrease one or both since they can contribute to orthostatic hypotension #HTN (hypertension), benign - Stable the last 24 hrs - Continue home lisinopril #Hyperlipidemia - Continue home statin Admission and Anticipated Discharge Date Admission Date: November 06, 2023 Supervising Physician Co-Signing Physician Notes Attending Physician Supervision Note: I independently interviewed and examined the patient and verified the perez history and physical, reviewed labs and image studies and agree with findings and care plan noted above. Fall - h/o SDH in past. likely multifactorial etiology - orthostatic hypotension, new CMP and rapid A flutter. -PT/OT recommending rehab placement. Orthostatic hypotension - On imdur, flomax, donepezil, memantine. -coached on slowly getting out of bed or chair. -Midodrine 2.5 mgs TID added by cardiology. -Imdur home dose 90 mgs decreased to 30mgs CMP - New drop in EF on echo - 45-50%. -Per cardio - abnormal septal motion is related to the tachycardia with conduction delay. -Current arrhythmia making the left ventricular systolic function appear to be mildly reduced compared to the previous echocardiogram. -Can't be on b agueda. -d/zeferino lisinopril since hypotensive - could consider resuming at 2.5mgs dose if Bp allows. PAF - Noted on EKG on admission. No AC d/t h/o SDH. No AV block agent d/t h/o bradycardia. SCD Subjective Pt is a 73 yo male with a past medical history of hx L parieto-occipital infarct, hx subdural hematoma after a fall with seizures after, dementia, HTN, CAD, sinus bradycardia, paroxysmal atrial flutter, and CASSIE on HS CPAP who presents to the hospital on 11/05 for 3 days of weakness and dizziness with standing and fall. Today, pt states he is doing just fine. He states he has no complaints here. No questions right now either. He states he is feeling great. Review of Systems Review of Systems: Constitutional: denies fever, chills, Cardio: denies chest pain, palpitations Resp: denies shortness of breath, GI: No nausea or vomiting with meals Physical Exam Physical Exam: General:Alert and oriented, no acute distress, Cardio: Regular rate and rhythm, no murmur, Resp:Lungs clear to auscultation b/l, no wheezes or rhonchi, GI: Soft and nontender, nondistended, bowel sounds active Skin: Warm, pink, dry, Psych: Mood-affect congruence. Results & Data Results & Data Vital Signs (Past 12 Hours) Vital Signs Temp Pulse Pulse Resp BP Pulse Ox O2 Del Method 11/10/23 03:55 36.6 C 84 18 130/85 95 CPAP 11/10/23 02:26 23 11/09/23 23:12 36.7 C 91 H 16 130/85 95 Nasal Cannula 11/09/23 23:00 89 11/09/23 22:55 80 15 97 11/09/23 19:47 36.6 C 79 16 110/67 94 Room Air FiO2 11/10/23 03:55 11/10/23 02:26 11/09/23 23:12 11/09/23 23:00 11/09/23 22:55 21 11/09/23 19:47 Resident Activity Tracking Resident Involvement: Resident Care Provided Care Provided: Adult Hospital Medicine (1) Atrial flutter Atrial flutter type: unspecified Qualified Code(s): I48.92 - Unspecified atrial flutter
--- NOTE | 2023-11-11 06:53 | Hospitalist Progress Note ---
Date of Service November 11, 2023 Assessment & Plan (1) Atrial flutter: Plan Pt is a 73 yo male with a past medical history of hx L parieto-occipital infarct, hx subdural hematoma after a fall with seizures after, dementia, HTN, CAD, sinus bradycardia, paroxysmal atrial flutter, and CASSIE on HS CPAP who presents to the hospital on 11/05 for 3 days of weakness and dizziness with standing and fall. Awaiting rehab placement. #Fall - Has a long hx of falls - Experienced dizziness after standing preceding the weakness and fall, was admitted months ago for the same thing - Denies any focal neuro symptoms on admission - No acute trauma or focal neuro defects on exam on admission - Likely due to dehydration due to current infection - Fall precautions, PT/OT; rehab recommended - orthostatic hypotension testing + so most likely his weakness/dizziness with position change is orthostatic hypotension in nature, further may be secondary to medications like his imdur - midodrine started per cardiology, advise pt to get up slowly and take his time , keep hydrated ~60 ounces fluids daily #Heart failure mildly reduced EF - echo 12/19/2022(per [facility] system); EF 60-65% with no wall motion abnormalities and wnl LV function - echo 11/07/23; EF 45-50%, 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, + PFO per bubble study - cardiology consulted; midodrine started #Atrial flutter, rate controlled - noted on EKG on admission and telemetry, dx originally during 12/2022 hospitalization - noted on previous EKGs in the system as well, rate is controlled at this time (goal <110) - pt not on anticoagulation, was initially deferred due to acute subdural bleed s/p fall at that time - pt notes he does not recall following up with cardiology after that admission and was maybe on a blood thinner years ago but for a vascular issue when he had some of his varicose veins in his legs addressed - cardiology consulted; pt is rate controlled so can defer beta blockers for now, defer anticoagulation as pt has had several falls including one with a subdural hemorrhage #Leukocytosis, resolved - WBC count on admission 23, 14, now 9 - chest CTA showed some atelectasis but nothing else, CXR wnl - lactate was 2.4 ->1.8, procal 0.52 on admission - urine cx; neg - blood cx; neg - sputum cx; neg - placed on empiric cefepime on admission, D/C'ed 11/07 - likely secondary to viral infection of some kind that is resolving spontaneously or transient leukemoid rxn #Obstructive sleep apnea - had some mild hypoxia 88% on admission but has been sat >90% primarily on RA otherwise - HS CPAP ordered #H/O: stroke - No focal neuro defects on admission - CT of the head/brain wo con negative for acute findings - Continue aspirin and statin #Dementia -Continue memantine and Donepezil for now, but may decrease one or both since they can contribute to orthostatic hypotension #HTN (hypertension), benign - Stable the last 24 hrs - Continue to hold home lisinopril as pressures stable without it #Hyperlipidemia - Continue home statin Admission and Anticipated Discharge Date Admission Date: November 06, 2023 Supervising Physician Co-Signing Physician Notes Attending Physician Supervision Note: I independently interviewed and examined the patient and verified the perez history and physical, reviewed labs and image studies and agree with findings and care plan noted above. Fall - h/o SDH in past. likely multifactorial etiology - orthostatic hypotension, new CMP and rapid A flutter. -PT/OT recommending rehab placement. Orthostatic hypotension - On imdur, flomax, donepezil, memantine. -coached on slowly getting out of bed or chair. -Midodrine 2.5 mgs TID added by cardiology. -Imdur home dose 90 mgs decreased to 30mgs CMP - New drop in EF on echo - 45-50%. -Per cardio - abnormal septal motion is related to the tachycardia with conduction delay. -Current arrhythmia making the left ventricular systolic function appear to be mildly reduced compared to the previous echocardiogram. -Can't be on b agueda. -d/zeferino lisinopril since hypotensive - could consider resuming at 2.5mgs dose if Bp allows. PAF - Noted on EKG on admission. No AC d/t h/o SDH. No AV block agent d/t h/o bradycardia. SCD Subjective Pt is a 73 yo male with a past medical history of hx L parieto-occipital infarct, hx subdural hematoma after a fall with seizures after, dementia, HTN, CAD, sinus bradycardia, paroxysmal atrial flutter, and CASSIE on HS CPAP who presents to the hospital on 11/05 for 3 days of weakness and dizziness with standing and fall. Today, pt states he is doing just fine. He states he has no questions or complaints at this point in time, just awaiting rehab placement. Review of Systems Review of Systems: Constitutional: denies fever, chills, Cardio: denies chest pain, palpitations Resp: denies shortness of breath, GI: No nausea or vomiting with meals Physical Exam Physical Exam: General:Alert and oriented, no acute distress, Cardio: Regular rate and rhythm, no murmur, Resp:Lungs clear to auscultation b/l, no wheezes or rhonchi, GI: Soft and nontender, nondistended, bowel sounds active Skin: Warm, pink, dry, Psych: Mood-affect congruence. Results & Data Results & Data Vital Signs (Past 12 Hours) Vital Signs Temp Pulse Pulse Resp BP Pulse Ox O2 Del Method 11/11/23 03:28 36.7 C 85 17 126/81 96 CPAP 11/11/23 02:28 22 11/10/23 23:21 36.2 C L 85 17 112/74 94 CPAP 11/10/23 23:00 83 11/10/23 22:02 84 20 94 11/10/23 20:26 36.3 C L 88 17 123/82 93 Room Air Resident Activity Tracking Resident Involvement: Resident Care Provided Care Provided: Adult Hospital Medicine (1) Atrial flutter Atrial flutter type: unspecified Qualified Code(s): I48.92 - Unspecified atrial flutter
[2023-11-11 07:23] LABS: BUN Creatinine Ratio 26.7 (10-20); Calcium 9.2 mg/dl (8.6-10.3); Creatinine Clr Calc Pharmacy 89.4 ml/min; Est GFR (African American) 96.5 ml/min; Est GFR (Non-African American) 83.3 ml/min; Magnesium 1.7 mg/dl (1.7-2.4); Phosphorus 3.8 mg/dl (2.5-4.9); Potassium 4.2 mmol/L (3.5-5.1)
[2023-11-12 06:44] LABS: BUN Creatinine Ratio 19.8 (10-20); Calcium 9.3 mg/dl (8.6-10.3); Creatinine Clr Calc Pharmacy 83.8 ml/min; Est GFR (African American) 89.3 ml/min; Magnesium 1.7 mg/dl (1.7-2.4); Phosphorus 3.5 mg/dl (2.5-4.9)
--- NOTE | 2023-11-12 07:01 | Hospitalist Progress Note ---
Date of Service November 12, 2023 Assessment & Plan (1) Atrial flutter: Plan Pt is a 73 yo male with a past medical history of hx L parieto-occipital infarct, hx subdural hematoma after a fall with seizures after, dementia, HTN, CAD, sinus bradycardia, paroxysmal atrial flutter, and CASSIE on HS CPAP who presents to the hospital on 11/05 for 3 days of weakness and dizziness with standing and fall. Awaiting rehab placement. Continue midodrine on discharge. #Fall - Has a long hx of falls - Experienced dizziness after standing preceding the weakness and fall, was admitted months ago for the same thing - Denies any focal neuro symptoms on admission - No acute trauma or focal neuro defects on exam on admission - Likely due to dehydration due to current infection - Fall precautions, PT/OT; rehab recommended - orthostatic hypotension testing + so most likely his weakness/dizziness with position change is orthostatic hypotension in nature, further may be secondary to medications like his imdur - midodrine started per cardiology, advise pt to get up slowly and take his time, keep hydrated ~60 ounces fluids daily #Heart failure mildly reduced EF - echo 12/19/2022(per [facility] system); EF 60-65% with no wall motion abnormalities and wnl LV function - echo 11/07/23; EF 45-50%, 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, + PFO per bubble study - cardiology consulted; midodrine started #Atrial flutter, rate controlled - noted on EKG on admission and telemetry, dx originally during 12/2022 hospitalization - noted on previous EKGs in the system as well, rate is controlled at this time (goal <110) - pt not on anticoagulation, was initially deferred due to acute subdural bleed s/p fall at that time - pt notes he does not recall following up with cardiology after that admission and was maybe on a blood thinner years ago but for a vascular issue when he had some of his varicose veins in his legs addressed - cardiology consulted; pt is rate controlled so can defer beta blockers for now, defer anticoagulation as pt has had several falls including one with a subdural hemorrhage #Leukocytosis, resolved - WBC count on admission 23, 14, now 9 - chest CTA showed some atelectasis but nothing else, CXR wnl - lactate was 2.4 ->1.8, procal 0.52 on admission - urine cx; neg - blood cx; neg - sputum cx; neg - placed on empiric cefepime on admission, D/C'ed 11/07 - likely secondary to viral infection of some kind that is resolving spontaneously or transient leukemoid rxn #Obstructive sleep apnea - had some mild hypoxia 88% on admission but has been sat >90% primarily on RA otherwise - HS CPAP ordered #H/O: stroke - No focal neuro defects on admission - CT of the head/brain wo con negative for acute findings - Continue aspirin and statin #Dementia -Continue memantine and Donepezil for now, but may decrease one or both since they can contribute to orthostatic hypotension #HTN (hypertension), benign - Stable the last 24 hrs - Continue to hold home lisinopril as pressures stable without it #Hyperlipidemia - Continue home statin Admission and Anticipated Discharge Date Admission Date: November 06, 2023 Subjective Pt is a 73 yo male with a past medical history of hx L parieto-occipital infarct, hx subdural hematoma after a fall with seizures after, dementia, HTN, CAD, sinus bradycardia, paroxysmal atrial flutter, and CASSIE on HS CPAP who presents to the hospital on 11/05 for 3 days of weakness and dizziness with standing and fall. Today, pt states he is feeling good. No questions or complaints at this time. Tolerating meals without issue. Awaiting rehab placement. Review of Systems Review of Systems: Constitutional: denies fever, chills, Cardio: denies chest pain, palpitations Resp: denies shortness of breath, GI: No nausea or vomiting with meals Physical Exam Physical Exam: General:Alert and oriented, no acute distress, Cardio: Regular rate and rhythm, no murmur, Resp:Lungs clear to auscultation b/l, no wheezes or rhonchi, GI: Soft and nontender, nondistended, bowel sounds active Skin: Warm, pink, dry, Psych: Mood-affect congruence. Results & Data Results & Data Vital Signs (Past 12 Hours) Vital Signs Temp Pulse Pulse Resp BP Pulse Ox O2 Del Method 11/12/23 03:36 36.4 C L 83 17 132/84 97 CPAP 11/12/23 02:19 20 11/11/23 23:19 36.5 C 78 17 119/76 94 CPAP 11/11/23 23:15 82 11/11/23 22:43 28 H 95 11/11/23 19:16 36.3 C L 88 16 125/82 95 Room Air Resident Activity Tracking Resident Involvement: Resident Care Provided Care Provided: Adult Hospital Medicine (1) Atrial flutter Atrial flutter type: unspecified Qualified Code(s): I48.92 - Unspecified atrial flutter
--- NOTE | 2023-11-13 06:46 | Hospitalist Progress Note ---
Date of Service November 13, 2023 Assessment & Plan (1) Atrial flutter: (2) Fall: (3) Leukocytosis: (4) Atrial fibrillation: (5) Orthostatic hypotension: (6) Heart failure with mildly reduced ejection fraction (HFmrEF): (7) Obstructive sleep apnea: (8) H/O: stroke: (9) CAD (coronary artery disease): (10) Dementia: Plan Pt is a 73 yo male with a past medical history of hx L parieto-occipital infarct, hx subdural hematoma after a fall with seizures after, dementia, HTN, C AD, sinus bradycardia, paroxysmal atrial flutter, and CASSIE on HS CPAP who presents to the hospital on 11/05 for 3 days of weakness and dizziness with standing and fall. Today, still awaiting rehab placement. Continue midodrine on discharge. #Fall - Has a long hx of falls - Experienced dizziness after standing preceding the weakness and fall, was admitted months ago for the same thing - Denies any focal neuro symptoms on admission - No acute trauma or focal neuro defects on exam on admission - Likely due to dehydration due to current infection - Fall precautions, PT/OT; rehab recommended - orthostatic hypotension testing + so most likely his weakness/dizziness with position change is orthostatic hypotension in nature, further may be secondary to medications like his imdur - midodrine started per cardiology, advise pt to get up slowly and take his time, keep hydrated ~60 ounces fluids daily #Heart failure mildly reduced EF - echo 12/19/2022(per [facility] system); EF 60-65% with no wall motion abnormalities and wnl LV function - echo 11/07/23; EF 45-50%, 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, + PFO per bubble study - cardiology consulted; midodrine started #Atrial flutter, rate controlled - noted on EKG on admission and telemetry, dx originally during 12/2022 hospitalization - noted on previous EKGs in the system as well, rate is controlled at this time (goal <110) - pt not on anticoagulation, was initially deferred due to acute subdural bleed s/p fall at that time - pt notes he does not recall following up with cardiology after that admission and was maybe on a blood thinner years ago but for a vascular issue when he had some of his varicose veins in his legs addressed - cardiology consulted; pt is rate controlled so can defer beta blockers for now, defer anticoagulation as pt has had several falls including one with a subdural hemorrhage #Leukocytosis, resolved - WBC count on admission 23, 14, now 9 - chest CTA showed some atelectasis but nothing else, CXR wnl - lactate was 2.4 ->1.8, procal 0.52 on admission - urine cx; neg - blood cx; neg - sputum cx; neg - placed on empiric cefepime on admission, D/C'ed 11/07 - likely secondary to viral infection of some kind that is resolving spontaneously or transient leukemoid rxn #Obstructive sleep apnea - had some mild hypoxia 88% on admission but has been sat >90% primarily on RA otherwise - HS CPAP ordered #H/O: stroke - No focal neuro defects on admission - CT of the head/brain wo con negative for acute findings - Continue aspirin and statin #Dementia -Continue memantine and Donepezil for now, but may decrease one or both since they can contribute to orthostatic hypotension #HTN (hypertension), benign - Stable the last 24 hrs - Continue to hold home lisinopril as pressures stable without it #Hyperlipidemia - Continue home statin Admission and Anticipated Discharge Date Admission Date: November 06, 2023 Subjective Pt is a 73 yo male with a past medical history of hx L parieto-occipital infarct, hx subdural hematoma after a fall with seizures after, dementia, HTN, CAD, sinus bradycardia, paroxysmal atrial flutter, and CASSIE on HS CPAP who presents to the hospital on 11/05 for 3 days of weakness and dizziness with standing and fall. Today, pt states he is feeling pretty good. He states he has no questions or complaints at this point, still just awaiting rehab. Enjoys the view from his new room. Review of Systems Review of Systems: Cardio: denies chest pain, Resp: denies shortness of breath, GI: No nausea or vomiting with meals Physical Exam Physical Exam: General:Alert and oriented, no acute distress, Cardio: Regular rate and rhythm, no murmur, Resp:Lungs clear to auscultation b/l, no wheezes or rhonchi, GI: Soft and nontender, nondistended, bowel sounds active Skin: Warm, pink, dry, Psych: Mood-affect congruence. Results & Data Results & Data Vital Signs (Past 12 Hours) Vital Signs Temp Pulse Pulse Resp BP BP Pulse Ox 11/13/23 03:45 80 28 H 95 11/12/23 23:55 84 22 96 11/12/23 20:57 36.6 C 80 16 137/83 95 11/12/23 20:00 11/12/23 19:00 36.4 C L 85 20 119/65 94 O2 Del Method 11/13/23 03:45 11/12/23 23:55 11/12/23 20:57 Room Air 11/12/23 20:00 CPAP 11/12/23 19:00 Room Air Resident Activity Tracking Resident Involvement: Resident Care Provided Care Provided: Adult Hospital Medicine (1) Atrial flutter Atrial flutter type: unspecified Qualified Code(s): I48.92 - Unspecified atrial flutter (4) Atrial fibrillation Atrial fibrillation type: persistent (not longstanding) Qualified Code(s): I48.19 - Other persistent atrial fibrillation (9) CAD (coronary artery disease) Associated angina: without angina Coronary Disease-Associated Artery/Lesion type: unspecified vessel or lesion type Elem vs. transplanted heart: [place] heart Qualified Code(s): I25.10 - Atherosclerotic heart disease of [place] coronary artery without angina pectoris
[2023-11-13 07:21] LABS: BUN Creatinine Ratio 20.5 (10-20); Calcium 9.1 mg/dl (8.6-10.3); Creatinine Clr Calc Pharmacy 91.4 ml/min; Est GFR (African American) 97.4 ml/min; Magnesium 1.7 mg/dl (1.7-2.4); Phosphorus 3.6 mg/dl (2.5-4.9); Potassium 3.9 mmol/L (3.5-5.1)
--- NOTE | 2023-11-13 12:18 | Discharge Summary ---
Date of Service November 13, 2023 Admission HPI Per Admitting Provider Leodan Hussein Jr. is a 73 year old male with a PMH significant for previous left parieto-occipital infarct, traumatic 5 mm subdural hematoma along the falx, seizures related to his previous subdural hematoma, dementia, HTN, CAD, sinus bradycardia, paroxysmal atrial flutter, and CASSIE on HS CPAP who presented to the [facility] ED on 11/06/23 after sustaining a fall due to dizziness and progressive BL LE weakness over the past 72 hours. On arrival to the ED he was noted to in sinus tachycardia with HR in the 120-130s and hypoxic at 88% on RA but otherwise stable. Labs were significant for a leukocytosis of 23 with neutrophil predominance of 21, initial lactate of 2.4 1.8 on 2 hour repeat, mag of 1.5, total bili of 1.6 with other LFTs WNL, high sen trop and BNP WNL, procal of 0.52, and full respiratory biofire negative. CT fo the head/brain/cerival spine wo con and chest xray were read as negative for acute findings. CTA of the chest w/PE protocol was read as 1. No pulmonary emboli identified although lower lobe segmental and subsegmental pulmonary arteries suboptimally assessed due to respiratory motion. 2. Lower lung groundglass and linear densities which favor atelectasis. No consolidation to suggest pneumonia. 3. Secretions/mucous within the distal trachea. No central obstructing mass.. Prior to admission the patient was given a dose of Cefepime, 1L NSS, and 1gm IV mag-sulfate. At the time of the exam the patient was resting comfortably in bed in no acute distress. Family was not in the patient's room at the time of the exam. The patient states that when he stood from bed this am and immediately became dizzy. He denies the room spinning but states that his lower extremities felt weak causing him to fall. He hit his head off the wall but denies losing consciousness. He denies current headache, dizziness, changes in vision, hearing, taste, chest, SOB, abd pain, nausea, vomiting, diarrhea, dysuria, hematuria, melena, and lower extremity weakness. He does mention increased ur inary frequency. I was able to speak with his Son/POA Leodan Hussein WILI who confirms the above history. His son confirms the patient has a living will and is a full code. Please refer to Dr. Chandler's attestation for any changes to the treatment plan Admission Exam Per Admitting Provider Physical Exam: General: In no acute distress, stated age, well-nourished, good hygiene HEENT: Normocephalic, atraumatic, no scleral icterus, pupils around round, symmetrical, and reactive to light, moist mucus membranes, trachea midline, no thyromegaly Chest/Pulm: No respiratory distress, symmetrical chest expansion, clear breath sounds throughout Cardiac: RRR, no murmurs noted Abdomen: Negative for ascites and bruising, normoactive bowel sounds, soft, non- tender to palpation throughout Musculoskeletal: Symmetrical and without signs of acute trauma, upper and lower extremities with full ROM, no atrophy, spasticity, or flaccidity Extremities: Radial, dorsalis pedis, and posterior tibial pulses are intact and symmetrical, no edema noted in the BL LE's Skin: Warm, dry, no rashes , lesions, or scars noted Neuro: Alert and oriented to person, place, month, no focal defects, CN II-XII tested and intact, negative cerebellar and pronator drift BL, no tremors noted Psych: No acute distress, calm and cooperative during the exam Principal Diagnosis Orthostatic hypotension, deconditioning Discharge Exam General:Alert and oriented, no acute distress, Cardio: Regular rate and rhythm, no murmur, Resp:Lungs clear to auscultation b/l, no wheezes or rhonchi, GI: Soft and nontender, nondistended, bowel sounds active Skin: Warm, pink, dry, Psych: Mood-affect congruence. Discharge Data Allergies Allergy/AdvReac Type Severity Reaction Status Date / Time cephalexin Allergy Unknown Verified 08/10/23 08:42 Penicillins Allergy Unknown Verified 08/10/23 08:42 prednisone Allergy Unknown Verified 08/10/23 08:42 Consultations 11/06/23 10:47 ED Decision to Admit Stat 11/07/23 12:12 Consult Cardiology Routine Ordered Studies 11/06/23 07:00 CT cervical spine wo con Stat CT head/brain wo con Stat 11/06/23 08:41 CT angio chest PE protocol Stat Hospital Course (1) Atrial flutter: (2) Fall: (3) Leukocytosis: (4) Atrial fibrillation: (5) Orthostatic hypotension: (6) Heart failure with mildly reduced ejection fraction (HFmrEF): (7) Obstructive sleep apnea: (8) H/O: stroke: (9) CAD (coronary artery disease): (10) Dementia: Plan Pt is a 73 yo male with a past medical history of hx L parieto-occipital infarct, hx subdural hematoma after a fall with seizures after, dementia, HTN, CAD, sinus bradycardia, paroxysmal atrial flutter, and CASSIE on HS CPAP who presents to the hospital on 11/05 for 3 days of weakness and dizziness with standing and fall. Med changes from this visit: - started midodrine - discontinued lisinopril #Fall - Has a long hx of falls - Experienced dizziness after standing preceding the weakness and fall, was admitted months ago for the same thing - Denies any focal neuro symptoms on admission - No acute trauma or focal neuro defects on exam on admission - Likely due to dehydration due to current infection - Fall precautions, PT/OT; rehab recommended - orthostatic hypotension testing + so most likely his weakness/dizziness with position change is orthostatic hypotension in nature, further may be secondary to medications like his imdur - midodrine started per cardiology, advise pt to get up slowly and take his time, keep hydrated ~60 ounces fluids daily, continue midodrine on discharge #Heart failure mildly reduced EF - echo 12/19/2022(per [facility] system); EF 60-65% with no wall motion abnormalities and wnl LV function - echo 11/07/23; EF 45-50%, 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, + PFO per bubble study - cardiology consulted; midodrine started #Atrial flutter, rate controlled - noted on EKG on admission and telemetry, dx originally during 12/2022 hospitalization - noted on previous EKGs in the system as well, rate is controlled at this time (goal <110) - pt not on anticoagulation, was initially deferred due to acute subdural bleed s/p fall at that time - pt notes he does not recall following up with cardiology after that admission and was maybe on a blood thinner years ago but for a vascular issue when he had some of his varicose veins in his legs addressed - cardiology consulted; pt is rate controlled so can defer beta blockers for now, defer anticoagulation as pt has had several falls including one with a subdural hemorrhage #Leukocytosis, resolved - WBC count on admission 23, 14, now 9 - chest CTA showed some atelectasis but nothing else, CXR wnl - lactate was 2.4 ->1.8, procal 0.52 on admission - urine cx; neg - blood cx; neg - sputum cx; neg - placed on empiric cefepime on admission, D/C'ed 11/07 - likely secondary to viral infection of some kind that is resolving spontaneously or transient leukemoid rxn #H/O: stroke - No focal neuro defects on admission - CT of the head/brain wo con negative for acute findings - Continue aspirin and statin #Dementia -Continue memantine and Donepezil for now, but may consider decrease one or both since they can contribute to orthostatic hypotension if symptoms continue #HTN (hypertension), benign - Stable the last 24 hrs - Continue to hold home lisinopril as pressures stable without it Total Time Total Time Spent Total Time Spent (In Minutes): <30 Discharge Plan Discharge Items Patient Disposition: Transfer Inpatient Rehab Fac Reason For Visit: ACUTE HYPOXIC RESPIRATORY FAILURE,FALL,BL LE WEAKN Discharge Diagnosis: Orthostatic hypotension, deconditioning Activity: As commented below Activity Comment: As tolerated. Non-emergency contact: Primary Care Provider Call non-emergency contact if: you have any medication questions and your symptoms worsen Follow-up/Referrals: Cristy Morrissey MD [Primary Care Provider] - Diet: Regular Addtl Attending Provider Instructions: Pt is a 73 yo male with a past medical history of hx L parieto-occipital infarct, hx subdural hematoma after a fall with seizures after, dementia, HTN, CAD, sinus bradycardia, paroxysmal atrial flutter, and CASSIE on HS CPAP who presents to the hospital on 11/05 for 3 days of weakness and dizziness with standing and fall. Med changes from this visit: - started midodrine - discontinued lisinopril #Fall - Has a long hx of falls - Experienced dizziness after standing preceding the weakness and fall, was admitted months ago for the same thing - Denies any focal neuro symptoms on admission - No acute trauma or focal neuro defects on exam on admission - Likely due to dehydration due to current infection - Fall precautions, PT/OT; rehab recommended - orthostatic hypotension testing + so most likely his weakness/dizziness with position change is orthostatic hypotension in nature, further may be secondary to medications like his imdur - midodrine started per cardiology, advise pt to get up slowly and take his time, keep hydrated ~60 ounces fluids daily, continue midodrine on discharge #Heart failure mildly reduced EF - echo 12/19/2022(per [facility] system); EF 60-65% with no wall motion abnormalities and wnl LV function - echo 11/07/23; EF 45-50%, 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, + PFO per bubble study - cardiology consulted; midodrine started #Atrial flutter, rate controlled - noted on EKG on admission and telemetry, dx originally during 12/2022 hospitalization - noted on previous EKGs in the system as well, rate is controlled at this time (goal <110) - pt not on anticoagulation, was initially deferred due to acute subdural bleed s/p fall at that time - pt notes he does not recall following up with cardiology after that admission and was maybe on a blood thinner years ago but for a vascular issue when he had some of his varicose veins in his legs addressed - cardiology consulted; pt is rate controlled so can defer beta blockers for now, defer anticoagulation as pt has had several falls including one with a subdural hemorrhage #Leukocytosis, resolved - WBC count on admission 23, 14, now 9 - chest CTA showed some atelectasis but nothing else, CXR wnl - lactate was 2.4 ->1.8, procal 0.52 on admission - urine cx; neg - blood cx; neg - sputum cx; neg - placed on empiric cefepime on admission, D/C'ed 11/07 - likely secondary to viral infection of some kind that is resolving spontaneously or transient leukemoid rxn #H/O: stroke - No focal neuro defects on admission - CT of the head/brain wo con negative for acute findings - Continue aspirin and statin #Dementia -Continue memantine and Donepezil for now, but may consider decrease one or both since they can contribute to orthostatic hypotension if symptoms continue #HTN (hypertension), benign - Stable the last 24 hrs - Continue to hold home lisinopril as pressures stable without it Pending Studies at Discharge: No Stand-Alone Forms: My [facility] Skilled Items Patient informed of condition?: Yes DNR: No Discharge Level of Care: Acute rehab Communicable Disease: No Discharge Prognosis: Stable Lines: None Urinary Catheter: No Medications and DC Order Prescriptions: New midodrine 2.5 mg Tablet 2.5 mg PO TID@0800,1200,1700 Qty: 90 1RF Continued isosorbide mononitrate 30 mg tablet extended release 24 hr 30 mg PO QAM Qty: 90 3RF donepezil 10 mg tablet 10 mg PO QAM 90 Days Qty: 90 3RF fenofibrate nanocrystallized 145 mg tablet 145 mg PO QAM Qty: 90 3RF memantine 10 mg tablet 10 mg PO BID 90 Days Qty: 180 3RF ranolazine 500 mg Tablet Extended Release 12 Hr 0 mg PO BID Rx Instructions: last filled in march 2023 atorvastatin 80 mg Tablet 80 mg PO QPM omega [id number] oil [Fish Oil] 1,200 (144-216) mg Capsule 1 cap PO QAM Rx Instructions: unable to verify with pharmacy, otc 11/06/23 cholecalciferol (vitamin D3) [Vitamin D3] 25 mcg (1,000 unit) Tablet,Chewable 25 mcg PO QAM Rx Instructions: unable to verify with pharmacy, otc 11/06/23 aspirin 81 mg tablet,delayed release (DR/EC) 81 mg PO QAM Hold Instructions: Until 12/25 Rx Instructions: unable to verify with pharmacy, otc 11/06/23 cyanocobalamin (vitamin B-12) [Vitamin B-12] 1,000 mcg Tablet 1,000 mcg PO QAM Rx Instructions: unable to verify with pharmacy, otc 11/06/23 potassium gluconate 600 mg (99 mg) Tablet 600 mg PO DAILY Rx Instructions: unable to verify with pharmacy, otc 11/06/23 nitroglycerin 0.4 mg tablet, sublingual 0.4 mg sublingual UD PRN (Reason: Chest Pain) Discontinued lisinopril 10 mg Tablet 10 mg PO QAM Discharge Orders: Discharge Order (Routine); Ordered 11/13/23 Ordered By: Monica Nolen/Other Patient Handouts: Preventing Falls in the Home Admission Data Admit Date/Time: 11/06/23 10:19 Attending Provider: Brian Pinto Admit Provider: Fredis Chandler Primary Care Provider: Cristy Morrissey Other Providers: [place]; Mahad Marie at [facility]; Fredis Chandler Supervising Physician Co-Signing Physician Notes I personally examined the patient and verified all perez points of history and exam, discussed case, and agree with decision making with Dr Desir For center care today. No new problems. Vitals noted, in general he is awake and alert pleasant no distress. HEENT normocephalic atraumatic mucous membranes moist. Breathing unlabored no accessory muscle use good effort. Skin shows no rashes no pallor or icterus Fall - h/o SDH in past. likely multifactorial etiology - orthostatic hypotension, new CMP and rapid A flutter. -PT/OT recommending rehab placement. Orthostatic hypotension - On imdur, flomax, donepezil, memantine. -coached on slowly getting out of bed or chair. -Midodrine 2.5 mgs TID added by cardiology. -Imdur home dose 90 mgs decreased to 30mgs CMP - New drop in EF on echo - 45-50%. -Per cardio - abnormal septal motion is related to the tachycardia with conduction delay. -Current arrhythmia making the left ventricular systolic function appear to be mildly reduced compared to the previous echocardiogram. -Can't be on b agueda. -d/zeferino lisinopril since hypotensive - could consider resuming at 2.5mgs dose if Bp allows. PAF - Noted on EKG on admission. No AC d/t h/o SDH. No AV block agent d/t h/o bradycardia. Resident Activity Tracking Resident Involvement: Resident Care Provided Care Provided: Adult Hospital Medicine
--- NOTE | 2023-11-13 19:44 | Billing Data ---
Date of Service November 13, 2023 Coding Level of Care Code 62696 IN/OBS DISCH 30 MIN/LESS
== END 2023-11-13 15:29 | DRG 866 ==
LOC: ED 06:12 → SUATTDRO 10:19 → EDINP 10:19 → 2S 12:13 → 3W 11-12 18:54 → UNDODISIN 11-13 14:23
DX: Z86.73 Personal history of transient ischemic attack (TIA), and cerebral infarction without residual deficits; Z11.52 Encounter for screening for COVID-19; I42.9 Cardiomyopathy, unspecified; I25.10 Atherosclerotic heart disease of native coronary artery without angina pectoris; I50.22 Chronic systolic (congestive) heart failure; R09.02 Hypoxemia; I95.1 Orthostatic hypotension; Z88.0 Allergy status to penicillin; Z95.5 Presence of coronary angioplasty implant and graft; I48.92 Unspecified atrial flutter; G47.33 Obstructive sleep apnea (adult) (pediatric); Z88.8 Allergy status to other drugs, medicaments and biological substances; E86.0 Dehydration; Z88.1 Allergy status to other antibiotic agents; B34.9 Viral infection, unspecified; F03.90 Unspecified dementia, unspecified severity, without behavioral disturbance, psychotic disturbance, mood disturbance, and anxiety; Z95.1 Presence of aortocoronary bypass graft; R29.6 Repeated falls; I11.0 Hypertensive heart disease with heart failure; E78.5 Hyperlipidemia, unspecified; Z79.899 Other long term (current) drug therapy; I48.91 Unspecified atrial fibrillation